=== PATIENT | female | born 1940 | race Caucasian/White ===

== ENCOUNTER → 2017-11-13 14:14 | Outpatient (CLI) | payer MEDICARE, OTHER, SELFPAY ==
[2017-11-13 16:02] LABS: Absolute Lymphocyte Count 1.11 X10^3/ul (0.83-4.51); Absolute Neutrophil Count 6.3 X10^3/uL (2.0-7.7); Basophil# 0.04 X10^3/uL; Basophil% 0.5 % (0-1); Eosinophil# 0.19 X10^3/uL; Eosinophils% 2.3 % (0-5); Hematocrit 41.6 % (37-47); Hemoglobin 13.8 g/dl (12.0-15.0); Lymphocyte # 1.11 X10^3/ul (4.0); Lymphocyte % 13.2 % (19-41); Mean Corp Hgb Conc 33.2 g/gl (32-36); Mean Corpuscular Hgb 30.4 pg (27.0-32.0); Mean Corpuscular Volume 91.6 fL (81-99); Mean Platelet Vol. 10.5 fl (6.2-12.0); Monocyte% 9.5 % (0-10); Neutrophil # 6.26 X10^3/uL (2.7-7.7); Neutrophil % 74.3 % (47-70); Platelet Count 265 K/mm3 (150-450); RBC Distribution Width CV 13.1 % (11.6-14.6); RBC Distribution Width SD 43.5 fl (35.1-43.9); Red Blood Count 4.54 M/mm3 (4.2-5.4); White Blood Count 8.4 K/mm3 (4.4-11.0)
[2017-11-13 16:04] LABS: POSITIVE COUNT NO; POSITIVE DIFFERENTIAL NO; POSITIVE MORPHOLOGY NO
[2017-11-13 16:19] LABS: CRP < 2.90 mg/L (0.0-3.0)
[2017-11-13 16:38] LABS: Erythrocyte Sedimentation Rate 16 mm/hr (0-30)
== END ==
PROVIDERS: Family Provider Internal Medicine; PCP Internal Medicine; Visit Provider Specialist
DX: T84.84XA Pain due to internal orthopedic prosthetic devices, implants and grafts, initial encounter (principal)
CPT/HCPCS: 36415; 85025; 85652; 86140

== ENCOUNTER 2017-12-03 08:37 | Inpatient (IN) | payer MEDICARE, OTHER, SELFPAY ==
--- NOTE | 2017-11-21 09:26 | PCM.HP.BLA ---
History and Physical DATE OF SURGERY: 12/03/2017 SCHEDULED PROCEDURE: Right knee polyethylene exchange HISTORY OF PRESENT ILLNESS: This is a 77-year-old female who is been having ongoing pain in her right knee since May 2017. Patient underwent a previous bilateral total knee replacement by Dr. Azevedo in 2007. She denied any complications after the surgery. She currently states her pain is intermittent, aching, and stabbing. Patient states the pain is increased with going up and down stairs, walking, or lying in bed. Pain is located over the anterior knee. Patient states she has difficult time with activities of daily living including bathing and showering, getting dressed, housework, shopping, and leisure activities. Patient feels unsafe walking due to her knee pain. Patient has tried previous conservative measures consisting of physical therapy and home exercises with no relief in symptoms. Patient currently uses meloxicam with no relief in symptoms. She does use a cane and walker. She has also tried a brace. Patient currently denies any chest pain, shortness of breath, fevers chills, or recent infections. After failing conservative measures and discussing all treatment up him of the patient would like to proceed with a right knee polyethylene exchange. Patient has received surgical clearance from her primary care physician Dr. Mckay. Patient has a medical history pertinent for Ruiz's esophagitis, hypertension. REVIEW OF SYSTEMS: ROS: Const: Denies anorexia, change in appetite, fever, hard of hearing, vision problems and weight change. CV: Denies chest pain, heart murmur, irregular heartbeat and peripheral vascular disease. Resp: Denies asthma, cough, pneumonia, sleep apnea, SOB, tuberculosis and wheezing. GI: Denies constipation, diarrhea, difficulty swallowing, heartburn, nausea, bloody stools and vomiting. : . (F Genital Sx) Urinary: denies incontinence. Musculo: Denies leg swelling, limp, trouble walking and weakness. Skin: Denies Raynaud's, history of shingles and tattoo. Neuro: Reports dizziness and numbness/tingling but denies ambulatory dysfunction and tremor. Psych: Denies anxiety, depression, insomnia, mental illness and stress. Toro/Lymph: Denies anemia, bleeding/bruising tendency and past transfusion. Reviewed, no changes. PAST MEDICAL HISTORY: Advance Care Plan: Other Directive, P.O.A. Effective Date: 07/10/2015 Other Directive, LIVING WILL Effective Date: 07/10/2015 PMH: Medical Problems: Arthritis, High Blood Pressure, Restless Leg, Barretts Esophagus Accidents: None Surgical Hx: Hysterectomy - 2009 Carpal Tunnel Release LT - 25 YRS AGO Carpal Tunnel Release RT - 25 YEARS AGO Knee Replacement Bilat - 2007 DR DAPHNE ARREOLA Back Fusion - (2014) LT Shoulder Reverse Replacement Spinal Stenosis - (2013) Back Fusion - (01/2016) @[facility] Anesthesia Complications: None Assistive Devices: Glasses, Dentures Reviewed, no changes. SOCIAL HISTORY: SH: Marital: .Occupation: Retired.Work Status: Retired.Hand Dominance: Right-handed. Personal Habits: Smoking: Patient is a former smoker.Cigarette Use: Former.Alcohol: Occasionally.Drug Use: Denies Use.Enjoy Exercising: Exercises 1-3 x/month. Reviewed, no changes. VITALS: Ht: 64 Wt: 171lb Wt k.566 BMI: 29.3 BP: 148/80 Pulse: 80 Resp: 16 T: 97.5 T: 36.4C ALLERGIES: MSG - Lowers BP,Causes Stomach Cramps Triamterene - Hives & Restlessness Meloxicam - Hives Irbesartan - Retain Fluid In Legs MEDICATIONS: Centrum Silver 1 tab PO daily, Vitamin D3 1000 Unit 1 po qd, Atenolol 50 mg 1 po qd, Losartan Potassium 100 mg daily, Pramipexole Dihydrochloride 0.5 mg daily, Aleve 220 mg as needed, Omeprazole 20 mg 1 by mouth every day, Amlodipine Besylate 5 mg 1 by mouth every day, Spironolactone 25 mg 1 by mouth every day, Temazepam 15 mg PRE-OP EXAM: General appearance:NORMAL Other: Eyes: Conjunctivae and lids: NORMAL Pupils: ERR Ears, Nose, Mouth, and Throat: NORMAL Other: Inspection of lips, teeth and gums: NORMAL Other: Neck: Examination of neck: no masses noted. Respiratory: Assessment of respiratory effort: NORMAL Other: Ausculation of lungs: clear to ausculation no wheeses, ronchi or rales. Cardiovascular: Ausculation of heart: regular rate and rhythem, no mummurs, gallops or rubs. Exam of carotid arteries: NORMAL Other: Gastrointestinal: Exam of abdomen: soft, nontender, nondistended bowel sounds present PHYSICAL EXAMINATION: Patient walks with an antalgic gait. Currently using cane. Patient's previous incisions are well-healed without evidence of erythema or signs patient does have laxity medially 4 mm, 3 mm laterally at 30?. She also has 3 mm anterior translation. Tenderness over the pedis anserine and Akosua's tubercle. Range of motion is 0-120? on the right knee. Patient does have thigh atrophy on the right when compared to the left. IMAGING STUDIES: X-rays of the right knee reveal a stable right total knee arthroplasty. No acute findings for fracture or dislocation. IMPRESSION: 1. 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 Hypertension 3. Restless leg syndrome 4. Ruiz's esophagitis 5. Stress incontinence 6. Lumbar stenosis 7. History of diverticulitis PLAN: Dr. Drake did discuss and review with the patient all treatment options including surgical versus nonsurgical. Patient wishes to proceed with above-stated procedure. Potential risks, benefits, and complications of this procedure were discussed in detail including but not limited to , infection, nerve and blood vessel damage, persistent pain, numbness, tingling, paresthesias, blood clot, pulmonary embolism, and requirement for further surgery. The patient expressed full understanding has no further questions for the doctor. Patient does agree to proceed with the above-stated procedure and has signed the surgery consent form. ___ I have re-examined the patient. There are no clinical changes since date of exam. ___ See progress notes for changes. ___ Dictated on admission Date: Time: Signature:
--- NOTE | 2017-11-21 09:35 | HP.PCM_ITS ---
History and Physical DATE OF SURGERY: 12/03/2017 SCHEDULED PROCEDURE: Right knee polyethylene exchange HISTORY OF PRESENT ILLNESS: This is a 77-year-old female who is been having ongoing pain in her right knee since May 2017. Patient underwent a previous bilateral total knee replacement by Dr. Azevedo in 2007. She denied any complications after the surgery. She currently states her pain is intermittent, aching, and stabbing. Patient states the pain is increased with going up and down stairs, walking, or lying in bed. Pain is located over the anterior knee. Patient states she has difficult time with activities of daily living including bathing and showering, getting dressed, housework, shopping, and leisure activities. Patient feels unsafe walking due to her knee pain. Patient has tried previous conservative measures consisting of physical therapy and home exercises with no relief in symptoms. Patient currently uses meloxicam with no relief in symptoms. She does use a cane and walker. She has also tried a brace. Patient currently denies any chest pain, shortness of breath, fevers chills, or recent infections. After failing conservative measures and discussing all treatment up him of the patient would like to proceed with a right knee polyethylene exchange. Patient has received surgical clearance from her primary care physician Dr. Mckay. Patient has a medical history pertinent for Ruiz's esophagitis, hypertension. REVIEW OF SYSTEMS: ROS: Const: Denies anorexia, change in appetite, fever, hard of hearing, vision problems and weight change. CV: Denies chest pain, heart murmur, irregular heartbeat and peripheral vascular disease. Resp: Denies asthma, cough, pneumonia, sleep apnea, SOB, tuberculosis and wheezing. GI: Denies constipation, diarrhea, difficulty swallowing, heartburn, nausea, bloody stools and vomiting. : . (F Genital Sx) Urinary: denies incontinence. Musculo: Denies leg swelling, limp, trouble walking and weakness. Skin: Denies Raynaud's, history of shingles and tattoo. Neuro: Reports dizziness and numbness/tingling but denies ambulatory dysfunction and tremor. Psych: Denies anxiety, depression, insomnia, mental illness and stress. Toro/Lymph: Denies anemia, bleeding/bruising tendency and past transfusion. Reviewed, no changes. PAST MEDICAL HISTORY: Advance Care Plan: Other Directive, P.O.A. Effective Date: 07/10/2015 Other Directive, LIVING WILL Effective Date: 07/10/2015 PMH: Medical Problems: Arthritis, High Blood Pressure, Restless Leg, Barretts Esophagus Accidents: None Surgical Hx: Hysterectomy - 2009 Carpal Tunnel Release LT - 25 YRS AGO Carpal Tunnel Release RT - 25 YEARS AGO Knee Replacement Bilat - 2007 DR DAPHNE ARREOLA Back Fusion - (2014) LT Shoulder Reverse Replacement Spinal Stenosis - (2013) Back Fusion - (01/2016) @[facility] Anesthesia Complications: None Assistive Devices: Glasses, Dentures Reviewed, no changes. SOCIAL HISTORY: SH: Marital: .Occupation: Retired.Work Status: Retired.Hand Dominance: Right- handed. Personal Habits: Smoking: Patient is a former smoker.Cigarette Use: Former.Alcohol: Occasionally.Drug Use: Denies Use.Enjoy Exercising: Exercises 1- 3 x/month. Reviewed, no changes. VITALS: Ht: 64 Wt: 171lb Wt k.566 BMI: 29.3 BP: 148/80 Pulse: 80 Resp: 16 T: 97.5 T: 36.4C ALLERGIES: MSG - Lowers BP,Causes Stomach Cramps Triamterene - Hives & Restlessness Meloxicam - Hives Irbesartan - Retain Fluid In Legs MEDICATIONS: Centrum Silver 1 tab PO daily, Vitamin D3 1000 Unit 1 po qd, Atenolol 50 mg 1 po qd, Losartan Potassium 100 mg daily, Pramipexole Dihydrochloride 0.5 mg daily , Aleve 220 mg as needed, Omeprazole 20 mg 1 by mouth every day, Amlodipine Besylate 5 mg 1 by mouth every day, Spironolactone 25 mg 1 by mouth every day, Temazepam 15 mg PRE-OP EXAM: General appearance:NORMAL Other: Eyes: Conjunctivae and lids: NORMAL Pupils: ERR Ears, Nose, Mouth, and Throat: NORMAL Other: Inspection of lips, teeth and gums: NORMAL Other: Neck: Examination of neck: no masses noted. Respiratory: Assessment of respiratory effort: NORMAL Other: Ausculation of lungs: clear to ausculation no wheeses, ronchi or rales. Cardiovascular: Ausculation of heart: regular rate and rhythem, no mummurs, gallops or rubs. Exam of carotid arteries: NORMAL Other: Gastrointestinal: Exam of abdomen: soft, nontender, nondistended bowel sounds present PHYSICAL EXAMINATION: Patient walks with an antalgic gait. Currently using cane. Patient's previous incisions are well-healed without evidence of erythema or signs patient does have laxity medially 4 mm, 3 mm laterally at 30?. She also has 3 mm anterior translation. Tenderness over the pedis anserine and Akosua's tubercle. Range of motion is 0-120? on the right knee. Patient does have thigh atrophy on the right when compared to the left. IMAGING STUDIES: X-rays of the right knee reveal a stable right total knee arthroplasty. No acute findings for fracture or dislocation. IMPRESSION: 1. 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 Hypertension 3. Restless leg syndrome 4. Ruiz's esophagitis 5. Stress incontinence 6. Lumbar stenosis 7. History of diverticulitis PLAN: Dr. Drake did discuss and review with the patient all treatment options including surgical versus nonsurgical. Patient wishes to proceed with above- stated procedure. Potential risks, benefits, and complications of this procedure were discussed in detail including but not limited to , infection , nerve and blood vessel damage, persistent pain, numbness, tingling, paresthesias, blood clot, pulmonary embolism, and requirement for further surgery. The patient expressed full understanding has no further questions for the doctor. Patient does agree to proceed with the above-stated procedure and has signed the surgery consent form. ___ I have re-examined the patient. There are no clinical changes since date of exam. ___ See progress notes for changes. ___ Dictated on admission Date: Time: Signature:
[2017-11-21 10:05] VITALS: BP 123/70; PULSE 65; RESP 17; TEMP 36.7; O2SAT 97; BMI 28.5
--- NOTE | 2017-11-21 10:30 | SDCEKG_ITS ---
Test Reason : Blood Pressure : / mmHG Vent. Rate : 059 BPM Atrial Rate : 059 BPM P-R Int : 204 ms QRS Dur : 092 ms QT Int : 404 ms P-R-T Axes : 063 -02 011 degrees QTc Int : 399 ms Sinus bradycardia Otherwise normal ECG Confirmed by RICHARD PEREZ ([id number]), mapping editor CHARLENE MOSELEY ([id number]) on 11/24/2017 1:37:25 PM Referred By: Adan Drake Confirmed By:RICHARD PEREZ
[2017-11-21 11:15] LABS: Prothrombin Time (Protime)PT. 13.4 SECONDS (11.7-14.9)
[2017-11-21 11:35] LABS: AST(SGOT) 23 U/L (15-37); Alanine Aminotransfer ALT/SGPT 18 U/L (13-56); Albumin, Serum 3.9 g/dL (3.2-5.0); Alkaline Phosphatase 112 U/L (45-117); Anion Gap 4 (5-15); BUN 23 mg/dL (7-18); Bilirubin, Direct 0.14 mg/dL (0.00-0.30); Chloride 108 mmol/L (98-107); Creatinine, Serum 0.62 mg/dL (0.55-1.02); EST Glomerular Filtration Rate 98 mL/min (>60); Est Glom Filt Rate - Afr Amer 119 mL/min (>60); Estimated Creatinine Clearance 39.39 ml/min; Glucose 85 mg/dL (74-106); Potassium 4.3 mmol/L (3.5-5.1); Protein, Total 6.9 g/dL (6.4-8.2); Sodium Level 141 mmol/L (136-145)
[2017-11-27 11:44] LABS: Albumin, Serum 4.1 g/dL (3.2-5.0)
[2017-12-03] VITALS (12 sets, daily range): BP systolic 113–137; BP diastolic 58–86; PULSE 67–84; RESP 14–19; TEMP 36.2–36.8; O2SAT 93–100; BMI 28.5; BMI 30.2
[2017-12-03] MEDS: Acetaminophen 500 MG Tablet 1000 MG PO ×2 (09:15→21:19)
[2017-12-03] MEDS: oxyCODONE HCl Cr 10 MG Tablet PO (09:15)
[2017-12-03] MEDS: Scopolamine 1mg/72hr Patch 1 PATCH TD (10:27)
[2017-12-03] MEDS: Cefazolin 2 GM in 0.9% Normal Saline 100 ML IV (10:35)
[2017-12-03] MEDS: Lactated Ringers 1,000 ML 999 ML IV ×2 (10:45→11:35)
--- NOTE | 2017-12-03 12:01 | OP.PCM_ITS ---
Report of Operation Date of Procedure: 12/03/17 Pre-Operative Diagnosis: Painful right total knee arthroplasty, instability Post-Operative Diagnosis: Painful right total knee arthroplasty, instability Surgery/Procedure Performed:: Revision right total knee arthroplasty, tibial insert exchange and synovectomy. Description of Surgical Findings:: 12 mm polyethylene was removed and 17 mm polyethylene was placed cattle dipper: Jackeline Hayden Type of Anesthesia:: General Anesthesiologist: Grant Vail Special Medications: 2 g Ancef, 1 g TXA at incision, 1 g TXA closure, 10 mg Decadron, joint cocktail (5 mg Duramorph, 30 mL of 0.5% Ropivicaine, 1000 units of epinephrine, 30 mg of Toradol) Specimen's removed: 3 separate specimens were sent to microbiology Estimated Blood Loss (mL): 25 Fluids Replaced: 800 mL crystalloid Description of Procedure: 77-year-old female presented to my office with gross instability of her knee done in 2007. Infection was ruled out. Based on her discomfort and instability on examination we discussed polyethylene exchange revision of the right total knee. Risks and benefits were discussed the patient including but not limited to blood loss, DVTs, PEs, neurovascular damage, infection, general risk of anesthesia including loss of life. Patient does state understanding was able to sign for consent. Clearance was obtained. Procedure: On the day of the procedure patient's right leg was marked in the preoperative area. Patient was brought back to the operating room where there transferred to the table in the supine position. Anesthesia assumed control the C-spine airway and remained controlled throughout the remainder of the procedure. All bony prominences were identified and well-padded and anesthesia administered the anesthetic. Once this was done tourniquet was placed on the right upper thigh the right lower extremity was prepped in a sterile fashion while the surgeon scrubbed. Upon reentering the room the right lower extremity was draped in a standard orthopedic fashion and the previous incision was marked out extending it 1 cm distally and proximally. Timeout was called everyone agreed upon the side, site , the procedure to be performed, patient identity and antibiotics given. Esmarch bandage was used to exsanguinate the extremity knee was flexed and tourniquet was placed to 250 mmHg. Incision was obtained out the skin subcutaneous tissue fat down to fascia. Once we identified the previous arthrotomy which was repaired with #2 FiberWire a standard medial parapatellar arthrotomy was performed. Once this was done previous nonabsorbable sutures were removed in total. We then directed our attention towards the MCL release to expose the knee. A complete synovectomy was performed starting in the medial gutter proceeding to the suprapatellar pouch, and finally completing it in the infrapatellar and lateral gutter areas. Synovial specimens were sent for culture. Knee was then flexed up and the 12 mm insert was removed. At this time we trialed inserts and stability was obtained with a 17 mm insert in both flexion and extension. Full extension was obtained. 120? flexion was obtained. Trial insert was then removed. We did note that the patella tracked well. 6 L of normal saline were then irrigated throughout the wound while the final implant was opened. After 6 L were irrigated throughout the wound with low-pressure lavage knee was flexed up and final insert was impacted into place. He remained stable with good patella tracking. Patella remained stable. We also checked the femoral and tibial implants which showed stability and that they were well fixed. At this time the wound was copiously irrigated out normal saline and tourniquet was let down and hemostasis was obtained. Arthrotomy was closed with #1 Vicryl interrupted sutures around the patella and running sutures approximately distally. Skin was closed with 2-0 Vicryl and final skin closure was done with skin candi. Mepilex dressing was placed. Compressive dressing was placed. Patient was awakened by anesthesia transferred to the PACU for recovery. Postoperative plan will follow cultures for this patient she will be on doxycycline for 1 week as we follow cultures. She will be on aspirin 325 mg twice daily. She will be admitted the hospital postoperatively. Grafts/Implants Used: Grayson NexGen 17 mm 5-6/EF tibial insert - Complications None - Admit VTE Documentation VTE Present on Admission: No VTE Mechan Device Prophylaxis: SCD's, Thigh High ORIN Hose VTE Pharm Prophylaxis ordered?: Yes
[2017-12-03] MEDS: Lactated Ringers 1,000 ML 125 ML IV (13:31)
--- NOTE | 2017-12-03 16:22 | NURSING ---
Unable to complete post op assessment at this time due to patient walking in hallway with therapy.
[2017-12-03] MEDS: Glucerna Shake 120 ML LIQUID PO (16:57)
[2017-12-03] MEDS: oxyCODONE 5 MG Tablet PO (16:57)
[2017-12-03] MEDS: Cefazolin 1 GM/50 ML BAG IV (18:08)
[2017-12-03] MEDS: Pramipexole Di-HCl 0.25 MG Tablet PO (18:08)
[2017-12-03] MEDS: Pramipexole Di-HCl 0.5 MG Tablet PO (21:19)
[2017-12-03] MEDS: Aspirin 325 MG Tablet PO (21:19)
[2017-12-03] MEDS: Senna/Docusate Sodium 1 Tablet 2 TABLET PO (21:19)
[2017-12-03] MEDS: Doxycycline 100 MG CAPSULE PO (21:19)
[2017-12-04 02:20] VITALS: BP 121/65; PULSE 64; RESP 18; TEMP 36.6; O2SAT 98
[2017-12-04] MEDS: oxyCODONE 5 MG Tablet PO ×3 (02:27→14:23)
[2017-12-04] MEDS: Cefazolin 1 GM/50 ML BAG IV (02:28)
[2017-12-04] MEDS: 0.9% NaCl Peripheral Flush Adult/Peds IV (02:28)
[2017-12-04 06:01] LABS: Hematocrit 35.1 % (37-47); Hemoglobin 11.7 g/dl (12.0-15.0); Mean Corp Hgb Conc 33.3 g/gl (32-36); Mean Corpuscular Hgb 30.8 pg (27.0-32.0); Mean Corpuscular Volume 92.4 fL (81-99); Mean Platelet Vol. 10.2 fl (6.2-12.0); Platelet Count 220 K/mm3 (150-450); RBC Distribution Width CV 12.8 % (11.6-14.6); RBC Distribution Width SD 41.9 fl (35.1-43.9); White Blood Count 10.6 K/mm3 (4.4-11.0)
[2017-12-04 06:02] LABS: Anion Gap 7 (5-15); BUN 17 mg/dL (7-18); Chloride 106 mmol/L (98-107); Creatinine, Serum 0.68 mg/dL (0.55-1.02); EST Glomerular Filtration Rate 89 mL/min (>60); Est Glom Filt Rate - Afr Amer 107 mL/min (>60); Estimated Creatinine Clearance 37.74 ml/min; Glucose 105 mg/dL (74-106); Potassium 4.6 mmol/L (3.5-5.1); Sodium Level 140 mmol/L (136-145)
[2017-12-04 06:08] LABS: Scan Indicated on CBC? Y/N NO
[2017-12-04] MEDS: Acetaminophen 500 MG Tablet 1000 MG PO ×2 (06:14→14:23)
[2017-12-04 08:00] VITALS: BP 115/64; PULSE 56; RESP 18; TEMP 37; O2SAT 99
[2017-12-04] MEDS: amLODIPine 5 MG Tablet PO (08:04)
[2017-12-04] MEDS: Senna/Docusate Sodium 1 Tablet 2 TABLET PO (08:05)
[2017-12-04] MEDS: Famotidine 20 MG Tablet PO (08:05)
[2017-12-04] MEDS: Aspirin 325 MG Tablet PO (08:05)
[2017-12-04] MEDS: Multivitamins,Therapeutic Tablet 1 TABLET PO (08:05)
[2017-12-04] MEDS: Pantoprazole Sodium 20 MG Tablet PO (08:05)
[2017-12-04] MEDS: Doxycycline 100 MG CAPSULE PO (08:05)
[2017-12-04] MEDS: Spironolactone 25 MG Tablet 12.5 MG PO (08:06)
--- NOTE | 2017-12-04 09:20 | PCM.PN.ORT ---
Subjective: The patient was sitting in bedside chair upon examination. Patient denies any chest pain, shortness of breath, dizziness, lightheadedness, nausea or vomiting, or calf pain. Pain is controlled on medications. No adverse overnight events. Overall patient is doing well. Plan is for patient to go home with home health physical therapy. Patient did have low pulse rate today but states she normally runs into the mid to low 60s. We are holding her beta-kwame. Objective: Vital signs stable and afebrile. Patient is able to plantarflex and dorsiflex actively. Sensation is intact to light touch to saphenous, sural, superficial and deep peroneal, and tibial distribution. Dressing is clean dry and intact. Negative Homans bilaterally, negative signs and symptoms of DVT. - Physical Exam General: Alert, Oriented x3, Cooperative, No apparent distress Vital Signs Temp Pulse Resp BP Pulse Ox 98.6 F 56 L 18 115/64 99 12/04/17 08:00 12/04/17 08:00 12/04/17 08:00 12/04/17 08:00 12/04/17 08:00 Oxygen Flow Rate (L/min) 2 Oxygen Delivery Method Room Air Weight: 77.5 kg Body Mass Index (BMI) 30.2 Intake and Output for Last 24 Hours 12/02/17 12/03/17 12/04/17 23:59 23:59 23:59 Intake Total 2250 / 2250 947 / 947 Output Total 2200 / 2200 Balance 2250 / 2250 -1253 / -1253 Microbiology Past 72 Hours 12/03/17 11:05 Gram Stain - Final Tissue - Knee 12/03/17 11:05 Gram Stain - Final Tissue - Knee Laboratory Tests Past 24 Hrs 12/04/17 12/04/17 05:02 05:02 WBC 10.6 RBC 3.80 L Hgb 11.7 L Hct 35.1 L MCV 92.4 MCH 30.8 MCHC 33.3 RDW 12.8 RDW Differential 41.9 Plt Count 220 MPV 10.2 Sodium 140 Potassium 4.6 Chloride 106 Carbon Dioxide 27.0 Anion Gap 7 BUN 17 Creatinine 0.68 Estim Creat Clear Calc 37.74 Est GFR (MDRD) Af Amer 107 Est GFR (MDRD) Non-Af 89 BUN/Creatinine Ratio 25.0 H Glucose 105 Calcium 9.0 Medical Necessity - Tobacco Use Smoking Status: Never smoker Assessment/Plan 1. S/P right revision total knee arthroplasty with polyethylene exchange and synovectomy POD #1 2. Continue Pain Medications: Tylenol and OxyIR 3. DVT Prophylaxis: Aspirin 325 mg twice daily 4. PT/OT: Weightbearing as tolerated 5. H & H: 11.7/35.1, asymptomatic 6. Encouraged Incentive Spirometry 7. Disposition: Overall doing well, plan will be for discharge home this afternoon. Patient will be set up with home health physical therapy, case management is involved. Prescriptions will be E scribed to [facility]. Patient will follow-up per postop instructions.
--- NOTE | 2017-12-04 09:31 | PCM.DC.TKR ---
Discharge Diet: No Restrictions Discharge Activity: May Not Drive May shower in (days): 1 - Turned dressing away from water Ice area for (Minutes): 20 - every hour while awake. Weight Bearing Status: Weight bearing as tolerated Elevate: Operative Extremity Additional Activity Instructions:: Wear elastic stockings for 2 weeks after your surgery. Call your doctor if your incision/area has: Continuous Slow Oozing, Sudden Increased Bleeding, Increased Pain/ Swelling, Increased Redness, Foul Smelling Discharge Call your doctor if you observe: Fever of 101 or Higher, Coldness, Increased Pain, Numbness or Tingling, Change in Color, Calf discomfort, Uncontrolled pain Remove Dressing in (days):: 4 - Okay to remove on December 08, 2017 Additional Instructions: Follow [place] [facility] postop instructions Allergies/Adverse Reactions: Allergies influenza virus vaccine ts [From Fluarix] Allergy (Severe, Verified 11/21/17 09:56) Swelling hydrochlorothiazide Allergy (Verified 11/21/17 09:56) Hives irbesartan Allergy (Verified 11/21/17 09:56) Other meloxicam Allergy (Verified 12/02/17 17:25) Swelling triamterene Allergy (Verified 11/21/17 09:56) Hives perfume Adverse Reaction (Verified 11/21/17 09:56) Other venom-honey bee [bee venom (honey bee)] Adverse Reaction (Verified 11/21/17 09:56) Anaphylaxis MSG Allergy (Uncoded 11/21/17 09:56) Shortness of breath Medications to take at Discharge Amlodipine [Norvasc] 5 mg PO DAILY 11/21/17 Atenolol [Tenormin (beta kwame)] 50 mg PO DAILY 11/21/17 Cholecalciferol (VIT D3) [Vitamin D3] 1,000 unit PO DAILY 11/21/17 Losartan Potassium [Cozaar] 100 mg PO DAILY 11/21/17 Multivitamins,Therapeutic [Multivitamin] 1 tablet PO QODAY 11/21/17 Omeprazole [Prilosec] 20 mg PO DAILY 11/21/17 Pramipexole Di-HCl [Mirapex] 0.25 mg PO DAILY@1200 11/21/17 Pramipexole Di-HCl [Mirapex] 0.5 mg PO QHS 11/21/17 Spironolactone [Aldactone] 12.5 mg PO DAILY 11/21/17 Temazepam [Restoril] 15 mg PO QHS PRN PRN 11/21/17 Acetaminophen [Tylenol] 1,000 mg PO Q8 #90 tab 12/04/17 Aspirin 325 mg PO BIDCM #30 tab 12/04/17 Doxycycline 100 mg PO BID #14 cap 12/04/17 Oxycodone [Oxyir] 5 - 10 mg PO Q4H PRN PRN 5 Days #60 tablet 12/04/17 Senna/Docusate Sodium [Senokot-S] 2 tab PO BID #20 tab 12/04/17 The following prescriptions were given: Oxycodone [Oxyir] 5 - 10 mg PO Q4H PRN PRN 5 Days #60 tablet PRN Reason: Mod-Severe Pain (-06/17) Acetaminophen [Tylenol] 1,000 mg PO Q8 #90 tab Aspirin 325 mg PO BIDCM #30 tab Doxycycline 100 mg PO BID #14 cap Senna/Docusate Sodium [Senokot-S] 2 tab PO BID #20 tab Primary Care Physician: Gurvinder Mckay MD [Primary Care Provider] - Please Follow Up With: home health physical therapy Please Follow Up With: Mark Andersen PA-C When: 12/17/17 @ 9:30 am
--- NOTE | 2017-12-04 09:54 | CASEMGMT ---
RN LENI Face to Face with patient for initial transition planning/care coordination assessment. RN CM introduced self and role at [facility]. Patient sitting in chair, alert and oriented. Patient willing to participate in assessment and is able to answer all questions appropriately. Care providers, pharmacy, and demographics verified. Patient wishes to discharge home and is requesting [facility] for therapy at home. Patient would like [facility]. Referral made to [facility] and they are able to accept the patient. Patient updated regarding HHC with [facility]. Patient states she has no further needs or concerns at this time. CM to follow for discharge planning needs that may arise.
[2017-12-04 14:26] VITALS: BP 114/60; PULSE 60; RESP 16; TEMP 36.4; O2SAT 99
== END 2017-12-04 14:51 | disposition home health service (06) | DRG 468 ==
LOC: MS3 08:37
PROVIDERS: Anesthesiology; Admitting Provider Specialist; Family Provider Internal Medicine; PCP Internal Medicine; Visit Provider Specialist
PROC: 0SPC0JZ Removal of Synthetic Substitute from Right Knee Joint, Open Approach (ICD-10-PCS; CPT 27487; principal; 2017-12-03 10:25)
DX: T84.84XA Pain due to internal orthopedic prosthetic devices, implants and grafts, initial encounter (principal); G25.81 Restless legs syndrome; I10 Essential (primary) hypertension; K21.9 Gastro-esophageal reflux disease without esophagitis; M25.361 Other instability, right knee; Z96.653 Presence of artificial knee joint, bilateral; K22.70 Barrett's esophagus without dysplasia; M19.90 Unspecified osteoarthritis, unspecified site; N39.3 Stress incontinence (female) (male); M48.061 Spinal stenosis, lumbar region without neurogenic claudication; Z87.891 Personal history of nicotine dependence; Z87.19 Personal history of other diseases of the digestive system; Z79.899 Other long term (current) drug therapy; Z79.82 Long term (current) use of aspirin
CPT/HCPCS: 36415; 80048; 80076; 82040; 85027; 85610; 85730; 87015; 87070; 87075; 87081; 87102; 87116; 87205; 87206; 97110; 97116; 97162; 97165; 97530; 99251; J7120; A4216; G0463; J2405

== ENCOUNTER 2018-02-04 09:55 | Inpatient (IN) | payer MEDICARE, OTHER, SELFPAY ==
[2018-01-20 15:13] VITALS: BP 92/56; PULSE 69; RESP 16; TEMP 36.9; O2SAT 97; BMI 28.9
[2018-01-20 16:08] LABS: Absolute Lymphocyte Count 1.11 X10^3/ul (0.83-4.51); Basophil# 0.05 X10^3/uL; Basophil% 0.7 % (0-1); Eosinophil# 0.19 X10^3/uL; Eosinophils% 2.7 % (0-5); Hematocrit 38.6 % (37-47); Hemoglobin 12.7 g/dl (12.0-15.0); Lymphocyte # 1.11 X10^3/ul (4.0); Lymphocyte % 15.8 % (19-41); Mean Corp Hgb Conc 32.9 g/gl (32-36); Mean Corpuscular Hgb 30.5 pg (27.0-32.0); Mean Corpuscular Volume 92.8 fL (81-99); Mean Platelet Vol. 10.1 fl (6.2-12.0); Monocyte# 0.67 X10^3/uL; Monocyte% 9.6 % (0-10); Neutrophil # 4.97 X10^3/uL (2.7-7.7); Neutrophil % 70.9 % (47-70); Platelet Count 237 K/mm3 (150-450); RBC Distribution Width CV 13.1 % (11.6-14.6); RBC Distribution Width SD 43.3 fl (35.1-43.9); Red Blood Count 4.16 M/mm3 (4.2-5.4)
[2018-01-20 16:10] LABS: POSITIVE COUNT NO; POSITIVE DIFFERENTIAL NO; POSITIVE MORPHOLOGY NO
[2018-01-20 16:18] LABS: Anion Gap 9 (5-15); BUN 25 mg/dL (7-18); BUN/Creat Ratio 29.6 RATIO (10-20); Calcium,Total 9.2 mg/dL (8.5-10.1); Chloride 106 mmol/L (98-107); Creatinine, Serum 0.84 mg/dL (0.55-1.02); EST Glomerular Filtration Rate 69 mL/min (>60); Est Glom Filt Rate - Afr Amer 84 mL/min (>60); Estimated Creatinine Clearance 46.89 ml/min; Glucose 117 mg/dL (74-106); Potassium 4.3 mmol/L (3.5-5.1); Sodium Level 140 mmol/L (136-145)
--- NOTE | 2018-01-22 13:01 | PCM.HP.BLA ---
History and Physical DATE OF SURGERY: 02/04/2018 SCHEDULED PROCEDURE: Direct anterior right total hip arthroplasty HISTORY OF PRESENT ILLNESS: This is a 77-year-old female who is been having ongoing pain in the right hip for several months. Patient recently underwent a right total knee revision on December 03, 2017 patient is doing well postoperatively. She is currently using a cane. Patient states her pain is in the lateral hip and groin. She has been in physical therapy with regards to her knee and states her right hip is significantly been affected with increased pain. Pain does awaken her at night. She has difficult time walking any amount of distance due to her right hip pain. She has difficulty with activities of daily living including housework and shopping. She has tripped and stumbled secondary to her right hip. She feels unsafe with many activities of daily living. She has tried conservative measures consisting of rest and elevation with minimal relief. Patient is currently using a cane and walker. She denies previous surgery on the right hip. X-rays have shown severe osteoarthritic changes of the right hip. After failing conservative measures and discussing all treatment options with Dr. Drake, the patient would like to proceed with a right total hip arthroplasty. Patient currently denies any chest pain, shortness of breath, fevers chills, or recent infections. Patient will undergo preoperative lab work. She is already had a EKG prior to her recent surgery. REVIEW OF SYSTEMS: ROS: Const: Denies anorexia, change in appetite, fever, hard of hearing, vision problems and weight change. CV: Denies chest pain, heart murmur, irregular heartbeat and peripheral vascular disease. Resp: Denies asthma, cough, pneumonia, sleep apnea, SOB, tuberculosis and wheezing. GI: Denies constipation, diarrhea, difficulty swallowing, heartburn, nausea, bloody stools and vomiting. : . (F Genital Sx) Urinary: denies incontinence. Musculo: Denies leg swelling, limp, trouble walking and weakness. Skin: Denies Raynaud's, history of shingles and tattoo. Neuro: Reports dizziness and numbness/tingling but denies ambulatory dysfunction and tremor. Psych: Denies anxiety, depression, insomnia, mental illness and stress. Toro/Lymph: Denies anemia, bleeding/bruising tendency and past transfusion. Reviewed, no changes. PAST MEDICAL HISTORY: Advance Care Plan: Other Directive, P.O.A. Effective Date: 07/10/2015 Other Directive, LIVING WILL Effective Date: 07/10/2015 PMH: Medical Problems: Arthritis, High Blood Pressure, Restless Leg, Barretts Esophagus Accidents: None Surgical Hx: Hysterectomy - 2008 Carpal Tunnel Release LT - 25 YRS AGO Carpal Tunnel Release RT - 25 YEARS AGO Knee Replacement Bilat - 2007 DR DAPHNE ARREOLA Back Fusion - (2014) LT Shoulder Reverse Replacement Spinal Stenosis - (2013) Back Fusion - (01/2016) @[facility] RT TKR Poly Exchange - (12/03/2017) [email or web address] Anesthesia Complications: None Assistive Devices: Glasses, Dentures Reviewed, no changes. SOCIAL HISTORY: SH: Marital: .Occupation: Retired.Work Status: Retired.Hand Dominance: Right-handed. Personal Habits: Smoking: Patient is a former smoker.Cigarette Use: Former.Alcohol: Occasionally.Drug Use: Denies Use.Enjoy Exercising: Exercises 1-3 x/month. Reviewed, no changes. VITALS: Ht: 64 Wt: 166lb Wt k.298 BMI: 28.5 BP: 124/72 Pulse: 70 Resp: 16 T: 97.3 T: 36.3C ALLERGIES: MSG - Lowers BP,Causes Stomach Cramps Triamterene - Hives & Restlessness Meloxicam - Hives Irbesartan - Retain Fluid In Legs MEDICATIONS: Centrum Silver 1 tab PO daily, Vitamin D3 1000 Unit 1 po qd, Atenolol 50 mg 1 po qd, Losartan Potassium 100 mg daily, Pramipexole Dihydrochloride 0.5 mg daily, Aleve 220 mg as needed, Omeprazole 20 mg 1 by mouth every day, Amlodipine Besylate 5 mg 1 by mouth every day, Spironolactone 25 mg 1 by mouth every day, Temazepam 15 mg, Aspirin 81 mg 1 tab PO bid, Tylenol Extra Strength 500 mg 2 by mouth every 8 hours PRE-OP EXAM: General appearance:NORMAL Other: Eyes: Conjunctivae and lids: NORMAL Pupils: ERR Ears, Nose, Mouth, and Throat: NORMAL Other: Inspection of lips, teeth and gums: NORMAL Other: Neck: Examination of neck: no masses noted. Respiratory: Assessment of respiratory effort: NORMAL Other: Auscultation of lungs: clear to auscultation no wheezes, rhonchi or rales. Cardiovascular: Auscultation of heart: regular rate and rhythm, no murmurs, gallops or rubs. Exam of carotid arteries: NORMAL Other: Gastrointestinal: Exam of abdomen: soft, nontender, nondistended bowel sounds present. PHYSICAL EXAMINATION: Patient walks with a limping gait. She has tenderness to palpation over the lateral right hip. Range of motion is limited due to pain with crepitus. External rotation 15?, internal rotation to neutral. Flexion to 90?. Patient's right knee incision is well-healed without erythema or signs of infection. Sensation is intact to light touch. IMAGING STUDIES: Xrays were obtained at [facility] on January 19, 2018 including AP pelvis, AP Right Hip, and cross-fire lateral right hip reveals severe osteoarthritis of the right hip with complete loss of joint space, large osteophyte formation subchondral cyst and subchondral sclerosis. There is also severe left hip osteoarthritis with osteophyte formation, subchondral sclerosis, and complete joint space narrowing. IMPRESSION: 1. Severe right hip osteoarthritis 2. Severe left hip osteoarthritis 3. Status post right total knee revision 4. Hypertension 5. Restless leg 6. Ruiz's esophagitis 7. Chronic low back pain with previous back fusion 8. Stress incontinence 9. History of diverticulitis PLAN: Dr. Drake did discuss and review with the patient all treatment options including surgical versus nonsurgical. Patient wishes to proceed with above-stated procedure. Potential risks, benefits, and complications of this procedure were discussed in detail including but not limited to , infection, nerve and blood vessel damage, persistent pain, numbness, tingling, paresthesias, blood clot, pulmonary embolism, and requirement for further surgery. The patient expressed full understanding has no further questions for the doctor. Patient does agree to proceed with the above-stated procedure and has signed the surgery consent form. ___ I have re-examined the patient. There are no clinical changes since date of exam. ___ See progress notes for changes. ___ Dictated on admission Date: Time: Signature:
--- NOTE | 2018-01-22 13:19 | HP.PCM_ITS ---
History and Physical DATE OF SURGERY: 02/04/2018 SCHEDULED PROCEDURE: Direct anterior right total hip arthroplasty HISTORY OF PRESENT ILLNESS: This is a 77-year-old female who is been having ongoing pain in the right hip for several months. Patient recently underwent a right total knee revision on December 03, 2017 patient is doing well postoperatively. She is currently using a cane. Patient states her pain is in the lateral hip and groin. She has been in physical therapy with regards to her knee and states her right hip is significantly been affected with increased pain. Pain does awaken her at night. She has difficult time walking any amount of distance due to her right hip pain. She has difficulty with activities of daily living including housework and shopping. She has tripped and stumbled secondary to her right hip. She feels unsafe with many activities of daily living. She has tried conservative measures consisting of rest and elevation with minimal relief. Patient is currently using a cane and walker. She denies previous surgery on the right hip. X-rays have shown severe osteoarthritic changes of the right hip. After failing conservative measures and discussing all treatment options with Dr. Drake, the patient would like to proceed with a right total hip arthroplasty. Patient currently denies any chest pain, shortness of breath, fevers chills, or recent infections. Patient will undergo preoperative lab work. She is already had a EKG prior to her recent surgery. REVIEW OF SYSTEMS: ROS: Const: Denies anorexia, change in appetite, fever, hard of hearing, vision problems and weight change. CV: Denies chest pain, heart murmur, irregular heartbeat and peripheral vascular disease. Resp: Denies asthma, cough, pneumonia, sleep apnea, SOB, tuberculosis and wheezing. GI: Denies constipation, diarrhea, difficulty swallowing, heartburn, nausea, bloody stools and vomiting. : . (F Genital Sx) Urinary: denies incontinence. Musculo: Denies leg swelling, limp, trouble walking and weakness. Skin: Denies Raynaud's, history of shingles and tattoo. Neuro: Reports dizziness and numbness/tingling but denies ambulatory dysfunction and tremor. Psych: Denies anxiety, depression, insomnia, mental illness and stress. Toro/Lymph: Denies anemia, bleeding/bruising tendency and past transfusion. Reviewed, no changes. PAST MEDICAL HISTORY: Advance Care Plan: Other Directive, P.O.A. Effective Date: 07/10/2015 Other Directive, LIVING WILL Effective Date: 07/10/2015 PMH: Medical Problems: Arthritis, High Blood Pressure, Restless Leg, Barretts Esophagus Accidents: None Surgical Hx: Hysterectomy - 2008 Carpal Tunnel Release LT - 25 YRS AGO Carpal Tunnel Release RT - 25 YEARS AGO Knee Replacement Bilat - 2007 DR DAPHNE ARREOLA Back Fusion - (2014) LT Shoulder Reverse Replacement Spinal Stenosis - (2013) Back Fusion - (01/2016) @[facility] RT TKR Poly Exchange - (12/03/2017) [email or web address] Anesthesia Complications: None Assistive Devices: Glasses, Dentures Reviewed, no changes. SOCIAL HISTORY: SH: Marital: .Occupation: Retired.Work Status: Retired.Hand Dominance: Right- handed. Personal Habits: Smoking: Patient is a former smoker.Cigarette Use: Former.Alcohol: Occasionally.Drug Use: Denies Use.Enjoy Exercising: Exercises 1- 3 x/month. Reviewed, no changes. VITALS: Ht: 64 Wt: 166lb Wt k.298 BMI: 28.5 BP: 124/72 Pulse: 70 Resp: 16 T: 97.3 T: 36.3C ALLERGIES: MSG - Lowers BP,Causes Stomach Cramps Triamterene - Hives & Restlessness Meloxicam - Hives Irbesartan - Retain Fluid In Legs MEDICATIONS: Centrum Silver 1 tab PO daily, Vitamin D3 1000 Unit 1 po qd, Atenolol 50 mg 1 po qd, Losartan Potassium 100 mg daily, Pramipexole Dihydrochloride 0.5 mg daily , Aleve 220 mg as needed, Omeprazole 20 mg 1 by mouth every day, Amlodipine Besylate 5 mg 1 by mouth every day, Spironolactone 25 mg 1 by mouth every day, Temazepam 15 mg, Aspirin 81 mg 1 tab PO bid, Tylenol Extra Strength 500 mg 2 by mouth every 8 hours PRE-OP EXAM: General appearance:NORMAL Other: Eyes: Conjunctivae and lids: NORMAL Pupils: ERR Ears, Nose, Mouth, and Throat: NORMAL Other: Inspection of lips, teeth and gums: NORMAL Other: Neck: Examination of neck: no masses noted. Respiratory: Assessment of respiratory effort: NORMAL Other: Auscultation of lungs: clear to auscultation no wheezes, rhonchi or rales. Cardiovascular: Auscultation of heart: regular rate and rhythm, no murmurs, gallops or rubs. Exam of carotid arteries: NORMAL Other: Gastrointestinal: Exam of abdomen: soft, nontender, nondistended bowel sounds present. PHYSICAL EXAMINATION: Patient walks with a limping gait. She has tenderness to palpation over the lateral right hip. Range of motion is limited due to pain with crepitus. External rotation 15?, internal rotation to neutral. Flexion to 90?. Patient' s right knee incision is well-healed without erythema or signs of infection. Sensation is intact to light touch. IMAGING STUDIES: Xrays were obtained at [facility] on January 19, 2018 including AP pelvis , AP Right Hip, and cross-fire lateral right hip reveals severe osteoarthritis of the right hip with complete loss of joint space, large osteophyte formation subchondral cyst and subchondral sclerosis. There is also severe left hip osteoarthritis with osteophyte formation, subchondral sclerosis, and complete joint space narrowing. IMPRESSION: 1. Severe right hip osteoarthritis 2. Severe left hip osteoarthritis 3. Status post right total knee revision 4. Hypertension 5. Restless leg 6. Ruiz's esophagitis 7. Chronic low back pain with previous back fusion 8. Stress incontinence 9. History of diverticulitis PLAN: Dr. Drake did discuss and review with the patient all treatment options including surgical versus nonsurgical. Patient wishes to proceed with above- stated procedure. Potential risks, benefits, and complications of this procedure were discussed in detail including but not limited to , infection , nerve and blood vessel damage, persistent pain, numbness, tingling, paresthesias, blood clot, pulmonary embolism, and requirement for further surgery. The patient expressed full understanding has no further questions for the doctor. Patient does agree to proceed with the above-stated procedure and has signed the surgery consent form. ___ I have re-examined the patient. There are no clinical changes since date of exam. ___ See progress notes for changes. ___ Dictated on admission Date: Time: Signature:
[2018-01-23 14:49] LABS: Albumin, Serum 4.2 g/dL (3.2-5.0)
--- NOTE | 2018-01-28 13:11 | CASEMGMT ---
Addendum entered by Mami Gibbs 01/28/18 14:50: Pt called this SW back in regard to discharge plan. Pt lives home alone in a condo, states one of her children will likely stay with her the first night she is home after surgery. Pt states is independent with ADL's, has canes, walkers, bedside commode and a shower chair. Pt states she initially thought she would like home health but is now asking about going to [facility] since they offer transportation. SW explained will call [facility], have them fax an order and then call [facility] to see if they can assist in setting up an initial appointment with transportation. SW called [facility], spoke w/Nanda, asked her to fax an order for outpt PT to [facility], she states she will do it now. SW called [facility], set up an appt w/van transport for February 09 at 9:30am with a van pickup of 9am. SW called pt back to tell her the appt time, message left with the appointment information. SW/CM will follow up w/pt once here, postoperatively to confirm plan and make sure she is aware of her outpt PT appt. GISELLA Coleman, SUBSTANCE ABUSE COUNSELOR Original Note: ESCOBAR called pt at home as pt is scheduled for surgery w/Dr. Drake on 02/04/18, having a right hip replacement. SW left a message for pt at home, will speak w/pt should she return call. As per chart, pt would like to return home w/family assist and home health care. GISELLA Coleman, SUBSTANCE ABUSE COUNSELOR
[2018-02-04] VITALS (14 sets, daily range): BP systolic 106–130; BP diastolic 58–99; PULSE 58–80; RESP 14–18; TEMP 36–36.8; O2SAT 93–100; BMI 28.9; BMI 28.8
--- NOTE | 2018-02-04 10:14 | RAD_ITS ---
STUDY: X-RAY - PELVIS AND RIGHT HIP REASON FOR EXAM: Postop right hip. TECHNIQUE: Radiological exam, hip, unilateral, with pelvis when performed; 2 or 3 views. COMPARISON: None. FINDINGS: There is gas in the soft tissues from recent surgery. Normal visualized bilateral iliac wings, sacroiliac joints and visualized sacrum. Normal bilateral superior and inferior pubic rami. Normal pubic symphysis. Normal bilateral ischial tuberosities. There is a right hip arthroplasty without evidence of complication. There is advanced arthrosis of the left hip joint. RAD/Hip Min 2 Views (Portable) IMPRESSION: Right hip arthroplasty without evidence of complication. Electronically Signed: Enrique Chambers MD at 16:00 EDT Tel , Service support ,
[2018-02-04] MEDS: Celecoxib 200 MG Capsule 400 MG PO (10:32)
[2018-02-04] MEDS: Acetaminophen 500 MG Tablet 1000 MG PO ×2 (10:32→21:10)
[2018-02-04] MEDS: oxyCODONE HCl Cr 10 MG Tablet PO (10:33)
[2018-02-04] MEDS: Lactated Ringers 1,000 ML 999 ML IV (10:51)
[2018-02-04] MEDS: Cefazolin 2 GM in 0.9% Normal Saline 100 ML IV (12:53)
--- NOTE | 2018-02-04 13:05 | RAD_ITS ---
STUDY: X-RAY - PELVIS AND RIGHT HIP REASON FOR EXAM: Female, 77 years old. Right hip replacement. TECHNIQUE: Radiological exam, hip, unilateral, with pelvis when performed; 1 view COMPARISON: None. FINDINGS: Intraoperative fluoroscopic images provided for right hip replacement. Position and alignment. RAD/Hip 1 view with Pelvis IMPRESSION: Intraoperative imaging for right total hip replacement. Electronically Signed: Eduin Sim MD at 14:51 EDT Tel [phone], Service support ,
--- NOTE | 2018-02-04 13:53 | PCM.OPRPT ---
Report of Operation Date of Procedure: 02/04/18 Pre-Operative Diagnosis: Right hip primary osteoarthritis Post-Operative Diagnosis: Right hip primary osteoarthritis Surgery/Procedure Performed:: Right direct anterior total hip replacement Description of Surgical Findings:: Stable hip with equal leg lengths assembly line upholsterer: Mark Andersen Type of Anesthesia:: Spinal Anesthesiologist: Navi Alexandre Special Medications: 2 g Ancef, 1 g TXA at incision, 1 g TXA closure, 10 mg Decadron, joint cocktail (5 mg Duramorph, 30 mL of 0.5% Ropivicaine, 1000 units of epinephrine, 30 mg of Toradol) Specimen's removed: Bony cuts Estimated Blood Loss (mL): 200 Fluids Replaced: 1000 mL crystalloid Description of Procedure: Components used: 1. Accolade 2 Randolph femoral stem size 6 127? 2. [place] trident acetabular shell size 54 mm 3. Randolph X3 polyethylene E 4. Randolph Biolox delta 36mm, 0mm femoral head Brief history operative indications: 77 yo F who failed conservative measures for their hip osteoarthritis. X-rays were consistent with osteoarthritis including joint space narrowing, osteophyte formation and subchondral cysts. Total hip replacement was discussed with the patient with risks and benefits including but not limited to blood loss, DVTs, PEs, neurovascular damage, dislocation, general risks of anesthesia including loss of life. Patient demonstrated an understanding medical clearance is obtained the patient was consented for surgery. Procedure: On the date of procedure the patient's R hip was marked in the preoperative area. Patient was then taken back to the operating room where anesthesia assumed control of the C-spine and airway and administered anesthetic. Patient was transferred to the operating table and placed in the supine position. The hips were placed at the break of the bed and a sacral bump was placed. The R lower extremity was then prepped out in a sterile fashion using chlorhexidine while the surgeon scrubbed. The PA was vital in the positioning of the patient. Upon reentering the room the R lower extremity was draped in the standard orthopedic fashion and the incision was marked. A timeout was called and everyone agreed upon the side, the site, the procedure be performed, antibody given, and patient's identity. At this time incision was made through skin, subcutaneous tissue, and fat down to fascia. The fascia was then incised and the TFL was retracted laterally. A retractor was placed on the lateral border of the femoral neck. Attention was directed to the inferior portion of the approach and all crossing vessels were identified and appropriately coagulated. A retractor was then placed on the medial portion of the femoral neck. The anterior capsule was then cleared of all soft tissue and then H shaped capsulotomy was made. The retractors were then placed inside the capsule. The femoral neck was identified and a cleanup cut was made. At this time a power corkscrew was used to remove the femoral head. Attention was then turned toward the acetabulum where the soft tissues were appropriately retracted and the acetabulum was sequentially reamed to 53 mm. A 54 mm cup was then selected and impacted into place. Acetabular liner was impacted into place and locking mechanism was verified. The position of the acetabular cup was then verified under live fluoroscopy. Attention was then turned to the femur. Soft tissue releases on the medial and lateral femoral neck were appropriately done, the leg was externally rotated and lateralized. A Thornton retractor was placed medially and proximally to the greater trochanter this allowed appropriate visualization and exposure of the femoral canal. Rongeour was then used to remove excess lateral bone. A canal finder and entry broach were used to open the proximal canal. Once we verified we were down the femoral canal we subsequently broached up to a size 6 femur. The appropriate neck was placed in the previously selected head was trialed with a 0 mm neck. Traction was pulled and the hip was reduced with internal rotation. Once it was appropriately reduced and stability was checked. There was minimal shuck, equal leg lengths and appropriate stability with hyperextension and external rotation as well as with 90? flexion and internal rotation. Fluoroscopy was then also used to verify the position of the components and leg lengths using the contralateral side for comparison. The trial components were then dislocated the proximal femur was again exposed and the components were removed from the wound. The final components were verified and opened. The wound was copiously irrigated out with normal saline. The acetabulum was checked for any residual debris. The final components were placed and impacted. Traction and internal rotation were again used to reduce the hip. After adequate reduction the hip remained stable with appropriate leg lengths. The final components were once again checked with live fluoroscopy and were found to be satisfactory. The wound was then copiously irrigated with normal saline once more, and hemostasis was obtained. Closure was then done using #1 Vicryl runner to close the fascia. A 2-0 vicryl interuppted sutures were used to close the subcutaneous skin. A 3-0 Monocryl and Steri-Strips were used for final skin closure. A Silverlon dressing was placed. Patient was awakened by anesthesia and transferred to the [facility]. Patient was then transferred to the PACU for recovery. Postoperative plan: Patient will get 24 hours postop antibiotics. Patient will get in-house physical therapy and will be weight-bear as tolerated. Patient will follow up in office in 2 weeks for a wound check and x-rays. During the course of the procedure the physician medical assistant played a vital role. His intimate knowledge of my steps in the procedure aided in safe and expedient completion of the procedure. The PA played a vital rolls in positioning particularly in obtaining the appropriate positioning of the sacral bump. The PA was also vital in the retraction of soft tissues during the exposure and especially the femoral work as this is a vital part of the procedure to prevent complications and fractures. The PA was also vital and protecting soft tissues during times of bony cuts and reaming. He also played a vital role in closure with my direct supervision. The PA was also important during reduction and dislocation of the joint and trials intraoperatively. Grafts/Implants Used: [place] accolade 2 - Complications None - Admit VTE Documentation VTE Present on Admission: No VTE Mechan Device Prophylaxis: SCD's, Thigh High ORIN Hose VTE Pharm Prophylaxis ordered?: Yes
[2018-02-04] MEDS: Scopolamine 1mg/72hr Patch 1 PATCH TD (16:29)
[2018-02-04] MEDS: Aspirin 325 MG Tablet PO (16:30)
[2018-02-04] MEDS: Pramipexole Di-HCl 0.25 MG Tablet PO (16:39)
--- NOTE | 2018-02-04 17:01 | PCM.PROGNOTE ---
Subjective: Chief complaint: Consultation for postoperative medical management. Patient seen and examined. She has no significant complaints. Her right hip pain is well controlled at this time. She had chronic back pain. Vital signs are stable. - Physical Exam General: Alert, Oriented x3, Cooperative, No apparent distress HEENT: Atraumatic, PERRLA, EOMI Oral: Moist Mucosa, No Gingival or Mucosal Lesions/ Ulcerations Neck: Supple, No JVD, Negative Carotid Bruits, Trachea Midline, Thyroid Normal Size and Texture Lungs: Clear to auscultation, Normal air movement, No rhonchi, No wheeze, No rales Cardiovascular: Regular rate, Regular Rhythm, Normal S1, Normal S2, No murmurs Abdomen: Bowel Sounds Present, Soft, Non Tender, Non-Distended, No Hepato-splenomegaly Extremities: No clubbing, No cyanosis, No edema Skin: No rashes, No breakdown Lymphatic: No Cervical, Supraclavicular, or Inguinal Adenopathy Neurological: Cranial nerves II-XII grossly intact, Motor Exam 5/5 strength throughout Psych/Mental Status: Normal Affect, Appropriate, Alert and oriented to time, place, person, mood and affect Vital Signs Temp Pulse Resp BP Pulse Ox 97.5 F L 80 16 123/61 H 96 02/04/18 16:00 02/04/18 16:04 02/04/18 16:00 02/04/18 16:00 02/04/18 16:00 Oxygen Delivery Method Room Air Weight: 168 lb 6.931 oz Body Mass Index (BMI) 28.8 Intake and Output for Last 24 Hours 02/02/18 02/03/18 02/04/18 23:59 23:59 23:59 Intake Total 1000 / 1000 Balance 1000 / 1000 Medical Necessity - Tobacco Use Smoking Status: Never smoker Assessment/Plan This is a 77 years old female patient underwent elective right total hip replacement for right hip osteoarthritis and I am seeing this patient for consultation for postoperative medical management. #1 status post right total hip replacement: Postoperative day 1. Vital signs are stable. Preoperative routine blood work reviewed, was unremarkable. At this time, she has no complaints, pain is well controlled. She is on IV cefazolin for perioperative prophylaxis. She is on IV morphine and OxyIR as needed for pain. CBC and BMP for tomorrow was ordered. Orthopedic surgery is managing. #2 hypertension: Blood pressure stable, continue Norvasc, atenolol, losartan and Aldactone. #3 chronic back pain: She is on IV morphine and OxyIR as needed. #4 osteoarthritis: Continue Tylenol and as needed. #5 DVT prophylaxis: SCDs, full dose aspirin twice daily. This note was generated with [employer]ation software. It may contain incorrect words, spelling, and punctuation that were not noted in checking the note before signing. Code Visit Inpatient E&M: 41369 Subs Hosp L2
--- NOTE | 2018-02-04 17:05 | PN_ITS ---
Subjective: Chief complaint: Consultation for postoperative medical management. Patient seen and examined. She has no significant complaints. Her right hip pain is well controlled at this time. She had chronic back pain. Vital signs are stable. - Physical Exam General: Alert, Oriented x3, Cooperative, No apparent distress HEENT: Atraumatic, PERRLA, EOMI Oral: Moist Mucosa, No Gingival or Mucosal Lesions/ Ulcerations Neck: Supple, No JVD, Negative Carotid Bruits, Trachea Midline, Thyroid Normal Size and Texture Lungs: Clear to auscultation, Normal air movement, No rhonchi, No wheeze, No rales Cardiovascular: Regular rate, Regular Rhythm, Normal S1, Normal S2, No murmurs Abdomen: Bowel Sounds Present, Soft, Non Tender, Non-Distended, No Hepato- splenomegaly Extremities: No clubbing, No cyanosis, No edema Skin: No rashes, No breakdown Lymphatic: No Cervical, Supraclavicular, or Inguinal Adenopathy Neurological: Cranial nerves II-XII grossly intact, Motor Exam 5/5 strength throughout Psych/Mental Status: Normal Affect, Appropriate, Alert and oriented to time, place, person, mood and affect Vital Signs Temp Pulse Resp BP Pulse Ox 97.5 F L 80 16 123/61 H 96 02/04/18 16:00 02/04/18 16:04 02/04/18 16:00 02/04/18 16:00 02/04/18 16:00 Oxygen Delivery Method Room Air Weight: 168 lb 6.931 oz Body Mass Index (BMI) 28.8 Intake and Output for Last 24 Hours 02/02/18 02/03/18 02/04/18 23:59 23:59 23:59 Intake Total 1000 / 1000 Balance 1000 / 1000 Medical Necessity - Tobacco Use Smoking Status: Never smoker Assessment/Plan This is a 77 years old female patient underwent elective right total hip replacement for right hip osteoarthritis and I am seeing this patient for consultation for postoperative medical management. #1 status post right total hip replacement: Postoperative day 1. Vital signs are stable. Preoperative routine blood work reviewed, was unremarkable. At this time, she has no complaints, pain is well controlled. She is on IV cefazolin for perioperative prophylaxis. She is on IV morphine and OxyIR as needed for pain. CBC and BMP for tomorrow was ordered. Orthopedic surgery is managing. #2 hypertension: Blood pressure stable, continue Norvasc, atenolol, losartan and Aldactone. #3 chronic back pain: She is on IV morphine and OxyIR as needed. #4 osteoarthritis: Continue Tylenol and as needed. #5 DVT prophylaxis: SCDs, full dose aspirin twice daily. This note was generated with [employer] software. It may contain incorrect words, spelling, and punctuation that were not noted in checking the note before signing. Code Visit Inpatient E&M: 47715 Subs Hosp L2
[2018-02-04] MEDS: oxyCODONE 5 MG Tablet PO (18:44)
[2018-02-04] MEDS: Cefazolin 1 GM/50 ML BAG IV (20:29)
[2018-02-04] MEDS: Senna/Docusate Sodium 1 Tablet 2 TABLET PO (21:11)
[2018-02-04] MEDS: Pramipexole Di-HCl 0.5 MG Tablet PO (21:11)
[2018-02-05] MEDS: Lactated Ringers 1,000 ML 125 ML IV (00:06)
[2018-02-05 02:10] VITALS: BP 98/62; PULSE 65; RESP 16; TEMP 36.6; O2SAT 99
[2018-02-05] MEDS: Acetaminophen 500 MG Tablet 1000 MG PO ×2 (05:20→13:51)
[2018-02-05] MEDS: Cefazolin 1 GM/50 ML BAG IV (05:20)
[2018-02-05 06:10] LABS: Hemoglobin 11.2 g/dl (12.0-15.0); Mean Corp Hgb Conc 32.9 g/gl (32-36); Mean Corpuscular Hgb 30.8 pg (27.0-32.0); Mean Corpuscular Volume 93.4 fL (81-99); Mean Platelet Vol. 10.4 fl (6.2-12.0); Platelet Count 180 K/mm3 (150-450); RBC Distribution Width SD 42.9 fl (35.1-43.9); Red Blood Count 3.64 M/mm3 (4.2-5.4); White Blood Count 6.4 K/mm3 (4.4-11.0)
[2018-02-05 06:19] LABS: Anion Gap 8 (5-15); BUN 15 mg/dL (7-18); BUN/Creat Ratio 20.5 RATIO (10-20); Calcium,Total 8.5 mg/dL (8.5-10.1); Chloride 108 mmol/L (98-107); Creatinine, Serum 0.73 mg/dL (0.55-1.02); EST Glomerular Filtration Rate 81 mL/min (>60); Est Glom Filt Rate - Afr Amer 99 mL/min (>60); Estimated Creatinine Clearance 39.39 ml/min; Glucose 88 mg/dL (74-106); Potassium 4.6 mmol/L (3.5-5.1); Sodium Level 144 mmol/L (136-145)
[2018-02-05 06:35] LABS: Scan Indicated on CBC? Y/N NO
--- NOTE | 2018-02-05 06:53 | PCM.PROGNOTE ---
Subjective: Postoperative day #1 -right direct anterior total hip replacement by Dr. Drake All events the past 24 hours of been reviewed. She is afebrile. Blood pressure at 2 AM was 98/62 but she was sleeping at the time. Overall vital signs are stable. She is 98 -100% saturated on room air. All lab was personally reviewed. White blood cell count is within normal limits and so were the platelets. Hemoglobin is 11.2, down from 12.7 on 01/20/2018. Electrolytes are unremarkable and the BUN is 15 with a creatinine of 0.73. Patient is a 77-year-old female with a past medical history of osteoarthritis, hypertension, chronic back pain and chronic narcotic use who had R THR by Dr. Drake on 02/04/18. She tells me her pain is adequately controlled and she would like to go home today. I discussed this with Sabino Bose from Orthopedics and she is already set up for PT at [facility]. She denies dizziness, lightheadedness, chest pain, shortness of breath, nausea. Pain is adequately controlled. - Physical Exam General: Alert, Oriented x3, Cooperative, No apparent distress Oral: Moist Mucosa Neck: No JVD, Negative Carotid Bruits, Trachea Midline, - - Carotids have brisk upstroke and excellent pulse volume. Lungs: Clear to auscultation, No rhonchi, No wheeze, No rales Cardiovascular: Regular rate, Regular Rhythm, Normal S1, Normal S2, Murmur - She is sitting up in a chair and has a 1/6 systolic MM at the second right intercostal space that radiates to the lower left sternal border., No rub noted, No Gallop Abdomen: Bowel Sounds Present, Soft, Non Tender, Non-Distended Extremities: No clubbing, No cyanosis, No edema, No Calf Tenderness Skin: No rashes Neurological: Cranial nerves II-XII grossly intact, Neuro grossly intact Psych/Mental Status: Normal Affect, Appropriate Vital Signs Temp Pulse Resp BP Pulse Ox 97.9 F 65 16 98/62 99 02/05/18 02:10 02/05/18 02:10 02/05/18 02:10 02/05/18 02:10 02/05/18 02:10 Oxygen Delivery Method Room Air Weight: 168 lb 6.931 oz Body Mass Index (BMI) 28.8 Intake and Output for Last 24 Hours 02/03/18 02/04/18 02/05/18 23:59 23:59 23:59 Intake Total 1000 / 1000 1616 / 1616 Output Total 650 / 650 Balance 1000 / 1000 966 / 966 Laboratory Tests Past 24 Hrs 02/05/18 02/05/18 05:18 05:18 WBC 6.4 RBC 3.64 L Hgb 11.2 L Hct 34.0 L MCV 93.4 MCH 30.8 MCHC 32.9 RDW 13.0 RDW Differential 42.9 Plt Count 180 MPV 10.4 Sodium 144 Potassium 4.6 Chloride 108 H Carbon Dioxide 28.0 Anion Gap 8 BUN 15 Creatinine 0.73 Estim Creat Clear Calc 39.39 Est GFR (MDRD) Af Amer 99 Est GFR (MDRD) Non-Af 81 BUN/Creatinine Ratio 20.5 H Glucose 88 Calcium 8.5 Medical Necessity - Tobacco Use Smoking Status: Never smoker Assessment/Plan Postoperative day #1-status post total hip replacement by Dr. Drake on the right. 1. Hypertension-controlled 2. Chronic back pain with history of lumbar canal stenosis 3. Osteoarthritis Doing very well and ready for DC from IM standpoint. Code Visit Inpatient E&M: 31379 Subs Hosp L2
--- NOTE | 2018-02-05 06:58 | PCM.PN.ORT ---
Subjective: The patient was sitting in bed upon examination. Patient denies any chest pain, shortness of breath, dizziness, lightheadedness, nausea or vomiting, or calf pain. Pain is controlled on medications. No adverse overnight events. Overall patient is doing well. Patient wishes to go home today. She will be getting outpatient physical therapy at [facility]. Objective: Vital signs stable and afebrile. Patient is able to plantarflex and dorsiflex actively. Sensation is intact to light touch to saphenous, sural, superficial and deep peroneal, and tibial distribution. Dressing is clean dry and intact. Negative Homans bilaterally, negative signs and symptoms of DVT. - Physical Exam General: Alert, Oriented x3, Cooperative, No apparent distress Vital Signs Temp Pulse Resp BP Pulse Ox 97.9 F 65 16 98/62 99 02/05/18 02:10 02/05/18 02:10 02/05/18 02:10 02/05/18 02:10 02/05/18 02:10 Oxygen Delivery Method Room Air Weight: 76.4 kg Body Mass Index (BMI) 28.8 Intake and Output for Last 24 Hours 02/03/18 02/04/18 02/05/18 23:59 23:59 23:59 Intake Total 1000 / 1000 1616 / 1616 Output Total 650 / 650 Balance 1000 / 1000 966 / 966 Laboratory Tests Past 24 Hrs 02/05/18 02/05/18 05:18 05:18 WBC 6.4 RBC 3.64 L Hgb 11.2 L Hct 34.0 L MCV 93.4 MCH 30.8 MCHC 32.9 RDW 13.0 RDW Differential 42.9 Plt Count 180 MPV 10.4 Sodium 144 Potassium 4.6 Chloride 108 H Carbon Dioxide 28.0 Anion Gap 8 BUN 15 Creatinine 0.73 Estim Creat Clear Calc 39.39 Est GFR (MDRD) Af Amer 99 Est GFR (MDRD) Non-Af 81 BUN/Creatinine Ratio 20.5 H Glucose 88 Calcium 8.5 Medical Necessity - Tobacco Use Smoking Status: Never smoker Assessment/Plan 1. S/P right direct anterior total hip arthroplasty POD #1 2. Continue Pain Medications: Tylenol and OxyIR 3. DVT Prophylaxis: Aspirin 325 mg twice daily 4. PT/OT: Weightbearing as tolerated 5. H & H: 11.2/34.0, asymptomatic 6. Encouraged Incentive Spirometry 7. Continue postoperative medical management per medicine 8. Disposition: Plan will be for possible discharge home this afternoon if patient tolerates physical therapy and pain is well controlled. Prescriptions will be E scribed to [facility]. Patient will follow-up per [facility] postop instructions.
--- NOTE | 2018-02-05 07:01 | PCM.DC.THR ---
Discharge Diet: No Restrictions Discharge Activity: May Not Drive - while taking narcotic pain medications. May shower in (days): 1 - Turned dressing away from water Ice area for (Minutes): 20 - Every 1-2 hours while awake Weight Bearing Status: Weight bearing as tolerated Additional Activity Instructions:: Wear elastic stockings for 2 weeks. DO NOT use alcohol with narcotic pain medication. DO NOT make important decisions while taking narcotic medication. If you have problems with taking your medication (rash, itching, nausea, etc.) call the office at once. Call your doctor if your incision/area has: Increased Pain/ Swelling, Increased Redness, Foul Smelling Discharge Call your doctor if you observe: Fever of 101 or Higher Remove Dressing in (days):: 4 - Okay to remove dressing on February 09, 2018 Additional Instructions: Follow [facility] postop instructions Blood clot prevention: Patient will take 325 mg aspirin twice daily with food for 2 weeks postoperatively. At two-week follow-up will switch over to 81 mg aspirin twice daily for an additional 2 weeks. Continue to take Prilosec at home. Allergies/Adverse Reactions: Allergies influenza virus vaccine ts [From Fluarix] Allergy (Severe, Verified 01/20/18 15:06) Swelling hydrochlorothiazide Allergy (Verified 01/20/18 15:06) Hives irbesartan Allergy (Verified 01/20/18 15:06) Other meloxicam Allergy (Verified 01/20/18 15:06) Swelling triamterene Allergy (Verified 01/20/18 15:06) Hives perfume Adverse Reaction (Verified 01/20/18 15:06) Other venom-honey bee [bee venom (honey bee)] Adverse Reaction (Verified 01/20/18 15:06) Anaphylaxis MSG Allergy (Uncoded 01/20/18 15:06) Shortness of breath Medications to take at Discharge Amlodipine [Norvasc] 5 mg PO DAILY 11/21/17 Atenolol [Tenormin (beta kwame)] 50 mg PO DAILY 11/21/17 Cholecalciferol (VIT D3) [Vitamin D3] 1,000 unit PO DAILY 11/21/17 Losartan Potassium [Cozaar] 100 mg PO DAILY 11/21/17 Multivitamins,Therapeutic [Multivitamin] 1 tablet PO QODAY 11/21/17 Omeprazole [Prilosec] 20 mg PO DAILY 11/21/17 Pramipexole Di-HCl [Mirapex] 0.25 mg PO DAILY@1200 11/21/17 Pramipexole Di-HCl [Mirapex] 0.5 mg PO QHS 11/21/17 Spironolactone [Aldactone] 12.5 mg PO DAILY 11/21/17 Temazepam [Restoril] 15 mg PO QHS PRN PRN 11/21/17 Acetaminophen [Tylenol] 1,000 mg PO Q8 #90 tab 02/05/18 Aspirin 325 mg PO BIDCM #30 tab 02/05/18 Oxycodone [Oxyir] 5 - 10 mg PO Q4H PRN PRN 7 Days #80 tablet 02/05/18 Senna/Docusate Sodium [Senokot-S] 2 tab PO BID #20 tab 02/05/18 The following prescriptions were given: Oxycodone [Oxyir] 5 - 10 mg PO Q4H PRN PRN 7 Days #80 tablet PRN Reason: Mod-Severe Pain (-06/17) Acetaminophen [Tylenol] 1,000 mg PO Q8 #90 tab Aspirin 325 mg PO BIDCM #30 tab Senna/Docusate Sodium [Senokot-S] 2 tab PO BID #20 tab Primary Care Physician: Gurvinder Mckay MD [Primary Care Provider] - Please Follow Up With: [facility] When: 02/09/18 @ 9:30 am Please Follow Up With: Blake Langford PA-C When: 02/17/18 @ 1:30 pm
--- NOTE | 2018-02-05 07:04 | PN_ITS ---
Subjective: Postoperative day #1 -right direct anterior total hip replacement by Dr. Drake All events the past 24 hours of been reviewed. She is afebrile. Blood pressure at 2 AM was 98/62 but she was sleeping at the time. Overall vital signs are stable. She is 98 -100% saturated on room air. All lab was personally reviewed. White blood cell count is within normal limits and so were the platelets. Hemoglobin is 11.2, down from 12.7 on 2017. Electrolytes are unremarkable and the BUN is 15 with a creatinine of 0.73. Patient is a 77-year-old female with a past medical history of osteoarthritis, hypertension, chronic back pain and chronic narcotic use who had R THR by Dr. Drake on 02/04/18. She tells me her pain is adequately controlled and she would like to go home today. I discussed this with Sabino Bose from Orthopedics and she is already set up for PT at [facility]. She denies dizziness, lightheadedness, chest pain, shortness of breath, nausea. Pain is adequately controlled. - Physical Exam General: Alert, Oriented x3, Cooperative, No apparent distress Oral: Moist Mucosa Neck: No JVD, Negative Carotid Bruits, Trachea Midline, - - Carotids have brisk upstroke and excellent pulse volume. Lungs: Clear to auscultation, No rhonchi, No wheeze, No rales Cardiovascular: Regular rate, Regular Rhythm, Normal S1, Normal S2, Murmur - She is sitting up in a chair and has a 1/6 systolic MM at the second right intercostal space that radiates to the lower left sternal border., No rub noted , No Gallop Abdomen: Bowel Sounds Present, Soft, Non Tender, Non-Distended Extremities: No clubbing, No cyanosis, No edema, No Calf Tenderness Skin: No rashes Neurological: Cranial nerves II-XII grossly intact, Neuro grossly intact Psych/Mental Status: Normal Affect, Appropriate Vital Signs Temp Pulse Resp BP Pulse Ox 97.9 F 65 16 98/62 99 02/05/18 02:10 02/05/18 02:10 02/05/18 02:10 02/05/18 02:10 02/05/18 02:10 Oxygen Delivery Method Room Air Weight: 168 lb 6.931 oz Body Mass Index (BMI) 28.8 Intake and Output for Last 24 Hours 02/03/18 02/04/18 02/05/18 23:59 23:59 23:59 Intake Total 1000 / 1000 1616 / 1616 Output Total 650 / 650 Balance 1000 / 1000 966 / 966 Laboratory Tests Past 24 Hrs 02/05/18 02/05/18 05:18 05:18 WBC 6.4 RBC 3.64 L Hgb 11.2 L Hct 34.0 L MCV 93.4 MCH 30.8 MCHC 32.9 RDW 13.0 RDW Differential 42.9 Plt Count 180 MPV 10.4 Sodium 144 Potassium 4.6 Chloride 108 H Carbon Dioxide 28.0 Anion Gap 8 BUN 15 Creatinine 0.73 Estim Creat Clear Calc 39.39 Est GFR (MDRD) Af Amer 99 Est GFR (MDRD) Non-Af 81 BUN/Creatinine Ratio 20.5 H Glucose 88 Calcium 8.5 Medical Necessity - Tobacco Use Smoking Status: Never smoker Assessment/Plan Postoperative day #1-status post total hip replacement by Dr. Drake on the right. 1. Hypertension-controlled 2. Chronic back pain with history of lumbar canal stenosis 3. Osteoarthritis Doing very well and ready for DC from IM standpoint. Code Visit Inpatient E&M: 48530 Subs Hosp L2
[2018-02-05 07:51] VITALS: BP 101/56; PULSE 68; RESP 16; TEMP 36.6; O2SAT 99
[2018-02-05] MEDS: Senna/Docusate Sodium 1 Tablet 2 TABLET PO (08:00)
[2018-02-05] MEDS: Pantoprazole Sodium 20 MG Tablet PO (08:00)
[2018-02-05] MEDS: Aspirin 325 MG Tablet PO (08:00)
[2018-02-05] MEDS: Famotidine 20 MG Tablet PO (08:00)
[2018-02-05] MEDS: oxyCODONE 5 MG Tablet PO (08:02)
--- NOTE | 2018-02-05 11:00 | CASEMGMT ---
SONJA FARRAR Face to Face with patient for initial transition planning/care coordination assessment. SONJA FARRAR introduced self and role at [facility]. Patient sitting in chair, alert and oriented. Patient willing to participate in assessment and is able to answer all questions appropriately. Care providers, pharmacy, and demographics verified. Patient lives alone in a condo. Patient states she will be staying with her sister for a few days. Patient has hip kit, walker, shower chair, raised toilet, and grab bars. Pt wishes to discharge to sister's home and is setup with [employer] for outpatient therapy with sister providing transportation. Patient states she has no further needs or concerns at this time. CM to follow for discharge planning needs that may arise. Disposition Plan: Patient to discharge home with outpatient therapy, family support, and follow-up plans in place.
[2018-02-05 11:29] VITALS: BP 105/53; PULSE 71
[2018-02-05] MEDS: Pramipexole Di-HCl 0.25 MG Tablet PO (11:30)
--- NOTE | 2018-02-05 13:08 | PCA ---
THERAPY WORKING WITH PT
[2018-02-05 13:47] VITALS: BP 94/54; PULSE 70; RESP 18; TEMP 36.8; O2SAT 99
== END 2018-02-05 15:09 | disposition home or self-care (01) | DRG 470 ==
PROVIDERS: Admitting Provider Specialist; Family Provider Internal Medicine; PCP Internal Medicine; Visit Provider Internal Medicine
PROC: 0SR904A Replacement of Right Hip Joint with Ceramic on Polyethylene Synthetic Substitute, Uncemented, Open Approach (ICD-10-PCS; CPT 27284; principal; 2018-02-04 12:40)
DX: M16.0 Bilateral primary osteoarthritis of hip (principal); I10 Essential (primary) hypertension; G89.29 Other chronic pain; Z87.891 Personal history of nicotine dependence; G25.81 Restless legs syndrome; M54.5 Low back pain; N39.3 Stress incontinence (female) (male); K22.70 Barrett's esophagus without dysplasia; Z98.1 Arthrodesis status
CPT/HCPCS: 36415; 73501; 73502; 76000; 80048; 82040; 85025; 85027; 87081; 97110; 97162; 97165; 97530; 99251; J7120; G0463

== ENCOUNTER 2018-03-09 17:00 | Outpatient (RCR) | payer MEDICARE, OTHER, SELFPAY ==
--- NOTE | 2018-02-18 08:49 | HP.PTEVAL_ITS ---
Patient's Visit Information FRANCIA FLOWERS is a 77 year old F referred to Physical Therapy by Adan Drake MD with a diagnosis of R hip arthoplasty. Date of Evaluation: 02/09/18 Physical Therapist: Jt Cano - Visit Plan Frequency: 2-3x /Week Duration: 4-6 Weeks Plan: No hanging leg off bed as precautions, caution with hip ext (do not force) . Foucs on mobility, functional strengthening, gait progression. Avoid pain with all strengthening. - Subjective Subjective: Pt. is here today for her initial evaluation with diagnosis of R hip arthroplasty, anterior approach. DOS: 02/04/18. Pt. also recently had a poly exchange on R knee in Oct 2017. PMH: Lumbar fusion 2017 L3-L5. Pt. lives independently in apartments. No issues with accessibility. Pt. arrvives today using FWW and has been using for 3-4 months. Pt. reports being fearful of falling. Pt. denies and recent falls. She is having difficulty with lower body dressing due to hip stiffness/pain. No calf pain and is able to remove dressing tomorrow. Pt. is hopeful to stay Independent with all mobility and progress away from AD. - Pain R hip Pain Intensity (Out of 10): 1 Pain Intensity Range: 1, 6 R knee Pain Intensity (Out of 10): 1 Pain Intensity Range: 1, 3 - Objective POSTURE: Pt. has slight flexed posture, uses AD to stabilize in stance. Increased L lateral lean, wt. shift. PALPATION: Pt. has tenderness throughout R hip, anterior and laterally. NEUROLOGICAL: Pt. has numbness in bilateral LEs , but is there since back surgery. Pt. does reports normal sensation to sharp touch, decreased lateral thigh and knee with ligth touch. 2+ bilateral achilles DTR. Pt. is able to rise on heels and toes without visbile weakness. ROM: R hip - flexion 108deg, abd 38deg, ext 4 deg, HS length- 61deg in SL test. MMT: RLE- anle 5/5 throughout; knee- ext 4+/5, flexion 4+/5; hip- flexion 3/5, and 3/5, ext 3/5. LLE- ankle 5/5 throughout; knee- 5/5 throughout; hip- flexion 4+/5, abd 4/5, ext 4+/5. GAIT: Pt. uses FWW with mod wt. bearing through UEs, VERO. UNable to ambualte without. Decreased wt. shift to R side. STAIRS: Pt. is able to negotiate with 2 HR with step to pattern. - Goals Goal 1:: Pt. to be I with HEP. Goal Time Frame: 4-6 Weeks Goal 2:: Pt. to have increased MMT by 1/2 grade of R hip musculature. Goal Time Frame: 4-6 Weeks Goal 3:: Pt. to ambulate atleast 500+ ft. with least restrictive device allowing for increased independent mobility. Goal Time Frame: 4-6 Weeks Goal 4:: Pt. to sleep throughout the night with 0-1/10 pain allowing for increased quaity of life. Goal Time Frame: 4-6 Weeks Goal 5:: Pt. to negotiate 1 flight of steps with 1 HR with reciproca pattern allowing for full access throughout home. Goal Time Frame: 4-6 Weeks - Rehabilitation Potential Physical Therapy Diagnosis: Pt. has signs and symptoms consistent with R hip weakness, hypomobility, gait difficulty and increased pain S/P R hip arthroplasty. Pt. would benefit from PT to address above limitations, progress way from AD and back to all ADLs without increase in symptoms. Rehabilitation Potential: Excellent - Anticipated Interventions Patient/Client Instruction: Educate patient on: Condition, Plan of Care, Risk Factors, Benefits of Fitness Program For the Purpose of:: To foster healthy habits, To improve decision making, To facilitate caregiver knowledge, To improve self management, To prevent re-injury , To improve ability to perform tasks related to life management, To improve tolerance to ADL's Therapeutic Exercise to Include: Strength training, Power training, Endurance training, Coordination, Postural training, Flexibilty training, Gait and locomotor training, Passive ROM, Active ROM For the Purpose of:: To decrease pain, To increase ROM, To improve nutrient delivery to tissue, To increase oxygenation perfusion, To improve muscle performance and motor function, To improve ability to perform ADL's, To increase tolerance to activity/condition/position, To improve performance and independence with ADL's, To decrease level of supervision to perform tasks, To improve gait and locomotor functions, To improve health of tissue, To decrease soft tissue restriction, To increase flexibility/ROM, To improve endurance, To improve balance, To improve safety with gait Thank you for the opportunity to evaluate your patient. For Medicare and Medicare HMO plans, please review the plan of care and approve it. It will need to be FAXED BACK to us at [phone] for Medicare purposes. Please let me know if there are questions or concerns regarding this plan of care. Physician Signature: Date:
--- NOTE | 2018-03-09 18:03 | HP.PTREVAL_ITS ---
Adan Drake MD, It has been my pleasure to treat FRANCIA FLOWERS over the last 9 visits for R hip arthoplasty. Please see the progress note below for an update on the physical therapy plan of care! Subjective: Pt. reports having no issues with her R hip. Pt. reports no pain with all functional mobilities. SHe does have some R knee soreness, but is able to complete all activities. Pt. is to see physician on March 19. Pt. reports no pain currerntly. Pt. reports being 90% better overall. Objective/Function: GAIT: Pt. ambulated 1000+ft. independently without issues. Pt. did have presence of R lateral hip weakness/fatigue as gait progressed. No LOB or pain reported. STAIRS: Pt. negotiated with 1 HR with reciprocal pattern without increase in symptoms. MMT: RLE- ankle 5/5 throughout; knee- ext 5-/5, flexion 5-/5; hip- flexion 4/5, abd 4/5, ext 4+/5. ROM: flexion 115deg no issues, abd 45deg mild tightness in hip adductors, hip ext 10deg NE. Plan Plan: Pt. is progressing as expected. Pt. is independent with her HEP and is ready to perogress to HEP independently at this point in time. She has met most goals and will continue to progress with strength on her own. Pt. to follow up with physician in 1o days. I will leave case open uncase physician desires her to continue. I will clsoe out case if I do not hear from patient in 3-4 weeks. Goals Goal 1:: Pt. to be I with HEP. Goal Time Frame: 4-6 Weeks Goal Progress: Goal Met Goal 2:: Pt. to have increased MMT by 1/2 grade of R hip musculature. Goal Time Frame: 4-6 Weeks Goal Progress: Goal Met Goal 3:: Pt. to ambulate atleast 500+ ft. with least restrictive device allowing for increased independent mobility. Goal Time Frame: 4-6 Weeks Goal Progress: Goal Met Goal 4:: Pt. to sleep throughout the night with 0-1/10 pain allowing for increased quaity of life. Goal Time Frame: 4-6 Weeks Goal Progress: Goal Met Goal 5:: Pt. to negotiate 1 flight of steps with 1 HR with reciproca pattern allowing for full access throughout home. Goal Time Frame: 4-6 Weeks Goal Progress: Goal Met Anticipated Interventions Patient/Client Instruction: Educate patient on: Condition, Plan of Care, Risk Factors, Benefits of Fitness Program For the Purpose of:: To foster healthy habits, To improve decision making, To facilitate caregiver knowledge, To improve self management, To prevent re-injury , To improve ability to perform tasks related to life management, To improve tolerance to ADL's Therapeutic Exercise to Include: Strength training, Power training, Endurance training, Coordination, Postural training, Flexibilty training, Gait and locomotor training, Passive ROM, Active ROM For the Purpose of:: To decrease pain, To increase ROM, To improve nutrient delivery to tissue, To increase oxygenation perfusion, To improve muscle performance and motor function, To improve ability to perform ADL's, To increase tolerance to activity/condition/position, To improve performance and independence with ADL's, To decrease level of supervision to perform tasks, To improve gait and locomotor functions, To improve health of tissue, To decrease soft tissue restriction, To increase flexibility/ROM, To improve endurance, To improve balance, To improve safety with gait Please do not hesitate to contact me at [phone] by phone or Fax: if you have questions or concerns regarding this new plan of care! Sincerely, Jt Cano
--- NOTE | 2018-06-16 14:11 | HP.PTDCNRP_ITS ---
HP - Discharge Summary (1) - Patient Information FRANCIA FLOWERS was seen in my office for initial evaluation on 02/09/18. The following Plan of Care was established for this patient: Initial Frequency: 2-3x /Week Initial Duration: 4-6 Weeks - Anticipated Interventions Patient/Client Instruction: Educate patient on: Condition, Plan of Care, Risk Factors, Benefits of Fitness Program For the Purpose of:: To foster healthy habits, To improve decision making, To facilitate caregiver knowledge, To improve self management, To prevent re- injury, To improve ability to perform tasks related to life management, To im prove tolerance to ADL's Therapeutic Exercise to Include: Strength training, Power training, Endurance training, Coordination, Postural training, Flexibilty training, Gait and locomotor training, Passive ROM, Active ROM For the Purpose of:: To decrease pain, To increase ROM, To improve nutrient delivery to tissue, To increase oxygenation perfusion, To improve muscle performance and motor function, To improve ability to perform ADL's, To increase tolerance to activity/condition/position, To improve performance and independence with ADL's, To decrease level of supervision to perform tasks, To improve gait and locomotor functions, To improve health of tissue, To decrease soft tissue restriction, To increase flexibility/ROM, To improve endurance, To improve balance, To improve safety with gait This patient was last seen in our office 03/09/18. Pertinent comments regarding their Physical therapy will appear below: Pt. was seen S/P R hip arthroplasty. Pt. progressed as expected. At our last visit pt. was to trial exercises on her own and follow up with PT as needed. PT. is yet to return to PT and will be DC from PT at this point in time. At this point I will be discontinuing this patient from physical therapy. I would be happy to see this patient again in the future if found appropriate by the physician. Thank you! Jt Cano
== END 2018-03-09 19:00 | disposition home or self-care (01) ==
LOC: PT 17:00
PROVIDERS: Family Provider Internal Medicine; PCP Internal Medicine; Visit Provider Specialist
DX: M16.11 Unilateral primary osteoarthritis, right hip (principal)
CPT/HCPCS: 97110; 97162; 97530; G8978; G8979

== ENCOUNTER 2018-05-27 06:41 | Inpatient (IN) | payer MEDICARE, OTHER, SELFPAY ==
[2018-05-14 13:27] VITALS: BP 103/62; PULSE 66; RESP 18; TEMP 36.4; O2SAT 95; BMI 30.4
[2018-05-14 17:17] LABS: AST(SGOT) 17 U/L (15-37); Alanine Aminotransfer ALT/SGPT 21 U/L (13-56); Albumin, Serum 3.9 g/dL (3.2-5.0); Alkaline Phosphatase 127 U/L (45-117); Anion Gap 10 (5-15); BUN 26 mg/dL (7-18); BUN/Creat Ratio 32.7 RATIO (10-20); Bilirubin, Direct 0.17 mg/dL (0.00-0.30); Calcium,Total 9.9 mg/dL (8.5-10.1); Chloride 103 mmol/L (98-107); Creatinine, Serum 0.79 mg/dL (0.55-1.02); EST Glomerular Filtration Rate 74 mL/min (>60); Est Glom Filt Rate - Afr Amer 90 mL/min (>60); Estimated Creatinine Clearance 35.49 ml/min; Globulin 3.5 g/dL (2.2-4.2); Glucose 72 mg/dL (74-106); Potassium 4.6 mmol/L (3.5-5.1); Protein, Total 7.4 g/dL (6.4-8.2); Sodium Level 138 mmol/L (136-145)
[2018-05-14 21:01] LABS: Partial Thromboplast Time 29.5 Seconds (24.1-36.2); Prothrombin Time (Protime)PT. 13.4 SECONDS (11.7-14.9)
[2018-05-14 21:07] LABS: Absolute Lymphocyte Count 0.91 X10^3/ul (0.83-4.51); Absolute Neutrophil Count 4.7 X10^3/uL (2.0-7.7); Basophil# 0.03 X10^3/uL; Basophil% 0.4 % (0-1); Eosinophil# 0.41 X10^3/uL; Eosinophils% 6.1 % (0-5); Hematocrit 41.1 % (37-47); Hemoglobin 13.2 g/dl (12.0-15.0); Lymphocyte # 0.91 X10^3/ul (4.0); Lymphocyte % 13.6 % (19-41); Mean Corp Hgb Conc 32.1 g/gl (32-36); Mean Corpuscular Hgb 29.5 pg (27.0-32.0); Mean Corpuscular Volume 91.7 fL (81-99); Mean Platelet Vol. 10.6 fl (6.2-12.0); Monocyte# 0.67 X10^3/uL; Neutrophil # 4.66 X10^3/uL (2.7-7.7); Neutrophil % 69.6 % (47-70); Platelet Count 260 K/mm3 (150-450); RBC Distribution Width CV 13.6 % (11.6-14.6); RBC Distribution Width SD 44.9 fl (35.1-43.9); Red Blood Count 4.48 M/mm3 (4.2-5.4); White Blood Count 6.7 K/mm3 (4.4-11.0)
[2018-05-14 21:08] LABS: POSITIVE COUNT NO; POSITIVE DIFFERENTIAL NO; POSITIVE MORPHOLOGY NO
--- NOTE | 2018-05-22 11:15 | CASEMGMT ---
Called and spoke with patient regarding discharge needs after upcoming surgery. Patient's plan is to go to sister's house after discharge for 3-4 nights as patient lives alone in a condo. Sister will assist with needs. Outpatient physical therapy is set up for 06/01/18 at [facility], sister and 2 daughters will coordinate transportation to/from. Patient has walker, cane, shower seat, bar in shower. Has toilet riser but doesn't need due to having mid-rise toilets in condo. While at sisters, bedroom and bathroom will be in the basement, will use a lift chair to go up/down stairs to basement. When patient returns [facility], has bed/bath on 1st level. Informed patient that RN-CM will likely follow up after surgery while patient is in hospital. Chasity Dunham LPN Clinical Support
[2018-05-27] VITALS (14 sets, daily range): BP systolic 101–135; BP diastolic 42–82; PULSE 62–77; RESP 16–18; TEMP 36.3–36.7; O2SAT 96–100; BMI 30.4
[2018-05-27] MEDS: Acetaminophen 500 MG Tablet 1000 MG PO ×2 (07:12→21:27)
[2018-05-27] MEDS: Celecoxib 200 MG Capsule 400 MG PO (07:12)
[2018-05-27] MEDS: oxyCODONE HCl Cr 10 MG Tablet PO (07:12)
[2018-05-27] MEDS: Cefazolin 2 GM in 0.9% Normal Saline 100 ML IV (08:45)
--- NOTE | 2018-05-27 09:45 | RAD_ITS ---
STUDY: X-RAY - PELVIS AND LEFT HIP REASON FOR EXAM: Female, 78 years old. Total anterior hip replacement. TECHNIQUE: Radiological exam, hip, unilateral, with pelvis when performed; 2 or 3 views. COMPARISON: None. FINDINGS: Intraoperative imaging provided for left total anterior hip replacement. There is good alignment. RAD/Hip 1 view with Pelvis IMPRESSION: Anterior total hip replacement. There is good alignment. Electronically Signed: Eduin Sim MD at 14:25 EDT Tel [phone], Service support ,
--- NOTE | 2018-05-27 10:13 | PCM.OPRPT ---
Report of Operation Date of Procedure: 05/27/18 Pre-Operative Diagnosis: Left hip primary osteoarthritis, hypertrophic Post-Operative Diagnosis: Left hip primary osteoarthritis, hypertrophic Surgery/Procedure Performed:: Left direct anterior total hip replacement Description of Surgical Findings:: Stable hip with equal leg lengths information receptionist: Jackeline Hayden Type of Anesthesia:: Spinal Anesthesiologist: Navi Alexandre Special Medications: 2 g Ancef, 1 g TXA at incision, 1 g TXA closure, 10 mg Decadron, joint cocktail (5 mg Duramorph, 30 mL of 0.5% Ropivicaine, 1000 units of epinephrine, 30 mg of Toradol) Specimen's removed: Bony cuts Estimated Blood Loss (mL): 150 Fluids Replaced: 800 mL crystalloid Description of Procedure: Components used: 1. Accolade 2 Randolph femoral stem size 6 127? 2. Snyder tritanium 2 acetabular shell size 54 mm 3. Snyder X3 polyethylene E 4. Randolph Biolox delta 36mm, 0mm femoral head Brief history operative indications: 78 yo F who failed conservative measures for their hip osteoarthritis. X-rays were consistent with osteoarthritis including joint space narrowing, osteophyte formation and subchondral cysts. Total hip replacement was discussed with the patient with risks and benefits including but not limited to blood loss, DVTs, PEs, neurovascular damage, dislocation, general risks of anesthesia including loss of life. Patient demonstrated an understanding medical clearance is obtained the patient was consented for surgery. Procedure: On the date of procedure the patient's L hip was marked in the preoperative area. Patient was then taken back to the operating room where anesthesia assumed control of the C-spine and airway and administered anesthetic. Patient was transferred to the operating table and placed in the supine position. The hips were placed at the break of the bed and a sacral bump was placed. The L lower extremity was then prepped out in a sterile fashion using chlorhexidine while the surgeon scrubbed. The PA was vital in the positioning of the patient. Upon reentering the room the L lower extremity was draped in the standard orthopedic fashion and the incision was marked. A timeout was called and everyone agreed upon the side, the site, the procedure be performed, antibody given, and patient's identity. At this time incision was made through skin, subcutaneous tissue, and fat down to fascia. The fascia was then incised and the TFL was retracted laterally. A retractor was placed on the lateral border of the femoral neck. Attention was directed to the inferior portion of the approach and all crossing vessels were identified and appropriately coagulated. A retractor was then placed on the medial portion of the femoral neck. The anterior capsule was then cleared of all soft tissue and then H shaped capsulotomy was made. The retractors were then placed inside the capsule. The femoral neck was identified and a cleanup cut was made. The neck was noted to be severely hypertrophic. At this time a power corkscrew was used to remove the femoral head. Attention was then turned toward the acetabulum where the soft tissues were appropriately retracted and the acetabulum was sequentially reamed to 53 mm. A 54 mm cup was then selected and impacted into place. Acetabular liner was impacted into place and locking mechanism was verified. The position of the acetabular cup was then verified under live fluoroscopy. Attention was then turned to the femur. Soft tissue releases on the medial and lateral femoral neck were appropriately done, the leg was externally rotated and lateralized. A Thornton retractor was placed medially and proximally to the greater trochanter this allowed appropriate visualization and exposure of the femoral canal. Rongeour was then used to remove excess lateral bone. A canal finder and entry broach were used to open the proximal canal. Once we verified we were down the femoral canal we subsequently broached up to a size 6 femur. The appropriate neck was placed in the previously selected head was trialed with a 0 mm neck. Traction was pulled and the hip was reduced with internal rotation. Once it was appropriately reduced and stability was checked. There was minimal shuck, equal leg lengths and appropriate stability with hyperextension and external rotation as well as with 90? flexion and internal rotation. Fluoroscopy was then also used to verify the position of the components and leg lengths using the contralateral side for comparison. The trial components were then dislocated the proximal femur was again exposed and the components were removed from the wound. The final components were verified and opened. The wound was copiously irrigated out with normal saline. The acetabulum was checked for any residual debris. The final components were placed and impacted. Traction and internal rotation were again used to reduce the hip. After adequate reduction the hip remained stable with appropriate leg lengths. The final components were once again checked with live fluoroscopy and were found to be satisfactory. The wound was then copiously irrigated with normal saline once more, and hemostasis was obtained. Closure was then done using #1 Vicryl runner to close the fascia. A 2-0 vicryl interuppted sutures were used to close the subcutaneous skin. A 3-0 Monocryl and Steri-Strips were used for final skin closure. A Silverlon dressing was placed. Patient was awakened by anesthesia and transferred to the [facility]. Patient was then transferred to the PACU for recovery. Postoperative plan: Patient will get 24 hours postop antibiotics. Patient will get in-house physical therapy and will be weight-bear as tolerated. Patient will follow up in office in 2 weeks for a wound check and x-rays. Based on Celebrex 200 mg twice daily for a minimum of 2 weeks postop. Grafts/Implants Used: Randolph Accolade 2 - Complications None - Admit VTE Documentation VTE Present on Admission: No VTE Mechan Device Prophylaxis: SCD's, Knee High ORIN Hose VTE Pharm Prophylaxis ordered?: Yes
--- NOTE | 2018-05-27 10:45 | RAD_ITS ---
STUDY: X-RAY - PELVIS AND LEFT HIP REASON FOR EXAM: Female, 78 years old. Left hip replacement. TECHNIQUE: Radiological exam, hip, unilateral, with pelvis when performed; 2 or 3 views. COMPARISON: None. FINDINGS: 2 views were obtained. The patient is status post left total hip replacement. There is good alignment. Postoperative soft tissue changes. RAD/Hip Min 2 Views (Portable) IMPRESSION: Status post left total hip replacement. There is good alignment. Postoperative soft tissue changes. Electronically Signed: Eduin Sim MD at 14:28 EDT Tel [phone], Service support ,
[2018-05-27] MEDS: Scopolamine 1mg/72hr Patch 1 PATCH TD (10:52)
[2018-05-27] MEDS: Lactated Ringers 1,000 ML 125 ML IV ×3 (10:52→21:29)
[2018-05-27] MEDS: Morphine 2 MG/ML Syringe IV (13:33)
[2018-05-27] MEDS: Pramipexole Di-HCl 0.25 MG Tablet 0.5 MG PO (14:05)
--- NOTE | 2018-05-27 14:35 | PN_ITS ---
Addendum entered and electronically signed by KALYANI Braun 05/27/18 14:45: Code Visit DVT prophylaxis: Aspirin 81mg BID per ortho. Original Note: <Chasity David - Last Filed: 05/27/18 14:45> Subjective: Patient seen and examined. Patient underwent left total hip replacement with Dr. Drake this morning. Complains of left knee pain. Otherwise denies significant pain. No other current complaints. Hospitalist services consulted for medical management. - Physical Exam General: Alert, Oriented x3, Cooperative, No apparent distress HEENT: Atraumatic, PERRLA, EOMI, Normocephalic Neck: Supple, No JVD, Negative Carotid Bruits Lungs: Clear to auscultation, Normal air movement Cardiovascular: Regular rate, Regular Rhythm, Normal S1, Normal S2, No murmurs Abdomen: Bowel Sounds Present, Soft, Non Tender, Non-Distended Extremities: No clubbing, No cyanosis, No edema Skin: No rashes, No breakdown Musculoskeletal: No Tenderness to Palpation of Joints or Extremities Neurological: Cranial nerves II-XII grossly intact, Neuro grossly intact Psych/Mental Status: Normal Affect, Appropriate Vital Signs Temp Pulse Resp BP Pulse Ox 97.6 F L 62 18 116/71 100 05/27/18 13:03 05/27/18 13:03 05/27/18 13:45 05/27/18 13:03 05/27/18 13:45 Oxygen Delivery Method Room Air Weight: 166 lb 10.711 oz Body Mass Index (BMI) 30.4 Intake and Output for Last 24 Hours 05/25/18 05/26/18 05/27/18 23:59 23:59 23:59 Intake Total 1600 / 1600 Balance 1600 / 1600 Medical Necessity - Tobacco Use Smoking Status: Never smoker Assessment/Plan 1. Status post left total hip replacement- PT/OT. PRN pain regimen. Management per ortho. Encouraged use of IS. 2. Hypertension-stable, continue home amlodipine, atenolol, losartan, spironolactone. 3. Restless leg syndrome-continue Mirapex regimen. 4. GERD/Ruiz's esophagus-continue PPI. 5. Obesity- Encouraged diet and lifestyle modifications. Nutrition consult. DVT prophylaxis-SCDs, lovenox sc This patient was seen by KALYANI Braun under the supervision of Dr. Gutierrez. <Eduar Gutierrez - Last Filed: 05/27/18 16:32> Subjective: Seen and examined. Patient had left total hip replacement in the morning. Currently, complaining of left knee pain. - Physical Exam General: Alert, Oriented x3, Cooperative HEENT: Atraumatic, PERRLA, EOMI, Normocephalic Neck: Supple, No JVD, Negative Carotid Bruits Lungs: Clear to auscultation, Normal air movement, No rhonchi, No rales Cardiovascular: Regular rate, Normal S1, Normal S2, No murmurs Abdomen: Bowel Sounds Present, Soft, Non Tender, Non-Distended Extremities: No edema, Capillary Refill Less than 3 Seconds Skin: No rashes, No breakdown Musculoskeletal: Arthritic Changes, Tenderness - Mild left knee tenderness Neurological: Cranial nerves II-XII grossly intact, Neuro grossly intact Psych/Mental Status: Normal Affect, Appropriate Vital Signs Temp Pulse Resp BP Pulse Ox 98.0 F 69 16 115/69 99 05/27/18 15:17 05/27/18 15:17 05/27/18 15:17 05/27/18 15:17 05/27/18 15:17 Oxygen Delivery Method Room Air Weight: 166 lb 10.711 oz Body Mass Index (BMI) 30.4 Intake and Output for Last 24 Hours 05/25/18 05/26/18 05/27/18 23:59 23:59 23:59 Intake Total 1600 / 1600 Balance 1600 / 1600 Assessment/Plan This patient was seen in conjunction with Chasity SALAZAR. I have independently interviewed and examined the patient and reviewed pertinent history, examination findings, laboratory and plan of management. I have reviewed the note and agree with the documented findings with the few additional points. In brief, patient is admitted for perioperative care of left total hip replacement. She has mild left knee pain most probably from operative positioning of left lower extremity during surgery or referred pain from left hip. PT and OT. I have discussed my assessment with Chasity SALAZAR and orders have been reviewed. Code Visit Inpatient E&M: 78707 Subs Hosp L2
[2018-05-27] MEDS: Cefazolin 1 GM/50 ML BAG IV (16:21)
[2018-05-27] MEDS: oxyCODONE 5 MG Tablet PO (18:28)
[2018-05-27] MEDS: Aspirin 325 MG Tablet 81 MG PO (21:27)
[2018-05-27] MEDS: Senna/Docusate Sodium 1 Tablet 2 TABLET PO (21:27)
[2018-05-27] MEDS: Celecoxib 200 MG Capsule PO (21:27)
[2018-05-27] MEDS: Pramipexole Di-HCl 0.25 MG Tablet PO (21:28)
[2018-05-28] MEDS: oxyCODONE 5 MG Tablet PO ×2 (00:28→06:42)
[2018-05-28] MEDS: Cefazolin 1 GM/50 ML BAG IV (00:28)
[2018-05-28 06:28] LABS: Hematocrit 32.9 % (37-47); Hemoglobin 10.8 g/dl (12.0-15.0); Mean Corp Hgb Conc 32.8 g/gl (32-36); Mean Corpuscular Hgb 30.1 pg (27.0-32.0); Mean Corpuscular Volume 91.6 fL (81-99); Mean Platelet Vol. 10.2 fl (6.2-12.0); Platelet Count 144 K/mm3 (150-450); RBC Distribution Width CV 13.8 % (11.6-14.6); RBC Distribution Width SD 45.1 fl (35.1-43.9); Red Blood Count 3.59 M/mm3 (4.2-5.4); White Blood Count 6.3 K/mm3 (4.4-11.0)
[2018-05-28 06:31] LABS: Scan Indicated on CBC? Y/N NO
[2018-05-28] MEDS: Acetaminophen 500 MG Tablet 1000 MG PO ×2 (06:42→14:03)
[2018-05-28 06:46] LABS: Anion Gap 5 (5-15); BUN 16 mg/dL (7-18); BUN/Creat Ratio 25.4 RATIO (10-20); Calcium,Total 9.3 mg/dL (8.5-10.1); Chloride 107 mmol/L (98-107); Creatinine, Serum 0.63 mg/dL (0.55-1.02); EST Glomerular Filtration Rate 97 mL/min (>60); Est Glom Filt Rate - Afr Amer 117 mL/min (>60); Estimated Creatinine Clearance 35.49 ml/min; Glucose 92 mg/dL (74-106); Potassium 4.8 mmol/L (3.5-5.1); Sodium Level 142 mmol/L (136-145)
[2018-05-28 08:06] VITALS: BP 93/53; PULSE 73; RESP 18; TEMP 37; O2SAT 100
[2018-05-28] MEDS: Famotidine 20 MG Tablet PO (09:40)
[2018-05-28] MEDS: Senna/Docusate Sodium 1 Tablet 2 TABLET PO (09:40)
[2018-05-28] MEDS: Spironolactone 25 MG Tablet PO (09:40)
[2018-05-28] MEDS: Celecoxib 200 MG Capsule PO (09:40)
[2018-05-28] MEDS: Pantoprazole Sodium 20 MG Tablet PO (09:40)
[2018-05-28] MEDS: amLODIPine 5 MG Tablet PO (09:40)
[2018-05-28] MEDS: Atenolol 50 MG Tablet PO (09:41)
[2018-05-28] MEDS: Multivitamins,Therapeutic Tablet 1 TABLET PO (09:42)
[2018-05-28] MEDS: Losartan Potassium 100 MG Tablet PO (09:42)
[2018-05-28] MEDS: Aspirin 325 MG Tablet 81 MG PO (09:44)
--- NOTE | 2018-05-28 09:52 | PN.ORTHO_ITS ---
Subjective: The patient was sitting in bedside chair upon examination. Patient denies any chest pain, shortness of breath, dizziness, lightheadedness, nausea or vomiting , or calf pain. Pain is controlled on medications. No adverse overnight events. Patient has had urinary retention and which has required straight cath. Patient is able to urinate on her own but still feels full and has required the straight cath. She denies prior problems or any urinary complications prior to surgery. Patient does have scopolamine patch which was removed today. Patient is wishing to try to go home today if symptoms improve. Objective: Vital signs stable and afebrile. Patient is able to plantarflex and dorsiflex actively. Sensation is intact to light touch to saphenous, sural, superficial and deep peroneal, and tibial distribution. Dressing is clean dry and intact. Negative Homans bilaterally, negative signs and symptoms of DVT. - Physical Exam General: Alert, Oriented x3, Cooperative, No apparent distress Vital Signs Temp Pulse Resp BP Pulse Ox 98.6 F 73 18 93/53 L 100 05/28/18 08:06 05/28/18 08:06 05/28/18 08:06 05/28/18 08:06 05/28/18 08:06 Oxygen Delivery Method Room Air Weight: 75.6 kg Body Mass Index (BMI) 30.4 Intake and Output for Last 24 Hours 05/26/18 05/27/18 05/28/18 23:59 23:59 23:59 Intake Total 2150 / 2150 2795 / 2795 Output Total 1100 / 1100 1250 / 1250 Balance 1050 / 1050 1545 / 1545 Laboratory Tests Past 24 Hrs 05/28/18 05/28/18 05:10 05:10 WBC 6.3 RBC 3.59 L Hgb 10.8 L Hct 32.9 L MCV 91.6 MCH 30.1 MCHC 32.8 RDW 13.8 RDW Differential 45.1 H Plt Count 144 L MPV 10.2 Sodium 142 Potassium 4.8 Chloride 107 Carbon Dioxide 30.0 Anion Gap 5 BUN 16 Creatinine 0.63 Estim Creat Clear Calc 35.49 Est GFR (MDRD) Af Amer 117 Est GFR (MDRD) Non-Af 97 BUN/Creatinine Ratio 25.4 H Glucose 92 Calcium 9.3 Medical Necessity - Tobacco Use Smoking Status: Never smoker Assessment/Plan 1. S/P left total hip arthroplasty direct anterior approach POD #1 2. Continue Pain Medications: Tylenol and OxyIR 3. DVT Prophylaxis: Aspirin 81 mg twice daily ?4 weeks 4. PT/OT: Weightbearing as tolerated 5. H & H: 10.8/32.9, asymptomatic 6. Encouraged Incentive Spirometry 7. Continue postoperative medical management per medicine 8. Urinary retention: Scopolamine patch was removed. Patient is able to urinate on her own. We will do another bladder scan this afternoon. 9. Disposition: Plan will be for a possible discharge this afternoon if patient 's symptoms with the urinary retention improves. Prescriptions will be attached to chart. Patient will follow postop instructions.
--- NOTE | 2018-05-28 09:57 | PCM.DC.THR ---
Discharge Diet: No Restrictions Discharge Activity: May Not Drive - while taking narcotic pain medications. May shower in (days): 1 - Turned dressing away from water Ice area for (Minutes): 20 - Every 1-2 hours while awake Weight Bearing Status: Weight bearing as tolerated Elevate: Operative Extremity Additional Activity Instructions:: Wear elastic stockings for 2 weeks. DO NOT use alcohol with narcotic pain medication. DO NOT make important decisions while taking narcotic medication. If you have problems with taking your medication (rash, itching, nausea, etc.) call the office at once. Call your doctor if your incision/area has: Increased Pain/ Swelling, Increased Redness, Foul Smelling Discharge Call your doctor if you observe: Fever of 101 or Higher Remove Dressing in (days):: 4 - Okay to remove on June 01, 2018 Additional Instructions: Follow [facility] postop instructions Allergies/Adverse Reactions: Allergies influenza virus vaccine ts [From Fluarix] Allergy (Severe, Verified 05/14/18 13:09) Swelling hydrochlorothiazide Allergy (Verified 05/14/18 13:09) Hives irbesartan Allergy (Verified 05/14/18 13:09) Other meloxicam Allergy (Verified 05/14/18 13:09) Swelling triamterene Allergy (Verified 05/14/18 13:09) Hives perfume Adverse Reaction (Verified 05/14/18 13:09) Other venom-honey bee [bee venom (honey bee)] Adverse Reaction (Verified 05/14/18 13:09) Anaphylaxis MSG Allergy (Uncoded 05/14/18 13:09) Shortness of breath Medications to take at Discharge Amlodipine [Norvasc] 5 mg PO DAILY 11/21/17 Atenolol [Tenormin (beta kwame)] 50 mg PO DAILY 11/21/17 Cholecalciferol (VIT D3) [Vitamin D3] 1,000 unit PO DAILY 11/21/17 Losartan Potassium [Cozaar] 100 mg PO DAILY 11/21/17 Omeprazole [Prilosec] 20 mg PO DAILY 11/21/17 Pramipexole Di-HCl [Mirapex] 0.5 mg PO DAILY@1200 11/21/17 Spironolactone [Aldactone] 25 mg PO DAILY 11/21/17 Temazepam [Restoril] 15 mg PO QHS PRN PRN 11/21/17 Celecoxib 200 mg PO QWEEK 05/14/18 Centrum Silver Tablet 1 tab PO DAILY 05/14/18 Pramipexole Di-HCl [Mirapex] 0.25 mg PO QHS 05/27/18 Acetaminophen [Tylenol] 1,000 mg PO Q8 #90 tab 05/28/18 Aspirin 81 mg PO BID #30 tab 05/28/18 Oxycodone [Oxyir] 5 - 10 mg PO Q4H PRN PRN 5 Days #60 tab 05/28/18 Senna/Docusate Sodium [Senokot-S] 2 tab PO BID #20 tab 05/28/18 The following prescriptions were given: Oxycodone [Oxyir] 5 - 10 mg PO Q4H PRN PRN 5 Days #60 tab PRN Reason: Mod-Severe Pain (4-06/17) Acetaminophen [Tylenol] 1,000 mg PO Q8 #90 tab Aspirin 81 mg PO BID #30 tab Senna/Docusate Sodium [Senokot-S] 2 tab PO BID #20 tab Primary Care Physician: Gurvinder Mckay MD [Primary Care Provider] - Test Results: Test results from this visit will be discussed in further detail at your follow-up appointment, if applicable. Please Follow Up With: [facility] When: 06/01/18 @ 10:30 am with Nneka Please Follow Up With: Mark Andersen PA-C When: 06/08/18 @ 10:30 am
--- NOTE | 2018-05-28 11:38 | CASEMGMT ---
RN CM Note. Intro role of CM to patient in room. Reviewed dc plan. Pt states she will be going home with her sister, Kelly Berger until recovered. Has equipment, and transportation and first PT appt is set up for Friday. Pt has required straight cath in hospital, may need to return home with sparrow catheter, then catheter care teaching and urology f/u on dc. Anna MARTINEZ RN AC
--- NOTE | 2018-05-28 11:55 | PCM.PN.HOSP ---
Subjective: Had issues with urinary retention. Had to be straight cathed twice. Vitals/I&O's: Vital Signs Temp Pulse Resp BP Pulse Ox 37.0 C 73 18 93/53 L 100 05/28/18 08:06 05/28/18 08:06 05/28/18 08:06 05/28/18 08:06 05/28/18 08:06 Oxygen Delivery Method Room Air Weight: 75.6 kg Body Mass Index (BMI) 30.4 Intake and Output for Last 24 Hours 05/26/18 05/27/18 05/28/18 23:59 23:59 23:59 Intake Total 2150 / 2150 2795 / 2795 Output Total 1100 / 1100 1250 / 1250 Balance 1050 / 1050 1545 / 1545 General: Alert, No apparent distress HEENT: Atraumatic, Normocephalic Oral: Moist Mucosa Neck: No Nodes, Thyroid Normal Size and Texture Lungs: Clear to auscultation, Normal air movement, No rhonchi, No wheeze Cardiovascular: Regular rate, Regular Rhythm, Normal S1, Normal S2, No murmurs Abdomen: Bowel Sounds Present, Soft, Non Tender, Non-Distended, No Hepato-splenomegaly Extremities: No edema, No Calf Tenderness Skin: No rashes, No breakdown Psych/Mental Status: Normal Affect, Appropriate Laboratory Results 05/28/18 05:10: WBC 6.3, RBC 3.59 L, Hgb 10.8 L, Hct 32.9 L, MCV 91.6, MCH 30.1, MCHC 32.8, RDW 13.8, RDW Differential 45.1 H, Plt Count 144 L, MPV 10.2 05/28/18 05:10: Sodium 142, Potassium 4.8, Chloride 107, Carbon Dioxide 30.0, Anion Gap 5, BUN 16, Creatinine 0.63, Estim Creat Clear Calc 35.49, Est GFR (MDRD) Af Amer 117, Est GFR (MDRD) Non-Af 97, BUN/Creatinine Ratio 25.4 H, Glucose 92, Calcium 9.3 Current Medications Acetaminophen (Tylenol) 1,000 mg PO Q8 [facility] Last Admin: 05/28/18 06:42 Dose: 1,000 mg Amlodipine Besylate (Norvasc) 5 mg PO DAILY [facility] Last Admin: 05/28/18 09:40 Dose: 5 mg Aspirin (Aspirin) 81 mg PO BID [facility] Last Admin: 05/28/18 09:44 Dose: 81 mg Atenolol (Tenormin (Beta Bello)) 50 mg PO DAILY [facility] Last Admin: 05/28/18 09:41 Dose: 50 mg Celecoxib (Celebrex) 200 mg PO BID [facility] Last Admin: 05/28/18 09:40 Dose: 200 mg Cholecalciferol (Vitamin D) 1,000 unit PO DAILY [facility] Last Admin: 05/28/18 09:40 Dose: 1,000 unit Famotidine (Pepcid) 20 mg PO DAILY [facility] Last Admin: 05/28/18 09:40 Dose: 20 mg Ketorolac Tromethamine (Toradol) 15 mg IV Q6H PRN PRN PRN Reason: MILD-MOD PAIN (1-5/10) Stop: 06/01/18 10:10 Losartan Potassium (Cozaar) 100 mg PO DAILY [facility] Last Admin: 05/28/18 09:42 Dose: 100 mg Morphine Sulfate () 2 - 4 mg IV Q2H PRN PRN PRN Reason: SEVERE PAIN (6-10/10) Last Admin: 05/27/18 13:33 Dose: 2 mg Multivitamins (Multivitamin) 1 tablet PO DAILY [facility] Last Admin: 05/28/18 09:42 Dose: 1 tablet Nutritional Formula (Lactose Free) (Ensure Clear) 120 ml PO TIDCM [facility] Last Admin: 05/28/18 08:04 Dose: 120 ml Ondansetron HCl (Zofran) 4 mg IV Q8H PRN PRN PRN Reason: NAUSEA Oxycodone HCl (Oxyir) 5 - 10 mg PO Q4H PRN PRN PRN Reason: MOD-SEVERE PAIN (4-10/10) Last Admin: 05/28/18 06:42 Dose: 5 mg Pantoprazole Sodium (Protonix) 20 mg PO DAILY [facility] Last Admin: 05/28/18 09:40 Dose: 20 mg Pramipexole Dihydrochloride (Mirapex) 0.5 mg PO DAILY@1200 [facility] Last Admin: 05/27/18 14:05 Dose: 0.5 mg Pramipexole Dihydrochloride (Mirapex) 0.25 mg PO HS [facility] Last Admin: 05/27/18 21:28 Dose: 0.25 mg Promethazine HCl (Phenergan) 12.5 mg IM Q6H PRN PRN; Protocol PRN Reason: NAUSEA/VOMITING Senna/Docusate Sodium (Senokot-S, Sheila-Colace) 2 tablet PO BID [facility] Last Admin: 05/28/18 09:40 Dose: 2 tablet Sodium Chloride () 5 - 30 ml IV UD PRN PRN Reason: SALINE FLUSH Spironolactone (Aldactone) 25 mg PO DAILY [facility] Last Admin: 05/28/18 09:40 Dose: 25 mg Temazepam (Restoril) 15 mg PO QHS PRN PRN PRN Reason: SLEEP Medical Necessity - Tobacco Use Smoking Status: Never smoker Assessment/Plan 1. Urinary retention had PVRs with 500cc with overflow incontinence. now 250cc PVR. no need for catheter 2. s/p Left hip replacement mgmt per orthopaedics DVT proph per orthopaedics Medically stable to be discharged. Signing off. Please reconsult if patient winds up staying long and if new issues arise. Code Visit Inpatient E&M: 22258 Subs Hosp L2
--- NOTE | 2018-05-28 11:59 | PN_ITS ---
Subjective: Had issues with urinary retention. Had to be straight cathed twice. Vitals/I&O's: Vital Signs Temp Pulse Resp BP Pulse Ox 37.0 C 73 18 93/53 L 100 05/28/18 08:06 05/28/18 08:06 05/28/18 08:06 05/28/18 08:06 05/28/18 08:06 Oxygen Delivery Method Room Air Weight: 75.6 kg Body Mass Index (BMI) 30.4 Intake and Output for Last 24 Hours 05/26/18 05/27/18 05/28/18 23:59 23:59 23:59 Intake Total 2150 / 2150 2795 / 2795 Output Total 1100 / 1100 1250 / 1250 Balance 1050 / 1050 1545 / 1545 General: Alert, No apparent distress HEENT: Atraumatic, Normocephalic Oral: Moist Mucosa Neck: No Nodes, Thyroid Normal Size and Texture Lungs: Clear to auscultation, Normal air movement, No rhonchi, No wheeze Cardiovascular: Regular rate, Regular Rhythm, Normal S1, Normal S2, No murmurs Abdomen: Bowel Sounds Present, Soft, Non Tender, Non-Distended, No Hepato- splenomegaly Extremities: No edema, No Calf Tenderness Skin: No rashes, No breakdown Psych/Mental Status: Normal Affect, Appropriate Laboratory Results 05/28/18 05:10: WBC 6.3, RBC 3.59 L, Hgb 10.8 L, Hct 32.9 L, MCV 91.6, MCH 30.1 , MCHC 32.8, RDW 13.8, RDW Differential 45.1 H, Plt Count 144 L, MPV 10.2 05/28/18 05:10: Sodium 142, Potassium 4.8, Chloride 107, Carbon Dioxide 30.0, Anion Gap 5, BUN 16, Creatinine 0.63, Estim Creat Clear Calc 35.49, Est GFR ( MDRD) Af Amer 117, Est GFR (MDRD) Non-Af 97, BUN/Creatinine Ratio 25.4 H, Glucose 92, Calcium 9.3 Current Medications Acetaminophen (Tylenol) 1,000 mg PO Q8 [facility] Last Admin: 05/28/18 06:42 Dose: 1,000 mg Amlodipine Besylate (Norvasc) 5 mg PO DAILY [facility] Last Admin: 05/28/18 09:40 Dose: 5 mg Aspirin (Aspirin) 81 mg PO BID [facility] Last Admin: 05/28/18 09:44 Dose: 81 mg Atenolol (Tenormin (Beta Bello)) 50 mg PO DAILY [facility] Last Admin: 05/28/18 09:41 Dose: 50 mg Celecoxib (Celebrex) 200 mg PO BID [facility] Last Admin: 05/28/18 09:40 Dose: 200 mg Cholecalciferol (Vitamin D) 1,000 unit PO DAILY [facility] Last Admin: 05/28/18 09:40 Dose: 1,000 unit Famotidine (Pepcid) 20 mg PO DAILY [facility] Last Admin: 05/28/18 09:40 Dose: 20 mg Ketorolac Tromethamine (Toradol) 15 mg IV Q6H PRN PRN PRN Reason: MILD-MOD PAIN (1-5/10) Stop: 06/01/18 10:10 Losartan Potassium (Cozaar) 100 mg PO DAILY [facility] Last Admin: 05/28/18 09:42 Dose: 100 mg Morphine Sulfate () 2 - 4 mg IV Q2H PRN PRN PRN Reason: SEVERE PAIN (6-10/10) Last Admin: 05/27/18 13:33 Dose: 2 mg Multivitamins (Multivitamin) 1 tablet PO DAILY [facility] Last Admin: 05/28/18 09:42 Dose: 1 tablet Nutritional Formula (Lactose Free) (Ensure Clear) 120 ml PO TIDCM [facility] Last Admin: 05/28/18 08:04 Dose: 120 ml Ondansetron HCl (Zofran) 4 mg IV Q8H PRN PRN PRN Reason: NAUSEA Oxycodone HCl (Oxyir) 5 - 10 mg PO Q4H PRN PRN PRN Reason: MOD-SEVERE PAIN (4-10/10) Last Admin: 05/28/18 06:42 Dose: 5 mg Pantoprazole Sodium (Protonix) 20 mg PO DAILY [facility] Last Admin: 05/28/18 09:40 Dose: 20 mg Pramipexole Dihydrochloride (Mirapex) 0.5 mg PO DAILY@1200 [facility] Last Admin: 05/27/18 14:05 Dose: 0.5 mg Pramipexole Dihydrochloride (Mirapex) 0.25 mg PO HS [facility] Last Admin: 05/27/18 21:28 Dose: 0.25 mg Promethazine HCl (Phenergan) 12.5 mg IM Q6H PRN PRN; Protocol PRN Reason: NAUSEA/VOMITING Senna/Docusate Sodium (Senokot-S, Sheila-Colace) 2 tablet PO BID [facility] Last Admin: 05/28/18 09:40 Dose: 2 tablet Sodium Chloride () 5 - 30 ml IV UD PRN PRN Reason: SALINE FLUSH Spironolactone (Aldactone) 25 mg PO DAILY [facility] Last Admin: 05/28/18 09:40 Dose: 25 mg Temazepam (Restoril) 15 mg PO QHS PRN PRN PRN Reason: SLEEP Medical Necessity - Tobacco Use Smoking Status: Never smoker Assessment/Plan 1. Urinary retention * had PVRs with 500cc with overflow incontinence. now 250cc PVR. * no need for catheter 2. s/p Left hip replacement * mgmt per orthopaedics * DVT proph per orthopaedics Medically stable to be discharged. Signing off. Please reconsult if patient winds up staying long and if new issues arise. Code Visit Inpatient E&M: 40031 Subs Hosp L2
[2018-05-28] MEDS: Pramipexole Di-HCl 0.25 MG Tablet 0.5 MG PO (12:14)
[2018-05-28 14:01] VITALS: BP 110/59; PULSE 55; RESP 18; TEMP 37.2; O2SAT 100
[2018-05-28 15:54] VITALS: BP 110/59; PULSE 55; RESP 16; TEMP 37.2; O2SAT 98
== END 2018-05-28 15:49 | disposition home or self-care (01) | DRG 470 ==
LOC: ACINP 06:43 → MS3 08:36
PROVIDERS: Anesthesiology; Admitting Provider Specialist; Family Provider Internal Medicine; PCP Internal Medicine
PROC: 0SRB04A Replacement of Left Hip Joint with Ceramic on Polyethylene Synthetic Substitute, Uncemented, Open Approach (ICD-10-PCS; CPT 27284; principal; 2018-05-27 08:35)
DX: M16.12 Unilateral primary osteoarthritis, left hip (principal); I10 Essential (primary) hypertension; G25.81 Restless legs syndrome; K22.70 Barrett's esophagus without dysplasia; K21.9 Gastro-esophageal reflux disease without esophagitis; E66.9 Obesity, unspecified; Z68.30 Body mass index [BMI] 30.0-30.9, adult; R33.9 Retention of urine, unspecified
CPT/HCPCS: 36415; 73501; 73502; 76000; 80048; 80076; 85025; 85027; 85610; 85730; 87081; 97110; 97162; 97166; 97530; 97535; 99251; C1776; J7120; G0463

== ENCOUNTER → 2018-06-08 11:14 | Outpatient (CLI) | payer MEDICARE, OTHER, SELFPAY ==
[2018-06-08 14:42] LABS: Hematocrit 34.7 % (37-47); Hemoglobin 11.3 g/dl (12.0-15.0); Red Blood Count 3.79 M/mm3 (4.2-5.4); White Blood Count 9.7 K/mm3 (4.4-11.0)
[2018-06-08 14:43] LABS: Mean Corp Hgb Conc 32.6 g/gl (32-36); Mean Corpuscular Hgb 29.8 pg (27.0-32.0); Mean Corpuscular Volume 91.6 fL (81-99); Mean Platelet Vol. 9.5 fl (6.2-12.0); Platelet Count 331 K/mm3 (150-450); RBC Distribution Width CV 14.4 % (11.6-14.6); Scan Indicated on CBC? Y/N NO
[2018-06-08 14:44] LABS: BUN 20 mg/dL (7-18); BUN/Creat Ratio 26.3 RATIO (10-20); Creatinine, Serum 0.76 mg/dL (0.55-1.02); EST Glomerular Filtration Rate 78 mL/min (>60); Est Glom Filt Rate - Afr Amer 95 mL/min (>60); Glucose 90 mg/dL (74-106)
[2018-06-08 14:45] LABS: Anion Gap 9 (5-15); Calcium,Total 9.6 mg/dL (8.5-10.1); Chloride 100 mmol/L (98-107); Potassium 4.5 mmol/L (3.5-5.1); Sodium Level 134 mmol/L (136-145)
== END ==
PROVIDERS: Family Provider Internal Medicine; PCP Internal Medicine; Referring Provider Physician Assistant Surgical; Visit Provider Physician Assistant Surgical
DX: Z96.642 Presence of left artificial hip joint (principal)
CPT/HCPCS: 36415; 80048; 85027

== ENCOUNTER 2018-09-06 10:51 | Inpatient (IN) | payer MEDICARE, OTHER, SELFPAY ==
[2018-09-06] VITALS (8 sets, daily range): BP systolic 89–139; BP diastolic 57–87; PULSE 7–82; RESP 14–18; TEMP 36.6–37.4; O2SAT 92–97; BMI 29.9; BMI 29.8
--- NOTE | 2018-09-06 10:59 | RAD_ITS ---
STUDY: X-RAY CHEST REASON FOR EXAM: Female, 78 years old. Right-sided abdominal pain TECHNIQUE: Single AP portable view of the chest. COMPARISON: 03/05/2016 FINDINGS: There are interstitial fibrotic changes of the lungs. There is no demonstrated pleural abnormality. Normal size heart. Normal mediastinum and favian. Normal visualized pulmonary arteries. Normal visualized aortic arch and descending thoracic aorta. There are diffuse degenerative changes of the visualized thoracic spine. Replaced left glenohumeral joint free of complication. Severe right glenohumeral arthrosis There is no demonstrated abnormality of the visualized soft tissue structures of the upper abdomen. RAD/Chest 1 View (Portable) IMPRESSION: Chronic interstitial changes, no superimposed acute pulmonary process Electronically Signed: Richard Leigh MD at 12:15 EST , Service support ,
--- NOTE | 2018-09-06 11:00 | CT_ITS ---
STUDY: CT ABDOMEN AND PELVIS WITHOUT CONTRAST REASON FOR EXAM: Female, 78 years old. Right upper quadrant pain. Recent back surgery. RADIATION DOSAGE (If Supplied By Facility): CTDIvol = ( 29.42 ) mGy, DLP = ( 1197.76 ) mGycm TECHNIQUE: Transaxial images were obtained from the dome of the diaphragm to the symphysis pubis without oral contrast, and without intravenous contrast. Sagittal and coronal images were reconstructed. Individualized dose optimization techniques were used for this CT. COMPARISON: None. FINDINGS: The visualized lung bases are unremarkable. The visualized portions of the heart are within normal limits. Normal shape and size of the liver. Numerous liver cysts as much as 5.5 cm size. Normal gallbladder and extrahepatic biliary system. Normal spleen. Normal pancreas. Normal bilateral adrenal glands. Normal right kidney. Normal left kidney. No definite renal or ureteral stones are seen. There is no hydronephrosis on either side. Evaluation of the GI tract is limited by absence of oral contrast. Cannot exclude stomach wall thickening. No dilated loops of bowel or evidence for obstruction. Cannot exclude segmental thickening of the welch of the small or large bowel. Cannot exclude enteritis or colitis. Moderate diffuse fecal retention. Diverticulosis without definite diverticulitis. Appendix within normal limits. Normal abdominal aorta. Normal inferior vena cava. Normal retroperitoneum. Evaluation of the pelvis is very limited by marked artifact from bilateral hip arthroplasties. Bladder is grossly normal. Uterus is not seen. No free fluid. Normal abdominal wall. There are diffuse degenerative changes of the visualized lumbar spine. Extensive thoracolumbar spine surgery is seen. 1.6 cm anterolisthesis of L3 on L4 with fusion of the disks at L3-L4, L4-L5, and L5-S1. CT/Abdomen/Pelvis without Cont IMPRESSION: No definite acute abnormality is seen. Diverticulosis without definite diverticulitis. Evaluation of the pelvis limited by metal artifact. Electronically Signed: Leno Menon MD at 12:47 EST , Service support ,
--- NOTE | 2018-09-06 11:05 | ED.DCSUM_ITS ---
- ER Visit Summary Date of Service: 09/06/18 Chief Complaint: Right side pain History of Present Illness: The patient is a 78 F who had back surgery about a week ago, presents with right side abdominal pain. No fever or chills no nausea vomiting she was constipated in the hospital and received laxatives which made her have quite a bit of diarrhea and made her feel weak. Physical Examination: Not appear in acute distress. She appears well and nontoxic. Moist mucous membranes, no obvious facial deformity No C-spine tenderness supple neck. Regular rate and rhythm without any obvious murmurs Clear lungs bilaterally speaking in full sentences without any obvious respiratory distress Abdomen soft and nontender no guarding or rebound. The only pain him able to elicit is mid axillary right-sided pain which is under her rib but not in the lung region. There is no right upper quadrant pain there is no pain at McBurney's. There is no CVA tenderness. Moves all extremities without any difficulty or pain. Skin does not show any obvious rashes or lesions, no trauma. Alert oriented ?3 with no gross focal deficit Emergency Department Course and Treatment: Patient is unremarkable workup. In talking to the family she is now weaker than even when she left the hospital, apparently with a walker she can barely get to the bathroom. They are unable to take care of her. I try to get her in a rehab facility however it is Friday and the social workers tell me that she cannot do this. I will admit her for observation Disposition: Admit to hospital Impression: Diarrhea Right-sided abdominal pain Generalized weakness This note was generated with [employer] dictation software. It may contain incorrect words, spelling, and punctuation that were not noted in review of the chart prior to signing ED Disposition - Plan for ED Patient: Chief Complaint: Diarrhea Referrals: Gurvinder Mckay MD [Primary Care Provider] -
[2018-09-06] MEDS: Ondansetron 4 MG/2 ML Vial IV (11:13)
[2018-09-06] MEDS: Morphine 2 MG/ML Syringe IV (11:13)
[2018-09-06 11:20] LABS: Absolute Lymphocyte Count 0.76 X10^3/ul (0.83-4.51); Absolute Neutrophil Count 3.9 X10^3/uL (2.0-7.7); Basophil# 0.01 X10^3/uL; Basophil% 0.2 % (0-1); Eosinophil# 0.17 X10^3/uL; Eosinophils% 3.3 % (0-5); Hematocrit 33.8 % (37-47); Lymphocyte # 0.76 X10^3/ul (4.0); Lymphocyte % 14.7 % (19-41); Mean Corp Hgb Conc 32.5 g/gl (32-36); Mean Corpuscular Hgb 29.2 pg (27.0-32.0); Mean Corpuscular Volume 89.7 fL (81-99); Mean Platelet Vol. 9.3 fl (6.2-12.0); Monocyte# 0.31 X10^3/uL; Neutrophil # 3.91 X10^3/uL (2.7-7.7); Neutrophil % 75.4 % (47-70); Platelet Count 215 K/mm3 (150-450); RBC Distribution Width CV 13.1 % (11.6-14.6); Red Blood Count 3.77 M/mm3 (4.2-5.4); White Blood Count 5.2 K/mm3 (4.4-11.0)
[2018-09-06 11:21] LABS: POSITIVE COUNT NO; POSITIVE DIFFERENTIAL NO; POSITIVE MORPHOLOGY NO
[2018-09-06 11:31] LABS: ALB/GLOB Ratio 0.8 RATIO (0.9-2.4); AST(SGOT) 63 U/L (15-37); Alanine Aminotransfer ALT/SGPT 20 U/L (13-56); Albumin, Serum 2.7 g/dL (3.2-5.0); Alkaline Phosphatase 80 U/L (45-117); Anion Gap 8 (5-15); BUN 16 mg/dL (7-18); BUN/Creat Ratio 26.2 RATIO (10-20); Calcium,Total 8.4 mg/dL (8.5-10.1); Chloride 101 mmol/L (98-107); Creatinine, Serum 0.61 mg/dL (0.55-1.02); EST Glomerular Filtration Rate 100 mL/min (>60); Est Glom Filt Rate - Afr Amer 121 mL/min (>60); Estimated Creatinine Clearance 35.49 ml/min; Globulin 3.3 g/dL (2.2-4.2); Glucose 110 mg/dL (74-106); Lipase 110 U/L (73-393); Sodium Level 134 mmol/L (136-145)
[2018-09-06 13:17] LABS: Mucous, Urine 0 SEEN /hpf (<or=2+)
[2018-09-06 13:18] LABS: Color, Urine Yellow (Yellow); Glucose, Dipstick Normal (Normal); Ketone-Dipstick Negative (Negative); Leukocyte Esterase-Dipstick 100 /ul (Negative); Nitrite-Dipstick Negative (Negative); Occult Blood-Urine Negative /ul (Negative); Protein-Dipstick Negative (Negative); Specific Gravity, Urine 1.005 (1.002-1.030); Urine Bilirubin Dipstick Negative (Negative); Urine Clarity Clear (Clear); Urine Urobilinogen Normal (Normal)
[2018-09-06 13:26] LABS: Bacteria RARE /hpf (None Seen); Red Blood Cells-Urine 0-5 SEEN /hpf (0-5); Squamous Epithelial Cells - UA 0-5 SEEN /hpf (5-10); White Blood Cells 5-10 SEEN /hpf (0-5)
--- NOTE | 2018-09-06 14:12 | PCM.HP.STD ---
Problem List (1) Debility Status: Acute History of Present Illness Date of Admission: 09/06/18 Chief Complaint: weakness The patient is a 78 year old F who was hospitalized on the emergent spinal cord intervention. Patient was having paresthesias around her vulva since . Had an outpatient MRI and was notified on the that was abnormal and she was directed to [facility]. On the , patient underwent emergent spinal surgery that was 4 hours. Unclear if is a herniated disc or due to her spinal stenosis. Patient was in the hospital till roughly the . Patient was discharged home with home care. The plan was for the patient to be at home with her son until Friday where he was going to be going back out of town. But patient was not improving as they had expected and patient was brought to [facility] [place] for SNF placement. Patient states that her weakness is been essentially unchanged during this time. Patient states that the vulvar paresthesias has improved but patient denies any bladder incontinence. [] Past Medical History Past Medical History (Chronic Problems): Chronic Problems Osteoarthritis (Chronic) Hypertension (Chronic) Restless leg syndrome (Chronic) Lumbar spinal stenosis (Chronic) Allergies influenza virus vaccine ts [From Fluarix] Allergy (Severe, Verified 09/06/18 10:52) Swelling hydrochlorothiazide Allergy (Verified 09/06/18 10:52) Hives irbesartan Allergy (Verified 09/06/18 10:52) Other meloxicam Allergy (Verified 09/06/18 10:52) Swelling triamterene Allergy (Verified 09/06/18 10:52) Hives perfume Adverse Reaction (Verified 09/06/18 10:52) Other venom-honey bee [bee venom (honey bee)] Adverse Reaction (Verified 09/06/18 10:52) Anaphylaxis MSG Allergy (Uncoded 09/06/18 10:52) Shortness of breath Home Medications: Ambulatory Orders Medication Instructions Recorded Amlodipine [Norvasc] 5 mg PO DAILY 11/21/17 Atenolol [Tenormin (beta kwame)] 50 mg PO DAILY 11/21/17 Cholecalciferol (VIT D3) [Vitamin 1,000 unit PO DAILY 11/21/17 D3] Losartan Potassium [Cozaar] 100 mg PO DAILY 11/21/17 Omeprazole [Prilosec] 20 mg PO DAILY 11/21/17 Pramipexole Di-HCl [Mirapex] 0.5 mg PO DAILY@1200 11/21/17 Spironolactone [Aldactone] 25 mg PO DAILY 11/21/17 Temazepam [Restoril] 15 mg PO QHS PRN PRN 11/21/17 Celecoxib 200 mg PO QWEEK 05/14/18 Centrum Silver Tablet 1 tab PO DAILY 05/14/18 Pramipexole Di-HCl [Mirapex] 0.25 mg PO QHS 05/27/18 Acetaminophen [Tylenol] 1,000 mg PO Q8 #90 tab 05/28/18 Aspirin 81 mg PO BID #30 tab 05/28/18 Oxycodone [Oxyir] 5 - 10 mg PO Q4H PRN PRN 5 Days 05/28/18 #60 tab Senna/Docusate Sodium [Senokot-S] 2 tab PO BID #20 tab 05/28/18 Surgical History: - - 2 previous lumbar spine surgeries. Emergent spinal surgery on August 30, 2018. Psychiatric History: No pertinent psych hx [employer] History: No pertinent [employer] history Lives: With Family Smoking Status: Never smoker Tobacco Use: Non-smoker Alcohol: None Drugs: None - *Family History Maternal History Items: No pertinent history, - - No CVA Review of Systems Constitutional: Reports: Weakness. Denies: Anorexia, Chills, Fever Eyes: Denies: Blurred vision, Cataracts, Conjunctivae Inflammation, Double vision HEENT: Denies: Head Aches, Sinus Congestion, Sinus Drainage Cardiovascular: Denies: Chest Pain, Palpitations Respiratory: Denies: Cough, Shortness of breath at rest, Sputum production Gastrointestinal: Denies: Abdominal Pain, Nausea, Vomiting Genitourinary: Denies: Dysuria, Incontinence Musculoskeletal: Denies: Joint Pain, Joint Tenderness Skin: Denies: Dryness, Jaundice Neurological: Reports: Balance problems - Due to weakness. Denies: Incoordination Psychiatric: Denies: Anxiety, Depression, Homicidal Ideations, Suicidal Ideations Hematologic/ Lymphatic: Denies: Easy Bruising, Easy Bleeding, Hx of blood clot Comment: A 10 point review of systems were negative except as mentioned in the history of present illness and the other review of systems. VTE Information - Inpt Only VTE Present on Admission: No VTE Pharm Prophylaxis ordered?: Yes Patient Problems: Active and Suspected Problems Debility (Acute) - Physical Exam General: Alert, No apparent distress HEENT: Atraumatic, Normocephalic, - - No scleral icterus Neck: No Nodes, Thyroid Normal Size and Texture Lungs: Clear to auscultation, Normal air movement, No rhonchi, No wheeze Cardiovascular: Regular rate, Regular Rhythm, Normal S1, Normal S2, No murmurs Abdomen: Bowel Sounds Present, Soft, Non Tender, Non-Distended, No Hepato-splenomegaly Extremities: No edema, No Calf Tenderness Skin: No rashes, No breakdown Musculoskeletal: No Tenderness to Palpation of Joints or Extremities, No Muscle Wasting Neurological: - - Muscle strength 5 out of 5 in lower extremities. Sensation is intact. Limited flexion of the left knee 3 the patient states that showed old 2 numbness. Coordination normal with heel to garcia though limited exam on the left heel as she cannot go fully up to her knee. Psych/Mental Status: Normal Affect, Appropriate Vital Signs Temp Pulse Resp BP Pulse Ox 36.6 C 59 L 14 128/63 H 92 09/06/18 11:57 09/06/18 11:57 09/06/18 11:57 09/06/18 12:52 09/06/18 11:57 Oxygen Delivery Method Room Air Weight: 74.4 kg Body Mass Index (BMI) 29.9 Laboratory Tests Past 24 Hrs 09/06/18 09/06/18 09/06/18 11:11 11:11 13:10 WBC 5.2 RBC 3.77 L Hgb 11.0 L Hct 33.8 L MCV 89.7 MCH 29.2 MCHC 32.5 RDW 13.1 RDW Differential 43.0 Plt Count 215 MPV 9.3 Immature Gran % (Auto) 0.400 Neut % (Auto) 75.4 H Lymph % (Auto) 14.7 L Appling % (Auto) 6.0 Eos % (Auto) 3.3 Baso % (Auto) 0.2 Absolute Neuts (auto) 3.9 Absolute Lymphs (auto) 0.76 L Total Counted Not Reportable Sodium 134 L Potassium 4.0 Chloride 101 Carbon Dioxide 25.0 Anion Gap 8 BUN 16 Creatinine 0.61 Estim Creat Clear Calc 35.49 Est GFR (MDRD) Af Amer 121 Est GFR (MDRD) Non-Af 100 BUN/Creatinine Ratio 26.2 H Glucose 110 H Calcium 8.4 L Total Bilirubin 0.40 AST 63 H ALT 20 Alkaline Phosphatase 80 Total Protein 6.0 L Albumin 2.7 L Globulin 3.3 Albumin/Globulin Ratio 0.8 L Lipase 110 Urine Color Yellow Urine Clarity Clear Urine pH 7.0 Ur Specific Grandy 1.005 Urine Protein Negative Urine Glucose (UA) Normal Urine Ketones Negative Urine Occult Blood Negative Urine Nitrite Negative Urine Bilirubin Negative Urine Urobilinogen Normal Ur Leukocyte Esterase 100 H Urine RBC 0-5 SEEN Urine WBC 5-10 SEEN Ur Squamous Epith Cells 0-5 SEEN Urine Bacteria RARE Urine Mucus 0 SEEN Clinical Impression(s) from Imaging Studies Chest X-Ray 09/06/18 10:59 IMPRESSION: Chronic interstitial changes, no superimposed acute pulmonary process Electronically Signed: Richard Leigh MD at 12:15 EST , Service support , Abdomen/Pelvis CT 09/06/18 11:00 IMPRESSION: No definite acute abnormality is seen. Diverticulosis without definite diverticulitis. Evaluation of the pelvis limited by metal artifact. Electronically Signed: Leno Menon MD at 12:47 EST , Service support , Assessment/Plan All Active Problems Debility (Acute) 1. Debility Actually not a new phenomenon but is up until the 27th of this month. Patient had roughly 6 or 7-day stay in the hospital for emergent back surgery. I feel that the patient's plans to improve our family was there did not work out and now they are just seeking placement. We will have physical and occupational therapy see the patient I did inform patient that she will be brought in under observation as I do not see any obvious medical necessity other than her being weak to warrant admission. I did tell her that may complicate matters regards to her going to a retirement facility. However, it is possible could be covered by insurance given that she was just hospitalized 3 days prior to this admission and was weak similar to what she has now, according to her. Will check orthostatic vital signs see if that may be adjusted she feels dizzy. 2. Recent back surgery Symptomatically patient feels well. Patient does complain of chronic paresthesias in her lower extremities but that has been chronic even before this most recent surgery Will request records from [facility] in regards to what was done for her back. 3. DVT prophylaxis with Lovenox Code Visit OBSV E&M: 72294 Initial observation care L3
--- NOTE | 2018-09-06 14:16 | HP.PCM_ITS ---
Problem List (1) Debility Status: Acute History of Present Illness Date of Admission: 09/06/18 Chief Complaint: weakness The patient is a 78 year old F who was hospitalized on the emergent spinal cord intervention. Patient was having paresthesias around her vulva since . Had an outpatient MRI and was notified on the that was abnormal and she was directed to [facility]. On the , patient underwent emergent spinal surgery that was 4 hours. Unclear if is a herniated disc or due to her spinal stenosis. Patient was in the hospital till roughly the . Patient was discharged home with home care. The plan was for the patient to be at home with her son until Friday where he was going to be going back out of town. But patient was not improving as they had expected and patient was brought to [facility] for SNF placement. Patient states that her weakness is been essentially unchanged during this time. Patient states that the vulvar paresthesias has improved but patient denies any bladder incontinence. [] Past Medical History Past Medical History (Chronic Problems): Chronic Problems Osteoarthritis (Chronic) Hypertension (Chronic) Restless leg syndrome (Chronic) Lumbar spinal stenosis (Chronic) Allergies influenza virus vaccine ts [From Fluarix] Allergy (Severe, Verified 09/06/18 10:52) Swelling hydrochlorothiazide Allergy (Verified 09/06/18 10:52) Hives irbesartan Allergy (Verified 09/06/18 10:52) Other meloxicam Allergy (Verified 09/06/18 10:52) Swelling triamterene Allergy (Verified 09/06/18 10:52) Hives perfume Adverse Reaction (Verified 09/06/18 10:52) Other venom-honey bee [bee venom (honey bee)] Adverse Reaction (Verified 09/06/18 10:52) Anaphylaxis MSG Allergy (Uncoded 09/06/18 10:52) Shortness of breath Home Medications: Ambulatory Orders Medication Instructions Recorded Amlodipine [Norvasc] 5 mg PO DAILY 11/21/17 Atenolol [Tenormin (beta kwame)] 50 mg PO DAILY 11/21/17 Cholecalciferol (VIT D3) [Vitamin 1,000 unit PO DAILY 11/21/17 D3] Losartan Potassium [Cozaar] 100 mg PO DAILY 11/21/17 Omeprazole [Prilosec] 20 mg PO DAILY 11/21/17 Pramipexole Di-HCl [Mirapex] 0.5 mg PO DAILY@1200 11/21/17 Spironolactone [Aldactone] 25 mg PO DAILY 11/21/17 Temazepam [Restoril] 15 mg PO QHS PRN PRN 11/21/17 Celecoxib 200 mg PO QWEEK 05/14/18 Centrum Silver Tablet 1 tab PO DAILY 05/14/18 Pramipexole Di-HCl [Mirapex] 0.25 mg PO QHS 05/27/18 Acetaminophen [Tylenol] 1,000 mg PO Q8 #90 tab 05/28/18 Aspirin 81 mg PO BID #30 tab 05/28/18 Oxycodone [Oxyir] 5 - 10 mg PO Q4H PRN PRN 5 Days 05/28/18 #60 tab Senna/Docusate Sodium [Senokot-S] 2 tab PO BID #20 tab 05/28/18 Surgical History: - - 2 previous lumbar spine surgeries. Emergent spinal surgery on August 30, 2018. Psychiatric History: No pertinent psych hx DIGITAL PRINTER History: No pertinent DIGITAL PRINTER history Lives: With Family Smoking Status: Never smoker Tobacco Use: Non-smoker Alcohol: None Drugs: None - *Family History Maternal History Items: No pertinent history, - - No CVA Review of Systems Constitutional: Reports: Weakness. Denies: Anorexia, Chills, Fever Eyes: Denies: Blurred vision, Cataracts, Conjunctivae Inflammation, Double vision HEENT: Denies: Head Aches, Sinus Congestion, Sinus Drainage Cardiovascular: Denies: Chest Pain, Palpitations Respiratory: Denies: Cough, Shortness of breath at rest, Sputum production Gastrointestinal: Denies: Abdominal Pain, Nausea, Vomiting Genitourinary: Denies: Dysuria, Incontinence Musculoskeletal: Denies: Joint Pain, Joint Tenderness Skin: Denies: Dryness, Jaundice Neurological: Reports: Balance problems - Due to weakness. Denies: Incoordination Psychiatric: Denies: Anxiety, Depression, Homicidal Ideations, Suicidal Ideations Hematologic/ Lymphatic: Denies: Easy Bruising, Easy Bleeding, Hx of blood clot Comment: A 10 point review of systems were negative except as mentioned in the history of present illness and the other review of systems. VTE Information - Inpt Only VTE Present on Admission: No VTE Pharm Prophylaxis ordered?: Yes Patient Problems: Active and Suspected Problems Debility (Acute) - Physical Exam General: Alert, No apparent distress HEENT: Atraumatic, Normocephalic, - - No scleral icterus Neck: No Nodes, Thyroid Normal Size and Texture Lungs: Clear to auscultation, Normal air movement, No rhonchi, No wheeze Cardiovascular: Regular rate, Regular Rhythm, Normal S1, Normal S2, No murmurs Abdomen: Bowel Sounds Present, Soft, Non Tender, Non-Distended, No Hepato- splenomegaly Extremities: No edema, No Calf Tenderness Skin: No rashes, No breakdown Musculoskeletal: No Tenderness to Palpation of Joints or Extremities, No Muscle Wasting Neurological: - - Muscle strength 5 out of 5 in lower extremities. Sensation is intact. Limited flexion of the left knee 3 the patient states that showed old 2 numbness. Coordination normal with heel to garcia though limited exam on the left heel as she cannot go fully up to her knee. Psych/Mental Status: Normal Affect, Appropriate Vital Signs Temp Pulse Resp BP Pulse Ox 36.6 C 59 L 14 128/63 H 92 09/06/18 11:57 09/06/18 11:57 09/06/18 11:57 09/06/18 12:52 09/06/18 11:57 Oxygen Delivery Method Room Air Weight: 74.4 kg Body Mass Index (BMI) 29.9 Laboratory Tests Past 24 Hrs 09/06/18 09/06/18 09/06/18 11:11 11:11 13:10 WBC 5.2 RBC 3.77 L Hgb 11.0 L Hct 33.8 L MCV 89.7 MCH 29.2 MCHC 32.5 RDW 13.1 RDW Differential 43.0 Plt Count 215 MPV 9.3 Immature Gran % (Auto) 0.400 Neut % (Auto) 75.4 H Lymph % (Auto) 14.7 L [place] % (Auto) 6.0 Eos % (Auto) 3.3 Baso % (Auto) 0.2 Absolute Neuts (auto) 3.9 Absolute Lymphs (auto) 0.76 L Total Counted Not Reportable Sodium 134 L Potassium 4.0 Chloride 101 Carbon Dioxide 25.0 Anion Gap 8 BUN 16 Creatinine 0.61 Estim Creat Clear Calc 35.49 Est GFR (MDRD) Af Amer 121 Est GFR (MDRD) Non-Af 100 BUN/Creatinine Ratio 26.2 H Glucose 110 H Calcium 8.4 L Total Bilirubin 0.40 AST 63 H ALT 20 Alkaline Phosphatase 80 Total Protein 6.0 L Albumin 2.7 L Globulin 3.3 Albumin/Globulin Ratio 0.8 L Lipase 110 Urine Color Yellow Urine Clarity Clear Urine pH 7.0 Ur Specific [place] 1.005 Urine Protein Negative Urine Glucose (UA) Normal Urine Ketones Negative Urine Occult Blood Negative Urine Nitrite Negative Urine Bilirubin Negative Urine Urobilinogen Normal Ur Leukocyte Esterase 100 H Urine RBC 0-5 SEEN Urine WBC 5-10 SEEN Ur Squamous Epith Cells 0-5 SEEN Urine Bacteria RARE Urine Mucus 0 SEEN Clinical Impression(s) from Imaging Studies Chest X-Ray 09/06/18 10:59 IMPRESSION: Chronic interstitial changes, no superimposed acute pulmonary process Electronically Signed: Richard Leigh MD at 12:15 EST , Service support , Abdomen/Pelvis CT 09/06/18 11:00 IMPRESSION: No definite acute abnormality is seen. Diverticulosis without definite diverticulitis. Evaluation of the pelvis limited by metal artifact. Electronically Signed: Leno Menon MD at 12:47 EST , Service support , Assessment/Plan All Active Problems Debility (Acute) 1. Debility Actually not a new phenomenon but is up until the 27th of this month. Patient had roughly 6 or 7-day stay in the hospital for emergent back surgery. I feel that the patient's plans to improve our family was there did not work out and now they are just seeking placement. We will have physical and occupational therapy see the patient I did inform patient that she will be brought in under observation as I do not see any obvious medical necessity other than her being weak to warrant admission. I did tell her that may complicate matters regards to her going to a prison facility. However, it is possible could be covered by insurance given that she was just hospitalized 3 days prior to this admission and was weak similar to what she has now, according to her. Will check orthostatic vital signs see if that may be adjusted she feels dizzy. 2. Recent back surgery Symptomatically patient feels well. Patient does complain of chronic paresthesias in her lower extremities but that has been chronic even before this most recent surgery Will request records from [facility] in regards to what was done for her back. 3. DVT prophylaxis with Lovenox Code Visit OBSV E&M: [id number] Initial observation care L3
[2018-09-06] MEDS: oxyCODONE 5 MG Tablet PO ×2 (15:23→22:01)
--- NOTE | 2018-09-06 15:55 | PCA ---
TC placed to [facility] Medical Records department, to inform them of incoming request. faxed signed release to [phone]
[2018-09-06] MEDS: 0.9% Normal Saline 1,000 ML 125 ML IV (17:15)
[2018-09-06] MEDS: Pramipexole Di-HCl 0.25 MG Tablet PO (21:56)
[2018-09-07] MEDS: Temazepam 15 MG Capsule PO ×2 (00:26→20:39)
[2018-09-07] MEDS: oxyCODONE 5 MG Tablet PO ×4 (00:26→20:25)
[2018-09-07 05:23] VITALS: BP 125/77; PULSE 67; RESP 16; TEMP 37.1; O2SAT 100
[2018-09-07 08:43] VITALS: BP 119/62; PULSE 75; RESP 18; TEMP 36.6; O2SAT 94
[2018-09-07] MEDS: amLODIPine 5 MG Tablet PO (08:48)
[2018-09-07] MEDS: Pantoprazole Sodium 20 MG Tablet PO (08:48)
[2018-09-07] MEDS: Multivitamins,Ther W-Minerals Tablet 1 TABLET PO (08:48)
[2018-09-07] MEDS: Atenolol 50 MG Tablet PO (08:48)
[2018-09-07] MEDS: Senna/Docusate Sodium 1 Tablet 2 TABLET PO ×2 (08:48→20:40)
[2018-09-07] MEDS: Enoxaparin 40 MG/0.4 ML Syringe SC (08:49)
[2018-09-07] MEDS: Losartan Potassium 100 MG Tablet PO (08:49)
[2018-09-07] MEDS: Spironolactone 25 MG Tablet PO (08:52)
[2018-09-07] MEDS: Pramipexole Di-HCl 0.25 MG Tablet 0.5 MG PO (11:46)
--- NOTE | 2018-09-07 12:00 | CASEMGMT ---
Social Work Note ESCOBAR received note from PT/OT stating pt would be a good candidate for RU. SW placed a call to Avril with RU and per Avril she is able to accept pt and will have a bed for pt tomorrow. ESCOBAR spoke with pt. Pt's daughter Antonina and son present in room. ESCOBAR introduced self and role at [facility]. Pt is alert and orientated x4 and gave this worker permission to speak to her in front of her guest. ESCOBAR informed pt that PT/OT are recommending RU for pt. ESCOABR informed pt that if RU is too intense for pt, then pt can request to be sent to TCU or a different SNF with less intense therapy. Pt states understanding and is agreeable to RU. Green sheet on chart. Plan: RU tomorrow Sarah Wilson RETAIL SEASONAL SPECIALIST, TAX AUDITOR
[2018-09-07 14:51] VITALS: BP 122/82; PULSE 69; RESP 16; TEMP 36.9; O2SAT 95
--- NOTE | 2018-09-07 20:03 | PCM.PROGNOTE ---
Patient Problems: Active and Suspected Problems Debility (Acute) Subjective: The patient is an 78-year-old female who recently had a 4-hour back surgery at [facility] for canal stenosis. She was recently discharged from [facility] this past . She was given a prescription for oxycodone for pain relief however this is not been very effective. She is complaining primarily of low back pain and not radicular pain into her legs. She did complain of radiation into both legs when the PT asked her. She has 5/5 strength in both lower extremities. Currently receiving as needed OxyIR and Tylenol for pain. She also c/o numbness in the perineum. Prior to surgery had urinary incontinence. All events of the past 24 hours of been reviewed. She is afebrile and vital signs are stable. All lab was personally reviewed. Sodium was mildly decreased at 134 at admission and the CBC was unremarkable. UA had 5-10 white blood cells but the patient denies dysuria. Objective: PHYSICAL EXAM: GENERAL: alert, oriented X 3, Cooperative, NAD ORAL: moist mucosa, no mucosal lesions NECK: No JVD, supple, trachea midline LUNGS: CTA, symmetric chest expansion HEART: RRR, Normal S1 and S2, no rub, no gallop ABDOMEN: soft, NT, ND, BS present, no guarding with palpation EXTREMITIES: no edema, no cyanosis, no calf tenderness SKIN: No rashes, no breakdown, the dressing over the incision is dry without any DC and there is n erythema around the bandage NEUROLOGIC: no focal neurologic deficits, 5/5 strength in both lower extremities. Negative straight leg raising bilaterally PSYCH: appropriate, normal affect, pleasant - Physical Exam Vital Signs Temp Pulse Resp BP Pulse Ox 98.4 F 69 16 122/82 H 95 09/07/18 14:51 09/07/18 14:51 09/07/18 14:51 09/07/18 14:51 09/07/18 14:51 Oxygen Delivery Method Room Air Weight: 163 lb Body Mass Index (BMI) 29.8 Intake and Output for Last 24 Hours 09/05/18 09/06/18 09/07/18 23:59 23:59 23:59 Intake Total 365 / 365 2438 / 2438 Balance 365 / 365 2438 / 2438 Medical Necessity - Tobacco Use Smoking Status: Never smoker Tobacco Use: Non-smoker Assessment/Plan All Active Problems Debility (Acute) Impressions 1. Status post recent emergent lumbar spine surgery for lumbar canal stenosis-discharged on 09/03/2018 from [facility] and presented to [facility] on 09/06/2018 with intractable back pain radiating into both legs, not adequately controlled with as needed oxycodone at home 2. Restless leg syndrome 3. Osteoarthritis 4. Hypertension 5. Mild normochromic normocytic anemia-likely secondary to blood loss with recent surgery. 6. Mild hyponatremia Scheduled Tylenol 1 g every 8 hours Continue oxycodone 5-10 mg every 4 hours as needed for pain Start gabapentin 100 mg at 8 AM and 3 PM and 200 mg at bedtime Plan on discharge to rehab facility when pain is adequately controlled -patient is agreeable but concerned that she will not be able to do 3 hours of physical therapy a day. She apparently had a bad experience with outpatient physical therapy and she complained of pain and they continued to force her to do the exercises. Has had a good experience at [facility] in the past Code Visit Inpatient E&M: [id number] Subs Hosp L2
--- NOTE | 2018-09-07 20:09 | PN_ITS ---
Patient Problems: Active and Suspected Problems Debility (Acute) Subjective: The patient is an 78-year-old female who recently had a 4-hour back surgery at [facility] for canal stenosis. She was recently discharged from [facility] this past . She was given a prescription for oxycodone for pain relief however this is not been very effective. She is complaining primarily of low back pain and not radicular pain into her legs. She did complain of radiation into both legs when the PT asked her. She has 5/5 strength in both lower extremities. Currently receiving as needed OxyIR and Tylenol for pain. She also c/o numbness in the perineum. Prior to surgery had urinary incontinence. All events of the past 24 hours of been reviewed. She is afebrile and vital signs are stable. All lab was personally reviewed. Sodium was mildly decreased at 134 at admission and the CBC was unremarkable. UA had 5-10 white blood cells but the patient denies dysuria. Objective: PHYSICAL EXAM: GENERAL: alert, oriented X 3, Cooperative, NAD ORAL: moist mucosa, no mucosal lesions NECK: No JVD, supple, trachea midline LUNGS: CTA, symmetric chest expansion HEART: RRR, Normal S1 and S2, no rub, no gallop ABDOMEN: soft, NT, ND, BS present, no guarding with palpation EXTREMITIES: no edema, no cyanosis, no calf tenderness SKIN: No rashes, no breakdown, the dressing over the incision is dry without any DC and there is n erythema around the bandage NEUROLOGIC: no focal neurologic deficits, 5/5 strength in both lower extremities. Negative straight leg raising bilaterally PSYCH: appropriate, normal affect, pleasant - Physical Exam Vital Signs Temp Pulse Resp BP Pulse Ox 98.4 F 69 16 122/82 H 95 09/07/18 14:51 09/07/18 14:51 09/07/18 14:51 09/07/18 14:51 09/07/18 14:51 Oxygen Delivery Method Room Air Weight: 163 lb Body Mass Index (BMI) 29.8 Intake and Output for Last 24 Hours 09/05/18 09/06/18 09/07/18 23:59 23:59 23:59 Intake Total 365 / 365 2438 / 2438 Balance 365 / 365 2438 / 2438 Medical Necessity - Tobacco Use Smoking Status: Never smoker Tobacco Use: Non-smoker Assessment/Plan All Active Problems Debility (Acute) Impressions 1. Status post recent emergent lumbar spine surgery for lumbar canal stenosis- discharged on 09/03/2018 from [facility] and presented to [facility] on 09/06/2018 with intractable back pain radiating into both legs, not adequately controlled with as needed oxycodone at home 2. Restless leg syndrome 3. Osteoarthritis 4. Hypertension 5. Mild normochromic normocytic anemia-likely secondary to blood loss with recent surgery. 6. Mild hyponatremia Scheduled Tylenol 1 g every 8 hours Continue oxycodone 5-10 mg every 4 hours as needed for pain Start gabapentin 100 mg at 8 AM and 3 PM and 200 mg at bedtime Plan on discharge to rehab facility when pain is adequately controlled -patient is agreeable but concerned that she will not be able to do 3 hours of physical therapy a day. She apparently had a bad experience with outpatient physical therapy and she complained of pain and they continued to force her to do the exercises. Has had a good experience at [facility] in the past Code Visit Inpatient E&M: [id number] Subs Hosp L2
[2018-09-07 20:26] VITALS: BP 116/54; PULSE 64; RESP 18; TEMP 37.1; O2SAT 94
[2018-09-07 20:30] VITALS: PULSE 64; RESP 18; O2SAT 94
[2018-09-07] MEDS: Gabapentin 100 MG Capsule 200 MG PO (20:40)
[2018-09-07] MEDS: Acetaminophen 500 MG Tablet 1000 MG PO (20:40)
[2018-09-07] MEDS: Pramipexole Di-HCl 0.25 MG Tablet PO (20:41)
[2018-09-08 03:30] VITALS: BP 133/67; PULSE 60; RESP 18; TEMP 36.5; O2SAT 99
[2018-09-08] MEDS: oxyCODONE 5 MG Tablet PO ×2 (03:49→12:08)
[2018-09-08] MEDS: Acetaminophen 500 MG Tablet 1000 MG PO ×2 (06:21→13:32)
[2018-09-08 07:32] VITALS: PULSE 60
[2018-09-08] MEDS: Gabapentin 100 MG Capsule PO (07:39)
[2018-09-08] MEDS: Multivitamins,Ther W-Minerals Tablet 1 TABLET PO (07:39)
[2018-09-08] MEDS: Senna/Docusate Sodium 1 Tablet 2 TABLET PO (07:39)
[2018-09-08] MEDS: Losartan Potassium 100 MG Tablet PO (07:40)
[2018-09-08] MEDS: Atenolol 50 MG Tablet PO ×2 (07:40→07:41)
[2018-09-08] MEDS: Spironolactone 25 MG Tablet PO (07:41)
[2018-09-08] MEDS: Pantoprazole Sodium 20 MG Tablet PO (07:41)
[2018-09-08] MEDS: amLODIPine 5 MG Tablet PO (07:43)
[2018-09-08 07:46] VITALS: BP 114/66
[2018-09-08] MEDS: Enoxaparin 40 MG/0.4 ML Syringe SC (10:18)
[2018-09-08 10:20] VITALS: BP 111/56; PULSE 58; RESP 16; TEMP 36.7; O2SAT 96
[2018-09-08] MEDS: Pramipexole Di-HCl 0.25 MG Tablet 0.5 MG PO (11:41)
--- NOTE | 2018-09-08 12:16 | DCINST_ITS ---
- Discharge Diagnoses Current Active Problems: Current Active and Chronic Problems Debility (Acute) You will use the following diet at home:: No restrictions Your food should be the consistency of: Regular Your liquids should be the consistency of: Regular/Thin Discharge Activity: - - per PT in rehab unit Weight Bearing Status: Full weight bearing Lifting Restrictions: 5-10 lbs Additional Activity Instructions:: No bending, lifting, twisting Call your doctor if you observe: Fever of 101 or Higher, Shortness of breath, Dizziness, Fainting spells, Chest pain, Calf discomfort Allergies/Adverse Reactions: Allergies influenza virus vaccine ts [From Fluarix] Allergy (Severe, Verified 09/06/18 10:52) Swelling hydrochlorothiazide Allergy (Verified 09/06/18 10:52) Hives irbesartan Allergy (Verified 09/06/18 14:45) Hives meloxicam Allergy (Verified 09/06/18 10:52) Swelling triamterene Allergy (Verified 09/06/18 10:52) Hives perfume Adverse Reaction (Verified 09/06/18 14:45) breathing it in gets itch venom-honey bee [bee venom (honey bee)] Adverse Reaction (Verified 09/06/18 10:52) Anaphylaxis MSG Allergy (Uncoded 09/06/18 10:52) Shortness of breath Medications to take at Discharge Amlodipine [Norvasc] 5 mg PO DAILY 11/21/17 Atenolol [Tenormin (beta kwame)] 50 mg PO DAILY 11/21/17 Cholecalciferol (VIT D3) [Vitamin D3] 1,000 unit PO DAILY 11/21/17 Losartan Potassium [Cozaar] 100 mg PO DAILY 11/21/17 Pramipexole Di-HCl [Mirapex] 0.5 mg PO DAILY@1200 11/21/17 Spironolactone [Aldactone] 25 mg PO DAILY 11/21/17 Temazepam [Restoril] 15 mg PO QHS PRN PRN 11/21/17 Pramipexole Di-HCl [Mirapex] 0.25 mg PO QHS 05/27/18 Oxycodone [Oxyir] 5 - 10 mg PO Q4H PRN PRN 5 Days #60 tab 05/28/18 Senna/Docusate Sodium [Senokot-S] 2 tab PO BID #20 tab 05/28/18 Acetaminophen [Tylenol] 1,000 mg PO Q8 tablet 09/08/18 Gabapentin [Neurontin] 200 mg PO BID@0800,1500 capsule 09/08/18 Gabapentin [Neurontin] 200 mg PO QHS capsule 09/08/18 Multivitamins,Ther W-Minerals [Multivitamin With Minerals] 1 tablet PO DAILY@0800 tablet 09/08/18 Oxycodone CR [Oxycontin] 10 mg PO DAILY 30 Days #30 tablet 09/08/18 Pantoprazole Sodium [Protonix] 20 mg PO DAILY tablet 09/08/18 Primary Care Physician: Gurvinder Mckay MD [Primary Care Provider] - Please follow up with your Primary Care Physician in: following DC from rehab Test Results: Test results from this visit will be discussed in further detail at your follow- up appointment, if applicable. Please Follow Up With: neurosurgeon When: As previously directed Proposed Discharge Date: 09/08/18
--- NOTE | 2018-09-08 12:18 | PCM.DC.SUM ---
Discharge Date and Diagnosis - Problem List Patient Problems: Active and Suspected Problems Normochromic normocytic anemia (Acute) Hyponatremia (Acute) Intractable back pain (Acute) Radicular pain of right lower extremity (Acute) Status post lumbar spine surgery for decompression of spinal cord (Acute) Debility (Acute) Date of Admission: 09/06/18 Date of Discharge: 09/08/18 - Primary Discharge Diagnosis Active and Suspected Problems Intractable back pain (Acute) Radicular pain of right lower extremity (Acute) Status post lumbar spine surgery for decompression of spinal cord (Acute) Debility (Acute) Normochromic normocytic anemia (Acute)- likely due to blood loss from recent surgery Hyponatremia (Acute) - Secondary Discharge Diagnosis Chronic Problems Osteoarthritis (Chronic) Hypertension (Chronic) Restless leg syndrome (Chronic) Lumbar spinal stenosis (Chronic) Diverticulosis Hospital Course and Treatment Imaging Results: Clinical Impression(s) from Imaging Studies Chest X-Ray 09/06/18 10:59 IMPRESSION: Chronic interstitial changes, no superimposed acute pulmonary process Electronically Signed: Richard Leigh MD at 12:15 EST , Service support , Abdomen/Pelvis CT 09/06/18 11:00 IMPRESSION: No definite acute abnormality is seen. Diverticulosis without definite diverticulitis. Evaluation of the pelvis limited by metal artifact. Electronically Signed: Leno Menon MD at 12:47 EST , Service support , None Operations: None Procedures: None Summary of Care Provided: The patient is an 78-year-old female with a past medical history of osteoarthritis, restless leg syndrome, diverticulosis and hypertension who recently had a 4-hour back surgery at [facility] for severe lumbar canal stenosis. She was discharged from [facility] on 09/03/2018 and sent home. She was given a prescription for oxycodone for pain relief however this has not been very effective. She complained primarily of low back pain with radiation into the R anterior thigh. She has 5/5 strength in both lower extremities but notes that her balance has been off. She also c/o numbness in the perineum. Prior to surgery she had urinary incontinence. She was admitted to the hospital and given PRN Tylenol and PRN Oxy IR 5-10 mg and this did not provide effective pain relief. On 09/07/2018 she was placed on Tylenol 1 g p.o. every 8 hours, oxycodone 5-10 mg every 4 hours as needed and gabapentin 100 mg twice daily and 200 mg at bedtime. She slept very well on the evening of 09/07/2018. On 09/08/2018 she was complaining of pain in her right anterior thigh that started after she walked. She was started on 10 mg of OxyContin daily. She was transferred to the rehab unit at [facility] on 09/08/2018 for further physical therapy prior to returning to her home. Will continue to adjust pain medications to achieve good pain relief without sedation or delirium. PHYSICAL EXAM: GENERAL: alert, oriented X 3, Cooperative, NAD ORAL: moist mucosa, no mucosal lesions NECK: No JVD, supple, trachea midline LUNGS: CTA, symmetric chest expansion HEART: RRR, Normal S1 and S2, no rub, no gallop ABDOMEN: soft, NT, ND, BS present, no guarding with palpation EXTREMITIES: no edema, no cyanosis, no calf tenderness SKIN: No rashes, no breakdown, the dressing over the incision is dry without any DC and there is n erythema around the bandage NEUROLOGIC: no focal neurologic deficits, 5/5 strength in both lower extremities. Negative straight leg raising bilaterally PSYCH: appropriate, normal affect, pleasant This note was generated with [employer] dictation software. It may contain incorrect words, spelling, and punctuation that were not noted in checking the note before signing. Patient Problems: Active and Suspected Problems Normochromic normocytic anemia (Acute) Hyponatremia (Acute) Intractable back pain (Acute) Radicular pain of right lower extremity (Acute) Status post lumbar spine surgery for decompression of spinal cord (Acute) Debility (Acute) - Physical Exam Vital Signs Temp Pulse Resp BP Pulse Ox 98.0 F 58 L 16 111/56 L 96 09/08/18 10:20 09/08/18 10:20 09/08/18 10:20 09/08/18 10:20 09/08/18 10:20 Oxygen Delivery Method Room Air Weight: 163 lb Body Mass Index (BMI) 29.8 Intake and Output for Last 24 Hours 09/06/18 09/07/18 09/08/18 23:59 23:59 23:59 Intake Total 2438 / 2438 950 / 950 Balance 243 / 2438 950 / 950 Discharge Activity: - - per PT in rehab unit Weight Bearing Status: Full weight bearing Additional Activity Instructions:: No bending, lifting, twisting Call your doctor if you observe: Fever of 101 or Higher, Shortness of breath, Dizziness, Fainting spells, Chest pain, Calf discomfort Home Medications: Medications to take at Discharge Amlodipine [Norvasc] 5 mg PO DAILY 11/21/17 Atenolol [Tenormin (beta kwame)] 50 mg PO DAILY 11/21/17 Cholecalciferol (VIT D3) [Vitamin D3] 1,000 unit PO DAILY 11/21/17 Losartan Potassium [Cozaar] 100 mg PO DAILY 11/21/17 Pramipexole Di-HCl [Mirapex] 0.5 mg PO DAILY@1200 11/21/17 Spironolactone [Aldactone] 25 mg PO DAILY 11/21/17 Temazepam [Restoril] 15 mg PO QHS PRN PRN 11/21/17 Pramipexole Di-HCl [Mirapex] 0.25 mg PO QHS 05/27/18 Oxycodone [Oxyir] 5 - 10 mg PO Q4H PRN PRN 5 Days #60 tab 05/28/18 Senna/Docusate Sodium [Senokot-S] 2 tab PO BID #20 tab 05/28/18 Acetaminophen [Tylenol] 1,000 mg PO Q8 tablet 09/08/18 Gabapentin [Neurontin] 200 mg PO BID@0800,1500 capsule 09/08/18 Gabapentin [Neurontin] 200 mg PO QHS capsule 09/08/18 Multivitamins,Ther W-Minerals [Multivitamin With Minerals] 1 tablet PO DAILY@0800 tablet 09/08/18 Oxycodone CR [Oxycontin] 10 mg PO DAILY 30 Days #30 tablet 09/08/18 Pantoprazole Sodium [Protonix] 20 mg PO DAILY tablet 09/08/18 Primary Care Physician: Gurvinder Mckay MD [Primary Care Provider] - Please follow up with your Primary Care Physician in: following DC from rehab Please Follow Up With: neurosurgeon When: As previously directed Disposition: Inpt Rehab Unit/Facility Minutes spent on discharge:: 35 Medical Necessity - Tobacco Use Smoking Status: Never smoker Tobacco Use: Non-smoker Meaningful Use Info Meaningful Use Diagnoses (Choose all that apply): None applicable Code Visit Inpatient E&M: 29528 Disch Hosp
--- NOTE | 2018-09-08 12:25 | DS.PCM_ITS ---
Discharge Date and Diagnosis - Problem List Patient Problems: Active and Suspected Problems Normochromic normocytic anemia (Acute) Hyponatremia (Acute) Intractable back pain (Acute) Radicular pain of right lower extremity (Acute) Status post lumbar spine surgery for decompression of spinal cord (Acute) Debility (Acute) Date of Admission: 09/06/18 Date of Discharge: 09/08/18 - Primary Discharge Diagnosis Active and Suspected Problems Intractable back pain (Acute) Radicular pain of right lower extremity (Acute) Status post lumbar spine surgery for decompression of spinal cord (Acute) Debility (Acute) Normochromic normocytic anemia (Acute)- likely due to blood loss from recent surgery Hyponatremia (Acute) - Secondary Discharge Diagnosis Chronic Problems Osteoarthritis (Chronic) Hypertension (Chronic) Restless leg syndrome (Chronic) Lumbar spinal stenosis (Chronic) Diverticulosis Hospital Course and Treatment Imaging Results: Clinical Impression(s) from Imaging Studies Chest X-Ray 09/06/18 10:59 IMPRESSION: Chronic interstitial changes, no superimposed acute pulmonary process Electronically Signed: Richard Leigh MD at 12:15 EST , Service support , Abdomen/Pelvis CT 09/06/18 11:00 IMPRESSION: No definite acute abnormality is seen. Diverticulosis without definite diverticulitis. Evaluation of the pelvis limited by metal artifact. Electronically Signed: Leno Menon MD at 12:47 EST , Service support , None Operations: None Procedures: None Summary of Care Provided: The patient is an 78-year-old female with a past medical history of osteoarthritis, restless leg syndrome, diverticulosis and hypertension who recently had a 4-hour back surgery at [facility] for severe lumbar canal stenosis. She was discharged from [facility] on 09/03/2018 and sent home. She was given a prescription for oxycodone for pain relief however this has not been very effective. She complained primarily of low back pain with radiation into the R anterior thigh. She has 5/5 strength in both lower extremities but notes that her balance has been off. She also c/o numbness in the perineum. Prior to surgery she had urinary incontinence. She was admitted to the hospital and given PRN Tylenol and PRN Oxy IR 5-10 mg and this did not provide effective pain relief. On 09/07/2018 she was placed on Tylenol 1 g p.o. every 8 hours, oxycodone 5-10 mg every 4 hours as needed and gabapentin 100 mg twice daily and 200 mg at bedtime. She slept very well on the evening of 09/07/2018. On 09/08/2018 she was complaining of pain in her right anterior thigh that started after she walked. She was started on 10 mg of OxyContin daily. She was transferred to the rehab unit at [facility] on 09/08/2018 for further physical therapy prior to returning to her home. Will continue to adjust pain medications to achieve good pain relief without sedation or delirium. PHYSICAL EXAM: GENERAL: alert, oriented X 3, Cooperative, NAD ORAL: moist mucosa, no mucosal lesions NECK: No JVD, supple, trachea midline LUNGS: CTA, symmetric chest expansion HEART: RRR, Normal S1 and S2, no rub, no gallop ABDOMEN: soft, NT, ND, BS present, no guarding with palpation EXTREMITIES: no edema, no cyanosis, no calf tenderness SKIN: No rashes, no breakdown, the dressing over the incision is dry without any DC and there is n erythema around the bandage NEUROLOGIC: no focal neurologic deficits, 5/5 strength in both lower extremities. Negative straight leg raising bilaterally PSYCH: appropriate, normal affect, pleasant This note was generated with [employer] dictation software. It may contain incorrect words, spelling, and punctuation that were not noted in checking the note before signing. Patient Problems: Active and Suspected Problems Normochromic normocytic anemia (Acute) Hyponatremia (Acute) Intractable back pain (Acute) Radicular pain of right lower extremity (Acute) Status post lumbar spine surgery for decompression of spinal cord (Acute) Debility (Acute) - Physical Exam Vital Signs Temp Pulse Resp BP Pulse Ox 98.0 F 58 L 16 111/56 L 96 09/08/18 10:20 09/08/18 10:20 09/08/18 10:20 09/08/18 10:20 09/08/18 10:20 Oxygen Delivery Method Room Air Weight: 163 lb Body Mass Index (BMI) 29.8 Intake and Output for Last 24 Hours 09/06/18 09/07/18 09/08/18 23:59 23:59 23:59 Intake Total 2438 / 2438 950 / 950 Balance 243 / 2438 950 / 950 Discharge Activity: - - per PT in rehab unit Weight Bearing Status: Full weight bearing Additional Activity Instructions:: No bending, lifting, twisting Call your doctor if you observe: Fever of 101 or Higher, Shortness of breath, Dizziness, Fainting spells, Chest pain, Calf discomfort Home Medications: Medications to take at Discharge Amlodipine [Norvasc] 5 mg PO DAILY 11/21/17 Atenolol [Tenormin (beta kwame)] 50 mg PO DAILY 11/21/17 Cholecalciferol (VIT D3) [Vitamin D3] 1,000 unit PO DAILY 11/21/17 Losartan Potassium [Cozaar] 100 mg PO DAILY 11/21/17 Pramipexole Di-HCl [Mirapex] 0.5 mg PO DAILY@1200 11/21/17 Spironolactone [Aldactone] 25 mg PO DAILY 11/21/17 Temazepam [Restoril] 15 mg PO QHS PRN PRN 11/21/17 Pramipexole Di-HCl [Mirapex] 0.25 mg PO QHS 05/27/18 Oxycodone [Oxyir] 5 - 10 mg PO Q4H PRN PRN 5 Days #60 tab 05/28/18 Senna/Docusate Sodium [Senokot-S] 2 tab PO BID #20 tab 05/28/18 Acetaminophen [Tylenol] 1,000 mg PO Q8 tablet 09/08/18 Gabapentin [Neurontin] 200 mg PO BID@0800,1500 capsule 09/08/18 Gabapentin [Neurontin] 200 mg PO QHS capsule 09/08/18 Multivitamins,Ther W-Minerals [Multivitamin With Minerals] 1 tablet PO DAILY@0800 tablet 09/08/18 Oxycodone CR [Oxycontin] 10 mg PO DAILY 30 Days #30 tablet 09/08/18 Pantoprazole Sodium [Protonix] 20 mg PO DAILY tablet 09/08/18 Primary Care Physician: Gurvinder Mckay MD [Primary Care Provider] - Please follow up with your Primary Care Physician in: following DC from rehab Please Follow Up With: neurosurgeon When: As previously directed Disposition: Inpt Rehab Unit/Facility Minutes spent on discharge:: 35 Medical Necessity - Tobacco Use Smoking Status: Never smoker Tobacco Use: Non-smoker Meaningful Use Info Meaningful Use Diagnoses (Choose all that apply): None applicable Code Visit Inpatient E&M: 15704 Disch Hosp
--- NOTE | 2018-09-08 13:49 | NURSING ---
REPORT CALLED TO NELSON CASILLAS.
== END 2018-09-08 14:37 | DRG 552 ==
LOC: ED 14:04 → MS3 14:07
PROVIDERS: Emergency Provider Emergency Medicine; Family Provider Internal Medicine; PCP Internal Medicine; Visit Provider Internal Medicine
DX: M54.5 Low back pain (principal); E87.1 Hypo-osmolality and hyponatremia; R53.81 Other malaise; G25.81 Restless legs syndrome; M19.90 Unspecified osteoarthritis, unspecified site; M54.10 Radiculopathy, site unspecified; I10 Essential (primary) hypertension; D50.0 Iron deficiency anemia secondary to blood loss (chronic); Z98.890 Other specified postprocedural states; K57.90 Diverticulosis of intestine, part unspecified, without perforation or abscess without bleeding; R20.0 Anesthesia of skin
CPT/HCPCS: 71045; 74176; 80053; 81001; 83690; 85025; 96361; 96372; 96374; 96375; 97116; 97162; 97165; 99218; 99284; J7030; J7040; A4216; G0378; J2405

== ENCOUNTER 2018-09-08 15:00 | Inpatient (IN) | payer MEDICARE, OTHER, SELFPAY ==
[2018-09-08 15:00] VITALS: BMI 29.9
[2018-09-08 15:55] VITALS: BP 100/51; PULSE 62; RESP 20; TEMP 36.9; O2SAT 95; BMI 29.7
--- NOTE | 2018-09-08 17:34 | CPS ---
STARTED BY NURSING
--- NOTE | 2018-09-08 17:52 | NURSING ---
Call kahn in place and patient verbalized understanding to being a fall risk and must ask for staff assist with all transfers.
[2018-09-08] MEDS: oxyCODONE 5 MG Tablet PO (21:02)
[2018-09-08] MEDS: Temazepam 15 MG Capsule PO (21:02)
[2018-09-08] MEDS: Senna/Docusate Sodium 1 Tablet 2 TABLET PO (21:04)
[2018-09-08] MEDS: Gabapentin 100 MG Capsule 200 MG PO (21:05)
[2018-09-08] MEDS: Pramipexole Di-HCl 0.25 MG Tablet PO (21:08)
[2018-09-08 21:30] VITALS: BMI 29.8
[2018-09-08 22:00] VITALS: BP 120/62; PULSE 67; RESP 18; TEMP 36.8; O2SAT 96
[2018-09-08] MEDS: Acetaminophen 500 MG Tablet 1000 MG PO (22:02)
--- NOTE | 2018-09-09 01:16 | NURSING ---
Pt up for toileting needs and refused back brace orders to be used when up. Pt made aware of necessity of back brace and pt stated that she is aware but doesn't want to take the time put it on.
[2018-09-09] MEDS: oxyCODONE 5 MG Tablet PO ×2 (04:45→12:49)
[2018-09-09 05:50] LABS: Hematocrit 35.1 % (37-47); Hemoglobin 11.2 g/dl (12.0-15.0); Mean Corp Hgb Conc 31.9 g/gl (32-36); Mean Corpuscular Hgb 29.7 pg (27.0-32.0); Mean Corpuscular Volume 93.1 fL (81-99); Mean Platelet Vol. 9.9 fl (6.2-12.0); Platelet Count 256 K/mm3 (150-450); RBC Distribution Width CV 12.9 % (11.6-14.6); RBC Distribution Width SD 42.1 fl (35.1-43.9); Red Blood Count 3.77 M/mm3 (4.2-5.4); White Blood Count 4.1 K/mm3 (4.4-11.0)
[2018-09-09 05:51] LABS: Scan Indicated on CBC? Y/N NO
[2018-09-09 06:07] LABS: Anion Gap 9 (5-15); BUN 11 mg/dL (7-18); BUN/Creat Ratio 20.2 RATIO (10-20); Calcium,Total 8.7 mg/dL (8.5-10.1); Chloride 106 mmol/L (98-107); Creatinine, Serum 0.54 mg/dL (0.55-1.02); EST Glomerular Filtration Rate 114 mL/min (>60); Est Glom Filt Rate - Afr Amer 138 mL/min (>60); Estimated Creatinine Clearance 35.49 ml/min; Glucose 84 mg/dL (74-106); Potassium 4.1 mmol/L (3.5-5.1); Sodium Level 142 mmol/L (136-145)
[2018-09-09] MEDS: Acetaminophen 500 MG Tablet 1000 MG PO ×3 (06:12→19:56)
[2018-09-09] MEDS: Enoxaparin 40 MG/0.4 ML Syringe SC (06:13)
[2018-09-09] MEDS: Pantoprazole Sodium 20 MG Tablet PO (08:48)
[2018-09-09] MEDS: Multivitamins,Ther W-Minerals Tablet 1 TABLET PO (08:48)
[2018-09-09] MEDS: Gabapentin 100 MG Capsule 200 MG PO ×3 (08:48→19:55)
[2018-09-09] MEDS: oxyCODONE HCl Cr 10 MG Tablet PO (08:48)
[2018-09-09] MEDS: Spironolactone 25 MG Tablet PO (08:48)
[2018-09-09] MEDS: Losartan Potassium 100 MG Tablet PO (08:48)
[2018-09-09] MEDS: Atenolol 50 MG Tablet PO (08:49)
[2018-09-09] MEDS: amLODIPine 5 MG Tablet PO (08:50)
[2018-09-09 08:58] VITALS: BP 129/74; PULSE 72; RESP 16; TEMP 36.8; O2SAT 96
--- NOTE | 2018-09-09 09:57 | PCM.HP.COS ---
History of Present Illness Date of Admission: 09/08/18 Chief Complaint: Laminectomy The patient is an 78-year-old right handed female who was admitted to the rehab unit for rehabilitation, who was recently discharged on 09/03/18 after having had an emergent 4-hour back surgery at [facility] for lumbar canal stenosis. She has a PMH of HTN, Osteoarthritis, and RLS. She was admitted to [facility] for intractable back pain radiating into both legs, and numbness in the perineum area. She lives alone with a pet dog in a Condo, every thing is on one floor, and she has 2 steps to get into the home from her garage. She does not drive and uses a walker to ambulate. She was previously completely functionally independent and is admitted to the rehab unit in order to restore her previous level of functional independence. Past Medical History Past Medical History (Chronic Problems): Chronic Problems Osteoarthritis (Chronic) Hypertension (Chronic) Restless leg syndrome (Chronic) Lumbar spinal stenosis (Chronic) Allergies influenza virus vaccine ts [From Fluarix] Allergy (Severe, Verified 09/06/18 10:52) Swelling hydrochlorothiazide Allergy (Verified 09/06/18 10:52) Hives irbesartan Allergy (Verified 09/06/18 14:45) Hives meloxicam Allergy (Verified 09/06/18 10:52) Swelling triamterene Allergy (Verified 09/06/18 10:52) Hives perfume Adverse Reaction (Verified 09/06/18 14:45) breathing it in gets itch venom-honey bee [bee venom (honey bee)] Adverse Reaction (Verified 09/06/18 10:52) Anaphylaxis MSG Allergy (Uncoded 09/06/18 10:52) Shortness of breath Home Medications: Ambulatory Orders Medication Instructions Recorded Amlodipine [Norvasc] 5 mg PO DAILY 11/21/17 Atenolol [Tenormin (beta kwame)] 50 mg PO DAILY 11/21/17 Cholecalciferol (VIT D3) [Vitamin 1,000 unit PO DAILY 11/21/17 D3] Losartan Potassium [Cozaar] 100 mg PO DAILY 11/21/17 Pramipexole Di-HCl [Mirapex] 0.5 mg PO DAILY@1200 11/21/17 Spironolactone [Aldactone] 25 mg PO DAILY 11/21/17 Temazepam [Restoril] 15 mg PO QHS PRN PRN 11/21/17 Pramipexole Di-HCl [Mirapex] 0.25 mg PO QHS 05/27/18 Oxycodone [Oxyir] 5 - 10 mg PO Q4H PRN PRN 5 Days 05/28/18 #60 tab Acetaminophen [Tylenol] 1,000 mg PO Q8 09/08/18 Gabapentin [Neurontin] 200 mg PO BID@0800,1500 09/08/18 Gabapentin [Neurontin] 200 mg PO QHS 09/08/18 Multivitamins,Ther W-Minerals 1 tablet PO DAILY@0800 09/08/18 [Multivitamin With Minerals] Oxycodone CR [Oxycontin] 10 mg PO DAILY 09/08/18 Pantoprazole Sodium [Protonix] 20 mg PO DAILY 09/08/18 Senna/Docusate Sodium [Senokot-S] 2 tablet PO BID 09/08/18 Surgical History: total hip arthroplasty - bilateral, total knee arthroplasty - bilateral, - - 2 previous lumbar spine surgeries. Emergent spinal surgery on August 30, 2018. Left shoulder repair Psychiatric History: No pertinent psych hx SURGICAL CODER History: No pertinent SURGICAL CODER history Smoking Status: Never smoker - *Family History Maternal History Items: No pertinent history, - - No CVA Review of Systems Constitutional: Denies: Chills, Fever, Weight Change HEENT: Denies: Head Aches, Sinus Congestion, Sinus Drainage Cardiovascular: Denies: Chest Pain, Palpitations Respiratory: Denies: Cough, Shortness of breath at rest, Sputum production Gastrointestinal: Denies: Abdominal Pain, Nausea, Vomiting Genitourinary: Denies: Dysuria Musculoskeletal: Denies: Joint Pain, Joint Tenderness Skin: Denies: Rash, Wounds Neurological: Denies: Numbness, Tingling, Focal weakness Psychiatric: Denies: Anxiety, Depression, Homicidal Ideations, Suicidal Ideations Hematologic/ Lymphatic: Denies: Easy Bruising, Easy Bleeding VTE Information - Inpt Only VTE Present on Admission: No VTE Mechan Device Prophylaxis: SCD's, Knee High ORIN Hose VTE Pharm Prophylaxis ordered?: Yes - Physical Exam General: Alert, Oriented x3, Cooperative HEENT: Atraumatic, PERRLA, EOMI, Normocephalic Neck: Supple, No JVD, Negative Carotid Bruits Lungs: Clear to auscultation, Normal air movement Cardiovascular: Regular rate, No murmurs Abdomen: Bowel Sounds Present, Soft, Non Tender Extremities: No edema, Capillary Refill Less than 3 Seconds Skin: No rashes, No breakdown, - - Incision site - dressing is C/D/I, no erthema noted around dressing Musculoskeletal: No Tenderness to Palpation of Joints or Extremities Neurological: Cranial nerves II-XII grossly intact, Motor Exam 5/5 strength throughout Psych/Mental Status: Normal Affect, Appropriate Vital Signs Temp Pulse Resp BP Pulse Ox 98.3 F 72 16 129/74 H 96 09/09/18 08:58 09/09/18 08:58 09/09/18 08:58 09/09/18 08:58 09/09/18 08:58 Oxygen Delivery Method Room Air Weight: 73.5 kg Body Mass Index (BMI) 29.7 Intake and Output for Last 24 Hours 09/07/18 09/08/18 09/09/18 23:59 23:59 23:59 Intake Total 120 / 120 Output Total 300 / 300 Balance 120 / 120 -300 / -300 Laboratory Tests Past 24 Hrs 09/09/18 09/09/18 05:10 05:10 WBC 4.1 L RBC 3.77 L Hgb 11.2 L Hct 35.1 L MCV 93.1 MCH 29.7 MCHC 31.9 L RDW 12.9 RDW Differential 42.1 Plt Count 256 MPV 9.9 Sodium 142 Potassium 4.1 Chloride 106 Carbon Dioxide 27.0 Anion Gap 9 BUN 11 Creatinine 0.54 L Estim Creat Clear Calc 35.49 Est GFR (MDRD) Af Amer 138 Est GFR (MDRD) Non-Af 114 BUN/Creatinine Ratio 20.2 H Glucose 84 Calcium 8.7 Assessment/Plan All Active Problems Normochromic normocytic anemia (Acute) Hyponatremia (Acute) Intractable back pain (Acute) Radicular pain of right lower extremity (Acute) Status post lumbar spine surgery for decompression of spinal cord (Acute) Debility (Acute) Debility s/p Laminectomy, complicated by radicular pain into her legs. Goal of rehab is [facility] of functional independence. Plan: - Physical therapy for gait and balance - Occupational Therapy for ADLs - Speech therapy - As needed analgesics - Bowel protocol - DVT prophylaxis: SCDs, ASA, Lovenox - Hypertension - continue Norvasc, Atenolol and Aldactone - Hx of RLS - continue Mirapex - Mild normochromic normocytic anemia- 2/2 blood loss with recent surgery - improving Hgb was 11.2. - Mild hyponatremia - Resolved Na is 142 up from 134
[2018-09-09] MEDS: Pramipexole Di-HCl 0.5 MG Tablet PO (12:50)
--- NOTE | 2018-09-09 16:42 | PCM.RU.PYE ---
Admission Information Status Changes from Prescreening?: No changes Identified Actual Problem List:: Mobility Impaired, Self Care Deficit Potential Problem List:: DVT, Bleeding, Infection, UTI, Aspiration, Falls, Skin Integrity, Depression Risk of Complications DVT: LMWH, ORIN Hose, Sequential Compression Device Bleeding: Monitor Lab Values, Nursing to Teach Precautions for anti-coagulation therapy., Wound, if applicable, to be assessed every shift., Stroke patients assessed for lethargy or change in status. Infection: Clinical Staff to Monitor for S/S of infection:, S/S of infection include fever, redness, warmth, etc. Urinary Tract Infection: Monitor for frequency, burning, discomfort, or incontinence., Nursing will obtain urine sample for urinalysis and C&S when ordered. Aspiration: Clinical staff will monitor for coughing, drooling, congestion., Speech will evaluate swallowing and dsyphasia., Nursing will monitor patient swallowing during meals. Falls: Patient will be evaluated for Fall Precautions, Patient will be placed on Fall Precautions as indicated per protocol. Skin Breakdown: Nursing will assess skin daily using assessment tool., Nursing will place on Skin Breakdown Precautions as indicated. Pain: Clinical staff will assess patient's pain level per protocol., Medications will be given, if needed, and the pain level reassessed., Other methods: Massage, distraction, decrease stimulus, etc. used PRN. Plan of Care Patient requires physician specializing in physical medicine and rehab oversight to provide close medical supervision of rehab issues including: Pain Management, Sleep Problems, Bowel and Bladder, Medical and co-morbidity Management, DVT prophylaxis, Rehabilitation Leadership, Coordination of treatment team Patient needs Physical Therapy: For a minimum of 1 hour, At least 5 out of 7 days Patient needs Physical Therapy to improve:: Mobility, Mobility, Mobility, Strengthening, Transfers, Stretching, ROM, Endurance, Stairs, Gait, Balance Patient needs Occupational Therapy: For a minimum of 1 hour, At least 5 out of 7 days Patient needs Occupational Therapy to improve ADL's incl.: Eating, Grooming, Bathing, Dressing, Toileting, Toilet transfers, Community Reintegration, Higher functioning activities, Household tasks, Adaptive Equipment, Splinting, Other activities as determined Patient requires speech therapy: For a minimum of 1 hour, At least 5 out of 7 days Patient requires speech therapy for: Swallowing, Cognition, Language Skills, Compensatory Strategies Patient requires 24/ Rehabilitation Nursing for: Pain Issues, Identifying and preventing risk factors, Monitoring and reporting current medical conditions, Assisting with ambulation, transfer, and all ADL's, Teaching patients about disease process and medications, Family teaching, Providing safe environment, Bowel and Bladder Issues, Skin integrity, Medication Management Patient needs Clinical Application Consultant/ Case Management for: Discharge Planning, Arranging Home Equipment or Services, Family Interventions Patient needs Dietary and Nutrition Services for: Adequate Nutrition, Nutritional Supplements, Nutritional Education Goals Patient will remain: free from falls, or injury at time of discharge. Patient will perform bed mobility at: MOD I level of assist. Patient will complete transfers from bed to chair at: MOD I level of assist. Patient will ambulate: 100 feet, with MOD I assist, with LRD Patient will complete upper body dressing at: MOD I level of assist. Patient will complete lower body dressing at: MOD I level of assist. Patient will complete toileting at: MOD I level of assist. Patient will perform bathing at: MOD I level of assist. Patient will complete grooming at: MOD I level of assist. Patient will complete home management skills at: MOD I level of assist. Patient will achieve: 12 stairs, at MOD I assist Patient will have pain level of: of 3 or less Patient's skin will: remain intact, free from infection. Patient will receive: adequate nutrition. Discharge Planning Pt Prognosis for Sig. Practical Improv. w/in Reasonable Time: Good Estimated Length of stay (days): 16 Anticipated D/C Destination: Home with Outpt Therapy Was Preadmission Assessment Accurate?: Yes
[2018-09-09] MEDS: Senna/Docusate Sodium 1 Tablet 2 TABLET PO (19:55)
[2018-09-09] MEDS: Pramipexole Di-HCl 0.25 MG Tablet PO (19:55)
[2018-09-09 20:03] VITALS: BP 124/68; PULSE 96; RESP 16; TEMP 36.5; O2SAT 97
--- NOTE | 2018-09-10 03:00 | NURSING ---
PT ASSISTED TO BATHROOM AND VOIDS 600 ML CLEAR YELLOW. STATES SHE HAS NOT BEEN SLEEPING WELL AND IS RESTLESS AND HER BREATHING FEELS DIFFERENT. LUNG SOUNDS ARE CLEAR. VS STABLE. PT DECLINED SLEEPING PILL EARLIER THIS SHIFT. PT MEDICATED FOR PAIN.
[2018-09-10] MEDS: oxyCODONE 5 MG Tablet PO ×2 (03:07→07:30)
[2018-09-10] MEDS: Enoxaparin 40 MG/0.4 ML Syringe SC (07:01)
[2018-09-10] MEDS: Acetaminophen 500 MG Tablet 1000 MG PO ×3 (07:01→21:14)
[2018-09-10 07:03] VITALS: O2SAT 96
[2018-09-10] MEDS: Spironolactone 25 MG Tablet PO (07:27)
[2018-09-10] MEDS: Atenolol 50 MG Tablet PO (07:27)
[2018-09-10] MEDS: Pantoprazole Sodium 20 MG Tablet PO (07:27)
[2018-09-10] MEDS: Losartan Potassium 100 MG Tablet PO (07:27)
[2018-09-10] MEDS: Gabapentin 100 MG Capsule 200 MG PO ×3 (07:27→21:13)
[2018-09-10] MEDS: amLODIPine 5 MG Tablet PO (07:27)
[2018-09-10] MEDS: Multivitamins,Ther W-Minerals Tablet 1 TABLET PO (07:27)
[2018-09-10] MEDS: Senna/Docusate Sodium 1 Tablet 2 TABLET PO ×2 (07:28→21:14)
[2018-09-10 08:13] VITALS: BP 140/71; PULSE 64; RESP 16; TEMP 36.3; O2SAT 96
[2018-09-10] MEDS: oxyCODONE HCl Cr 10 MG Tablet PO (09:17)
--- NOTE | 2018-09-10 10:27 | PCM.PN.NEU ---
Subjective: Patient was seen, she is still having moderate pain, was started on a fentanyl patch in addition to her schedule medication. She is tolerating therapy. Tolerating a regular diet. No issues with GI or at this point. - Physical Exam General: Alert, Oriented x3, Cooperative HEENT: Atraumatic, PERRLA, EOMI, Normocephalic Neck: Supple, No JVD, Negative Carotid Bruits Lungs: Clear to auscultation, Normal air movement Cardiovascular: Regular rate, No murmurs Abdomen: Bowel Sounds Present, Soft, Non Tender Extremities: No edema, Capillary Refill Less than 3 Seconds Skin: No rashes, No breakdown Musculoskeletal: No Tenderness to Palpation of Joints or Extremities Neurological: Cranial nerves II-XII grossly intact Psych/Mental Status: Normal Affect, Appropriate, Alert and oriented to time, place, person, mood and affect Vital Signs Temp Pulse Resp BP Pulse Ox 97.4 F L 64 16 140/71 H 96 09/10/18 08:13 09/10/18 08:13 09/10/18 08:13 09/10/18 08:13 09/10/18 08:13 Oxygen Delivery Method Room Air Weight: 72.5 kg Body Mass Index (BMI) 29.7 Intake and Output for Last 24 Hours 09/08/18 09/09/18 09/10/18 23:59 23:59 23:59 Intake Total 120 / 120 Output Total 1000 / 1000 Balance 120 / 120 -1000 / -1000 Active Medications Acetaminophen (Tylenol) 1,000 mg PO Q8 [facility] Last Admin: 09/10/18 07:01 Dose: 1,000 mg Amlodipine Besylate (Norvasc) 5 mg PO DAILY [facility] Last Admin: 09/10/18 07:27 Dose: 5 mg Atenolol (Tenormin (Beta Bello)) 50 mg PO DAILY [facility] Last Admin: 09/10/18 07:27 Dose: 50 mg Bisacodyl (Dulcolax) 10 mg RECTAL .PRN X 1 PRN PRN Reason: Constipation Cholecalciferol (Vitamin D) 1,000 unit PO DAILY [facility] Last Admin: 09/10/18 07:28 Dose: 1,000 unit Enoxaparin Sodium (Lovenox) 40 mg SC DAILY@0600 [facility] Last Admin: 09/10/18 07:01 Dose: 40 mg Fentanyl (Duragesic Patch) 12 mcg TRANSDERM. Q3D [facility] Last Admin: 09/09/18 12:49 Dose: 12 mcg Gabapentin (Neurontin) 200 mg PO QHS [facility] Last Admin: 09/09/18 19:55 Dose: 200 mg Gabapentin (Neurontin) 200 mg PO BID@0800,1500 [facility] Last Admin: 09/10/18 07:27 Dose: 200 mg Losartan Potassium (Cozaar) 100 mg PO DAILY [facility] Last Admin: 09/10/18 07:27 Dose: 100 mg Magnesium Hydroxide (Milk Of Magnesia) 30 ml PO .PRN X 1 PRN PRN Reason: Constipation Multivitamins/Minerals (Multivitamin With Minerals) 1 tablet PO DAILY@0800 [facility] Last Admin: 09/10/18 07:27 Dose: 1 tablet Oxycodone HCl (Oxyir) 5 - 10 mg PO Q4H PRN PRN PRN Reason: PAIN Last Admin: 09/10/18 07:30 Dose: 5 mg Oxycodone HCl (Oxycontin) 10 mg PO DAILY [facility] Last Admin: 09/10/18 09:17 Dose: 10 mg Pantoprazole Sodium (Protonix) 20 mg PO DAILY [facility] Last Admin: 09/10/18 07:27 Dose: 20 mg Pramipexole Dihydrochloride (Mirapex) 0.25 mg PO QHS [facility] Last Admin: 09/09/18 19:55 Dose: 0.25 mg Pramipexole Dihydrochloride (Mirapex) 0.5 mg PO 1200 [facility] Last Admin: 09/09/18 12:50 Dose: 0.5 mg Senna/Docusate Sodium (Senokot-S, Sheila-Colace) 2 tablet PO BID [facility] Last Admin: 09/10/18 07:28 Dose: 2 tablet Spironolactone (Aldactone) 25 mg PO DAILY [facility] Last Admin: 09/10/18 07:27 Dose: 25 mg Temazepam (Restoril) 15 mg PO QHS PRN PRN PRN Reason: SLEEP Last Admin: 09/08/18 21:02 Dose: 15 mg Medical Necessity - Tobacco Use Smoking Status: Never smoker Assessment/Plan All Active Problems Normochromic normocytic anemia (Acute) Hyponatremia (Acute) Intractable back pain (Acute) Radicular pain of right lower extremity (Acute) Status post lumbar spine surgery for decompression of spinal cord (Acute) Debility (Acute) Debility s/p Laminectomy, complicated by radicular pain into her legs. Goal of rehab is [facility] of functional independence. Plan: - Physical therapy for gait and balance - Occupational Therapy for ADLs - Speech therapy - As needed analgesics - Bowel protocol - DVT prophylaxis: SCDs, ASA, Lovenox - Hypertension - continue Norvasc, Atenolol and Aldactone - Hx of RLS - continue Mirapex - Mild normochromic normocytic anemia- 2/2 blood loss with recent surgery - improving Hgb was 11.2. - Mild hyponatremia - Resolved Na is 142 up from 134 - Add fentanyl patch to scheduled pain medication
--- NOTE | 2018-09-10 10:31 | PN.NEURO_ITS ---
Subjective: Patient was seen, she is still having moderate pain, was started on a fentanyl patch in addition to her schedule medication. She is tolerating therapy. Tolerating a regular diet. No issues with GI or at this point. - Physical Exam General: Alert, Oriented x3, Cooperative HEENT: Atraumatic, PERRLA, EOMI, Normocephalic Neck: Supple, No JVD, Negative Carotid Bruits Lungs: Clear to auscultation, Normal air movement Cardiovascular: Regular rate, No murmurs Abdomen: Bowel Sounds Present, Soft, Non Tender Extremities: No edema, Capillary Refill Less than 3 Seconds Skin: No rashes, No breakdown Musculoskeletal: No Tenderness to Palpation of Joints or Extremities Neurological: Cranial nerves II-XII grossly intact Psych/Mental Status: Normal Affect, Appropriate, Alert and oriented to time, place, person, mood and affect Vital Signs Temp Pulse Resp BP Pulse Ox 97.4 F L 64 16 140/71 H 96 09/10/18 08:13 09/10/18 08:13 09/10/18 08:13 09/10/18 08:13 09/10/18 08:13 Oxygen Delivery Method Room Air Weight: 72.5 kg Body Mass Index (BMI) 29.7 Intake and Output for Last 24 Hours 09/08/18 09/09/18 09/10/18 23:59 23:59 23:59 Intake Total 120 / 120 Output Total 1000 / 1000 Balance 120 / 120 -1000 / -1000 Active Medications Acetaminophen (Tylenol) 1,000 mg PO Q8 [facility] Last Admin: 09/10/18 07:01 Dose: 1,000 mg Amlodipine Besylate (Norvasc) 5 mg PO DAILY [facility] Last Admin: 09/10/18 07:27 Dose: 5 mg Atenolol (Tenormin (Beta Bello)) 50 mg PO DAILY [facility] Last Admin: 09/10/18 07:27 Dose: 50 mg Bisacodyl (Dulcolax) 10 mg RECTAL .PRN X 1 PRN PRN Reason: Constipation Cholecalciferol (Vitamin D) 1,000 unit PO DAILY [facility] Last Admin: 09/10/18 07:28 Dose: 1,000 unit Enoxaparin Sodium (Lovenox) 40 mg SC DAILY@0600 [facility] Last Admin: 09/10/18 07:01 Dose: 40 mg Fentanyl (Duragesic Patch) 12 mcg TRANSDERM. Q3D [facility] Last Admin: 09/09/18 12:49 Dose: 12 mcg Gabapentin (Neurontin) 200 mg PO QHS [facility] Last Admin: 09/09/18 19:55 Dose: 200 mg Gabapentin (Neurontin) 200 mg PO BID@0800,1500 [facility] Last Admin: 09/10/18 07:27 Dose: 200 mg Losartan Potassium (Cozaar) 100 mg PO DAILY [facility] Last Admin: 09/10/18 07:27 Dose: 100 mg Magnesium Hydroxide (Milk Of Magnesia) 30 ml PO .PRN X 1 PRN PRN Reason: Constipation Multivitamins/Minerals (Multivitamin With Minerals) 1 tablet PO DAILY@0800 [facility] Last Admin: 09/10/18 07:27 Dose: 1 tablet Oxycodone HCl (Oxyir) 5 - 10 mg PO Q4H PRN PRN PRN Reason: PAIN Last Admin: 09/10/18 07:30 Dose: 5 mg Oxycodone HCl (Oxycontin) 10 mg PO DAILY [facility] Last Admin: 09/10/18 09:17 Dose: 10 mg Pantoprazole Sodium (Protonix) 20 mg PO DAILY [facility] Last Admin: 09/10/18 07:27 Dose: 20 mg Pramipexole Dihydrochloride (Mirapex) 0.25 mg PO QHS [facility] Last Admin: 09/09/18 19:55 Dose: 0.25 mg Pramipexole Dihydrochloride (Mirapex) 0.5 mg PO 1200 [facility] Last Admin: 09/09/18 12:50 Dose: 0.5 mg Senna/Docusate Sodium (Senokot-S, Sheila-Colace) 2 tablet PO BID [facility] Last Admin: 09/10/18 07:28 Dose: 2 tablet Spironolactone (Aldactone) 25 mg PO DAILY [facility] Last Admin: 09/10/18 07:27 Dose: 25 mg Temazepam (Restoril) 15 mg PO QHS PRN PRN PRN Reason: SLEEP Last Admin: 09/08/18 21:02 Dose: 15 mg Medical Necessity - Tobacco Use Smoking Status: Never smoker Assessment/Plan All Active Problems Normochromic normocytic anemia (Acute) Hyponatremia (Acute) Intractable back pain (Acute) Radicular pain of right lower extremity (Acute) Status post lumbar spine surgery for decompression of spinal cord (Acute) Debility (Acute) Debility s/p Laminectomy, complicated by radicular pain into her legs. Goal of rehab is [facility] of functional independence. Plan: - Physical therapy for gait and balance - Occupational Therapy for ADLs - Speech therapy - As needed analgesics - Bowel protocol - DVT prophylaxis: SCDs, ASA, Lovenox - Hypertension - continue Norvasc, Atenolol and Aldactone - Hx of RLS - continue Mirapex - Mild normochromic normocytic anemia- 2/2 blood loss with recent surgery - improving Hgb was 11.2. - Mild hyponatremia - Resolved Na is 142 up from 134 - Add fentanyl patch to scheduled pain medication
[2018-09-10] MEDS: Pramipexole Di-HCl 0.5 MG Tablet PO (13:12)
[2018-09-10 21:12] VITALS: BP 133/65; PULSE 64; RESP 16; TEMP 36.4; O2SAT 95
[2018-09-10] MEDS: Pramipexole Di-HCl 0.25 MG Tablet PO (21:13)
[2018-09-10] MEDS: Temazepam 15 MG Capsule PO (21:14)
--- NOTE | 2018-09-11 05:08 | NURSING ---
Reviewed and agree with LPNs fims and handoff
[2018-09-11 06:29] VITALS: O2SAT 94
[2018-09-11] MEDS: Magnesium Hydroxide 30 ML UDC PO (06:29)
[2018-09-11] MEDS: Acetaminophen 500 MG Tablet 1000 MG PO ×3 (06:29→21:00)
[2018-09-11] MEDS: Enoxaparin 40 MG/0.4 ML Syringe SC (06:29)
--- NOTE | 2018-09-11 07:48 | PCM.PROGNOTE ---
Subjective: All events of the past 24 hours of been reviewed. Patient is an 78-year-old female who recently underwent a 4 hours surgery on the lumbosacral spine for severe lumbar canal stenosis. She continues to complain of pain is exacerbated by exercise. She denies any radicular pain in her legs. The pain is primarily located in her back. She is also c/o of constiipation despite senna. She is eating well. Afebrile, vital signs stable, pulse ox is 94-96% on room air. Lab from 09/09/2018 was reviewed. - Physical Exam General: Alert, Oriented x3, Cooperative, No apparent distress, Well developed, Well nourished HEENT: Atraumatic, PERRLA, EOMI Oral: Moist Mucosa Neck: No JVD Lungs: Clear to auscultation Cardiovascular: Regular rate, Regular Rhythm, Normal S1, Normal S2, No Gallop Abdomen: Bowel Sounds Present, Soft, Non Tender, Non-Distended Extremities: No clubbing, No cyanosis, No edema Skin: No rashes, No breakdown, - - the incision has healed and there is no erythema or dehiscence Neurological: Cranial nerves II-XII grossly intact, Neuro grossly intact Psych/Mental Status: Normal Affect, Appropriate Vital Signs Temp Pulse Resp BP Pulse Ox 97.6 F L 64 16 133/65 H 94 09/10/18 21:12 09/10/18 21:12 09/10/18 21:12 09/10/18 21:12 09/11/18 06:29 Oxygen Delivery Method Room Air Weight: 159 lb 13.362 oz Body Mass Index (BMI) 29.7 Intake and Output for Last 24 Hours 09/09/18 09/10/18 09/11/18 23:59 23:59 23:59 Output Total 1000 / 1000 Balance -1000 / -1000 Medical Necessity - Tobacco Use Smoking Status: Never smoker Assessment/Plan All Active Problems Normochromic normocytic anemia (Acute) Hyponatremia (Acute) Intractable back pain (Acute) Radicular pain of right lower extremity (Acute) Status post lumbar spine surgery for decompression of spinal cord (Acute) Debility (Acute) Impressions 1. Persistent low back pain-status post lumbar spine surgery for decompression of spinal canal stenosis 2. Debility secondary to recent surgery and canal stenosis 3. Normochromic normocytic anemia-likely secondary to blood loss related to surgery 4. Restless leg syndrome 5. Hypertension-adequately controlled 6. History of diverticulosis 7. Osteoarthritis 8. Constipation Discontinue senna and start MiraLAX 17 g p.o. daily Dulcolax p.o. or rectal as needed constipation Zanaflex 2 mg p.o. every 8 hours as needed muscle spasms Discontinue fentanyl and increased OxyContin to 10 mg twice daily -would prefer to use 1 long-acting narcotic and adjust the dosage for pain relief rather than 2 different long-acting narcotics Encouraged the patient to drink more water Continue PT/OT Code Visit Inpatient E&M: 13608 Subs Hosp L2
[2018-09-11] MEDS: Multivitamins,Ther W-Minerals Tablet 1 TABLET PO (08:00)
[2018-09-11] MEDS: Gabapentin 100 MG Capsule 200 MG PO ×3 (08:00→20:59)
[2018-09-11] MEDS: Spironolactone 25 MG Tablet PO (08:00)
[2018-09-11] MEDS: amLODIPine 5 MG Tablet PO (08:02)
[2018-09-11] MEDS: Losartan Potassium 100 MG Tablet PO (08:02)
[2018-09-11] MEDS: oxyCODONE 5 MG Tablet PO ×2 (08:03→14:13)
[2018-09-11] MEDS: Atenolol 50 MG Tablet PO (08:03)
[2018-09-11] MEDS: Pantoprazole Sodium 20 MG Tablet PO (08:03)
[2018-09-11 09:10] VITALS: BP 133/68; PULSE 64; RESP 16; TEMP 36.3; O2SAT 98
[2018-09-11] MEDS: oxyCODONE HCl Cr 10 MG Tablet PO ×2 (10:10→20:59)
[2018-09-11] MEDS: Pramipexole Di-HCl 0.5 MG Tablet PO (12:21)
[2018-09-11] MEDS: Capsaicin 0.025% 1 APPLIC Tube TOPICAL ×2 (14:13→21:00)
[2018-09-11] MEDS: Pramipexole Di-HCl 0.25 MG Tablet PO (20:59)
[2018-09-11 21:07] VITALS: BP 124/65; PULSE 64; RESP 16; TEMP 36.4; O2SAT 97
[2018-09-12] MEDS: Enoxaparin 40 MG/0.4 ML Syringe SC (05:55)
[2018-09-12] MEDS: Acetaminophen 500 MG Tablet 1000 MG PO ×3 (05:55→21:58)
[2018-09-12] MEDS: Capsaicin 0.025% 1 APPLIC Tube TOPICAL ×3 (05:56→21:58)
[2018-09-12 07:45] VITALS: BP 124/65; PULSE 62; RESP 18; TEMP 36.6; O2SAT 94
[2018-09-12 08:30] VITALS: O2SAT 95
[2018-09-12] MEDS: Atenolol 50 MG Tablet PO (09:36)
[2018-09-12] MEDS: Losartan Potassium 100 MG Tablet PO (09:36)
[2018-09-12] MEDS: Pantoprazole Sodium 20 MG Tablet PO (09:36)
[2018-09-12] MEDS: Spironolactone 25 MG Tablet PO (09:36)
[2018-09-12] MEDS: Gabapentin 100 MG Capsule 200 MG PO ×3 (09:37→21:57)
[2018-09-12] MEDS: amLODIPine 5 MG Tablet PO (09:37)
[2018-09-12] MEDS: Multivitamins,Ther W-Minerals Tablet 1 TABLET PO (09:37)
[2018-09-12] MEDS: oxyCODONE HCl Cr 10 MG Tablet PO ×2 (10:03→21:58)
[2018-09-12] MEDS: Pramipexole Di-HCl 0.5 MG Tablet PO (13:02)
[2018-09-12] MEDS: Pramipexole Di-HCl 0.25 MG Tablet PO (21:57)
[2018-09-13] MEDS: Enoxaparin 40 MG/0.4 ML Syringe SC (05:49)
[2018-09-13] MEDS: Acetaminophen 500 MG Tablet 1000 MG PO ×3 (05:49→21:26)
[2018-09-13] MEDS: Capsaicin 0.025% 1 APPLIC Tube TOPICAL (05:50)
[2018-09-13 07:22] VITALS: BP 139/73; PULSE 70; RESP 16; TEMP 36.6; O2SAT 96
[2018-09-13] MEDS: Polyethylene Glycol 3350 17 GM PACKET PO (08:30)
[2018-09-13] MEDS: Atenolol 50 MG Tablet PO (08:31)
[2018-09-13] MEDS: Losartan Potassium 100 MG Tablet PO (08:31)
[2018-09-13] MEDS: amLODIPine 5 MG Tablet PO (08:31)
[2018-09-13] MEDS: oxyCODONE HCl Cr 10 MG Tablet PO ×2 (08:31→21:30)
[2018-09-13] MEDS: Multivitamins,Ther W-Minerals Tablet 1 TABLET PO (08:32)
[2018-09-13] MEDS: Gabapentin 100 MG Capsule 200 MG PO ×3 (08:32→21:26)
[2018-09-13] MEDS: Spironolactone 25 MG Tablet PO (08:32)
[2018-09-13] MEDS: Pantoprazole Sodium 20 MG Tablet PO (08:32)
[2018-09-13] MEDS: Pramipexole Di-HCl 0.5 MG Tablet PO (13:38)
[2018-09-13 19:40] VITALS: BP 110/73; PULSE 69; RESP 17; TEMP 36.9; O2SAT 98
[2018-09-13] MEDS: Pramipexole Di-HCl 0.25 MG Tablet PO (21:26)
[2018-09-14] MEDS: Acetaminophen 500 MG Tablet 1000 MG PO ×3 (06:03→21:56)
[2018-09-14] MEDS: Enoxaparin 40 MG/0.4 ML Syringe SC (06:03)
[2018-09-14] MEDS: oxyCODONE 5 MG Tablet PO (06:07)
[2018-09-14 08:00] VITALS: BP 100/56; PULSE 82; RESP 20; TEMP 36.7; O2SAT 95
[2018-09-14] MEDS: Atenolol 50 MG Tablet PO (09:54)
[2018-09-14] MEDS: oxyCODONE HCl Cr 10 MG Tablet PO ×2 (09:54→21:57)
[2018-09-14] MEDS: amLODIPine 5 MG Tablet PO (09:54)
[2018-09-14] MEDS: Pantoprazole Sodium 20 MG Tablet PO (09:54)
[2018-09-14] MEDS: Spironolactone 25 MG Tablet PO (09:55)
[2018-09-14] MEDS: Multivitamins,Ther W-Minerals Tablet 1 TABLET PO (09:55)
[2018-09-14] MEDS: Gabapentin 100 MG Capsule 200 MG PO ×3 (09:55→21:58)
[2018-09-14] MEDS: Polyethylene Glycol 3350 17 GM PACKET PO (09:56)
[2018-09-14] MEDS: Losartan Potassium 100 MG Tablet PO (09:56)
[2018-09-14 10:08] VITALS: BP 115/62
--- NOTE | 2018-09-14 10:44 | PCM.PN.NEU ---
Subjective: Staffed in team meeting. Family at bedside, questions answered. With Physical therapy, she is standby assist for getting in and out of bed, going from a sitting to a standing position. She is able to walk 560 feet with a wheel walker. She is able to go up and down 5 steps using 2 hand rails. With Occupational therapy, she is supervision for personal care, she is able to us adaptive equipment for her lower body dressing and bathing. She is distance supervision for toileting. With Nursing, her incision is C/D/I, her pain is fairly controlled when she is sitting and more intense when up moving around. The pain is for discharge on 09/16/18, she will be made MOD I today in anticipation of discharge. She will follow up with her surgeon on when he would like her to start outpatient Physical therapy. - Physical Exam General: Alert, Oriented x3, Cooperative HEENT: Atraumatic, PERRLA, EOMI, Normocephalic Neck: Supple, No JVD, Negative Carotid Bruits Lungs: Clear to auscultation, Normal air movement Cardiovascular: Regular rate, No murmurs Abdomen: Bowel Sounds Present, Soft, Non Tender Extremities: No edema, Capillary Refill Less than 3 Seconds Skin: No rashes, No breakdown Musculoskeletal: No Tenderness to Palpation of Joints or Extremities Neurological: Cranial nerves II-XII grossly intact Psych/Mental Status: Normal Affect, Appropriate, Alert and oriented to time, place, person, mood and affect Vital Signs Temp Pulse Resp BP Pulse Ox 98.0 F 82 20 H 115/62 95 09/14/18 08:00 09/14/18 08:00 09/14/18 08:00 09/14/18 10:08 09/14/18 08:00 Oxygen Delivery Method Room Air Weight: 72.5 kg Body Mass Index (BMI) 29.7 Intake and Output for Last 24 Hours 09/12/18 09/13/18 09/14/18 23:59 23:59 23:59 Intake Total 440 / 440 240 / 240 240 / 240 Balance 440 / 440 240 / 240 240 / 240 Active Medications Acetaminophen (Tylenol) 1,000 mg PO Q8 [facility] Last Admin: 09/14/18 06:03 Dose: 1,000 mg Amlodipine Besylate (Norvasc) 5 mg PO DAILY [facility] Last Admin: 09/14/18 09:54 Dose: 5 mg Atenolol (Tenormin (Beta Bello)) 50 mg PO DAILY [facility] Last Admin: 09/14/18 09:54 Dose: 50 mg Bisacodyl (Dulcolax) 10 mg RECTAL .PRN X 1 PRN PRN Reason: Constipation Bisacodyl (Dulcolax) 10 mg PO DAILY PRN PRN PRN Reason: Constipation Capsaicin (Zostrix) 1 applic TOPICAL TID [facility]; Protocol Last Admin: 09/14/18 06:10 Dose: Not Given Cholecalciferol (Vitamin D) 1,000 unit PO DAILY [facility] Last Admin: 09/14/18 09:54 Dose: 1,000 unit Enoxaparin Sodium (Lovenox) 40 mg SC DAILY@0600 [facility] Last Admin: 09/14/18 06:03 Dose: 40 mg Gabapentin (Neurontin) 200 mg PO QHS [facility] Last Admin: 09/13/18 21:26 Dose: 200 mg Gabapentin (Neurontin) 200 mg PO BID@0800,1500 [facility] Last Admin: 09/14/18 09:55 Dose: 200 mg Losartan Potassium (Cozaar) 100 mg PO DAILY [facility] Last Admin: 09/14/18 09:56 Dose: 100 mg Magnesium Hydroxide (Milk Of Magnesia) 30 ml PO .PRN X 1 PRN PRN Reason: Constipation Last Admin: 09/11/18 06:29 Dose: 30 ml Multivitamins/Minerals (Multivitamin With Minerals) 1 tablet PO DAILY@0800 [facility] Last Admin: 09/14/18 09:55 Dose: 1 tablet Oxycodone HCl (Oxyir) 5 - 10 mg PO Q4H PRN PRN PRN Reason: PAIN Last Admin: 09/14/18 06:07 Dose: 10 mg Oxycodone HCl (Oxycontin) 10 mg PO BID [facility] Last Admin: 09/14/18 09:54 Dose: 10 mg Pantoprazole Sodium (Protonix) 20 mg PO DAILY [facility] Last Admin: 09/14/18 09:54 Dose: 20 mg Polyethylene Glycol (Miralax) 17 gm PO DAILY [facility] Last Admin: 09/14/18 09:56 Dose: 17 gm Pramipexole Dihydrochloride (Mirapex) 0.25 mg PO QHS [facility] Last Admin: 09/13/18 21:26 Dose: 0.25 mg Pramipexole Dihydrochloride (Mirapex) 0.5 mg PO 1200 [facility] Last Admin: 09/13/18 13:38 Dose: 0.5 mg Spironolactone (Aldactone) 25 mg PO DAILY [facility] Last Admin: 09/14/18 09:55 Dose: 25 mg Temazepam (Restoril) 15 mg PO QHS PRN PRN PRN Reason: SLEEP Last Admin: 09/10/18 21:14 Dose: 15 mg Tizanidine HCl (Zanaflex) 2 mg PO Q8H PRN PRN PRN Reason: MUSCLE SPASM Medical Necessity - Tobacco Use Smoking Status: Never smoker Assessment/Plan All Active Problems Normochromic normocytic anemia (Acute) Hyponatremia (Acute) Intractable back pain (Acute) Radicular pain of right lower extremity (Acute) Status post lumbar spine surgery for decompression of spinal cord (Acute) Debility (Acute) Debility s/p Laminectomy, complicated by radicular pain into her legs. Goal of rehab is [facility] of functional independence. Plan: - Physical therapy for gait and balance - Occupational Therapy for ADLs - Speech therapy - As needed analgesics - Bowel protocol - DVT prophylaxis: SCDs, ASA, Lovenox - Hypertension - continue Norvasc, Atenolol and Aldactone - Hx of RLS - continue Mirapex - Mild normochromic normocytic anemia- 2/2 blood loss with recent surgery - improving Hgb was 11.2. - Mild hyponatremia - Resolved Na is 142 up from 134 - Add fentanyl patch to scheduled pain medication, patch was d/c over the weekend and Oxy dose was increased. - Constipation - was started on Miralax daily. - MOD I in preparation for discharge on Friday, will follow up with surgeon on when to start Physical therapy
--- NOTE | 2018-09-14 10:52 | PN.NEURO_ITS ---
Subjective: Staffed in team meeting. Family at bedside, questions answered. With Physical therapy, she is standby assist for getting in and out of bed, going from a sitting to a standing position. She is able to walk 560 feet with a wheel walker. She is able to go up and down 5 steps using 2 hand rails. With Occupational therapy, she is supervision for personal care, she is able to us adaptive equipment for her lower body dressing and bathing. She is distance supervision for toileting. With Nursing, her incision is C/D/I, her pain is fairly controlled when she is sitting and more intense when up moving around. The pain is for discharge on 09/16/18, she will be made MOD I today in anticipation of discharge. She will follow up with her surgeon on when he would like her to start outpatient Physical therapy. - Physical Exam General: Alert, Oriented x3, Cooperative HEENT: Atraumatic, PERRLA, EOMI, Normocephalic Neck: Supple, No JVD, Negative Carotid Bruits Lungs: Clear to auscultation, Normal air movement Cardiovascular: Regular rate, No murmurs Abdomen: Bowel Sounds Present, Soft, Non Tender Extremities: No edema, Capillary Refill Less than 3 Seconds Skin: No rashes, No breakdown Musculoskeletal: No Tenderness to Palpation of Joints or Extremities Neurological: Cranial nerves II-XII grossly intact Psych/Mental Status: Normal Affect, Appropriate, Alert and oriented to time, place, person, mood and affect Vital Signs Temp Pulse Resp BP Pulse Ox 98.0 F 82 20 H 115/62 95 09/14/18 08:00 09/14/18 08:00 09/14/18 08:00 09/14/18 10:08 09/14/18 08:00 Oxygen Delivery Method Room Air Weight: 72.5 kg Body Mass Index (BMI) 29.7 Intake and Output for Last 24 Hours 09/12/18 09/13/18 09/14/18 23:59 23:59 23:59 Intake Total 440 / 440 240 / 240 240 / 240 Balance 440 / 440 240 / 240 240 / 240 Active Medications Acetaminophen (Tylenol) 1,000 mg PO Q8 [facility] Last Admin: 09/14/18 06:03 Dose: 1,000 mg Amlodipine Besylate (Norvasc) 5 mg PO DAILY [facility] Last Admin: 09/14/18 09:54 Dose: 5 mg Atenolol (Tenormin (Beta Bello)) 50 mg PO DAILY [facility] Last Admin: 09/14/18 09:54 Dose: 50 mg Bisacodyl (Dulcolax) 10 mg RECTAL .PRN X 1 PRN PRN Reason: Constipation Bisacodyl (Dulcolax) 10 mg PO DAILY PRN PRN PRN Reason: Constipation Capsaicin (Zostrix) 1 applic TOPICAL TID [facility]; Protocol Last Admin: 09/14/18 06:10 Dose: Not Given Cholecalciferol (Vitamin D) 1,000 unit PO DAILY [facility] Last Admin: 09/14/18 09:54 Dose: 1,000 unit Enoxaparin Sodium (Lovenox) 40 mg SC DAILY@0600 [facility] Last Admin: 09/14/18 06:03 Dose: 40 mg Gabapentin (Neurontin) 200 mg PO QHS [facility] Last Admin: 09/13/18 21:26 Dose: 200 mg Gabapentin (Neurontin) 200 mg PO BID@0800,1500 [facility] Last Admin: 09/14/18 09:55 Dose: 200 mg Losartan Potassium (Cozaar) 100 mg PO DAILY [facility] Last Admin: 09/14/18 09:56 Dose: 100 mg Magnesium Hydroxide (Milk Of Magnesia) 30 ml PO .PRN X 1 PRN PRN Reason: Constipation Last Admin: 09/11/18 06:29 Dose: 30 ml Multivitamins/Minerals (Multivitamin With Minerals) 1 tablet PO DAILY@0800 [facility] Last Admin: 09/14/18 09:55 Dose: 1 tablet Oxycodone HCl (Oxyir) 5 - 10 mg PO Q4H PRN PRN PRN Reason: PAIN Last Admin: 09/14/18 06:07 Dose: 10 mg Oxycodone HCl (Oxycontin) 10 mg PO BID [facility] Last Admin: 09/14/18 09:54 Dose: 10 mg Pantoprazole Sodium (Protonix) 20 mg PO DAILY [facility] Last Admin: 09/14/18 09:54 Dose: 20 mg Polyethylene Glycol (Miralax) 17 gm PO DAILY [facility] Last Admin: 09/14/18 09:56 Dose: 17 gm Pramipexole Dihydrochloride (Mirapex) 0.25 mg PO QHS [facility] Last Admin: 09/13/18 21:26 Dose: 0.25 mg Pramipexole Dihydrochloride (Mirapex) 0.5 mg PO 1200 [facility] Last Admin: 09/13/18 13:38 Dose: 0.5 mg Spironolactone (Aldactone) 25 mg PO DAILY [facility] Last Admin: 09/14/18 09:55 Dose: 25 mg Temazepam (Restoril) 15 mg PO QHS PRN PRN PRN Reason: SLEEP Last Admin: 09/10/18 21:14 Dose: 15 mg Tizanidine HCl (Zanaflex) 2 mg PO Q8H PRN PRN PRN Reason: MUSCLE SPASM Medical Necessity - Tobacco Use Smoking Status: Never smoker Assessment/Plan All Active Problems Normochromic normocytic anemia (Acute) Hyponatremia (Acute) Intractable back pain (Acute) Radicular pain of right lower extremity (Acute) Status post lumbar spine surgery for decompression of spinal cord (Acute) Debility (Acute) Debility s/p Laminectomy, complicated by radicular pain into her legs. Goal of rehab is [facility] of functional independence. Plan: - Physical therapy for gait and balance - Occupational Therapy for ADLs - Speech therapy - As needed analgesics - Bowel protocol - DVT prophylaxis: SCDs, ASA, Lovenox - Hypertension - continue Norvasc, Atenolol and Aldactone - Hx of RLS - continue Mirapex - Mild normochromic normocytic anemia- 2/2 blood loss with recent surgery - improving Hgb was 11.2. - Mild hyponatremia - Resolved Na is 142 up from 134 - Add fentanyl patch to scheduled pain medication, patch was d/c over the weekend and Oxy dose was increased. - Constipation - was started on Miralax daily. - MOD I in preparation for discharge on Friday, will follow up with surgeon on when to start Physical therapy
--- NOTE | 2018-09-14 12:01 | CASEMGMT ---
Team meeting held. Patient present as well as patient daughter. Collaborating with team and patient, discharge date set for 09/16/18. Patient plans to discharge to home alone. Patient reporting to have a walker already set up within the home. Therapy recommending for patient to follow up with surgeon on further therapy recommendation. Patient daughter to provide transportation to home for patient. Support given. Proposed discharge date: 09/16/18 PLAN: Discharge to home alone. SANDRO Mckinley, LEAD [employer] DEVELOPER
[2018-09-14] MEDS: Pramipexole Di-HCl 0.5 MG Tablet PO (13:49)
[2018-09-14] MEDS: Pramipexole Di-HCl 0.25 MG Tablet PO (21:58)
[2018-09-14 22:00] VITALS: BP 129/61; PULSE 84; RESP 17; TEMP 36.4; O2SAT 94
[2018-09-15] MEDS: Enoxaparin 40 MG/0.4 ML Syringe SC (06:23)
[2018-09-15] MEDS: Acetaminophen 500 MG Tablet 1000 MG PO ×3 (06:23→22:53)
[2018-09-15] MEDS: Gabapentin 100 MG Capsule 200 MG PO ×3 (08:06→22:52)
[2018-09-15] MEDS: Losartan Potassium 100 MG Tablet PO (08:07)
[2018-09-15] MEDS: Pantoprazole Sodium 20 MG Tablet PO (08:07)
[2018-09-15] MEDS: Atenolol 50 MG Tablet PO (08:07)
[2018-09-15] MEDS: Multivitamins,Ther W-Minerals Tablet 1 TABLET PO (08:08)
[2018-09-15] MEDS: Polyethylene Glycol 3350 17 GM PACKET PO (08:08)
--- NOTE | 2018-09-15 08:15 | NURSING ---
Pt c/o feeling lightheaded, bp is 100/58, hr 74, aldactone and norvasc not given at this time.
[2018-09-15 09:20] VITALS: BP 106/43; PULSE 70; PULSE 71; RESP 16; TEMP 37.1; O2SAT 96
[2018-09-15] MEDS: oxyCODONE HCl Cr 10 MG Tablet PO ×2 (09:37→22:52)
[2018-09-15] MEDS: amLODIPine 5 MG Tablet PO (09:37)
[2018-09-15] MEDS: Spironolactone 25 MG Tablet PO (09:37)
[2018-09-15 10:54] VITALS: BP 125/64; PULSE 66
[2018-09-15] MEDS: Pramipexole Di-HCl 0.5 MG Tablet PO (11:39)
[2018-09-15 18:55] VITALS: BP 111/61; PULSE 78; RESP 16; TEMP 36.9; O2SAT 97
[2018-09-15] MEDS: Pramipexole Di-HCl 0.25 MG Tablet PO (22:52)
[2018-09-16] MEDS: Enoxaparin 40 MG/0.4 ML Syringe SC (05:25)
[2018-09-16] MEDS: Acetaminophen 500 MG Tablet 1000 MG PO ×2 (05:25→13:27)
[2018-09-16 07:00] VITALS: BP 128/69; PULSE 62; RESP 16; TEMP 36.5; O2SAT 98
[2018-09-16] MEDS: Spironolactone 25 MG Tablet PO (08:31)
[2018-09-16] MEDS: Atenolol 50 MG Tablet PO (08:31)
[2018-09-16] MEDS: Pantoprazole Sodium 20 MG Tablet PO (08:31)
[2018-09-16] MEDS: Multivitamins,Ther W-Minerals Tablet 1 TABLET PO (08:31)
[2018-09-16] MEDS: amLODIPine 5 MG Tablet PO (08:31)
[2018-09-16] MEDS: Losartan Potassium 100 MG Tablet PO (08:31)
[2018-09-16] MEDS: Gabapentin 100 MG Capsule 200 MG PO (08:31)
[2018-09-16] MEDS: oxyCODONE HCl Cr 10 MG Tablet PO (10:12)
--- NOTE | 2018-09-16 11:26 | PCM.RU.DC ---
Rehab Discharge Summary DATE OF ADMISSION: 09/08/18 DATE OF DISCHARGE: 09/16/18 - Rehab Diagnosis Laminectomy - Physical Exam General: Alert, Oriented x3, Cooperative HEENT: Atraumatic, PERRLA, EOMI, Normocephalic Neck: Supple, No JVD, Negative Carotid Bruits Lungs: Clear to auscultation, Normal air movement Cardiovascular: Regular rate, No murmurs Abdomen: Bowel Sounds Present, Soft, Non Tender Extremities: No edema, Capillary Refill Less than 3 Seconds Skin: No rashes, No breakdown Musculoskeletal: No Tenderness to Palpation of Joints or Extremities, - - the incision site is well healed there is no erythema or dehiscence noted Neurological: Cranial nerves II-XII grossly intact Psych/Mental Status: Normal Affect, Appropriate, Alert and oriented to time, place, person, mood and affect Vital Signs Temp Pulse Resp BP Pulse Ox 97.7 F L 62 16 128/69 H 98 09/16/18 07:00 09/16/18 07:00 09/16/18 07:00 09/16/18 07:00 09/16/18 07:00 Oxygen Delivery Method Room Air Weight: 72.5 kg Body Mass Index (BMI) 29.7 Intake and Output for Last 24 Hours 09/14/18 09/15/18 09/16/18 23:59 23:59 23:59 Intake Total 720 / 720 440 / 440 240 / 240 Balance 720 / 720 440 / 440 240 / 240 Active Medications Acetaminophen (Tylenol) 1,000 mg PO Q8 [facility] Last Admin: 09/16/18 05:25 Dose: 1,000 mg Amlodipine Besylate (Norvasc) 5 mg PO DAILY [facility] Last Admin: 09/16/18 08:31 Dose: 5 mg Atenolol (Tenormin (Beta Bello)) 50 mg PO DAILY [facility] Last Admin: 09/16/18 08:31 Dose: 50 mg Bisacodyl (Dulcolax) 10 mg RECTAL .PRN X 1 PRN PRN Reason: Constipation Bisacodyl (Dulcolax) 10 mg PO DAILY PRN PRN PRN Reason: Constipation Capsaicin (Zostrix) 1 applic TOPICAL TID [facility]; Protocol Last Admin: 09/16/18 05:26 Dose: Not Given Cholecalciferol (Vitamin D) 1,000 unit PO DAILY [facility] Last Admin: 09/16/18 08:31 Dose: 1,000 unit Enoxaparin Sodium (Lovenox) 40 mg SC DAILY@0600 [facility] Last Admin: 09/16/18 05:25 Dose: 40 mg Gabapentin (Neurontin) 200 mg PO QHS [facility] Last Admin: 09/15/18 22:52 Dose: 200 mg Gabapentin (Neurontin) 200 mg PO BID@0800,1500 [facility] Last Admin: 09/16/18 08:31 Dose: 200 mg Losartan Potassium (Cozaar) 100 mg PO DAILY [facility] Last Admin: 09/16/18 08:31 Dose: 100 mg Magnesium Hydroxide (Milk Of Magnesia) 30 ml PO .PRN X 1 PRN PRN Reason: Constipation Last Admin: 09/11/18 06:29 Dose: 30 ml Multivitamins/Minerals (Multivitamin With Minerals) 1 tablet PO DAILY@0800 [facility] Last Admin: 09/16/18 08:31 Dose: 1 tablet Oxycodone HCl (Oxyir) 5 - 10 mg PO Q4H PRN PRN PRN Reason: PAIN Last Admin: 09/14/18 06:07 Dose: 10 mg Oxycodone HCl (Oxycontin) 10 mg PO BID [facility] Last Admin: 09/16/18 10:12 Dose: 10 mg Pantoprazole Sodium (Protonix) 20 mg PO DAILY [facility] Last Admin: 09/16/18 08:31 Dose: 20 mg Polyethylene Glycol (Miralax) 17 gm PO DAILY [facility] Last Admin: 09/16/18 08:30 Dose: Not Given Pramipexole Dihydrochloride (Mirapex) 0.25 mg PO QHS [facility] Last Admin: 09/15/18 22:52 Dose: 0.25 mg Pramipexole Dihydrochloride (Mirapex) 0.5 mg PO 1200 [facility] Last Admin: 09/15/18 11:39 Dose: 0.5 mg Spironolactone (Aldactone) 25 mg PO DAILY [facility] Last Admin: 09/16/18 08:31 Dose: 25 mg Temazepam (Restoril) 15 mg PO QHS PRN PRN PRN Reason: SLEEP Last Admin: 09/10/18 21:14 Dose: 15 mg Tizanidine HCl (Zanaflex) 2 mg PO Q8H PRN PRN PRN Reason: MUSCLE SPASM Discharge Diet: No Restrictions Discharge Activity: May Not Drive, May Shower, Use Walker, - - DO soak in a tub bath until cleared by Surgeon Weight Bearing Status: Weight bearing as tolerated Call your doctor if your incision/area has: Increased Pain/ Swelling, Increased Redness, Foul Smelling Discharge, Swelling at the incision site Call your doctor if you observe: Fever of 101 or Higher, Coldness, Increased Pain, Numbness or Tingling, Change in Color, Inability to urinate, Inability to have a bowel movement, Using more than one pad per hour, Shortness of breath, Dizziness, Fainting spells, Swelling in the ankles, Chest pain, Prolonged hiccoughing, Increased palpitations (irregular heartbeat), Calf discomfort, Uncontrolled pain Home Medications: Medications to take at Discharge Amlodipine [Norvasc] 5 mg PO DAILY 11/21/17 Atenolol [Tenormin (beta bello)] 50 mg PO DAILY 11/21/17 Cholecalciferol (VIT D3) [Vitamin D3] 1,000 unit PO DAILY 11/21/17 Losartan Potassium [Cozaar] 100 mg PO DAILY 11/21/17 Pramipexole Di-HCl [Mirapex] 0.5 mg PO DAILY@1200 11/21/17 Spironolactone [Aldactone] 25 mg PO DAILY 11/21/17 Temazepam [Restoril] 15 mg PO QHS PRN PRN 11/21/17 Pramipexole Di-HCl [Mirapex] 0.25 mg PO QHS 05/27/18 Acetaminophen [Tylenol] 1,000 mg PO Q8 09/08/18 Multivitamins,Ther W-Minerals [Multivitamin With Minerals] 1 tablet PO DAILY@0800 09/08/18 Pantoprazole Sodium [Protonix] 20 mg PO DAILY 09/08/18 Gabapentin [Neurontin] 200 mg PO BID@0800,1500 #60 capsule 09/15/18 Gabapentin [Neurontin] 200 mg PO QHS #30 capsule 09/15/18 Oxycodone CR [Oxycontin] 10 mg PO BID 14 Days #28 tab 09/15/18 Oxycodone [Oxyir] 5 - 10 mg PO Q4H PRN PRN 7 Days #21 tab 09/15/18 Polyethylene Glycol 3350 [Miralax] 17 gm PO DAILY #30 packet 09/15/18 Tizanidine HCl [Zanaflex] 2 mg PO Q8H PRN PRN #90 tablet 09/15/18 Following Prescrptions Were Given to Patient: Oxycodone [Oxyir] 5 - 10 mg PO Q4H PRN PRN 7 Days #21 tab PRN Reason: Pain Tizanidine HCl [Zanaflex] 2 mg PO Q8H PRN PRN #90 tablet PRN Reason: Muscle Spasm Gabapentin [Neurontin] 200 mg PO QHS #30 capsule Gabapentin [Neurontin] 200 mg PO BID@0800,1500 #60 capsule Polyethylene Glycol 3350 [Miralax] 17 gm PO DAILY #30 packet Oxycodone CR [Oxycontin] 10 mg PO BID 14 Days #28 tab Primary Care Physician: Gurvinder Mckay MD [Primary Care Provider] - Please Follow Up With: Gurvinder Mckay MD Please Follow Up With: london Paula Disposition: Home Minutes spent on discharge:: 40 Patient Condition:: Good Rehab Course The patient is an 78-year-old right handed female who was admitted to the rehab unit for rehabilitation, who was recently discharged on 09/03/18 after having had an emergent 4-hour back surgery at [facility] for lumbar canal stenosis. She has a PMH of HTN, Osteoarthritis, and RLS. She was admitted to [facility] for intractable back pain radiating into both legs, and numbness in the perineum area. She lives alone with a pet dog in a Condo, every thing is on one floor, and she has 2 steps to get into the home from her garage. She does not drive and uses a walker to ambulate. She was previously completely functionally independent and is admitted to the rehab unit in order to restore her previous level of functional independence. While in the Rehab Unit (RU) her other medical conditions were monitored. While in the RU she improved with therapy and gained strength. Summary of Care: - Physical therapy for gait and balance - Occupational Therapy for ADLs - Speech therapy - As needed analgesics - Bowel protocol - DVT prophylaxis: SCDs, ASA, Lovenox - Hypertension - continue Norvasc, Atenolol and Aldactone - Hx of RLS - continue Mirapex - Mild normochromic normocytic anemia- 2/2 blood loss with recent surgery - improving Hgb was 11.2. - Mild hyponatremia - Resolved Na is 142 up from 134 - Add fentanyl patch to scheduled pain medication, patch was d/c over the weekend and Oxy dose was increased. - Constipation - was started on Miralax daily. - MOD I in preparation for discharge on Friday, will follow up with surgeon on when to start Physical therapy - Incision has healed and there is no erythema or dehiscence noted Summary of Therapy Sessions: With Physical therapy, she is standby assist for getting in and out of bed, going from a sitting to a standing position. She is able to walk 560 feet with a wheel walker. She is able to go up and down 5 steps using 2 hand rails. With Occupational therapy, she is supervision for personal care, she is able to us adaptive equipment for her lower body dressing and bathing. She is distance supervision for toileting. With Nursing, her incision is C/D/I, her pain is fairly controlled when she is sitting and more intense when up moving around. The pain is for discharge on 09/16/18, she will be made MOD I today in anticipation of discharge. She will follow up with her surgeon on when he would like her to start outpatient Physical therapy. Meaningful Use Info Meaningful Use Diagnoses (Choose all that apply): None applicable
--- NOTE | 2018-09-16 11:29 | DS.PCM_ITS ---
Rehab Discharge Summary DATE OF ADMISSION: 09/08/18 DATE OF DISCHARGE: 09/16/18 - Rehab Diagnosis Laminectomy - Physical Exam General: Alert, Oriented x3, Cooperative HEENT: Atraumatic, PERRLA, EOMI, Normocephalic Neck: Supple, No JVD, Negative Carotid Bruits Lungs: Clear to auscultation, Normal air movement Cardiovascular: Regular rate, No murmurs Abdomen: Bowel Sounds Present, Soft, Non Tender Extremities: No edema, Capillary Refill Less than 3 Seconds Skin: No rashes, No breakdown Musculoskeletal: No Tenderness to Palpation of Joints or Extremities, - - the incision site is well healed there is no erythema or dehiscence noted Neurological: Cranial nerves II-XII grossly intact Psych/Mental Status: Normal Affect, Appropriate, Alert and oriented to time, place, person, mood and affect Vital Signs Temp Pulse Resp BP Pulse Ox 97.7 F L 62 16 128/69 H 98 09/16/18 07:00 09/16/18 07:00 09/16/18 07:00 09/16/18 07:00 09/16/18 07:00 Oxygen Delivery Method Room Air Weight: 72.5 kg Body Mass Index (BMI) 29.7 Intake and Output for Last 24 Hours 09/14/18 09/15/18 09/16/18 23:59 23:59 23:59 Intake Total 720 / 720 440 / 440 240 / 240 Balance 720 / 720 440 / 440 240 / 240 Active Medications Acetaminophen (Tylenol) 1,000 mg PO Q8 [facility] Last Admin: 09/16/18 05:25 Dose: 1,000 mg Amlodipine Besylate (Norvasc) 5 mg PO DAILY [facility] Last Admin: 09/16/18 08:31 Dose: 5 mg Atenolol (Tenormin (Beta Bello)) 50 mg PO DAILY [facility] Last Admin: 09/16/18 08:31 Dose: 50 mg Bisacodyl (Dulcolax) 10 mg RECTAL .PRN X 1 PRN PRN Reason: Constipation Bisacodyl (Dulcolax) 10 mg PO DAILY PRN PRN PRN Reason: Constipation Capsaicin (Zostrix) 1 applic TOPICAL TID [facility]; Protocol Last Admin: 09/16/18 05:26 Dose: Not Given Cholecalciferol (Vitamin D) 1,000 unit PO DAILY [facility] Last Admin: 09/16/18 08:31 Dose: 1,000 unit Enoxaparin Sodium (Lovenox) 40 mg SC DAILY@0600 [facility] Last Admin: 09/16/18 05:25 Dose: 40 mg Gabapentin (Neurontin) 200 mg PO QHS [facility] Last Admin: 09/15/18 22:52 Dose: 200 mg Gabapentin (Neurontin) 200 mg PO BID@0800,1500 [facility] Last Admin: 09/16/18 08:31 Dose: 200 mg Losartan Potassium (Cozaar) 100 mg PO DAILY [facility] Last Admin: 09/16/18 08:31 Dose: 100 mg Magnesium Hydroxide (Milk Of Magnesia) 30 ml PO .PRN X 1 PRN PRN Reason: Constipation Last Admin: 09/11/18 06:29 Dose: 30 ml Multivitamins/Minerals (Multivitamin With Minerals) 1 tablet PO DAILY@0800 [facility] Last Admin: 09/16/18 08:31 Dose: 1 tablet Oxycodone HCl (Oxyir) 5 - 10 mg PO Q4H PRN PRN PRN Reason: PAIN Last Admin: 09/14/18 06:07 Dose: 10 mg Oxycodone HCl (Oxycontin) 10 mg PO BID [facility] Last Admin: 09/16/18 10:12 Dose: 10 mg Pantoprazole Sodium (Protonix) 20 mg PO DAILY [facility] Last Admin: 09/16/18 08:31 Dose: 20 mg Polyethylene Glycol (Miralax) 17 gm PO DAILY [facility] Last Admin: 09/16/18 08:30 Dose: Not Given Pramipexole Dihydrochloride (Mirapex) 0.25 mg PO QHS [facility] Last Admin: 09/15/18 22:52 Dose: 0.25 mg Pramipexole Dihydrochloride (Mirapex) 0.5 mg PO 1200 [facility] Last Admin: 09/15/18 11:39 Dose: 0.5 mg Spironolactone (Aldactone) 25 mg PO DAILY [facility] Last Admin: 09/16/18 08:31 Dose: 25 mg Temazepam (Restoril) 15 mg PO QHS PRN PRN PRN Reason: SLEEP Last Admin: 09/10/18 21:14 Dose: 15 mg Tizanidine HCl (Zanaflex) 2 mg PO Q8H PRN PRN PRN Reason: MUSCLE SPASM Discharge Diet: No Restrictions Discharge Activity: May Not Drive, May Shower, Use Walker, - - DO soak in a tub bath until cleared by Surgeon Weight Bearing Status: Weight bearing as tolerated Call your doctor if your incision/area has: Increased Pain/ Swelling, Increased Redness, Foul Smelling Discharge, Swelling at the incision site Call your doctor if you observe: Fever of 101 or Higher, Coldness, Increased Pain, Numbness or Tingling, Change in Color, Inability to urinate, Inability to have a bowel movement, Using more than one pad per hour, Shortness of breath, Dizziness, Fainting spells, Swelling in the ankles, Chest pain, Prolonged hiccoughing, Increased palpitations (irregular heartbeat), Calf discomfort, Uncontrolled pain Home Medications: Medications to take at Discharge Amlodipine [Norvasc] 5 mg PO DAILY 11/21/17 Atenolol [Tenormin (beta bello)] 50 mg PO DAILY 11/21/17 Cholecalciferol (VIT D3) [Vitamin D3] 1,000 unit PO DAILY 11/21/17 Losartan Potassium [Cozaar] 100 mg PO DAILY 11/21/17 Pramipexole Di-HCl [Mirapex] 0.5 mg PO DAILY@1200 11/21/17 Spironolactone [Aldactone] 25 mg PO DAILY 11/21/17 Temazepam [Restoril] 15 mg PO QHS PRN PRN 11/21/17 Pramipexole Di-HCl [Mirapex] 0.25 mg PO QHS 05/27/18 Acetaminophen [Tylenol] 1,000 mg PO Q8 09/08/18 Multivitamins,Ther W-Minerals [Multivitamin With Minerals] 1 tablet PO DAILY@0800 09/08/18 Pantoprazole Sodium [Protonix] 20 mg PO DAILY 09/08/18 Gabapentin [Neurontin] 200 mg PO BID@0800,1500 #60 capsule 09/15/18 Gabapentin [Neurontin] 200 mg PO QHS #30 capsule 09/15/18 Oxycodone CR [Oxycontin] 10 mg PO BID 14 Days #28 tab 09/15/18 Oxycodone [Oxyir] 5 - 10 mg PO Q4H PRN PRN 7 Days #21 tab 09/15/18 Polyethylene Glycol 3350 [Miralax] 17 gm PO DAILY #30 packet 09/15/18 Tizanidine HCl [Zanaflex] 2 mg PO Q8H PRN PRN #90 tablet 09/15/18 Following Prescrptions Were Given to Patient: Oxycodone [Oxyir] 5 - 10 mg PO Q4H PRN PRN 7 Days #21 tab PRN Reason: Pain Tizanidine HCl [Zanaflex] 2 mg PO Q8H PRN PRN #90 tablet PRN Reason: Muscle Spasm Gabapentin [Neurontin] 200 mg PO QHS #30 capsule Gabapentin [Neurontin] 200 mg PO BID@0800,1500 #60 capsule Polyethylene Glycol 3350 [Miralax] 17 gm PO DAILY #30 packet Oxycodone CR [Oxycontin] 10 mg PO BID 14 Days #28 tab Primary Care Physician: Gurvinder Mckay MD [Primary Care Provider] - Please Follow Up With: Gurvinder Mckay MD Please Follow Up With: l[place] Paula Disposition: Home Minutes spent on discharge:: 40 Patient Condition:: Good Rehab Course The patient is an 78-year-old right handed female who was admitted to the rehab unit for rehabilitation, who was recently discharged on 09/03/18 after having had an emergent 4-hour back surgery at [facility] for lumbar canal stenosis. She has a PMH of HTN, Osteoarthritis, and RLS. She was admitted to [facility] for intractable back pain radiating into both legs, and numbness in the perineum area. She lives alone with a pet dog in a Condo, every thing is on one floor, and she has 2 steps to get into the home from her garage. She does not drive and uses a walker to ambulate. She was previously completely functionally independent and is admitted to the rehab unit in order to restore her previous level of functional independence. While in the Rehab Unit (RU) her other medical conditions were monitored. While in the RU she improved with therapy and gained strength. Summary of Care: - Physical therapy for gait and balance - Occupational Therapy for ADLs - Speech therapy - As needed analgesics - Bowel protocol - DVT prophylaxis: SCDs, ASA, Lovenox - Hypertension - continue Norvasc, Atenolol and Aldactone - Hx of RLS - continue Mirapex - Mild normochromic normocytic anemia- 2/2 blood loss with recent surgery - improving Hgb was 11.2. - Mild hyponatremia - Resolved Na is 142 up from 134 - Add fentanyl patch to scheduled pain medication, patch was d/c over the weekend and Oxy dose was increased. - Constipation - was started on Miralax daily. - MOD I in preparation for discharge on Friday, will follow up with surgeon on when to start Physical therapy - Incision has healed and there is no erythema or dehiscence noted Summary of Therapy Sessions: With Physical therapy, she is standby assist for getting in and out of bed, going from a sitting to a standing position. She is able to walk 560 feet with a wheel walker. She is able to go up and down 5 steps using 2 hand rails. With Occupational therapy, she is supervision for personal care, she is able to us adaptive equipment for her lower body dressing and bathing. She is distance supervision for toileting. With Nursing, her incision is C/D/I, her pain is fairly controlled when she is sitting and more intense when up moving around. The pain is for discharge on 09/16/18, she will be made MOD I today in anticipation of discharge. She will follow up with her surgeon on when he would like her to start outpatient Physical therapy. Meaningful Use Info Meaningful Use Diagnoses (Choose all that apply): None applicable
--- NOTE | 2018-09-16 11:31 | DCINST_ITS ---
- Discharge Diagnoses Reason(s) for Visit for Discharge Instructions: Laminectomy You will use the following diet at home:: Regular Your food should be the consistency of: Regular Your liquids should be the consistency of: Regular/Thin Discharge Activity: May Not Drive, May Shower, Use Walker, - - DO soak in a tub bath until cleared by Surgeon Weight Bearing Status: Weight bearing as tolerated Call your doctor if your incision/area has: Increased Pain/ Swelling, Increased Redness, Foul Smelling Discharge, Swelling at the incision site Call your doctor if you observe: Fever of 101 or Higher, Coldness, Increased Pain, Numbness or Tingling, Change in Color, Inability to urinate, Inability to have a bowel movement, Using more than one pad per hour, Shortness of breath, Dizziness, Fainting spells, Swelling in the ankles, Chest pain, Prolonged hiccoughing, Increased palpitations (irregular heartbeat), Calf discomfort, Uncontrolled pain Allergies/Adverse Reactions: Allergies influenza virus vaccine ts [From Fluarix] Allergy (Severe, Verified 09/06/18 10:52) Swelling hydrochlorothiazide Allergy (Verified 09/06/18 10:52) Hives irbesartan Allergy (Verified 09/06/18 14:45) Hives meloxicam Allergy (Verified 09/06/18 10:52) Swelling triamterene Allergy (Verified 09/06/18 10:52) Hives perfume Adverse Reaction (Verified 09/06/18 14:45) breathing it in gets itch venom-honey bee [bee venom (honey bee)] Adverse Reaction (Verified 09/06/18 10:52) Anaphylaxis MSG Allergy (Uncoded 09/06/18 10:52) Shortness of breath Medications to take at Discharge Amlodipine [Norvasc] 5 mg PO DAILY 11/21/17 Atenolol [Tenormin (beta kwame)] 50 mg PO DAILY 11/21/17 Cholecalciferol (VIT D3) [Vitamin D3] 1,000 unit PO DAILY 11/21/17 Losartan Potassium [Cozaar] 100 mg PO DAILY 11/21/17 Pramipexole Di-HCl [Mirapex] 0.5 mg PO DAILY@1200 11/21/17 Spironolactone [Aldactone] 25 mg PO DAILY 11/21/17 Temazepam [Restoril] 15 mg PO QHS PRN PRN 11/21/17 Pramipexole Di-HCl [Mirapex] 0.25 mg PO QHS 05/27/18 Acetaminophen [Tylenol] 1,000 mg PO Q8 09/08/18 Multivitamins,Ther W-Minerals [Multivitamin With Minerals] 1 tablet PO DAILY@0800 09/08/18 Pantoprazole Sodium [Protonix] 20 mg PO DAILY 09/08/18 Gabapentin [Neurontin] 200 mg PO BID@0800,1500 #60 capsule 09/15/18 Gabapentin [Neurontin] 200 mg PO QHS #30 capsule 09/15/18 Oxycodone CR [Oxycontin] 10 mg PO BID 14 Days #28 tab 09/15/18 Oxycodone [Oxyir] 5 - 10 mg PO Q4H PRN PRN 7 Days #21 tab 09/15/18 Polyethylene Glycol 3350 [Miralax] 17 gm PO DAILY #30 packet 09/15/18 Tizanidine HCl [Zanaflex] 2 mg PO Q8H PRN PRN #90 tablet 09/15/18 The following prescriptions were given: Oxycodone [Oxyir] 5 - 10 mg PO Q4H PRN PRN 7 Days #21 tab PRN Reason: Pain Tizanidine HCl [Zanaflex] 2 mg PO Q8H PRN PRN #90 tablet PRN Reason: Muscle Spasm Gabapentin [Neurontin] 200 mg PO QHS #30 capsule Gabapentin [Neurontin] 200 mg PO BID@0800,1500 #60 capsule Polyethylene Glycol 3350 [Miralax] 17 gm PO DAILY #30 packet Oxycodone CR [Oxycontin] 10 mg PO BID 14 Days #28 tab Primary Care Physician: Gurvinder Mckay MD [Primary Care Provider] - Test Results: Test results from this visit will be discussed in further detail at your follow- up appointment, if applicable. Please Follow Up With: Gurvinder Mckay MD Please Follow Up With: l[place] Paula Proposed Discharge Date: 09/16/18
[2018-09-16] MEDS: Pramipexole Di-HCl 0.5 MG Tablet PO (11:59)
[2018-09-16] MEDS: oxyCODONE 5 MG Tablet PO (13:27)
[2018-09-16 13:30] VITALS: BP 128/69; PULSE 62; RESP 16; TEMP 36.5; O2SAT 98
--- NOTE | 2018-09-16 13:30 | NURSING ---
Aware of discharge instructions and verbalized understanding.
== END 2018-09-16 13:30 | disposition home or self-care (01) | DRG 560 ==
PROVIDERS: Admitting Provider Psychiatry & Neurology Neurology; Family Provider Internal Medicine; PCP Internal Medicine; Visit Provider Family Medicine
DX: Z47.89 Encounter for other orthopedic aftercare (principal); D62 Acute posthemorrhagic anemia; G25.81 Restless legs syndrome; I10 Essential (primary) hypertension; M19.90 Unspecified osteoarthritis, unspecified site; K59.00 Constipation, unspecified; M54.16 Radiculopathy, lumbar region
CPT/HCPCS: 36415; 80048; 85027; 97110; 97116; 97162; 97166; 97530; 97535; 97802

== ENCOUNTER → 2019-03-22 | Outpatient (CLI) | payer MEDICARE, OTHER, SELFPAY ==
[2019-03-22 10:40] LABS: Absolute Lymphocyte Count 0.64 X10^3/ul (0.83-4.51); Absolute Neutrophil Count 5.9 X10^3/uL (2.0-7.7); Basophil# 0.03 X10^3/uL; Basophil% 0.4 % (0-1); Eosinophil# 0.16 X10^3/uL; Eosinophils% 2.2 % (0-5); Hematocrit 44.2 % (37-47); Hemoglobin 14.2 g/dl (12.0-15.0); Lymphocyte # 0.64 X10^3/ul (4.0); Lymphocyte % 8.7 % (19-41); Mean Corp Hgb Conc 32.1 g/gl (32-36); Mean Corpuscular Hgb 29.2 pg (27.0-32.0); Mean Corpuscular Volume 90.8 fL (81-99); Mean Platelet Vol. 10.2 fl (6.2-12.0); Monocyte# 0.62 X10^3/uL; Monocyte% 8.4 % (0-10); Neutrophil % 80.2 % (47-70); POSITIVE COUNT NO; POSITIVE DIFFERENTIAL NO; POSITIVE MORPHOLOGY NO; Platelet Count 227 K/mm3 (150-450); RBC Distribution Width CV 13.6 % (11.6-14.6); RBC Distribution Width SD 44.8 fl (35.1-43.9); Red Blood Count 4.87 M/mm3 (4.2-5.4); White Blood Count 7.4 K/mm3 (4.4-11.0)
[2019-03-22 11:22] LABS: AST(SGOT) 15 U/L (15-37); Alanine Aminotransfer ALT/SGPT 21 U/L (13-56); Albumin, Serum 3.8 g/dL (3.2-5.0); Alkaline Phosphatase 111 U/L (45-117); Bilirubin, Direct 0.14 mg/dL (0.00-0.30); Cholesterol 173 mg/dL (200); Globulin 3.2 g/dL (2.2-4.2); High Density Lipoprotein 66 mg/dL; Triglycerides 99 mg/dL; Very Low Density Lipoprotein 20 mg/dL (5-40)
[2019-03-22 11:44] LABS: HIV - WCH Non-Reactive (Nonreactive); Hepatitis B Surface Antibody Non-Reactive; Hepatitis B Surface Antigen Non-Reactive (Nonreactive); Hepatitis C Antibody Non-Reactive (Nonreactive)
[2019-03-24 16:07] LABS: QNTFERON TB Mitogen Value 7.51 IU/mL (.); QNTFERON TB Nil Value 0.11 IU/mL (.); QNTFERON TB1+ Ag Value 0.16 IU/mL (.)
[2019-03-25 11:36] LABS: Hepatitis B Core Ab Total Negative (Negative)
[2019-03-25 11:37] LABS: QNTIFERON TB Positive Criteria Negative (Negative)
== END | disposition home or self-care (01) ==
LOC: MTLAB 03-26 11:14
PROVIDERS: Family Provider Internal Medicine; PCP Internal Medicine; Referring Provider Dermatology; Visit Provider Dermatology
DX: Z79.899 Other long term (current) drug therapy (principal); L40.0 Psoriasis vulgaris; L30.8 Other specified dermatitis
CPT/HCPCS: 36415; 80061; 80076; 85025; 86480; 86703; 86704; 86706; 86803; 87340

== ENCOUNTER 2020-03-01 08:58 | Emergency (ER) | payer MEDICARE, OTHER, SELFPAY ==
[2020-03-01 08:59] VITALS: BP 126/66; PULSE 86; RESP 18; TEMP 36.6; O2SAT 98; BMI 31.6
--- NOTE | 2020-03-01 09:21 | CT_ITS ---
STUDY: CT ABDOMEN AND PELVIS WITH CONTRAST REASON FOR EXAM: Female, 80 years old. DIARRHEA X 8 WEEKS, DIVERTICULITIS RADIATION DOSAGE (If Supplied By Facility): CTDIvol = ( 19.56 ) mGy, DLP = ( 1159.63 ) mGycm TECHNIQUE: Transaxial images were obtained from the dome of the diaphragm to the symphysis pubis without oral contrast. IV 100mL Isovue-300 was administered. Sagittal and coronal images were reconstructed. Individualized dose optimization techniques were used for this CT. COMPARISON: 2017 FINDINGS: There are chronic interstitial fibrotic changes of the lung bases with bibasilar atelectasis. The visualized portions of the heart are within normal limits. Liver shows multiple stable simple cysts scattered throughout both lobes, the largest in the right lobe measures approximate 5.5 cm, largest in the left approximate 2.5 cm. Normal gallbladder and extrahepatic biliary system. Normal spleen. Normal pancreas. Normal bilateral adrenal glands. Normal right kidney. Normal left kidney. Normal visualized stomach. Multiple, nondistended fluid-filled small and large bowel loops suggest gastroenteritis. There are a few scattered colonic diverticula but no CT evidence of acute diverticulitis.. The appendix is visualized and appears normal. Appendix best seen on coronal recon image 32 Normal abdominal aorta. Normal inferior vena cava. Normal retroperitoneum. Normal urinary bladder. There is a small fat-containing periumbilical hernia. Extensive degenerative and postsurgical changes noted in the lumbar spine and pelvis, bilateral hip replacements free of complication. Surgical hardware in the lower lumbar spine also free of complication CT/Abdomen/Pelvis W IV Cont ONLY IMPRESSION: Nondistended fluid-filled small and large bowel loops consistent with gastroenteritis. There are scattered colonic diverticula but no CT evidence of acute diverticulitis. Stable simple hepatic cysts, no specific follow-up needed. Extensive degenerative and postsurgical changes in the lumbar spine and pelvis No free intraperitoneal fluid, air, or suspicious adenopathy Electronically Signed: Richard Leigh MD at 10:30 EDT , Service support ,
[2020-03-01] MEDS: 0.9% Normal Saline 1,000 ML 125 ML IV (09:39)
[2020-03-01 09:42] LABS: Absolute Lymphocyte Count 0.49 X10^3/uL (0.83-4.51); Absolute Neutrophil Count 5.1 X10^3/uL (2.0-7.7); Basophil# 0.04 X10^3/uL; Basophil% 0.6 % (0-1); Eosinophil# 0.09 X10^3/uL; Eosinophils% 1.4 % (0-5); Hematocrit 39.5 % (37-47); Hemoglobin 12.7 g/dL (12.0-15.0); Lymphocyte # 0.49 X10^3/ul (4.0); Lymphocyte % 7.4 % (19-41); Mean Corp Hgb Conc 32.2 g/dL (32-36); Mean Corpuscular Hgb 30.1 pg (27.0-32.0); Mean Corpuscular Volume 93.6 fL (81-99); Mean Platelet Vol. 9.7 fl (6.2-12.0); Monocyte# 0.81 X10^3/uL; Monocyte% 12.3 % (0-10); NRBC Flagged by Analyzer 0 % (0-5); Neutrophil # 5.13 X10^3/uL (2.7-7.7); Neutrophil % 77.7 % (47-70); POSITIVE DIFFERENTIAL YES; Platelet Count 280 K/mm3 (150-450); RBC Distribution Width CV 12.7 % (11.6-14.6); RBC Distribution Width SD 43.3 fl (35.1-43.9); Red Blood Count 4.22 M/mm3 (4.2-5.4); White Blood Count 6.6 K/mm3 (4.4-11.0)
[2020-03-01 09:43] LABS: Differential Indicated SCAN CRITERIA MET
[2020-03-01 09:57] LABS: AST(SGOT) 21 U/L (15-37); Alanine Aminotransfer ALT/SGPT 19 U/L (13-56); Albumin, Serum 3.4 g/dL (3.2-5.0); Alkaline Phosphatase 111 U/L (45-117); Anion Gap 5 (5-15); BUN 12 mg/dL (7-18); BUN/Creat Ratio 14.5 RATIO (10-20); Calcium,Total 9.3 mg/dL (8.5-10.1); Chloride 104 mmol/L (98-107); Creatinine, Serum 0.83 mg/dL (0.55-1.02); EST Glomerular Filtration Rate 70 mL/min (>60); Est Glom Filt Rate - Afr Amer 85 mL/min (>60); Estimated Creatinine Clearance 41.33 ml/min; Globulin 3.3 g/dL (2.2-4.2); Glucose 119 mg/dL (74-106); Potassium 4.2 mmol/L (3.5-5.1); Protein, Total 6.7 g/dL (6.4-8.2); Sodium Level 138 mmol/L (136-145)
[2020-03-01 10:35] LABS: Differential Comment SCANNED
[2020-03-01 11:02] VITALS: BP 109/70; PULSE 68; RESP 16; O2SAT 97
[2020-03-01 11:04] LABS: Bacteria 0 SEEN /hpf (None Seen); Mucous, Urine 0 SEEN /hpf (<or=2+); Red Blood Cells-Urine 0 SEEN /hpf (0-5); White Blood Cells 0 SEEN /hpf (0-5)
[2020-03-01 11:07] LABS: Color, Urine Yellow (Yellow); Glucose, Dipstick Normal (Normal); Ketone-Dipstick Negative (Negative); Leukocyte Esterase-Dipstick 25 /ul (Negative); Nitrite-Dipstick Negative (Negative); Occult Blood-Urine Negative /ul (Negative); Protein-Dipstick Negative (Negative); Specific Gravity, Urine 1.005 (1.002-1.030); Urine Bilirubin Dipstick Negative (Negative); Urine Clarity Sl. Cloudy (Clear); Urine Urobilinogen Normal (Normal)
[2020-03-01 11:14] LABS: Squamous Epithelial Cells - UA 0-5 SEEN /hpf (5-10)
--- NOTE | 2020-03-01 11:39 | ED.VISSUMM ---
- ER Visit Summary Date of Service: 03/01/20 Chief Complaint: Diarrhea History of Present Illness: The patient is a [address] Mckay. She reports she has diarrhea that began 6 to 7 weeks ago. States that she thought it began after eating sausage that have been in the freezer for too long. She has not been on antibiotics recently. Has not been camping out of the country. She does not drink well water. She is not been running one sick that she knows of. She has had a test for C. difficile that was negative. She is seen the nurse practitioner and was initially put on diphenoxylate and then cholestyramine without relief. Patient reports that she has abdominal pain that is 4-10 at worst and pain free currently. Is worsened by pressing on it. Is relieved by nothing. She denies any nausea or vomiting. Reports he is having diarrhea approximately times a day. No blood in her stools or black tarry stools. She reports has had dysuria, but no frequency. Denies any fever or chills. Patient reports that her last colonoscopy was approximately 7 to 8 years ago. She does not remember who did this. That was in the [facility] system. Physical Examination: Vitals: Stable. Afebrile. General: Well-nourished and well-developed. Head: Normocephalic atraumatic. Neck: Supple, no lymphadenopathy. No JVD. Nontender. Cardiovascular: Regular rate and rhythm. No murmurs. Respiratory: No respiratory distress. Clear to auscultation bilaterally. Abdominal: Soft, mild tenderness palpation of left lower quadrant, nondistended, normal bowel sounds. No guarding, rebound, or peritoneal signs. Back: Nontender. Extremities: Nontender, no edema. Skin: Normal color, no rash. Neurologic: Alert and oriented ?3. Cranial nerves II through XII are intact. Normal strength and sensation. Psych: Normal affect. Test Results: CBC shows segmented neutrophils 78, lymphocytes 7, etc. 12. Chem-7 shows a glucose 119. LT's are normal. UA is negative. Clinical Impression(s) from Imaging Studies Abdomen/Pelvis CT 03/01/20 09:21 IMPRESSION: Nondistended fluid-filled small and large bowel loops consistent with gastroenteritis. There are scattered colonic diverticula but no CT evidence of acute diverticulitis. Stable simple hepatic cysts, no specific follow-up needed. Extensive degenerative and postsurgical changes in the lumbar spine and pelvis No free intraperitoneal fluid, air, or suspicious adenopathy Electronically Signed: Richard Leigh MD at 10:30 EDT , Service support , Emergency Department Course and Treatment: Patient was unable to give a stool sample here. She is resting comfortably. She refused pain and nausea medications. Treatment Plan: I discussed with her that a stool sample is the most likely way to give an explanation for her diarrhea. Patient will be discharged prescription for for Lomotil. Instructed to follow-up with Dr. Mckay in 3 to 5 days for another exam. Follow-up with Dr. Castanon as soon as possible. Return to the emergency department for any worsening symptoms. Disposition: To home in improved and stable condition. Impression: 1 1. Diarrhea, chronic. This note was generated with [employer] dictation software. It may contain incorrect words, spelling, and punctuation that were not noted in review of the chart prior to signing ED Disposition - Plan for ED Patient: Disposition: Home or Assisted Living Instructions: Treating Diarrhea Prescriptions: Diphenoxylate/Atrop [Lomotil] 1 tab NG BID PRN PRN #4 tab PRN Reason: Diarrhea Prescription Printed Referrals: iNck Castanon MD [NON-STAFF] - As soon as possible Gurvinder Mckay MD [Primary Care Provider] - 2 Days
== END 2020-03-01 12:07 | disposition home or self-care (01) ==
LOC: ED 09:36
PROVIDERS: Emergency Provider Emergency Medicine; PCP Internal Medicine
DX: K52.9 Noninfective gastroenteritis and colitis, unspecified (principal)
CPT/HCPCS: 74177; 80053; 81001; 85025; 96360; 96361; 99283; J7030; Q9967; A4216

== ENCOUNTER 2020-03-15 09:09 | Day surgery (SDC) | payer MEDICARE, OTHER, SELFPAY ==
--- NOTE | 2020-03-08 02:43 | HP_ITS ---
Intake Vital Signs 03/08/20 BMI 31.6 03/08/20 Height 5 ft 2 in 03/08/20 Weight: 165 lb 03/08/20 BMI 30.2 03/08/20 BP 122/72 H 03/08/20 Blood Pressure Location Rt brachial 03/08/20 Position Sitting 03/08/20 Respiration 18 03/08/20 Pulse 67 03/08/20 Pulse Source Monitor 03/08/20 Temp 98.0 F 03/08/20 Temp Source Temporal 03/08/20 Pulse Oximetry (%) 96 03/08/20 Oxygen Delivery Method room air Intake Visit Reasons: DIARRHEA, CSCOPE Chief Complaint: Laminectomy Electronics Engineer Required: No Is patient in pain?: Yes (LLQ- sore/ heavy feeling ) Allergies influenza virus vaccine ts [From Fluarix] Allergy (Severe, Verified 03/08/20 14:32) Swelling hydrochlorothiazide Allergy (Verified 03/08/20 14:32) Hives irbesartan Allergy (Verified 03/08/20 14:32) Hives meloxicam Allergy (Verified 03/08/20 14:32) Swelling triamterene Allergy (Verified 03/08/20 14:32) Hives perfume Adverse Reaction (Verified 03/08/20 14:32) breathing it in gets itch venom-honey bee [bee venom (honey bee)] Adverse Reaction (Verified 03/08/20 14:32) Anaphylaxis MSG Allergy (Uncoded 03/08/20 14:32) Shortness of breath Medications Amlodipine [Norvasc] 5 mg PO DAILY 11/21/17 [History Confirmed 03/08/20] Atenolol [Tenormin (beta kwame)] 50 mg PO DAILY 11/21/17 [History Confirmed 03/08/20] Cholecalciferol (VIT D3) [Vitamin D3] 1,000 unit PO DAILY 11/21/17 [History Confirmed 03/08/20] Losartan Potassium [Cozaar] 100 mg PO DAILY 11/21/17 [History Confirmed 03/08/20] Pramipexole Di-HCl [Mirapex] 0.5 mg PO DAILY@1200 11/21/17 [History Confirmed 03/08/20] Temazepam [Restoril] 15 mg PO QHS PRN PRN 11/21/17 [History Confirmed 03/08/20] Pramipexole Di-HCl [Mirapex] 0.25 mg PO QHS 05/27/18 [History Confirmed 03/08/20] Multivitamins,Ther W-Minerals [Multivitamin With Minerals (BKC)] 1 tab PO DAILY@0800 09/08/18 [History Confirmed 03/08/20] Gabapentin [Neurontin] 200 mg PO BID@0800,1500 #60 cap 09/15/18 [Rx Confirmed 03/08/20] Gabapentin [Neurontin] 200 mg PO QHS #30 cap 09/15/18 [Rx Confirmed 03/08/20] naproxen sodium 220 mg capsule 220 mg PO BID PRN 03/08/20 [History Confirmed 03/08/20] pantoprazole 40 mg tablet,delayed release 40 mg PO DAILY #30 tab 03/08/20 [Rx Confirmed 03/08/20] spironolactone 25 mg tablet 12.5 mg PO DAILY tab 03/08/20 [History Confirmed 03/08/20] PFSH Medical History Normochromic normocytic anemia (Acute) Hyponatremia (Acute) Intractable back pain (Acute) Radicular pain of right lower extremity (Acute) Debility (Acute) Osteoarthritis (Chronic) Hypertension (Chronic) Restless leg syndrome (Chronic) Lumbar spinal stenosis (Chronic) Surgical History Hx of colonoscopy (Acute) History of total bilateral knee replacement (Acute) History of hip replacement (Acute) Hx of total shoulder replacement (Acute) History of back surgery (Acute) Status post lumbar spine surgery for decompression of spinal cord (Acute) Family History Mother Hypertension Colon cancer Father Colon cancer Sister Colon cancer Social History (Updated 03/08/20 @ 15:[address] Kourtney Forman MD) Smoking Status: Never smoker second hand exposure: No alcohol intake: current alcohol intake frequency: holidays/special occasions only substance use type: does not use caffeine: Yes HPI HPI HPI: FRANCIA FLOWERS, is a 80 F who presents to the office today for HPI HPI Surgical H&P: Yes HPI: FRANCIA FLOWERS, is a 80 F who presents to the office today for diarrhea since early January patient has tried Imodium made no difference. Patient also states she has a lot of gas. And states she has soreness in left lower quadrant 3/10 nothing makes it better or worse. Patient states she did have stool studies at the [facility] which were negative was initially seen in the ER and did have a CT abdomen pelvis which shows only showed liquid stool in her colon. Patient thinks she had a colonoscopy about 7 to 8 years ago at [facility] and may have had a polyp at that time. Patient states she also has a history of Ruiz's but last time she probably had EGD was also at that time. Patient is on omeprazole 20 mg p.o. daily denies burning of her esophagus or epigastric pain. Patient states that due to the diarrhea is also not eating much she is still taking the Ensure in the morning but due to diarrhea/fecal incontinence is afraid to eat because of accidents. ROS General General: Yes weight change and fatigue; no appetite (Decreased due to the diarrhea), colon cancer, breast cancer or weakness HEENT HEENT: No difficulty swallowing, eye injury, eye surgery, swollen glands or hoarseness Endo Endocrine: No thyroid disease, diabetes mellitus, thyroid cancer, Hair loss, heat intolerance or cold intolerance Skin Skin: Yes rash; no changing moles Musc Musculoskeletal: Yes back problems and arthritis; no rheumatoid arthritis, gout or joint pain Cardio Cardiovascular: Yes high blood pressure Neuro Neurologic: No weakness Exam Const General: cooperative, no acute distress, well developed, well groomed Resp Effort & Inspection: normal respiratory effort Cardio Rate: regular rate GI Inspection: non-distended Palpation: soft, guarding, nontender Assessment & Plan Problems 1. Diarrhea R19.7 2. History of Ruiz's esophagus Z87.19 3. FH: colon cancer in first degree relative <60 years old Z80.0 Plan I have discussed the above with the patient. I have offered the patient EGD and colonoscopy for evaluation. Plan for random biopsies of the colon due to the diarrhea I have explained the risks/benefits of the procedure and described the procedure. I have discussed the risks with the patient, including but not limited to: infection, bleeding, perforation of the GI tract requiring emergency surgery, inability to complete the procedure, injury to any internal organs, complications of anesthesia, etc. - the patient understands and agrees to proceed. I have answered all the patient's questions to the patient's satisfaction and the patient has no further questions. The patient has been given instructions for the colon cleansing preparation. One day of clears, MiraLAX/Dulcolax split prep Due to patient's history of Ruiz's also plan to get endoscopy reports from [facility] and will try switching her to pantoprazole 40 mg p.o. daily from omeprazole 20 mg p.o. daily to see if that has anything to do with her diarrhea. Procedure: Elective We discussed the current risks associated with COVID-19. While it is understood that there is a community spread of COVID-19, the risk of jeremie COVID-19 while at [facility] ([facility]) is very low; however, the risk cannot be completely mitigated because of the community spread of the disease. We discussed in detail the risk of exposure to and/or potential harm posed by the COVID-19 virus with having a surgery/procedure at this time versus the risk of delaying the surgery/procedure. It is not possible to know either the risk of delaying the surgery or procedure or chance of getting an infection with perfect accuracy, but a joint decision was made to proceed at this time with the scheduled surgery/procedure as indicated on the consent form. Patient was notified that we will need to comply with any screening or testing [facility] wishes to perform or that surgery may be delayed for any positive results. Kourtney Forman M.D. Pager: [phone] [facility] [address] [place] [address], [address] [place] [address] Office: [phone] Orders Orders: Colonoscopy Today EGD Today Medications New: pantoprazole 40 mg PO DAILY 30 tabs 3RF Plan Detail Follow Up We will schedule EGD and colonoscopy Coding Level of Care Code Off vis,new,level 3 Diagnoses Diarrhea R19.7 History of Ruiz's esophagus Z87.19 FH: colon cancer in first degree relative <60 years old Z80.0 COVID (Procedure Consent) Procedure Criteria Procedure Criteria: Yes Elective The surgeon/proceduralist and patient have discussed in detail the risk of exposure to and/or potential harm posed by the COVID-19 virus with having a surgery/procedure at this time versus the risk of? delaying the surgery/procedure. It is not possible to know either the risk of delaying the surgery or procedure or chance of getting an infection with perfect accuracy, but a joint decision was made between the patient and the surgeon/proceduralist ?to proceed at this time with the scheduled surgery/procedure as indicated on the consent form. 03/08/20 1510 <Electronically signed by Kourtney Frey am, MD> Date _ Kourtney Forman MD I have examined the patient the following changes are noted: Patient states she is still having diarrhea and everything runs through her she has held her blood pressure meds past couple days due to low blood pressure currently systolic is 105 today.
[2020-03-08 14:39] VITALS: BMI 31.6
[2020-03-15] VITALS (8 sets, daily range): BP systolic 96–133; BP diastolic 58–98; PULSE 74–94; RESP 16; TEMP 36.2–36.8; O2SAT 93–100; BMI 29.5
--- NOTE | 2020-03-15 | GASB_PTH ---
PATIENT: FRANCIA FLOWERS LOC: EN U#:[id number] AGE/SX: 80/F ROOM: RE03/15/[address]: Dr. Kourtney Forman MD : 1940 BED: DIS: 03/15/2020 SPEC #: [id number] RECD: 03/15/20 13:19 STATUS: DOMENICO TRACI #: [id number] SERGIO: 03/15/20 00:[address]: Kourtney Forman DEPT: SURGICAL PATHOLOGY RECD BY: Yogesh Saldaña ENTERED: 03/15/20 13:21 SP TYPE: Gastric Bx OTHR DR: Dr. Gurvinder Mckay MD Tissues: A - Gastric mucous membrane B - Gastric mucous membrane C - Stomach, NOS D - Gastric mucous membrane E - Ileum, NOS F - Ascending colon G - Transverse colon H - Descending colon I - Sigmoid colon biopsy J - Rectum, NOS Procedures: Trichrome (control) Special Stain Group II Surgery Specimen Level IV Alcian Blue/PAS (control) HEADER OPERATION: Colonoscopy, EGD ([facility] [place]) PRE-OP DIAGNOSIS: Diarrhea, Ruiz's esophagus TISSUE SUBMITTED: A - Antrum biopsy for histo and H. pylori, B - Antrum polyp, C - Body of stomach polyp, D - GE junction biopsy, E - Terminal ileum biopsy, F - Ascending colon random biopsy, G - Transverse colon random biopsy, H - Descending colon random biopsy, I - Sigmoid colon random biopsy, J - Rectum random biopsy MICROSCOPIC DIAGNOSIS A. Antrum, biopsy: Mild gastritis. See microscopic description and comment. B. Antrum polyp, biopsy: Polypoid fragments of benign gastric mucosa with congestion and cautery artifacts. C. Body of stomach polyp, biopsy: Fundic gland polyp. D. GE junction, biopsy: A fragment of gastroesophageal mucosa with chronic inflammation. Intestinal metaplasia (goblet cell metaplasia) is not identified. See comment. E. Terminal ileum, biopsy: Minute fragments of small intestinal mucosa, no pathologic diagnosis. F. Ascending colon, random biopsy: A fragment of colonic mucosa with changes consistent with collagenous colitis. See comment. G. Transverse colon, random biopsy: Fragments of colonic mucosa with changes consistent with collagenous colitis. See comment. H. Descending colon, random biopsy: A fragment of colonic mucosa with changes consistent with collagenous colitis. See comment. I. Sigmoid colon, random biopsy: A fragment of colonic mucosa with changes consistent with collagenous colitis. See comment. J. Rectum, random biopsy: A fragment of colonic mucosa with changes consistent with collagenous colitis. Focal superficial acute inflammation.. See comment. SJ:rg 03/16/20 COMMENT A. The results of immunohistochemistry for Helicobacter pylori will be reported separately ([id number]). D. Alcian blue/PAS stain with matched control is used in the evaluation of the specimen. F-J. Trichrome stain with matched control is used in the evaluation of the specimens and shows thickening of subepithelial collagen band. Case has been reviewed in consultation with Dr. Carvajal who concurs with the above diagnosis. IDC:AM MICROSCOPIC DESCRIPTION Slides are reviewed. A. The specimen shows fragments of gastric mucosa with chronic inflammatory cell infiltrates in the lamina propria consisting of lymphocytes and plasma cells, consistent with mild chronic gastritis. GROSS DESCRIPTION A - Received in fixative is one container labeled with the patient's name and designated antrum biopsy. The specimen consists of one irregular fragment of light mayen soft tissue that measures 0.4 x 0.3 x 0.1 cm. The specimen is totally submitted in one cassette. B - Received in fixative is one container labeled with the patient's name and designated antrum biopsy. The specimen consists of three irregular fragments of light mayen soft tissue that in aggregate measure 0.5 x 0.4 x 0.1 cm. The specimen is totally submitted in one cassette. C - Received in fixative is one container labeled with the patient's name and designated body of stomach polyp. The specimen consists of one irregular fragment of light mayen soft tissue that measures 0.3 x 0.3 x 0.1 cm. The specimen is totally submitted in one cassette. D - Received in fixative is one container labeled with the patient's name and designated GE junction biopsy. The specimen consists of one irregular fragment of light mayen soft tissue that measures 0.3 x 0.2 x 0.1 cm. The specimen is totally submitted in one cassette. E - Received in fixative is one container labeled with the patient's name and designated terminal ileum biopsy. The specimen consists of two minute fragments of mayen soft tissue that in aggregate measure 0.1 cm in greatest dimension. The specimen is totally submitted in one cassette. F - Received in fixative is one container labeled with the patient's name and designated ascending colon random biopsy. The specimen consists of one irregular fragment of light mayen soft tissue that measures 0.4 x 0.2 x 0.1 cm. The specimen is totally submitted in one cassette. G - Received in fixative is one container labeled with the patient's name and designated transverse colon random biopsy. The specimen consists of multiple irregular fragments of light mayen soft tissue that in aggregate measure 0.7 x 0.3 x 0.1 cm. The specimen is totally submitted in one cassette. H - Received in fixative is one container labeled with the patient's name and designated descending colon random biopsy. The specimen consists of one irregular fragment of light mayen soft tissue that measures 0.3 x 0.3 x 0.1 cm. The specimen is totally submitted in one cassette. I - Received in fixative is one container labeled with the patient's name and designated sigmoid colon random biopsy. The specimen consists of one irregular fragment of light mayen soft tissue that measures 0.5 x 0.3 x 0.1 cm. The specimen is totally submitted in one cassette. J - Received in fixative is one container labeled with the patient's name and designated rectum random biopsy. The specimen consists of one irregular fragment of light mayen soft tissue that measures 0.3 x 0.3 x 0.1 cm. The specimen is totally submitted in one cassette. / SJ:rg 03/15/20 TC:5 CPT: 87015 x10, 07402 x6
--- NOTE | 2020-03-15 10:15 | IMM_PTH ---
PATIENT: FRANCIA FLOWERS LOC: EN U#:[id number] AGE/SX: 80/F ROOM: RE03/15/[address]: Dr. Kourtney Forman MD : 1940 BED: DIS: 03/15/2020 SPEC #: [id number] RECD: 03/15/20 13:25 STATUS: DOMENICO RELuc #: [id number] SERGIO: 03/15/20 10:[address]: Kourtney Forman DEPT: IMMUNOHISTOCHEMISTRY RECD BY: Brii Tovar ENTERED: 03/15/20 13:25 SP TYPE: IMMUNO OTHR DR: Dr. Gurvinder Mckay MD Tissues: A - Stomach, NOS Procedures: H Pylori (initial) PHYSICIAN & INSTITUTION [place] [address] SPECIMEN INFORMATION: Tissue Source: A - Antrum biopsy Clinical Info: Diarrhea, Ruiz's esophagus Specimen Number: [id number] CPT code: 92885 METHODOLOGY: Deparaffinized sections of prefer/formalin-fixed tissue or PAP/DQ stained slides are incubated with monoclonal/polyclonal antibodies/oligonucleotide probes. Localization is made via biotin free immunoperoxidase method. Appropriate controls are performed and reacted as expected. Results on target cell population are indicated in the following table: RESULTS: ANTIBODY / CLONE RESULT Block A H Pylori (polyclonal) negative These tests were developed and their performance characteristics determined by [facility]. They may not have been cleared or approved by the U.S. Food and Drug Administration. The FDA has determined that such clearance or approval is not necessary. INTERPRETATION: A. Antrum biopsy: Negative for Helicobacter pylori organisms. SJ:dino 03/16/20
--- NOTE | 2020-03-15 11:11 | OP.EGD_ITS ---
Patient Name: Lashay Antonio Procedure Date: 03/15/2020 10:02 AM Date of : 1940 Age: 80 Procedure: Upper GI endoscopy Indications: Screening for Ruiz's esophagus, Diarrhea Providers: Kourtney Forman MD Referring MD: Gurvinder Mckay Medicines: Monitored Anesthesia Care Patient Profile: This is an 80 year old female. Complications: No immediate complications. Procedure: Pre-Anesthesia Assessment: - Prior to the procedure, a History and Physical was performed, and patient medications and allergies were reviewed. The patient's tolerance of previous anesthesia was also reviewed. The risks and benefits of the procedure and the sedation options and risks were discussed with the patient. All questions were answered, and informed consent was obtained. Prior Anticoagulants: The patient has taken no previous anticoagulant or antiplatelet agents. ASA Grade Assessment: Per anesthesia. After reviewing the risks and benefits, the patient was deemed in satisfactory condition to undergo the procedure. After obtaining informed consent, the endoscope was passed under direct vision. Throughout the procedure, the patient's blood pressure, pulse, and oxygen saturations were monitored continuously. The gastroscope was introduced through the mouth, and advanced to the second part of duodenum. The upper GI endoscopy was accomplished without difficulty. The patient tolerated the procedure well. Scope In: 10:21:12 AM Scope Out: 10:30:47 AM Total Procedure Duration Time 0 hours 9 minutes 35 seconds Findings: The Z-line was variable and was found 40 cm from the incisors. Biopsies were taken with a cold forceps for histology. Mildly erythematous mucosa without bleeding was found in the gastric antrum. Biopsies were taken with a cold forceps for Helicobacter pylori cultures. Biopsies were taken with a cold forceps for histology. A single 5 mm sessile polyp with no bleeding and no stigmata of recent bleeding was found in the gastric antrum. The polyp was removed with a hot snare. Resection and retrieval were complete. A few less than 5 mm sessile polyps with no bleeding and no stigmata of recent bleeding were found in the gastric body. The polyp was removed with a cold biopsy forceps. Resection and retrieval were complete. The cardia and gastric fundus were normal on retroflexion. Impression: - Z-line variable, 40 cm from the incisors. Biopsied. - Erythematous mucosa in the antrum. Biopsied. - A single gastric polyp. Resected and retrieved. - A few gastric polyps. Resected and retrieved. Recommendation: - Await pathology results. - Discharge patient to home. - Resume previous diet. - Continue present medications. Procedure Code(s): --- Professional --- 94031, Esophagogastroduodenoscopy, flexible, transoral; with removal of tumor(s), polyp(s), or other lesion(s) by snare technique Diagnosis Code(s): --- Professional --- K22.8, Other specified diseases of esophagus K31.89, Other diseases of stomach and duodenum K31.7, Polyp of stomach and duodenum Z13.810, Encounter for screening for upper gastrointestinal disorder R19.7, Diarrhea, unspecified CPT copyright 2017 [employer]. All rights reserved. The codes documented in this report are preliminary and upon certified professional coder review may be revised to meet current compliance requirements. MD Kourtney Menendez MD 03/15/2020 11:11:15 AM This report has been signed electronically. Number of Addenda: 0 Note Initiated On: 03/15/2020 10:02 AM
--- NOTE | 2020-03-15 11:12 | OP.CCLET_ITS ---
03/15/2020 Gurvinder Mckay [address] [place] [address] Re : Upper GI endoscopy procedure for Lashay Antonio Dear Dr. Mckay This procedure was performed on Sunday, March 15, 2020. My impressions and recommendations are as follows: Impressions : - Z-line variable, 40 cm from the incisors. Biopsied. - Erythematous mucosa in the antrum. Biopsied. - A single gastric polyp. Resected and retrieved. - A few gastric polyps. Resected and retrieved. Recommendations : - Await pathology results. - Discharge patient to home. - Resume previous diet. - Continue present medications. My findings are described in the full procedure note, which is enclosed. If I can be of further assistance, please feel free to contact me at Doctor phone number(s): , Work: . Sincerely, MD Kourtney Menendez MD 03/15/2020 11:11:15 AM This report has been signed electronically.
--- NOTE | 2020-03-15 11:18 | OP.CCLET_ITS ---
03/15/2020 Gurvinder Mckay [address] [place] [address] Re : Colonoscopy procedure for Lashay Antonio Dear Dr. Mckay This procedure was performed on Sunday, March 15, 2020. My impressions and recommendations are as follows: Impressions : - Diverticulosis in the sigmoid colon, in the descending colon, in the transverse colon and in the ascending colon. - Six biopsies were obtained in the rectum, in the sigmoid colon, in the descending colon, in the transverse colon, in the ascending colon and in the terminal ileum. Recommendations : - Discharge patient to home. - Resume previous diet. - Continue present medications. - Await pathology results. - Repeat colonoscopy not needed due to age. My findings are described in the full procedure note, which is enclosed. If I can be of further assistance, please feel free to contact me at Doctor phone number(s): , Work: . Sincerely, MD Kourtney Menendez MD 03/15/2020 11:17:39 AM This report has been signed electronically.
--- NOTE | 2020-03-15 11:18 | OP.COLON_ITS ---
Patient Name: Lashay Antonio Procedure Date: 03/15/2020 10:31 AM Date of : 1940 Age: 80 Procedure: Colonoscopy Indications: Chronic diarrhea Providers: Kourtney Forman MD Referring MD: Gurvinder Mckay Medicines: Monitored Anesthesia Care Patient Profile: This is an 80 year old female. This is an 80 year old female. Last Colonoscopy: 8 years ago. Complications: No immediate complications. Procedure: Pre-Anesthesia Assessment: - Prior to the procedure, a History and Physical was performed, and patient medications and allergies were reviewed. The patient's tolerance of previous anesthesia was also reviewed. The risks and benefits of the procedure and the sedation options and risks were discussed with the patient. All questions were answered, and informed consent was obtained. Prior Anticoagulants: The patient has taken no previous anticoagulant or antiplatelet agents. ASA Grade Assessment: Per anesthesia. After reviewing the risks and benefits, the patient was deemed in satisfactory condition to undergo the procedure. After I obtained informed consent, the scope was passed under direct vision. Throughout the procedure, the patient's blood pressure, pulse, and oxygen saturations were monitored continuously. The Colonoscope was introduced through the anus and advanced to the terminal ileum. The colonoscopy was technically difficult and complex due to a tortuous colon. Successful completion of the procedure was aided by applying abdominal pressure. The patient tolerated the procedure well. The quality of the bowel preparation was good. Scope In: 10:33:10 AM Scope Withdrawal Time 0 hours 12 minutes 33 seconds Scope Out: 11:03:44 AM Total Procedure Duration Time 0 hours 30 minutes 34 seconds Findings: The perianal and digital rectal examinations were normal. Multiple small and large-mouthed diverticula were found in the sigmoid colon, descending colon, transverse colon and ascending colon. Six biopsies were obtained with cold forceps for histology randomly in the rectum, in the sigmoid colon, in the descending colon, in the transverse colon, in the ascending colon and in the terminal ileum. Impression: - Diverticulosis in the sigmoid colon, in the descending colon, in the transverse colon and in the ascending colon. - Six biopsies were obtained in the rectum, in the sigmoid colon, in the descending colon, in the transverse colon, in the ascending colon and in the terminal ileum. Recommendation: - Discharge patient to home. - Resume previous diet. - Continue present medications. - Await pathology results. - Repeat colonoscopy not needed due to age. Procedure Code(s): --- Professional --- 46138, Colonoscopy, flexible; with biopsy, single or multiple Diagnosis Code(s): --- Professional --- K52.9, Noninfective gastroenteritis and colitis, unspecified K57.30, Diverticulosis of large intestine without perforation or abscess without bleeding CPT copyright 2017 [employer] [employer]. All rights reserved. The codes documented in this report are preliminary and upon buttermilk drier operator review may be revised to meet current compliance requirements. MD Kourtney Menendez MD 03/15/2020 11:17:39 AM This report has been signed electronically. Number of Addenda: 0 Note Initiated On: 03/15/2020 10:31 AM
== END 2020-03-15 13:05 | disposition home or self-care (01) ==
LOC: EN 09:10 → AC 09:11
PROVIDERS: Anesthesiology; PCP Internal Medicine; Referring Provider Internal Medicine; Visit Provider Surgery
PROC: 0DJD8ZZ Inspection of Lower Intestinal Tract, Via Natural or Artificial Opening Endoscopic (ICD-10-PCS; CPT 45378; principal; 2020-03-15 10:10)
DX: K31.7 Polyp of stomach and duodenum (principal); Z11.59 Encounter for screening for other viral diseases; K22.8 Other specified diseases of esophagus; Z79.899 Other long term (current) drug therapy; I10 Essential (primary) hypertension; Z87.19 Personal history of other diseases of the digestive system; K52.9 Noninfective gastroenteritis and colitis, unspecified; K57.30 Diverticulosis of large intestine without perforation or abscess without bleeding; K29.70 Gastritis, unspecified, without bleeding
CPT/HCPCS: 43251; 45380; 87635; 88305; 88313; 88342; G2023; J7120; J2405; U0003

== ENCOUNTER → 2020-08-26 08:56 | Outpatient (CLI) | payer MEDICARE, OTHER, SELFPAY ==
[2020-08-21 13:18] VITALS: BMI 30.9
--- NOTE | 2020-08-26 09:08 | US_ITS ---
STUDY: ULTRASOUND - URINARY BLADDER REASON FOR EXAM: Female, 80 years old. RETENTION TECHNIQUE: Ultrasound evaluation of the urinary bladder was performed with real-time and static olson-scale imaging. COMPARISON: None. FINDINGS: The bladder is incompletely distended. There is no right UVJ calculus. There is a non-visualization of a right ureteral jet. There is no left UVJ calculus. There is a non-visualization of a left ureteral jet. The incompletely distended volume of the urinary bladder is 88.46 ml. The empty volume of the urinary bladder is 8.57 ml. The bladder wall is within normal limits. The bladder wall measures 0.41 cm. There is no demonstrated bladder wall mass lesion. There are no demonstrated bladder calculi. US/Post Void Residual Bladder IMPRESSION: Limited examination secondary to the bladder is incompletely distended state demonstrating no significant post void residual. Electronically Signed: Candie Olson MD at 14:55 EST Tel , Service support ,
== END ==
PROVIDERS: PCP Internal Medicine; Referring Provider Internal Medicine; Visit Provider Internal Medicine
DX: R33.9 Retention of urine, unspecified (principal)
CPT/HCPCS: 51798

== ENCOUNTER 2020-10-06 12:40 | Outpatient (RCR) | payer MEDICARE, OTHER, SELFPAY ==
[2020-08-21 13:18] VITALS: BMI 30.9
== END 2020-10-06 23:59 ==
LOC: IMMUN 12:40
PROVIDERS: PCP Internal Medicine; Visit Provider Family Medicine
DX: Z23 Encounter for immunization (principal)
CPT/HCPCS: 0011A; 0012A; 91301

== ENCOUNTER → 2020-12-11 10:04 | Outpatient (CLI) | payer MEDICARE, OTHER, SELFPAY ==
[2020-12-11 09:25] VITALS: BMI 31.5
[2020-12-11 12:20] LABS: Absolute Lymphocyte Count 0.78 X10^3/uL (0.83-4.51); Absolute Neutrophil Count 5.9 X10^3/uL (2.0-7.7); Basophil# 0.05 X10^3/uL; Basophil% 0.7 % (0-1); Eosinophil# 0.19 X10^3/uL; Eosinophils% 2.5 % (0-5); Hemoglobin 13.1 g/dL (12.0-15.0); Lymphocyte # 0.78 X10^3/ul (4.0); Lymphocyte % 10.2 % (19-41); Mean Corpuscular Hgb 30.2 pg (27.0-32.0); Mean Corpuscular Volume 94.5 fL (81-99); Mean Platelet Vol. 10.1 fl (6.2-12.0); Monocyte% 9.2 % (0-10); NRBC Flagged by Analyzer 0 % (0-5); Neutrophil # 5.88 X10^3/uL (2.7-7.7); Neutrophil % 77.1 % (47-70); Platelet Count 273 K/mm3 (150-450); RBC Distribution Width CV 12.6 % (11.6-14.6); Red Blood Count 4.34 M/mm3 (4.2-5.4); White Blood Count 7.6 K/mm3 (4.4-11.0)
[2020-12-11 12:28] LABS: ALB/GLOB Ratio 1.2 RATIO (0.9-2.4); AST(SGOT) 24 U/L (15-37); Alanine Aminotransfer ALT/SGPT 22 U/L (13-56); Albumin, Serum 3.9 g/dL (3.2-5.0); Alkaline Phosphatase 114 U/L (45-117); Anion Gap 6 (5-15); BUN 15 mg/dL (7-18); BUN/Creat Ratio 19.5 RATIO (10-20); Calcium,Total 9.9 mg/dL (8.5-10.1); Chloride 101 mmol/L (98-107); Cholesterol 177 mg/dL (200); Creatinine, Serum 0.77 mg/dL (0.55-1.02); EST Glomerular Filtration Rate 76 mL/min (>60); Est Glom Filt Rate - Afr Amer 92 mL/min (>60); Globulin 3.2 g/dL (2.2-4.2); Glucose 80 mg/dL (74-106); High Density Lipoprotein 66 mg/dL; Potassium 4.5 mmol/L (3.5-5.1); Protein, Total 7.1 g/dL (6.4-8.2); Sodium Level 137 mmol/L (136-145); Triglycerides 107 mg/dL; Very Low Density Lipoprotein 21 mg/dL (5-40)
== END ==
PROVIDERS: PCP Internal Medicine; Referring Provider Internal Medicine; Visit Provider Internal Medicine
DX: K52.9 Noninfective gastroenteritis and colitis, unspecified (principal); I10 Essential (primary) hypertension
CPT/HCPCS: 36415; 80053; 80061; 85025

== ENCOUNTER → 2021-06-13 09:25 | Outpatient (CLI) | payer MEDICARE, OTHER, SELFPAY ==
[2021-06-13 12:23] LABS: Absolute Lymphocyte Count 0.91 X10^3/uL (0.83-4.51); Absolute Neutrophil Count 6.4 X10^3/uL (2.0-7.7); Basophil# 0.05 X10^3/uL; Basophil% 0.6 % (0-1); Eosinophil# 0.19 X10^3/uL; Eosinophils% 2.3 % (0-5); Hematocrit 40.1 % (37-47); Hemoglobin 13.3 g/dL (12.0-15.0); Lymphocyte # 0.91 X10^3/ul (0.83-4.51); Lymphocyte % 10.9 % (19-41); Mean Corp Hgb Conc 33.2 g/dL (32-36); Mean Corpuscular Hgb 30.9 pg (27.0-32.0); Mean Corpuscular Volume 93.3 fL (81-99); Mean Platelet Vol. 9.9 fl (6.2-12.0); Monocyte# 0.74 X10^3/uL; Monocyte% 8.8 % (0-10); NRBC Flagged by Analyzer 0 % (0-5); Neutrophil # 6.41 X10^3/uL (2.7-7.7); Neutrophil % 76.6 % (47-70); Platelet Count 257 K/mm3 (150-450); RBC Distribution Width CV 13.2 % (11.6-14.6); RBC Distribution Width SD 45.1 fl (35.1-43.9); White Blood Count 8.4 K/mm3 (4.4-11.0)
[2021-06-13 13:07] LABS: ALB/GLOB Ratio 1.2 RATIO (0.9-2.4); AST(SGOT) 17 U/L (15-37); Alanine Aminotransfer ALT/SGPT 21 U/L (13-56); Albumin, Serum 3.6 g/dL (3.2-5.0); Alkaline Phosphatase 82 U/L (45-117); Anion Gap 6 (5-15); BUN 16 mg/dL (7-18); Calcium,Total 9.4 mg/dL (8.5-10.1); Chloride 102 mmol/L (98-107); EST Glomerular Filtration Rate 73 mL/min (>60); Est Glom Filt Rate - Afr Amer 88 mL/min (>60); Globulin 3.1 g/dL (2.2-4.2); Glucose 118 mg/dL (74-106); Potassium 4.5 mmol/L (3.5-5.1); Protein, Total 6.7 g/dL (6.4-8.2); Sodium Level 136 mmol/L (136-145)
== END ==
PROVIDERS: PCP Internal Medicine; Referring Provider Internal Medicine; Visit Provider Internal Medicine
DX: I10 Essential (primary) hypertension (principal)
CPT/HCPCS: 36415; 80053; 85025

== ENCOUNTER 2021-12-12 10:08 | Outpatient (CLI) | payer MEDICARE, OTHER, SELFPAY ==
[2021-12-12 12:34] LABS: Anion Gap 5 (5-15); BUN 12 mg/dL (7-18); BUN/Creat Ratio 17.2 RATIO (10-20); Calcium,Total 9.8 mg/dL (8.5-10.1); Chloride 98 mmol/L (98-107); Cholesterol 163 mg/dL (200); EST Glomerular Filtration Rate 85 mL/min (>60); Est Glom Filt Rate - Afr Amer 103 mL/min (>60); Glucose 119 mg/dL (74-106); High Density Lipoprotein 45 mg/dL; Potassium 4.2 mmol/L (3.5-5.1); Sodium Level 132 mmol/L (136-145); Triglycerides 90 mg/dL; Very Low Density Lipoprotein 18 mg/dL (5-40)
== END 2021-12-12 23:59 | disposition home or self-care (01) ==
LOC: BIMLAB 10:09
PROVIDERS: PCP Internal Medicine; Referring Provider Internal Medicine; Visit Provider Internal Medicine
DX: I10 Essential (primary) hypertension (principal)
CPT/HCPCS: 36415; 80048; 80061

== ENCOUNTER → 2022-01-22 | Outpatient (CLI) | payer MEDICARE, OTHER, SELFPAY ==
--- NOTE | 2022-01-22 11:57 | RAD_ITS ---
STUDY: X-RAY - CERVICAL SPINE REASON FOR EXAM: Female, 81 years old. NECK BACK AND SHOULDER PAIN TECHNIQUE: 5 view(s) of the cervical spine were obtained. COMPARISON: None FINDINGS: Normal anterior atlantoaxial articulation. Normal odontoid process. Normal cervical lordosis. There is multi-level endplate spondylosis. There is multi-level degenerative disc disease with multilevel disc space narrowing. There is multi-level osseous foraminal stenosis. The soft tissue structures are unremarkable. RAD/Cerv Spine 4 or 5 Views IMPRESSION: Moderate degenerative disc disease lower cervical spine. MRI would be useful. Electronically Signed: Morris Campos MD at 13:15 EDT ,
--- NOTE | 2022-01-22 11:57 | RAD_ITS ---
STUDY: X-RAY - RIGHT SHOULDER REASON FOR EXAM: Female, 81 years old. NECK BACK SHOULDER PAIN TECHNIQUE: 4 view(s) of the shoulder. COMPARISON: 02/10/2012 FINDINGS: Severe glenohumeral joint arthrosis with remodeling of the humeral head and several calcified bodies. Normal acromioclavicular joint. Normal acromion. Normal humeral head and visualized proximal humerus. The soft tissue structures are unremarkable. Normal visualized pulmonary apex. RAD/Shoulder min 2 Views IMPRESSION: Severe glenohumeral joint arthrosis. Electronically Signed: Morris Campos MD at 15:25 EDT ,
== END | disposition home or self-care (01) ==
LOC: MTRAD 11:55
PROVIDERS: PCP Internal Medicine; Referring Provider Nurse Practitioner Family; Visit Provider Nurse Practitioner Family
DX: M25.511 Pain in right shoulder (principal); M54.2 Cervicalgia
CPT/HCPCS: 72050; 73030

== ENCOUNTER → 2022-04-15 | Outpatient (CLI) | payer MEDICARE, OTHER, SELFPAY ==
[2022-04-15 12:25] LABS: AST(SGOT) 19 U/L (15-37); Alanine Aminotransfer ALT/SGPT 22 U/L (13-56); Albumin, Serum 3.3 g/dL (3.2-5.0); Alkaline Phosphatase 53 U/L (45-117); Anion Gap 5 (5-15); BUN 11 mg/dL (7-18); BUN/Creat Ratio 14.2 RATIO (10-20); Calcium,Total 9.4 mg/dL (8.5-10.1); Chloride 100 mmol/L (98-107); Creatinine, Serum 0.78 mg/dL (0.55-1.02); EST Glomerular Filtration Rate 75 mL/min (>60); Est Glom Filt Rate - Afr Amer 91 mL/min (>60); Globulin 3.2 g/dL (2.2-4.2); Glucose 94 mg/dL (74-106); Potassium 4.9 mmol/L (3.5-5.1); Protein, Total 6.5 g/dL (6.4-8.2); Sodium Level 135 mmol/L (136-145)
[2022-04-15 12:39] LABS: Absolute Lymphocyte Count 0.46 X10^3/uL (0.83-4.51); Absolute Neutrophil Count 6.2 X10^3/uL (2.0-7.7); Basophil# 0.05 X10^3/uL; Basophil% 0.6 % (0-1); Eosinophil# 0.14 X10^3/uL; Eosinophils% 1.8 % (0-5); Hematocrit 39.6 % (37-47); Hemoglobin 12.9 g/dL (12.0-15.0); Lymphocyte # 0.46 X10^3/ul (0.83-4.51); Lymphocyte % 5.8 % (19-41); Mean Corp Hgb Conc 32.6 g/dL (32-36); Mean Corpuscular Hgb 30.8 pg (27.0-32.0); Mean Corpuscular Volume 94.5 fL (81-99); Mean Platelet Vol. 10.4 fl (6.2-12.0); Monocyte# 0.99 X10^3/uL; Monocyte% 12.4 % (0-10); NRBC Flagged by Analyzer 0 % (0-5); Neutrophil # 6.24 X10^3/uL (2.7-7.7); Neutrophil % 78.4 % (47-70); POSITIVE DIFFERENTIAL YES; Platelet Count 203 K/mm3 (150-450); RBC Distribution Width CV 13.3 % (11.6-14.6); RBC Distribution Width SD 46.4 fl (35.1-43.9); Red Blood Count 4.19 M/mm3 (4.2-5.4)
[2022-04-15 12:40] LABS: Differential Indicated SCAN CRITERIA MET
[2022-04-15 12:42] LABS: Platelet Estimate ADEQUATE (ADEQ); Red Cell Morphology NORM C+C NORMAL (NORM C&C)
== END | disposition home or self-care (01) ==
LOC: BIMLAB 09:58
PROVIDERS: PCP Internal Medicine; Referring Provider Internal Medicine; Visit Provider Internal Medicine
DX: I10 Essential (primary) hypertension (principal)
CPT/HCPCS: 36415; 80053; 85025

== ENCOUNTER 2022-05-04 08:44 | Outpatient (CLI) | payer MEDICARE, OTHER, SELFPAY ==
[2022-05-04 10:40] LABS: Erythrocyte Sedimentation Rate 31 mm/hr (0-30)
[2022-05-07 16:09] LABS: Cytoplasmic Ab (C-ANCA) 1:20 titer (Neg:<1:20)
[2022-05-08 09:50] LABS: Pancreatic Elastase, Fecal 254 (>200)
[2022-05-08 11:27] LABS: Perinuclear Ab (P-ANCA) <1:20 titer (Neg:<1:20)
[2022-05-09 09:56] LABS: Calprotectin, Stool 588 ug/g (0-120)
== END 2022-05-04 23:59 | disposition home or self-care (01) ==
PROVIDERS: PCP Internal Medicine; Referring Provider Internal Medicine Gastroenterology; Visit Provider Internal Medicine Gastroenterology
DX: K52.831 Collagenous colitis (principal)
CPT/HCPCS: 36415; 82653; 83630; 83993; 85652; 86140; 86256; 87493; 87506

== ENCOUNTER 2022-05-29 11:53 | Outpatient (CLI) | payer MEDICARE, OTHER, SELFPAY ==
[2022-05-29 12:20] VITALS: BMI 29.4
[2022-05-29 12:21] VITALS: BP 119/55; PULSE 78; RESP 16; TEMP 36.9; O2SAT 98; BMI 29.4
[2022-05-29] MEDS: 0.9% NaCl Peripheral Flush Adult/Peds IV (12:25)
[2022-05-29 13:26] VITALS: BP 134/66; PULSE 67; RESP 16; TEMP 36.5; O2SAT 100
== END 2022-05-29 13:40 | disposition home or self-care (01) ==
LOC: MS2OUT 11:56 → MS2 11:58
PROVIDERS: PCP Internal Medicine; Referring Provider Internal Medicine Gastroenterology; Visit Provider Internal Medicine Gastroenterology
DX: A49.8 Other bacterial infections of unspecified site (principal)
CPT/HCPCS: 96365; J7050; A4216; J0565

== ENCOUNTER → 2022-11-04 | Outpatient (CLI) | payer MEDICARE, OTHER, SELFPAY ==
[2022-11-04 15:56] LABS: Anion Gap 7 (5-15); BUN 19 mg/dL (7-18); BUN/Creat Ratio 27.5 RATIO (10-20); Calcium,Total 10.3 mg/dL (8.5-10.1); Chloride 101 mmol/L (98-107); Creatinine, Serum 0.69 mg/dL (0.55-1.02); EST Glomerular Filtration Rate 86 mL/min (>60); Est Glom Filt Rate - Afr Amer 104 mL/min (>60); Glucose 77 mg/dL (74-106); Potassium 4.3 mmol/L (3.5-5.1); Sodium Level 136 mmol/L (136-145)
== END | disposition home or self-care (01) ==
LOC: BIMLAB 11:51
PROVIDERS: PCP Internal Medicine; Visit Provider Internal Medicine
DX: I10 Essential (primary) hypertension (principal)
CPT/HCPCS: 36415; 80048

== ENCOUNTER → 2023-03-26 | Outpatient (CLI) | payer MEDICARE, OTHER, SELFPAY | END | disposition home or self-care (01) | LOC: LABSPEC 15:20 | PROVIDERS: PCP Internal Medicine; Referring Provider Physician Assistant; Visit Provider Physician Assistant | DX: R30.0 Dysuria (principal) | CPT/HCPCS: 87077; 87086; 87088; 87186 ==

== ENCOUNTER → 2023-05-07 | Outpatient (CLI) | payer MEDICARE, OTHER, SELFPAY ==
[2023-05-07 15:01] LABS: Absolute Lymphocyte Count 0.82 X10^3/uL (0.83-4.51); Absolute Neutrophil Count 5.2 X10^3/uL (2.0-7.7); Basophil# 0.06 X10^3/uL; Basophil% 0.8 % (0-1); Eosinophil# 0.29 X10^3/uL; Eosinophils% 4.1 % (0-5); Hemoglobin 13.5 g/dL (12.0-15.0); Lymphocyte # 0.82 X10^3/ul (0.83-4.51); Lymphocyte % 11.5 % (19-41); Mean Corp Hgb Conc 32.9 g/dL (32-36); Mean Corpuscular Hgb 31.3 pg (27.0-32.0); Mean Corpuscular Volume 95.1 fL (81-99); Mean Platelet Vol. 10.1 fl (6.2-12.0); Monocyte# 0.68 X10^3/uL; Monocyte% 9.6 % (0-10); NRBC Flagged by Analyzer 0 % (0-5); Neutrophil # 5.24 X10^3/uL (2.7-7.7); Neutrophil % 73.7 % (47-70); Platelet Count 243 K/mm3 (150-450); RBC Distribution Width CV 12.6 % (11.6-14.6); RBC Distribution Width SD 44.6 fl (35.1-43.9); Red Blood Count 4.31 M/mm3 (4.2-5.4); White Blood Count 7.1 K/mm3 (4.4-11.0)
[2023-05-07 15:31] LABS: ALB/GLOB Ratio 1.3 RATIO (0.9-2.4); AST(SGOT) 19 U/L (15-37); Alanine Aminotransfer ALT/SGPT 25 U/L (13-56); Albumin, Serum 3.9 g/dL (3.2-5.0); Alkaline Phosphatase 95 U/L (45-117); Anion Gap 3 (5-15); BUN 13 mg/dL (7-18); BUN/Creat Ratio 17.1 RATIO (10-20); Calcium,Total 9.9 mg/dL (8.5-10.1); Chloride 102 mmol/L (98-107); Creatinine, Serum 0.76 mg/dL (0.55-1.02); EST Glomerular Filtration Rate 77 mL/min (>60); Est Glom Filt Rate - Afr Amer 93 mL/min (>60); Globulin 2.9 g/dL (2.2-4.2); Glucose 82 mg/dL (74-106); Potassium 4.8 mmol/L (3.5-5.1); Protein, Total 6.8 g/dL (6.4-8.2); Sodium Level 134 mmol/L (136-145); Vitamin D,25 Hydroxy 88.1 ng/mL
== END | disposition home or self-care (01) ==
LOC: BIMLAB 12:10
PROVIDERS: PCP Internal Medicine; Visit Provider Internal Medicine
DX: M85.80 Other specified disorders of bone density and structure, unspecified site (principal); I10 Essential (primary) hypertension
CPT/HCPCS: 36415; 80053; 82306; 85025

== ENCOUNTER → 2023-09-12 | Outpatient (CLI) | payer MEDICARE, OTHER, SELFPAY ==
--- OUTSIDE RECORDS SUMMARY | 2023-09-12 12:09 | XMS RPT_ITS | CCD ---
Author Name Unknown Address [address] [place] [address] Organization [facility] Care Team Providers Care Transition Assistant Name Role Phone Gurvinder Young Unavailable Amrik Andre Unavailable Unavailable PROVIDER, UNKNOWN Unavailable Unavailable Gurvinder Young Unavailable Unavailable RAZA AZEVEDO Unavailable Unavailable GURVINDER YOUNG Unavailable Unavailable Gurvinder Young Primary Care Provider Gurvinder Young Primary Care Provider Allergies Allergy Classification Reported Allergen(s) Allergy Type Date of Onset Reaction(s) Facility (1 source) Amitriptyline Drug Allergy 03-09-20 12 Other (See Comments) [place], [place] (1 source) bee venom Propensity to adverse reactions to drug 05-16-20 05 [place] (1 source) Glutamate Drug Allergy 07-02-20 05 Anaphylaxis [place] (1 source) Haemophilus influenzae type b Drug Allergy 02-04-20 09 Swelling [place] (1 source) hydroCHLOROthiazide / Triamterene Drug Allergy 02-04-20 09 Hives [place] (1 source) irbesartan Drug Allergy 08-28-20 18 [place] (1 source) meloxicam Drug Allergy 08-28-20 18 [place] (1 source) Triamterene Drug Allergy 08-28-20 18 [place] (1 source) Other Propensity to adverse reactions 05-16-20 05 Shortness Of Breath [place] Medications Current Medications Medication Drug Class(es) Dates Sig (Normalized) Sig (Original) 8 hr acetaminophen 650 mg extended release oral tablet (1 source) Start: 06-09-2018 acetaminophen (TYLENOL) 650 MG extended release tablet Take 650 mg by mouth 0 06/09/2018 Active Acetylcysteine (1 source) Antidote, Mucolytic, Antidote for Acetaminophen Overdose Start: 02-15-2019 take 1 capsule by mouth three times daily Acetylcysteine (NAC 600 PO) TAKE 1 CAPSULE BY MOUTH THREE TIMES A DAY 2 02/15/2019 Active amLODIPine 5 mg oral tablet (3 sources) Dihydropyridine Calcium Channel Bello Start: 05-20-2017 amLODIPine (NORVASC) 5 MG tablet Take 5 mg by mouth. 0 05/20/2017 Active atenolol 50 mg oral tablet (3 sources) beta-Adrenergic Bello Start: 08-28-2017 atenolol (TENORMIN) 50 MG tablet Take 50 mg by mouth. 0 08/28/2017 Active Bone Growth Stimulator (E) MISC (1 source) Start: 09-23-2018 Bone Growth Stimulator (E) MISC by Does not apply route Orthofix Bone Growth Stimulator Please coordinate fitting and education with the patient. Osiel Paula MD NPI- [id number] 1 each 0 09/23/2018 Active cholecalciferol 1000 unt oral capsule (2 sources) Vitamin D Start: 11-19-2007 cholecalciferol, vitamin D3, 1,000 unit capsule Take by mouth. 0 11/19/2007 Active gabapentin 100 mg oral capsule (1 source) Anti-epileptic Agent Start: 09-23-2018 take 1 capsule by mouth three times daily gabapentin (NEURONTIN) 100 MG capsule Take 1 capsule by mouth 3 times daily for 30 days.. 90 capsule 0 09/23/2018 Active losartan potassium 100 mg oral tablet (3 sources) Angiotensin 2 Receptor Bello Start: 05-20-2017 losartan (COZAAR) 100 MG tablet Take 100 mg by mouth. 0 05/20/2017 Active Multiple Vitamins-Minerals (CENTRUM SILVER PO) (1 source) take 1 capsule by mouth once daily Multiple Vitamins-Minerals (CENTRUM SILVER PO) Take 1 capsule by mouth daily 0 Active omeprazole 20 mg delayed release oral capsule (3 sources) Proton Pump Inhibitor Start: 03-25-2017 omeprazole (PRILOSEC) 20 MG capsule Take 20 mg by mouth. 0 03/25/2017 Active abuse-deterrent 12 hr oxyCODONE hydrochloride 10 mg extended release oral tablet (1 source) Opioid Agonist Start: 09-16-2018 take 1 tablet by mouth twice daily OXYCONTIN 10 MG extended release tablet TAKE 1 TABLET BY MOUTH TWICE A DAY 0 09/16/2018 Active pramipexole dihydrochloride 0.5 mg oral tablet (3 sources) Nonergot Dopamine Agonist Start: 09-24-2017 pramipexole (MIRAPEX) 0.5 MG tablet Take 0.25mg (1/2 tablet) daily in the afternoon as needed and 0.5mg (1 tablet) daily at bedtime as needed. 0 09/24/2017 Active spironolactone 25 mg oral tablet (3 sources) Aldosterone Antagonist Start: 06-10-2017 spironolactone (ALDACTONE) 25 MG tablet Take 12.5 mg by mouth. 0 06/10/2017 Active temazepam 15 mg oral capsule (2 sources) Benzodiazepine Start: 09-23-2017 End: 03-22-2018 temazepam (RESTORIL) 15 mg capsule Take 15 mg by mouth. 09/23/2017 03/22/2018 Active tiZANidine 2 mg oral tablet (1 source) Central alpha-2 Adrenergic Agonist Start: 09-15-2018 take 1 capsule by mouth every eight hours as needed for muscle spasms tiZANidine (ZANAFLEX) 2 MG tablet TAKE ONE CAPSULE BY MOUTH EVERY 8 HOURS NEEDED FOR MUSCLE SPASM 0 09/15/2018 Active vitamin d 1000 unt oral tablet (1 source) take 1 tablet by mouth once daily vitamin D (CHOLECALCIFEROL) 1000 UNIT TABS tablet Take 1,000 Units by mouth daily 0 Active Problems Active Problems Problem Classification Problem Date Documented Date Episodic/Chronic Osteoarthritis (2 sources) Bilateral primary osteoarthritis of hip; Translations: [Primary coxarthrosis, bilateral] Onset: 09-25-2017 09-25-2017 Chronic Other nervous system disorders (1 source) Conus medullaris syndrome; 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 Unclassified (1 source) Unknown / UNK(Unknown) Onset: 09-25-2017 Past or Other Problems Problem Classification Problem Date Documented Date Episodic/Chronic Other non-traumatic joint disorders (2 sources) Knee pain; Translations: [Chronic pain of right knee] Onset: 09-25-2017 09-25-2017 Episodic Spondylosis; intervertebral disc disorders; other back problems (1 source) Spinal stenosis; Translations: [Spinal stenosis] Onset: 08-28-2018 08-28-2018 Episodic Unclassified (4 sources) Abnormal electromyogram [EMG]; Translations: [Abnormal results of other function studies of peripheral nervous system] Onset: 10-30-2017 Episodic Unclassified (1 source) Pain Onset: 09-25-2017 Episodic Results Test Name Value Interpretation Reference Range Facil ity Vital Signs Date Time Vital Sign Value Performing Clinician Linda casiano 09-25-2017 09:58-0500 BMI (Body Mass Index) 29.12 kg/m2 Raza Azevedo [facility] Work Phone: 09-25-2017 09:58-0500 Height 161.3 cm Raza Azevedo [facility] Work Phone: 09-25-2017 09:58-0500 Weight 75.75 kg Raza Azevedo [facility] Work Phone: Encounters Encounter Date Encounter Type Care Provider Facility Start: 09-22-2020 End: 09-22-2020 Orders Only Keke Mary Kaykleber De Work Phone: [facility] Start: 08-12-2019 End: 08-12-2019 Subsequent hospital visit by physician Osiel Paula Work Phone: [facility] Start: 10-30-2017 Ambulatory Amrikchrista Andre [facility] Start: 09-25-2017 Ambulatory RAZA AZEVEDO [facility] Ambulatory Start: 09-25-2017 Office/outpatient visit, new, level 3 Raza Azevedo Work Phone: [facility] Plan of Treatment Date Care Activity Detail Author Start: 05-09-2020 Influenza vaccination given Sequential Influenza Vaccine (#1) [facility] Start: 09-02-2019 Creatinine monitoring Creatinine monitoring [place], [place] Start: 09-02-2019 Potassium monitoring Potassium monitoring [place], [place] Start: 02-26-2019 Annual Wellness Visit (AWV) Annual Wellness Visit (AWV) [place] Start: 05-09-2017 Influenza vaccination SEQUENTIAL INFLUENZA VACCINE (#1) [facility] Work Phone: Start: 2003 DEXA (modify frequency per FRAX score) [facility]mod[facility] per FRAX [facility]: [facility] Pneumococcal 65+ years Vaccine (1 of 1 - PPSV23) Pneumococcal 65+ years Vaccine (1 of 1 - PPSV23) [facility] Start: 2003 Pneumococcal vaccination PNEUMOCOCCAL VACCINE AGE 65+ (1 of 2 - PCV13) [facility] Work Phone: Start: 1998 Zoster vacc, sc ZOSTER VACCINE [facility] Work Phone: Start: 02-22-1988 Administration of herpes zoster vaccine Zoster Vaccines (1 of 2) [facility] Start: 02-22-1988 Shingles Vaccine (1 of 2) Shingles Vaccine ([facility] of 2) [facility] Start: 1950 Adolescent depression screening assessment Depression Screening (PHQ9) [facility] Start: 1949 DTaP/Tdap/Td vaccine (1 - Tdap) DTaP/Tdap/Td vaccine (1 - Tdap) [facility] Start: 1941 History and physical examination, annual for health maintenance Wellness Visit [facility] Start: 1938 Fall risk assessment Falls Risk Assessment [facility] Start: 1940 End: 1938 Screening for osteoporosis DEXA SCAN [facility] Work Phone: Start: 1940 End: 1938 Tetanus vaccination [facility] Work Phone: End: 08-12-2019 XR LUMBAR SPINE (MIN 4 VIEWS) XR LUMBAR SPINE (MIN 4 VIEWS) Imaging Routine Once for 1 Occurrences starting 08/12/2019 until 08/12/2019 [facility] Payers Date Payer Category Payer Medicare MEDICARE MEDICAR E PART A AND B xxxxxxxxxxx 2018-Present [phone] [place] [address] xxxxxxxxxxx [id number] 2018 Unknown GPM GPM xxxxxxxx 2018-Present [phone] [address] [place] [address] xxxxxxxx [id number] 2003 Medicare MEDICARE MEDICAR E PART A & B [id number] 2003-Present [place] [id number] Medicare [id number] Medicare Unknown [id number] Unknown COMMERCIAL COMME RCIAL MISCELLANEOUS [id number] Effective for all dates [id number] Social History Date Type Detail Facility Start: 09-25-[address] [facility] Former smoker [facility] Work Phone: Sex Assigned At Not on file [facility] Work Phone: Start: 03-04-[address] [facility] Never smoker [place] Start: 09-25-2017 End: 03-04-2019 Alcohol intake Current drinker of alcohol (finding) [place], [place] Start: 09-23-2018 Alcohol Comment socially [place], [place] Start: 09-25-2017 Tobacco use and exposure Never used [facility] Progress note 01-11-2021 Note Date & Type Note Facility 01-11-2021 Note HNO ID: [id number] Author: Janiya Granados LPN Service: ? Author Type: ? Type: Progress Notes Filed: 01/11/2021 12:21 PM Note Text: POPULATION HEALTH NAVIGATION OUTREACH Action/FYI Contact made with patient or family member? YES Pt identified by name and : YES Outreach Outcome/Action Spoke to patient or caregiver: Patient declined navigation services Reason for Outreach Care Gap or Scheduling/Wellness visits Payer: Payor: MEDICARE / Plan: MEDICARE A AND B / Product Type: Medicare / Care Gap Reviewed:: Annual Wellness visit Francia has changed PCP. Updated in [facility]. Janiya Granados LPN January 11, 2021 12:19 PM [facility] Clinical Note 01-11-2021 Note Date & Type Note Facility 01-11-2021 Note Patient Outreach (IN TM[facility]) FRANCIA FLOWERS ([id number]) 1940 F NFR Date Time Provider Department 01/11/21 JANIYA GRANADOS (BARBIE) IN[facility] During your visit today, we recorded the following information about you: Janiya Granados LPN 01/11/2021 12:21 PM Signed POPULATION HEALTH NAVIGATION OUTREACH Action/FYI Contact made with patient or family member? YES Pt identified by name and : YES Outreach Outcome/Action Spoke to patient or caregiver: Patient declined navigation services Reason for Outreach Care Gap or Scheduling/Wellness visits Payer: Payor: MEDICARE / Plan: MEDICARE A AND B / Product Type: Medicare / Care Gap Reviewed:: Annual Wellness visit Francia has changed PCP. Updated in [facility]. Janiya Granados LPN January 11, 2021 12:19 PM Allergies As of Date: 01/11/2021 Noted Allergy Reaction INFLUENZA TRI-SPLIT - VAC 02/03/2009 7 - Swelling MAXZIDE (TRIAMTERENE-HYDROCHLOROT*02/03/2009 4 - Hives MELOXICAM 03/09/2012 4 - Hives BEES 02/03/2009 Comments: hypotension AMITRIPTYLINE 03/09/2012 14 - Other: See Comments Comments: constipation,dry mouth, RLS bee stings [Other] 05/16/2005 IRBESARTAN 05/11/2013 7 - Swelling Comments: Leg swelling; trouble urinating MONOSODIUM GLUTAMATE (MSG) 07/02/2005 10 - Anaphylaxis PERFUMES 05/16/2005 12 - Shortness of Breath Date Reviewed: 02/18/2020 Reviewed by: Silvana ([facility]) Older - Fully Assessed Prescriptions as of 01/11/2021 Sig: GABAPENTIN 100 MG CAPSULE Take 2 capsules by mouth twic* DIPHENOXYLATE-ATROPINE 2.5 MG* Take 1 tablet by mouth four t* CHOLESTYRAMINE (WITH SUGAR) 4* Take 4 g by mouth once daily * TEMAZEPAM 15 MG CAPSULE Take 1 capsule by mouth at be* PRAMIPEXOLE 0.5 MG TABLET Take 0.25mg (1/2 tablet) myrna* AMLODIPINE 5 MG TABLET Take 1 tablet by mouth once d* LOSARTAN 100 MG TABLET Take 1 tablet by mouth once d* SPIRONOLACTONE 25 MG TABLET Take 0.5 tablets by mouth onc* ATENOLOL 50 MG TABLET Take 1 tablet by mouth once d* OMEPRAZOLE 20 MG CAPSULE,ERIC* Take 1 capsule by mouth daily* ALEVE ORAL Take 1 tablet by mouth twice * CHOLECALCIFEROL (VITAMIN D3) * Take one(1) tablet daily. THERAPEUTIC MULTIVITAMIN TABL* one daily Problem List As Of Date 01/11/2021 Noted Resolved LIPOMA OTHER SKIN AND SUBCUTANEOUS(Left forearm) *07/02/2005 08/28/2017 Essential hypertension [I10] 03/12/2006 Carpal tunnel syndrome [G56.00] 08/26/2006 08/28/2017 Unspecified arthropathy, pelvic region and thig*09/22/2008 08/28/2017 Enthesopathy of hip region [M76.899] 09/22/2008 08/28/2017 Pain in joint, pelvic region and thigh [M25.559]09/22/2008 08/28/2017 Uterovaginal prolapse, incomplete [N81.2] 12/07/2008 08/28/2017 Cystocele, midline [N81.11] 12/07/2008 08/28/2017 Rectocele [N81.6] 12/07/2008 08/28/2017 Female stress incontinence [N39.3] 12/07/2008 08/28/2017 Urgency of urination [R39.15] 12/07/2008 08/28/2017 Degenerative Arthritis of Hip [M16.9] 05/30/2010 Bursitis, hip [M70.70] 05/30/2010 08/28/2017 Hyperlipidemia [E78.5] 12/05/2010 08/28/2017 Esophagitis, unspecified [K20.90] 10/29/2012 08/28/2017 Benign neoplasm of colon [D12.6] 10/29/2012 08/28/2017 Diverticulosis of colon (without mention of hem*10/29/2012 08/28/2017 Family history of malignant neoplasm of gastroi*10/29/2012 08/28/2017 Ruiz's esophagus [K22.70] 01/08/2013 Spinal stenosis of lumbar region [M48.061] 02/22/2013 08/28/2017 Chronic SI joint pain [M53.3, G89.29] 02/22/2013 08/28/2017 Lumbar spondylosis [M47.816] 02/22/2013 04/10/2018 DDD (degenerative disc disease), lumbar [M51.36]02/22/2013 04/10/2018 S/P laminectomy [Z98.890] 10/26/2013 Sciatica [M54.30] 09/12/2014 08/28/2017 Other acquired deformity of ankle and foot(736.*09/12/2014 08/28/2017 Diverticulitis of large intestine [K57.32] 03/31/2015 08/28/2017 S/P lumbar spinal fusion [Z98.1] 10/10/2015 Post laminectomy syndrome [M96.1] 11/19/2015 04/10/2018 Primary osteoarthritis involving multiple joint*05/15/2016 Knee instability, right [M25.361] 09/10/2017 05/12/2019 Insomnia [G47.00] 04/10/2018 Restless leg syndrome [G25.81] 03/09/2012 Low back pain [M54.5] 03/31/2019 Obesity, Class I, BMI 30-34.9 [E66.9] 11/08/2019 Encounter Status:Closed by JANIYA GRANADOS LPN on 01/11/21 [facility] Assessments Diagnosis Chronic pain of right knee - Primary Primary osteoarthritis of adam th hips Summary Purpose Family History No Family History Records FoundNo Family History Records FoundNo Family History Records FoundNo Family History Records Found Advance Directives No Advanced Directives Records FoundDocuments on File Type Date Recorded Patient Technical Data Analyst Expl anation Advance Directives and Living Will Power of Automobile Bumper Straightener Latest Code Status on File Code Status Date Activated Date Inactivated Comments DNR-CCA 08/28/2018 11:14 PM 09/03/2018 4:37 PM Hospital Course Note Discharge Summary Francia montano : 1940 ADMIT DATE: 08/28/2018 DISCHARGE DATE: 09/03/2018 PRIMARY CARE PHYSICIAN: Gurvinder Young VISIT STATUS: Admission CODE STATUS: DNR-CCA DISCHARGE DIAGNOSES: Active Problems: Conus medullaris syndrome (HCC) Resolved Problems: * No resolved hospital problems. * HOSPITAL COURSE: The patient is a 78 y.o.?female?with pmhx of HTN, multiple spine surgeries at [facility], presents to ED at recommendation of ortho surgeon for difficulty urinating. States she is numb in my private area When asked to describe the numbness, she states that she cannot tell when she has to urinate, only feels bladder pressure She is not?incontinent of urine or stool, not even leaking She goes to the toilet every hour to see if she has to urinate or have a BM This has been happening for 1 month She went to orthopedic surgeon for 3 mo post op visit for L total hip and mentioned these symptoms to him She states that he went to school with Dr. Willard (more content not included)... Additional Source Comments INFORMATION SOURCE (unrecogn ized section and content) DATE CREATED AUTHOR AUTHOR'S ORGANIZ ATION [facility]03[facility] DATE CREATED AUTHOR AUTHOR'S ORGANIZ ATION 08/18/2019 [facility] DATE CREATED AUTHOR AUTHOR'S ORGANIZ ATION 10/17/2021 [facility] FOR RECORDS PERTAINING TO PATIENTS WHO ARE OR HAVE BEEN ENROLLED IN A CHEMICAL DEPENDENCY/SUBSTANCEABUSE PROGRAM, SOME INFORMATION MAY BE OMITTED. This clinical summary was aggregated from multiple sources. Caution should be exercised in using it in the provision of clinical care. This summary normalizes information from multiple sources, and as a consequence, information in this document may materially change the coding, format and clinical context of patient data. In addition, data may be omitted in some cases. CLINICAL DECISIONS SHOULD BE BASED ON THE PRIMARY CLINICAL RECORDS. [employer] provides no warranty or guarantee of the accuracy or completeness of information in this document.
== END | disposition home or self-care (01) ==
LOC: LABSPEC 10:51
PROVIDERS: PCP Internal Medicine; Referring Provider Physician Assistant Surgical; Visit Provider Physician Assistant Surgical
DX: N39.0 Urinary tract infection, site not specified (principal)
CPT/HCPCS: 87077; 87086; 87088; 87186

== ENCOUNTER → 2023-10-02 | Outpatient (CLI) | payer MEDICARE, OTHER, SELFPAY ==
--- NOTE | 2023-10-02 08:00 | CT_ITS ---
STUDY: CT RIGHT SHOULDER REASON FOR EXAM: Female, 83 years old. Pain right shoulder. RADIATION DOSAGE (If Supplied By Facility): CTDIvol = ( 22.26 ) mGy, DLP = ( 603.38 ) mGycm TECHNIQUE: The patient was scanned in a multi detector CT scanner. High resolution transaxial imaging was performed without the administration of intravenous contrast material. Sagittal and coronal images were reconstructed. Individualized dose optimization techniques were used for this CT. COMPARISON: Right shoulder radiographs dated 01/22/2022. 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 There numerous large ossified loose bodies throughout the glenohumeral joint recess and subscapularis recess. Intact glenoid rim, neck and visualized scapula. Intact humeral head, neck and tuberosities. There is no demonstrated acute fracture. Normal coracoid process. Normal visualized lateral clavicle. There is acromioclavicular arthrosis. There is a prominent subacromial spur (coronal reformat series 601 image 39). There is a Type II morphology (curved), with a neutral orientation. There is severe subacromial-subdeltoid bursitis. Normal visualized muscles and soft tissue structures. CT/Extremity Upper without Contra IMPRESSION: Advanced glenohumeral arthrosis, with numerous large ossified loose bodies throughout the glenohumeral joint recess and subscapularis recess. Acromioclavicular arthrosis. Prominent subacromial spur. Severe subacromial-subdeltoid bursitis. Electronically Signed: Luis A Feliciano MD at 9:12 EST ,
--- OUTSIDE RECORDS SUMMARY | 2023-10-02 08:17 | XMS RPT_ITS | CCD ---
Author Name Unknown Address [address] [place] [address] Organization [facility] Care Team Providers Care Chief Librarian Work With Blind Name Role Phone Gurvinder Young Unavailable Amrik Andre Unavailable Unavailable PROVIDER, UNKNOWN Unavailable Unavailable Gurvinder Young Unavailable Unavailable RAZA AZEVEDO Unavailable Unavailable GURVINDER YOUNG Unavailable Unavailable Gurvinder Young Primary Care Provider Gurvinder Young Primary Care Provider Allergies Allergy Classification Reported Allergen(s) Allergy Type Date of Onset Reaction(s) Facility (1 source) Amitriptyline Drug Allergy 03-09-20 12 Other (See Comments) [place], [place] (1 source) bee venom Propensity to adverse reactions to drug 05-16-20 05 [place] (1 source) Glutamate Drug Allergy 07-02-20 05 Anaphylaxis [place] (1 source) Haemophilus influenzae type b Drug Allergy 02-04-20 09 Swelling [place] (1 source) hydroCHLOROthiazide / Triamterene Drug Allergy 02-04-20 09 Hives [place] ([place] source) irbesartan Drug Allergy 08-28-20 18 [place] ([place] source) meloxicam Drug Allergy 08-28-20 18 [place] ([place] source[place] Triamterene Drug Allergy 08-28-20 18 [place] ([place] source[place] Other Propensity to adverse reactions 05-16-20 05 Shortness Of Breath [place] Medications Current Medications Medication Drug Class(es) [...] with the patient. Osiel Paula MD NPI- [id number] 1 each 0 09/23/2018 Active cholecalciferol 1000 [...] (Body Mass Index) 29.12 kg/m2 Raza Azevedo [facility] Work Phone: 09-25-2017 09:58-0500 Height 161.3 cm Raza Azevedo [facility] Work Phone: 09-25-2017 09:58-0500 Weight 75.75 kg Raza Azevedo [facility] Work Phone: Encounters Encounter Date Encounter Type Care Provider Facility Start: 09-22-2020 End: 09-22-2020 Orders Only Keke Mary Kaykleber De Work Phone: [facility] Start: 08-12-2019 End: 08-12-2019 Subsequent hospital visit by physician Osiel Paula Work Phone: [facility] X-Ray Start: 10-30-2017 Ambulatory Amrikchrista Andre [facility] Start: 09-25-2017 Ambulatory RAZA AZEVEDO [facility] Ambulatory Start: 09-25-2017 Office/outpatient visit, new, level 3 Raza Azevedo Work Phone: [facility] Plan of Treatment Date Care Activity Detail Author Start: 05-09-2020 Influenza vaccination given Sequential Influenza Vaccine (#1) [facility] Start: 09-02-2019 Creatinine monitoring Creatinine monitoring [place], [place] Start: 09-02-2019 Potassium monitoring Potassium monitoring [place] Start: 02-26-2019 Annual Wellness Visit (AWV) Annual Wellness Visit (AWV) [place] Start: 05-09-2017 Influenza vaccination SEQUENTIAL INFLUENZA VACCINE (#1) [facility] Work Phone: Start: 2003 DEXA (modify frequency per FRAX score) [facility]: [facility] Pneumococcal 65+ years Vaccine (1 of 1 - PPSV23) Pneumococcal 65+ years Vaccine (1 of 1 - PPSV23) [facility] Start: 2003 Pneumococcal vaccination PNEUMOCOCCAL VACCINE AGE 65+ (1 of 2 - PCV13) [facility] Work Phone: Start: 1998 Zoster vacc, sc ZOSTER VACCINE [facility] Work Phone: Start: 02-22-1988 Administration of herpes zoster vaccine Zoster Vaccines (1 of 2) [facility] Start: 02-22-1988 Shingles Vaccine (1 of 2) [facility]ing[facility] ([facility] 2[facility]: [facility] Adolescent depression screening assessment Depression Screening (PHQ9) [facility] Start: 1949 DTaP/Tdap/Td vaccine (1 - Tdap) DTaP/Tdap/Td vaccine (1 - Tdap) [facility] Start: 1941 History and physical examination, annual for health maintenance Wellness Visit [facility] Start: 1938 Fall risk assessment Falls Risk Assessment [facility] Start: 1938 End: 1938 Screening for osteoporosis DEXA SCAN [facility] Work Phone: Start: 1938 End: 1938 Tetanus vaccination [facility] Work Phone: End: 08-12-2019 XR LUMBAR SPINE (MIN 4 VIEWS) XR LUMBAR SPINE (MIN 4 VIEWS) Imaging Routine Once for 1 Occurrences starting 08/12/2019 until 08/12/2019 [facility] Payers Date Payer Category Payer Medicare MEDICARE MEDICAR E PART A AND B xxxxxxxxxxx 2018-Present [phone] [place] [place] [address] xxxxxxxxxxx [id number] 2018 Unknown GPM GPM xxxxxxxx 2018-Present [phone] [address] [place] [address] xxxxxxxx [id number] 2003 Medicare MEDICARE MEDICAR E PART A & B [id number] 2003-Present [place] [id number] Medicare [id number] Medicare Unknown [id number] Unknown COMMERCIAL COMME RCIAL MISCELLANEOUS [id number] Effective for all dates [id number] Social History Date Type Detail Facility Start: 09-25-2017 Tobacco smoking stat [facility] Former smoker [facility] Work Phone: Sex Assigned At Not on file [facility] Work Phone: Start: 03-04-2019 Tobacco smoking stat [facility] Never smoker [place] Start: 09-25-2017 End: 03-04-2019 Alcohol intake Current drinker of alcohol (finding) [place] Start: 09-23-2018 Alcohol Comment socially [place], [place] Start: 09-25-2017 Tobacco use and exposure Never used [facility] Progress note 01-11-2021 Note Date & Type Note Facility 01-11-2021 Note HNO ID: [id number] Author: Janiya Granados LPN Service: ? Author [...] visit Francia has changed PCP. Updated in [facility]. Janiya Granados LPN January 11, 2021 12:19 PM [facility] Clinical Note 01-11-2021 Note Date & Type Note Facility 01-11-2021 Note Patient Outreach (IN TMWS) FRANCIA FLOWERS ([id number]) 1940 F NFR Date Time Provider Department [...] visit Francia has changed PCP. Updated in [facility]. Janiya Granados LPN January 11, 2021 12:19 [...] Breath Date Reviewed: 02/18/2020 Reviewed by: Silvana ([facility]) Older - Fully Assessed Prescriptions as [...] Status:Closed by JANIYA GRANADOS LPN on 01/11/21 [facility] Assessments Diagnosis Chronic pain of right knee - Primary Primary osteoarthritis of adam th hips Summary Purpose Family History No Family History Records FoundNo Family History Records FoundNo Family History Records FoundNo Family History Records Found Advance Directives No Advanced Directives Records FoundDocuments on File Type Date Recorded Patient Customer Service Engineer Expl anation Advance Directives and Living Will Power of Market Investigator Latest Code Status on File Code Status [...] pmhx of HTN, multiple spine surgeries at [facility], presents to ED at recommendation of ortho [...] DATE CREATED AUTHOR AUTHOR'S ORGANIZ ATION [facility] [facility] DATE CREATED AUTHOR AUTHOR'S ORGANIZ ATION 08/18/2019 [facility] DATE CREATED AUTHOR AUTHOR'S ORGANIZ ATION 10/17/2021 [facility] FOR RECORDS PERTAINING TO PATIENTS WHO [...] BE BASED ON THE PRIMARY CLINICAL RECORDS. [address] provides no warranty or guarantee of the accuracy or completeness of information in this document.
== END | disposition home or self-care (01) ==
LOC: CT 07:52
PROVIDERS: PCP Internal Medicine; Referring Provider Specialist; Visit Provider Specialist
DX: M25.511 Pain in right shoulder (principal); M19.011 Primary osteoarthritis, right shoulder
CPT/HCPCS: 73200

== ENCOUNTER → 2023-10-31 | Outpatient (CLI) | payer MEDICARE, OTHER, SELFPAY ==
--- NOTE | 2023-10-31 09:45 | CDU_ITS ---
Reason For Study: Neck symptoms Rt. Velocities/BP Lt. Velocities/BP Prox CCA 92.7/14.6 cm/sec. Prox CCA 82.5/16.3 cm/sec. Mid CCA 76.2/13.5 cm/sec. Mid CCA 80.6/14.5 cm/sec. Dist CCA 81.7/17.9 cm/sec. Dist CCA 71.1/16.3 cm/sec. Prox ICA 53.1/13.5 cm/sec. Prox ICA 67.9/9 cm/sec. Mid ICA 63/14.6 cm/sec. Mid ICA 63/13.9 cm/sec. Dist ICA 70.7/16.8 cm/sec. Dist ICA 81.6/18.4 cm/sec. Rt. ICA/CCA = 0.87. Lt. ICA/CCA = 1.01. Prox ECA 84.2/12 cm/sec. Prox ECA 92.9/11.5 cm/sec. Rt. Vert. 46.6/11.6 cm/sec. Lt. Vert. 44.3/12.4 cm/sec. Right Extracranial There is intimal thickening but no significant atherosclerotic plaque noted in the right common carotid artery. There is heterogeneous, irregular atherosclerotic plaque noted in the right internal carotid artery. There is intimal thickening but no significant atherosclerotic plaque noted in the right external carotid artery. Antegrade flow is noted in the right vertebral artery. Left Extracranial There is homogeneous, smooth atherosclerotic plaque noted in the left common carotid artery. There is heterogeneous, irregular atherosclerotic plaque noted in the left internal carotid artery. The left internal carotid artery is very tortuous. There is intimal thickening but no significant atherosclerotic plaque noted in the left external carotid artery. Antegrade flow is noted in the left vertebral artery. Procedure Carotid Duplex 30860. This is a Carotid Duplex examination using B-mode, color flow and specral Doppler. Exam performed in department. VL/Carotid Duplex Ultrasound Interpretation Summary Mild (<50%) stenosis right extracranial internal carotid. Mild (<50%) stenosis left extracranial internal carotid. Patent and antegrade vertebrals bilaterally. Ordering Physician: Willy Chauhan Referring Physician: Chika Alas Performed By: Sarah Alberts RVT
--- OUTSIDE RECORDS SUMMARY | 2023-10-31 10:13 | XMS RPT_ITS | CCD ---
Author Name Unknown Address [address] [place] [address] Organization [facility] Care Team Providers Care Soccer Referee Name Role Phone Gurvinder Young Unavailable Amrik Andre Unavailable Unavailable PROVIDER, UNKNOWN Unavailable Unavailable Gurvinder Young Unavailable Unavailable RAZA AZEVEDO Unavailable Unavailable GURVINDER YOUNG Unavailable Unavailable Gurvinder Young Primary Care Provider Gurvinder Young Primary Care Provider [phone] Allergies Allergy Classification Reported Allergen(s) Allergy Type Date of Onset Reaction(s) Facility (1 source) Amitriptyline Drug Allergy 03-09-20 12 Other (See Comments) [place], [place] (1 source) bee venom Propensity to adverse reactions to drug 05-16-20 05 [place] (1 source) Glutamate Drug Allergy 07-02-20 05 Anaphylaxis [place] (1 source) Haemophilus influenzae type b Drug Allergy 02-04-20 09 Swelling [place] (1 source) hydroCHLOROthiazide / Triamterene Drug Allergy 02-04-20 09 Hives [place] ([place] source) irbesartan Drug Allergy 08-28-20 18 [place] (1 source) meloxicam Drug Allergy 08-28-20 18 [place] (1 source) Triamterene Drug Allergy 08-28-20 18 [place] (1 source) Other Propensity to adverse reactions 05-16-20 05 Shortness Of Breath [place] Medications Current Medications Medication Drug Class(es) [...] with the patient. Osiel Paula MD NPI- [id number] 1 each 0 09/23/2018 Active cholecalciferol 1000 [...] (Body Mass Index) 29.12 kg/m2 Raza Azevedo [place] Work Phone: 09-25-2017 09:58-0500 Height 161.3 cm Raza Azevedo [facility] Work Phone: 09-25-2017 09:58-0500 Weight 75.75 kg Raza Azevedo [facility] Work Phone: Encounters Encounter Date Encounter Type Care Provider Facility Start: 09-22-2020 End: 09-22-2020 Orders Only Keke Mary Kaykleber De Work Phone: [facility] Start: 08-12-2019 End: 08-12-2019 Subsequent hospital visit by physician Osiel Paula Work Phone: [facility] X-Ray Start: 10-30-2017 Ambulatory Amrikchrista Andre [facility] Start: 09-25-2017 Ambulatory RAZA AZEVEDO [facility] Ambulatory Start: 09-25-2017 Office/outpatient visit, new, level 3 Raza Azevedo Work Phone: [facility] Plan of Treatment Date Care Activity Detail Author Start: 05-09-2020 Influenza vaccination given Sequential Influenza Vaccine (#1) [place] Start: 09-02-2019 Creatinine monitoring Creatinine monitoring [place], [place] Start: 09-02-2019 Potassium monitoring Potassium monitoring [place], [place] Start: 02-26-2019 Annual Wellness Visit (AWV) Annual Wellness Visit (AWV) [place] Start: 05-09-2017 Influenza vaccination SEQUENTIAL INFLUENZA VACCINE (#1) [facility] Work Phone: Start: 2003 DEXA (modify frequency per FRAX score) [facility] (modify [facility] per FRAX score[facility]: [facility] Pneumococcal 65+ years Vaccine (1 of 1 - PPSV23) Pneumococcal 65+ years Vaccine (1 of 1 - PPSV23) [facility] TOM Start: 2003 Pneumococcal vaccination PNEUMOCOCCAL VACCINE AGE 65+ (1 of 2 - PCV13) [place] Work Phone: Start: 1998 Zoster vacc, sc ZOSTER VACCINE [facility] Work Phone: Start: 02-22-1988 Administration of herpes zoster vaccine Zoster Vaccines (1 of 2) [place] Start: 02-22-1988 Shingles Vaccine (1 of 2) [facility]ingles Vaccine (1 of 2) [facility] Start: [facility] Adolescent depression screening assessment Depression Screening (PHQ9) [place] Start: 1949 DTaP/Tdap/Td vaccine (1 - Tdap) DTaP/Tdap/Td vaccine (1 - Tdap) [facility] Start: 1941 History and physical examination, annual for health maintenance Wellness Visit [place] Start: 1938 Fall risk assessment Falls Risk Assessment [place] Start: 1938 End: 1938 Screening for osteoporosis DEXA SCAN [facility] Work Phone: Start: 1938 End: 1938 Tetanus vaccination [facility] Work Phone: End: 08-12-2019 XR LUMBAR SPINE (MIN 4 VIEWS) XR LUMBAR SPINE (MIN 4 VIEWS) Imaging Routine Once for 1 Occurrences starting 08/12/2019 until 08/12/2019 [facility] Payers Date Payer Category Payer Medicare MEDICARE MEDICAR E PART A AND B xxxxxxxxxxx 2018-Present [phone] [place] [address] xxxxxxxxxxx [id number] 2018 Unknown GPM GPM xxxxxxxx 2018-Present [phone] [address] [place] [address] xxxxxxxx [id number] 2003 Medicare MEDICARE MEDICAR E PART A & B [id number] 2003-Present [place] [id number] Medicare [id number] Medicare Unknown [id number] Unknown COMMERCIAL COMME RCIAL MISCELLANEOUS [id number] Effective for all dates [id number] Social History Date Type Detail Facility Start: 09-25-2017 Tobacco smoking stat [facility] Former smoker [place] Work Phone: Sex Assigned At Not on file [facility] Work Phone: Start: 03-04-2019 Tobacco smoking stat [facility] Never smoker [place] Start: 09-25-2017 End: 03-04-2019 Alcohol intake Current drinker of alcohol (finding) [place] Start: 09-23-2018 Alcohol Comment socially [place], [place] Start: 09-25-2017 Tobacco use and exposure Never used [facility] Progress note 01-11-2021 Note Date & Type Note Facility 01-11-2021 Note HNO ID: [id number] Author: Janiya Granados LPN Service: ? Author [...] visit Francia has changed PCP. Updated in [facility]. Janiya Granados LPN January 11, 2021 12:19 PM [facility] Clinical Note 01-11-2021 Note Date & Type Note Facility 01-11-2021 Note Patient Outreach (IN TMWS) FRANCIA FLOWERS ([id number]) 1940 F NFR Date Time Provider Department [...] visit Francia has changed PCP. Updated in [facility]. Janiya Granados LPN January 11, 2021 [...] Breath Date Reviewed: 02/18/2020 Reviewed by: Silvana ([facility]) Older - Fully Assessed Prescriptions as [...] Status:Closed by JANIYA GRANADOS LPN on 01/11/21 [facility] Assessments Diagnosis Chronic pain of right knee - Primary Primary osteoarthritis of adam th hips Summary Purpose Family History No Family History Records FoundNo Family History Records FoundNo Family History Records FoundNo Family History Records Found Advance Directives No Advanced Directives Records FoundDocuments on File Type Date Recorded Patient Ranger Aide Expl anation Advance Directives and Living Will Power of Door Worker Latest Code Status on File Code Status [...] pmhx of HTN, multiple spine surgeries at [facility], presents to ED at recommendation of [...] DATE CREATED AUTHOR AUTHOR'S ORGANIZ ATION [facility] DATE CREATED AUTHOR AUTHOR'S ORGANIZ ATION 08/18/2019 [facility] DATE CREATED AUTHOR AUTHOR'S ORGANIZ ATION 10/17/2021 [facility] FOR RECORDS PERTAINING TO PATIENTS WHO ARE [...] BE BASED ON THE PRIMARY CLINICAL RECORDS. [employer] provides no warranty or guarantee of the accuracy or completeness of information in this document.
== END | disposition home or self-care (01) ==
PROVIDERS: PCP Internal Medicine; Referring Provider Physician Assistant; Visit Provider Physician Assistant
DX: R22.1 Localized swelling, mass and lump, neck (principal)
CPT/HCPCS: 93880

== ENCOUNTER → 2023-11-10 | Outpatient (CLI) | payer MEDICARE, OTHER, SELFPAY ==
--- OUTSIDE RECORDS SUMMARY | 2023-11-10 10:57 | XMS RPT_ITS | CCD ---
Author Name Unknown Address [address] [place] [address] Organization [facility] Care Team Providers Care Chief Compressor Station Engineer Name Role Phone Gurvinder Young Unavailable Amrik Andre Unavailable Unavailable PROVIDER, UNKNOWN Unavailable Unavailable Gurvinder Young Unavailable Unavailable RAZA AZEVEDO Unavailable Unavailable GURVINDER YOUNG Unavailable Unavailable Gurvinder Young Primary Care Provider Gurvinder Young Primary Care Provider Allergies Allergy Classification Reported Allergen(s) Allergy Type Date of Onset Reaction(s) Facility (1 source) Amitriptyline Drug Allergy 03-09-20 12 Other (See Comments) [place], [place] (1 source) bee venom Propensity to adverse reactions to drug 05-16-20 05 [place] (1 source) Glutamate Drug Allergy 07-02-20 05 Anaphylaxis [place] (1 source) Haemophilus influenzae type b Drug Allergy 02-04-20 09 Swelling [place] (1 source) hydroCHLOROthiazide / Triamterene Drug Allergy 02-04-20 09 Hives [place] (1 source) irbesartan Drug Allergy 08-28-20 18 [place] (1 source) meloxicam Drug Allergy 08-28-20 18 [place] (1 source) Triamterene Drug Allergy 08-28-20 18 [place] (1 source[place] Other Propensity to adverse reactions 05-16-20 05 Shortness Of Breath [place] Medications Current Medications Medication Drug Class(es) [...] with the patient. Osiel Paula MD NPI- [id number] 1 each 0 09/23/2018 Active cholecalciferol 1000 [...] (Body Mass Index) 29.12 kg/m2 Raza Azevedo [facility] Work Phone: 09-25-2017 09:58-0500 Height 161.3 cm Raza Azevedo [facility] Work Phone: 09-25-2017 09:58-0500 Weight 75.75 kg Raza Azevedo [facility] Work Phone: Encounters Encounter Date Encounter Type Care Provider Facility Start: 09-22-2020 End: 09-22-2020 Orders Only Keke Mary Kaykelber De Work Phone: [facility] Start: 08-12-2019 End: 08-12-2019 Subsequent hospital visit by physician Osiel Paula Work Phone: [facility] Start: 10-30-2017 Ambulatory Amrikchrista Andre [facility] Start: 09-25-2017 Ambulatory RAZA AZEVEDO [facility] Ambulatory Start: 09-25-2017 Office/outpatient visit, new, level 3 Raza Azevedo Work Phone: [facility] Plan of Treatment Date Care Activity Detail Author Start: 05-09-2020 Influenza vaccination given Sequential Influenza Vaccine (#1) [facility] Start: 09-02-2019 Creatinine monitoring Creatinine monitoring [place], [place] Start: 09-02-2019 Potassium monitoring Potassium monitoring [place] Start: 02-26-2019 Annual Wellness Visit (AWV) Annual Wellness Visit (AWV) [place] Start: 05-09-2017 Influenza vaccination SEQUENTIAL INFLUENZA VACCINE (#1) [facility] Work Phone: Start: 2003 DEXA (modify frequency per FRAX score) DEXA (modify frequency per FRAX score) [facility]: 2003 Pneumococcal 65+ years Vaccine (1 of 1 - PPSV23) Pneumococcal 65+ years Vaccine (1 of 1 - PPSV23) [facility] Start: 2003 Pneumococcal vaccination PNEUMOCOCCAL VACCINE AGE 65+ (1 of 2 - PCV13) [facility] Work Phone: Start: 1998 Zoster vacc, sc ZOSTER VACCINE [facility] Work Phone: Start: 02-22-1988 Administration of herpes zoster vaccine Zoster Vaccines (1 of 2) [facility] Start: 02-22-1988 Shingles Vaccine (1 of 2) Shingles Vaccine (1 of 2) [facility] Start[facility] 1950 Adolescent depression screening assessment Depression Screening (PHQ9) [facility] Start: 1949 DTaP/Tdap/Td vaccine (1 - Tdap) DTaP/Tdap/Td vaccine (1 - Tdap) [facility] Start: 1941 History and physical examination, annual for health maintenance Wellness Visit [facility] Start: 1938 Fall risk assessment Falls Risk Assessment [facility] Start: 1938 End: 1938 Screening for osteoporosis DEXA SCAN [facility] Work Phone: Start: 1938 End: 1938 Tetanus vaccination [facility] Work Phone: End: 08-12-2019 XR LUMBAR SPINE (MIN 4 VIEWS) XR LUMBAR SPINE (MIN 4 VIEWS) Imaging Routine Once for 1 Occurrences starting 08/12/2019 until 08/12/2019 [facility] Payers Date Payer Category Payer Medicare MEDICARE MEDICAR E PART A AND B xxxxxxxxxxx 2018-Present [phone] [place] [address] xxxxxxxxxxx [id number] 2018 Unknown GPM GPM xxxxxxxx 2018-Present [phone] [address] [place] [address] xxxxxxxx [id number] 2003 Medicare MEDICARE MEDICAR E PART A & B [id number] 2003-Present [place] [id number] Medicare [id number] Medicare Unknown [id number] Unknown COMMERCIAL COMME RCIAL MISCELLANEOUS [id number] Effective for all dates [id number] Social History Date Type Detail Facility Start: 09-25-2017 Tobacco smoking stat [facility] Former smoker [facility] Work Phone: Sex Assigned At Not on file [facility] Work Phone: Start: 03-04-2019 Tobacco smoking stat [facility] Never smoker [place] Start: 09-25-2017 End: 03-04-2019 Alcohol intake Current drinker of alcohol (finding) [place] Start: 09-23-2018 Alcohol Comment socially [place], [place] Start: 09-25-2017 Tobacco use and exposure Never used [facility] Progress note 01-11-2021 Note Date & Type Note Facility 01-11-2021 Note HNO ID: [id number] Author: Janiya Granados LPN Service: ? Author [...] visit Francia has changed PCP. Updated in [facility]. Janiya Granados LPN January 11, 2021 12:19 PM [facility] Clinical Note 01-11-2021 Note Date & Type Note Facility 01-11-2021 Note Patient Outreach (IN TMWS) FRANCIA FLOWERS ([id number]) 1940 F NFR Date Time Provider Department [...] visit Francia has changed PCP. Updated in [facility]. Janiya Granados LPN January 11, 2021 [...] Breath Date Reviewed: 02/18/2020 Reviewed by: Silvana ([facility]) Older - Fully Assessed Prescriptions as of [...] Status:Closed by JANIYA GRANADOS LPN on 01/11/21 [facility] Assessments Diagnosis Chronic pain of right knee - Primary Primary osteoarthritis of adam th hips Summary Purpose Family History No Family History Records FoundNo Family History Records FoundNo Family History Records FoundNo Family History Records Found Advance Directives No Advanced Directives Records FoundDocuments on File Type Date Recorded Patient Chief Medical Director Expl anation Advance Directives and Living Will Power of Civil Service Clerk Latest Code Status on File Code Status [...] pmhx of HTN, multiple spine surgeries at [facility], presents to ED at recommendation of [...] DATE CREATED AUTHOR AUTHOR'S ORGANIZ ATION [facility] DATE CREATED AUTHOR AUTHOR'S ORGANIZ ATION 08/18/2019 [facility] DATE CREATED AUTHOR AUTHOR'S ORGANIZ ATION 10/17/2021 [facility] FOR RECORDS PERTAINING TO PATIENTS WHO [...] BE BASED ON THE PRIMARY CLINICAL RECORDS. [email or web address] provides no warranty or guarantee of the accuracy or completeness of information in this document.
[2023-11-10 12:50] LABS: Absolute Neutrophil Count 6.6 X10^3/uL (2.0-7.7); Basophil# 0.06 X10^3/uL; Basophil% 0.7 % (0-1); Eosinophil# 0.36 X10^3/uL; Eosinophils% 4.1 % (0-5); Hematocrit 42.3 % (37-47); Hemoglobin 13.6 g/dL (12.0-15.0); Lymphocyte % 11.3 % (19-41); Mean Corp Hgb Conc 32.2 g/dL (32-36); Mean Corpuscular Hgb 30.5 pg (27.0-32.0); Mean Corpuscular Volume 94.8 fL (81-99); Mean Platelet Vol. 10.4 fl (6.2-12.0); Monocyte# 0.76 X10^3/uL; Monocyte% 8.6 % (0-10); NRBC Flagged by Analyzer 0 % (0-5); Neutrophil % 74.8 % (47-70); Platelet Count 279 K/mm3 (150-450); RBC Distribution Width CV 13.2 % (11.6-14.6); Red Blood Count 4.46 M/mm3 (4.2-5.4); White Blood Count 8.8 K/mm3 (4.4-11.0)
[2023-11-10 13:11] LABS: ALB/GLOB Ratio 1.3 RATIO (0.9-2.4); AST(SGOT) 20 U/L (15-37); Alanine Aminotransfer ALT/SGPT 26 U/L (13-56); Albumin, Serum 3.8 g/dL (3.2-5.0); Alkaline Phosphatase 102 U/L (45-117); Anion Gap 4 (5-15); BUN 22 mg/dL (7-18); Chloride 102 mmol/L (98-107); Creatinine, Serum 0.82 mg/dL (0.55-1.02); EST Glomerular Filtration Rate 71 mL/min (>60); Est Glom Filt Rate - Afr Amer 86 mL/min (>60); Globulin 2.9 g/dL (2.2-4.2); Glucose 108 mg/dL (74-106); Potassium 4.9 mmol/L (3.5-5.1); Protein, Total 6.7 g/dL (6.4-8.2); Sodium Level 138 mmol/L (136-145)
== END | disposition home or self-care (01) ==
LOC: BIMLAB 10:34
PROVIDERS: PCP Internal Medicine; Visit Provider Internal Medicine
DX: I10 Essential (primary) hypertension (principal)
CPT/HCPCS: 36415; 80053; 85025

== ENCOUNTER 2024-01-28 07:12 | Observation (INO) | payer MEDICARE, OTHER, SELFPAY ==
[2024-01-16 12:15] LABS: International Normalized Ratio 1.1; Partial Thromboplast Time 29.8 Seconds (24.1-36.2); Prothrombin Time (Protime)PT. 14.6 SECONDS (11.7-14.9)
[2024-01-16 12:16] LABS: Absolute Lymphocyte Count 0.63 X10^3/uL (0.83-4.51); Absolute Neutrophil Count 5.8 X10^3/uL (2.0-7.7); Basophil# 0.05 X10^3/uL; Basophil% 0.7 % (0-1); Eosinophil# 0.22 X10^3/uL; Hemoglobin 13.7 g/dL (12.0-15.0); Lymphocyte # 0.63 X10^3/ul (0.83-4.51); Lymphocyte % 8.5 % (19-41); Mean Corp Hgb Conc 31.9 g/dL (32-36); Mean Corpuscular Hgb 30.2 pg (27.0-32.0); Mean Corpuscular Volume 94.7 fL (81-99); Mean Platelet Vol. 10.1 fl (6.2-12.0); Monocyte# 0.65 X10^3/uL; Monocyte% 8.8 % (0-10); NRBC Flagged by Analyzer 0 % (0-5); Neutrophil # 5.78 X10^3/uL (2.7-7.7); Neutrophil % 78.5 % (47-70); Platelet Count 241 K/mm3 (150-450); RBC Distribution Width CV 13.1 % (11.6-14.6); RBC Distribution Width SD 45.4 fl (35.1-43.9); Red Blood Count 4.54 M/mm3 (4.2-5.4); White Blood Count 7.4 K/mm3 (4.4-11.0)
[2024-01-16 12:37] LABS: ALB/GLOB Ratio 1.4 RATIO (0.9-2.4); AST(SGOT) 17 U/L (15-37); Alanine Aminotransfer ALT/SGPT 22 U/L (13-56); Albumin, Serum 4.1 g/dL (3.2-5.0); Alkaline Phosphatase 102 U/L (45-117); Anion Gap 4 (5-15); BUN 16 mg/dL (7-18); Bilirubin, Direct 0.21 mg/dL (0.00-0.30); Calcium,Total 9.7 mg/dL (8.5-10.1); Chloride 101 mmol/L (98-107); EST Glomerular Filtration Rate 85 mL/min (>60); Est Glom Filt Rate - Afr Amer 103 mL/min (>60); Globulin 2.9 g/dL (2.2-4.2); Glucose 102 mg/dL (74-106); Potassium 4.2 mmol/L (3.5-5.1); Sodium Level 135 mmol/L (136-145)
[2024-01-16 12:39] LABS: Magnesium 1.9 mg/dL (1.6-2.6)
--- NOTE | 2024-01-19 12:40 | PCM.HP.BLA ---
History and Physical History and Physical? Patient Name: Lashay Antonio : 1940 From:? TURNER SALINAS PA-C? DATE OF PRE-OPERATIVE EXAM: 01/19/2024 DATE OF SURGERY:? 01/28/2024 SCHEDULED PROCEDURE:? Right reverse total shoulder arthroplasty HISTORY OF PRESENT ILLNESS: Preoperative history and physical exam was performed on January 19, 2024.? This is a 83-year-old female who is been having ongoing pain for over 2 years with her right shoulder.? She is right-hand dominant.? Pain can reach 5/10 on average but with activities 7-8/10.? Her pain is over the lateral aspect of the shoulder.? She does get catching sensation in the shoulder.? She has difficulty and pain with any lifting and use of the right upper extremity.? She has pain lying on the right shoulder with sleeping.? She has difficulty with activities of daily living that require any overhead activities as well as getting dressed.? She does feel the right shoulder has less motion than the left.? There is been no recent trauma or injury.? She does have previous history of a left shoulder replacement.? She has been seen in pain management in the past in which she has had corticosteroid injections which gave no relief.? She has attempted tramadol in the past.? She has currently been taking Tylenol and Aleve.? She has significant pain with range of motion and does feel weaker with the right arm.? Patient has had previous CT scan of the right shoulder.? She does present today with her daughter for preoperative history and physical exam.? Patient has obtain surgical clearance from the primary care physician Dr. Alas.? She has medical history pertinent for hypertension, restless leg, Barretts esophagitis, ulcerative colitis, gastroesophageal reflux disease, radiculopathy and lower extremity, chronic normocytic anemia, and age related cognitive decline.? Patient denies past history of DVT or pulmonary embolism.? She does have past history of back fusion.? She currently denies any recent chest pain, shortness of breath, fevers chills or recent infections.? After failing conservative measures and discussing all treatment options with Dr. Adan Drake, the patient does wish to proceed with a right reverse total shoulder arthroplasty.? Patient has undergone preoperative lab work and has been instructed to follow the nutritional protocol.? Patient has not started the protein drink and was instructed today to start protein drink twice daily. REVIEW OF SYSTEMS: Review Of Systems: Constitutional: Denies anorexia, change in appetite, fever, difficulty sleeping, weight change. Cardiovasular: Denies chest pain, heart murmur, irregular heartbeat and peripheral vascular disease. Respiratory: Denies asthma, cough, pneumonia, sleep apnea, shortness of breath, tuberculosis and wheezing. Gastrointestinal: Reports heartburn, but denies constipation, diarrhea, nausea, rectal itching, bloody stools and vomiting. Genitourinary: Denies incontinence. Musculoskeletal: Reports gait disturbance and pain, but denies leg swelling, trouble walking and weakness. Skin: Denies Raynaud's, history of shingles and tattoo. Neurological: Reports dizziness and numbness/tingling but denies ambulatory dysfunction and tremor. Psychiatric: Denies anxiety, depression, insomnia, mental illness and stress. Hematologic/Lymphatic: Reports bleeding/bruising tendency, but denies anemia and past transfusion. Reviewed and updated. PAST MEDICAL HISTORY: Advance Care Plan: Other Directive, P.O.A. Effective Date: 07/10/2015 Other Directive, LIVING WILL Effective Date: 07/10/2015 Past Medical History: Medical Problems: Arthritis, High Blood Pressure, Restless Leg, Barretts Esophagus, Ulcerative colitis, Acid Reflux, Age related cognitive decline, Radiculopathy, Chromic Normocytic Anemia Accidents: None Surgical Hx: Hysterectomy - 2008 Carpal Tunnel Release LT - 25 YRS AGO Carpal Tunnel Release RT - 25 YEARS AGO Knee Replacement Bilat - 2007 DR DAPHNE ARREOLA Back Fusion - (2014) LT Shoulder Reverse Replacement Spinal Stenosis - (2013) Back Fusion - (01/2016) @[facility] RT TKR Poly Exchange - (12/03/2017) [email or web address] Hip Replacement RT - (02/04/2018) [email or web address] LT THR - (05/27/2018) [facility]W @ [facility] Laminectomy - (08/2018) [facility] Anesthesia Complications: None Assistive Devices: Glasses, Dentures, Cane, Hearing Aid Reviewed and updated. SOCIAL HISTORY: Social History: Marital: .Occupation: Retired.Work Status: Retired.Hand Dominance: Right-handed. Personal Habits:? Tobacco Use: Patient has never smoked.Cigarette Use: Former, Never Smoked Cigarettes.Smokeless Tobacco: Never Used Smokeless Tobacco.E-Cigarette Use: Never used.Alcohol: Occasionally.Drug Use: Denies Use.Enjoy Exercising: Exercises 1-3 x/month. Reviewed, no changes. VITALS: Ht: 62 Wt: 174lb Wt k.926 BMI: 31.8 BP: 120/70 Pulse: 64 Resp: 14 T: 97.3 T: 36.3C Pain Level: 7 O2SatR: 99 ALLERGIES: MSG - Lowers BP,Causes Stomach Cramps Meloxicam - Hives Irbesartan - Retain Fluid In Legs Hydrochlorothiazide / Triamterene? MEDICATIONS: Centrum Silver? 1 tab po daily, Vitamin D3 1000 Unit 1 po qd, Atenolol 50 mg 1 po qd, Losartan Potassium 100 mg daily, Pramipexole Dihydrochloride 0.5 mg 1/2 in the pm, 1 at bedtime, Aleve 220 mg as needed, Amlodipine Besylate 5 mg 1 by mouth every day, Spironolactone 25 mg 1/2 by mouth every day, Gabapentin 100 mg 2 capsules am 2 capsules pm, IC Temazepam? 15 mg? as needed, Pantoprazole Sodium 40 mg 1 in the morning, HM Vitamin B12 500 mcg one tab po once daily, Folic Acid 1 mg one tab po once daily, Advanced Probiotic? one cap po once daily, Vitamin C 500 mg 1 by mouth every day PRE-OP EXAM:? General appearance:NORMAL? ? ? Other: Eyes: Conjunctivae and lids: NORMAL? Pupils: ERR Ears, Nose, Mouth, and Throat: NORMAL? Other: Inspection of lips, teeth and gums: NORMAL? ?Other: Neck: Examination of neck: no masses noted. Respiratory: Assessment of respiratory effort: NORMAL? ?Other: ?Auscultation of lungs: clear to auscultation no wheezes, rhonchi or rales. Cardiovascular:? Auscultation of heart: regular rate and rhythm, no murmurs, gallops or rubs. PHYSICAL EXAMINATION: On exam of the right shoulder on exam of the right shoulder there is no erythema or signs of infection.? She has tenderness to palpation over the anterior lateral shoulder.? She has active range of motion 70 with the right and passive flexion 90.? Internal rotation L line and external rotation in neutral.? There is positive crepitus with all range of motion.? With range of motion she also has scapular dyskinesia.? Resisted range of motion: 3/5 external rotation and supraspinatus testing.? Sensation intact to light touch in axillary, radial, median, ulnar nerve distribution. IMAGING STUDIES: Previous x-rays of the right shoulder reveal severe stage IV glenohumeral osteoarthritis with joint space narrowing, subchondral sclerosis, osteophyte formation.? There is flattening of the humeral head and significant glenoid erosion. Previous CT scan also reveals severe degenerative changes with loose bodies anteriorly and posterior in the shoulder capsule. IMPRESSION: 1.? Severe right shoulder glenohumeral osteoarthritis 2.? Presence of left total shoulder arthroplasty 3.? Hypertension 4.? Age-related cognitive decline 5.? Lower extremity radiculopathy 6.? History of normocytic anemia 7.? Ruiz's soft [place] 8.? Ulcerative colitis 9.? Gastroesophageal reflux disease 10.? Restless leg syndrome 11.? Obesity with BMI 31.8 PLAN: Dr. Adan Drake did discuss and review with the patient all treatment options including surgical versus nonsurgical options.? Patient does wish to proceed with the above-stated procedure.? Potential risks, benefits, and complications of the procedure were discussed in detail including but not limited to , infection, nerve and blood vessel damage, persistent pain, numbness, tingling, paresthesias, blood clot, pulmonary embolism, and requirement for possible further surgery.? The patient expressed full understanding and has no further questions for the doctor.? Patient does agree to proceed with the above-stated procedure and has signed the surgery consent form. POST-OP MEDICATION PLAN: Pain Medications:? Case was discussed with Dr. Adan Drake and due to patient's age related cognitive decline we are trying to limit narcotics as much as possible.? Patient will use extra strength Tylenol and be placed back on her Aleve.? Tramadol will be on board for breakthrough pain.? I did discuss with the patient and her daughter today the potential for postoperative confusion as she already has baseline cognitive decline.? He did voice understanding.? Plan will be for probable discharge home but ultimately will be evaluated in the hospital for appropriate and safe discharge planning. DVT Prophylaxis:? Aspirin 81 mg twice daily for 2 weeks postoperatively.? Denies past history of DVT or pulmonary embolism This dictation was created using voice recognition software. Phonetic and/or grammatical errors may exist. ___? I have re-examined the patient.? There are no clinical changes since date of exam. ___? See progress notes for changes. ___? Dictated on admission Date: ? ? ?Time: Signature:
[2024-01-28] VITALS (14 sets, daily range): BP systolic 102–133; BP diastolic 60–72; PULSE 54–82; RESP 16–18; TEMP 35.7–36.7; O2SAT 93–100; BMI 30.2
[2024-01-28] MEDS: Magnesium 2 GM for ERAS IV (07:02)
[2024-01-28] MEDS: Lactated Ringers 1,000 ML 999 ML IV ×2 (07:02→08:45)
[2024-01-28] MEDS: Celecoxib 200 MG Capsule 400 MG PO (07:02)
[2024-01-28] MEDS: Acetaminophen 500 MG Tablet 1000 MG PO ×3 (07:03→21:29)
[2024-01-28] MEDS: Gabapentin 600 MG Tablet PO (07:03)
[2024-01-28 07:04] LABS: Bedside Glucose 98 mg/dL (74-106)
[2024-01-28] MEDS: Cefazolin 2 GM in 0.9% Normal Saline (100mL Bag) 100 ML IV (08:35)
--- NOTE | 2024-01-28 08:45 | SHO_PTH ---
PATIENT: FRANCIA FLOWERS LOC: MS3 U#:[id number] AGE/SX: 83/F ROOM: [facility] [place]01/28/[address]: Dr. Eduar Gutierrez MD : 1940 BED: 1 DIS: 01/30/2024 SPEC #: [id number] RECD: 01/28/24 12:45 STATUS: DOMENICO VALLELuc #: [id number] SERGIO: 01/28/24 08:[address]: Adan Drake DEPT: SURGICAL PATHOLOGY RECD BY: Faiza Saunders ENTERED: 01/28/24 13:52 SP TYPE: HUMERUS OTHR DR: MD Dr. Chika Browning MD Tissues: Humerus, NOS Procedures: Decalcification bone/plaque Surgery Specimen Level IV HEADER OPERATION: ERAS, total shoulder replacement, reverse PRE-OP DIAGNOSIS: Severe right shoulder glenohumeral osteoarthritis TISSUE SUBMITTED: Right humeral head MICROSCOPIC DIAGNOSIS Bone and tissue of right shoulder, total shoulder resection: Severe degenerative joint disease. Soft tissue with polarized bone, crystals consistent with pseudogout. AM:mr 02/03/2024 MICROSCOPIC DESCRIPTION Slides are reviewed. GROSS DESCRIPTION Received is one container labeled with the patient's name and designated bone and soft tissue right hip. The specimen consists of discoid humeral head measuring in aggregate 5.5cm in diameter and 2.3cm in thickness. Also present in the specimen container are five irregular fragments of mayen bone and possible osteophytes. The femoral head measures 5.5 x 5.0 x 2.0 cm (and the femoral neck measures cm in length.) Also present in the specimen are two irregular fragments of light mayen soft tissue measuring 6.0 x 4.0 x 1.0cm. The articular surface displays prominent osteophyte formation, eburnation and bone erosion. Guide sections are submitted in two cassettes as follows: 1 - soft tissue, 2 - bone after decalcification. AM/mr 01/28/24 TC:5 CPT: 80789, 49154
[2024-01-28] MEDS: dexAMETHasone 10 MG/ML Vial IV (09:00)
[2024-01-28] MEDS: TXA 1000mg in NS100 100ml (IVPB at Incision) 660 MG IV (09:09)
[2024-01-28] MEDS: Vancomycin HCl 1,250 MG in 0.9% Normal Saline (250mL Bag) 250 ML 167 MG IV (09:10)
[2024-01-28] MEDS: TXA 1000mg in NS100 100ml (IVPB at Closure) 660 MG IV (09:59)
--- NOTE | 2024-01-28 10:01 | PCM.OPRPT ---
Report of Operation Date of Procedure: 01/28/24 Pre-Operative Diagnosis: Right shoulder osteoarthritis, rotator cuff dysfunction Post-Operative Diagnosis: Right shoulder osteoarthritis, rotator cuff dysfunction Surgery/Procedure Performed:: Right reverse total shoulder replacement Description of Surgical Findings:: Stable shoulder. Subscapularis not repairable Surgeon: Adan Drake flight software test engineer: Sabino Andersen Type of Anesthesia: General Anesthesiologist: Dom Smith Special Medications: 2 g Ancef, 1 g TXA at incision, 1 g TXA closure, 10 mg Decadron, joint cocktail (5 mg Duramorph, 30 mL of 0.5% Ropivicaine, 1000 units of epinephrine, 30 mg of Toradol) Specimen's removed: Bony cuts Estimated Blood Loss (mL): 150 Fluids Replaced: 750 Description of Procedure: Components used 1. Tornier perform glenoid baseplate 25 mm, +3 mm 2. Tornier perform 36 mm, 3mm Glenosphere 3. Tornier perform 36mm, 3mm humeral retentive liner 4. Tornier perform humeral stem primary press-fit 4 size Brief history/Operative indications: 83 yo f with history of R shoulder pain and cuff tear arthropathy. Patient failed conservative measures as mentioned in the H&P. After discussion of risk and benefits of reverse total shoulder replacement including but not limited to blood loss, DVTs, PEs, nerve vessel damage, infection, general risk of anesthesia including loss of life, instability and stiffness patient demonstrating understanding wish to proceed was able to sign informed consent. Medical clearance was obtained. Procedure: On the date of the procedure, patient's R upper extremity was marked in the preoperative area. Patient was taken back to the operating room where they were placed on the table in the supine position. Anesthesia assumed control of the C-spine and airway, then administered anesthetic. All bony prominences were identified well-padded, the head was secured and the patient was placed in the beachchair position at about 35? inclination. Anesthesia remained in control of the C-spine airway throughout the remainder of the procedure. Patient was then appropriately fastened to the table and the R upper extremity was prepped in a sterile fashion. The surgeons then scrubbed. Upon reentering the room, the R upper extremity was draped in a sterile fashion and the incision was marked out. Timeout was called, everyone agreed upon the side, the site, the procedure to be performed, patient identity and antibiotics given. Incision was taken down through skin and subcutaneous tissue, fat down to fascia. The stripe of the deltopectoral interval and cephalic vein were identified and blunt dissection was used to retract the deltoid. The cephalic vein was retracted laterally. Clavipectoral fascia was then incised and a cobra retractor was placed in the wound. The proximal one third of the pectoralis major insertion was released. Pectoralis tendon insertion was used to tenodesed the biceps tendon which was identified in the bicipital groove. Tenodesis was done with #1 Vicryl. Proximally we followed the biceps tendon after transecting it into the rotator interval. The rotator interval was split and the arm was externally rotated. The split was 1 cm medial to the bicipital groove. Subscapularis tendon was released. We released down the anterior portion of the humeral head and a zuniga elevator was used to release the inferior portion of the humeral head. The arm was externally rotated and the shoulder was dislocated. The humeral head was then cut at its natural retroversion. Once his humeral head cut was made humerus was retracted out of the way and the glenoid was exposed. After exposing the glenoid, the labrum and the remaining proximal biceps were debrided. At this time we are able to view the entire outer edge of the glenoid. A central pin was placed we sequentially reamed over this central pin to 25mm. Once this was completed the central screw was measured and found to be. The glenoid baseplate was screwed into place. Wound was closely irrigated out with normal saline we then drilled sequentially for 2 screws. Screws were placed superiorly and inferiorly and tightened down the screws. Once the screws were appropriately tightened into place the glenoid baseplate was compressed against the exposed subchondral bone. A 36mm glenosphere was tightened into place engaging the Garcia taper. Attention was then turned towards the humerus. The humerus was again externally rotated exposing the proximal portion of the humerus. Central canal finder was then used to open up the canal. We reamed to a 4mm reamer. We then broached to a 4 stem. We trialed the 3mm liner. We obtained an adequate reduction at this time with a nice stable shoulder. Good internal rotation to the gluteus, forward elevation to 140?, external rotation to 20?. Final components were then assembled on the back table, trials were removed and the wound was copiously irrigated with normal saline after dislocating the shoulder. Once the final components were assembled they were impacted into place. Shoulder was then reduced and found to be stable with good range of motion. Subscapularis tendon was not repairable. The wound was with chlorhexidine solution then copiously irrigated out with a 1 L normal saline lavage. The deltopectoral fascia was then closed using #1 Vicryl skin was closed using 2-0 Vicryl interrupted sutures and final skin closure was done with 3-0 Monocryl. Steri-Strips are placed for final skin closure. Sterile dressing was placed patient was then placed in a sling and awakened by anesthesia. Patient was then transferred to the PACU for recovery. Postoperative plan: Patient will be admitted to the hospital overnight. They will get physical therapy starting in 2 weeks with normal postoperative regimen. Patient will be placed on 81 mg aspirin p.o. twice daily for DVT prophylaxis. The first postoperative appointment will be in 2 weeks for wound check and initiation of phase 1 physical therapy. During the course of the procedure the physician assistant manager bilingual played a vital role. His intimate knowledge of my steps in the procedure aided in safe and expedient completion of the procedure. The PA played a vital rolls in positioning particularly in obtaining the appropriate beach chair position and securing the patient's body and head to the table. The PA was also vital in the retraction of soft tissues during the exposure and especially the glenoid work as this is a vital part of the procedure to prevent neurovascular damage. the PA was also vital and protecting soft tissues during times of bony cuts and reaming. He also played a vital role in closure with my direct supervision. The PA was also important during reduction and dislocation of the joint and trials intraoperatively. Complications No intraoperative complications Admit VTE Documentation VTE Present on Admission: No VTE Mechan Device Prophylaxis: SCD's VTE Pharm Prophylaxis ordered?: Yes
--- NOTE | 2024-01-28 11:20 | RAD_ITS ---
STUDY: X-RAY - RIGHT SHOULDER REASON FOR EXAM: Female, 83 years old. Post op -- AP and Lateral X-Ray of operative shoulder in PACU. TECHNIQUE: 2 views of the right shoulder. COMPARISON: Right shoulder radiographs dated 01/22/2022. FINDINGS: There are new postoperative changes from right reverse shoulder arthroplasty. There is no periprosthetic fracture. There is adjacent soft tissue gas, compatible with recent surgery. Intact acromioclavicular joint. Normal acromion. Normal visualized pulmonary apex. RAD/Shoulder min 2 Views IMPRESSION: New postoperative changes from right reverse shoulder arthroplasty, with no periprosthetic fracture. Electronically Signed: Luis A Feliciano MD at 11:43 EDT ,
[2024-01-28] MEDS: traMADol 50 MG Tablet PO (13:13)
[2024-01-28] MEDS: Pramipexole Di-HCl 0.25 MG Tablet PO (15:22)
[2024-01-28] MEDS: Gabapentin 100 MG Capsule 200 MG PO (15:22)
[2024-01-28] MEDS: 0.9% Normal Saline (250mL Bag) 250 ML 15 ML IV (16:14)
[2024-01-28] MEDS: Cefazolin 1 GM/50 ML BAG IV (16:14)
[2024-01-28] MEDS: Aspirin 81 MG TAB.CHEW PO (16:17)
--- NOTE | 2024-01-28 16:49 | CON.PCM.HO_ITS ---
Assessment & Plan Assessment/Plan (1) HTN (hypertension): PLAN: Plan #RIght shoulder osteoarthritis * s/p right reverse total shoulder replacement * today is POD 0 * management as per orthopedic surgery. * on PO tylenol, and naproxen for pain as per primary service. * incentive spirometry * PT/OT on board. * Fall precautions. * #Hypertension: On amlodipine and atenolol as well as losartan and spironolactone. IV hydralazine as needed. #Restless leg syndrome: On pramipexole DVT prophylaxis: as per primary service. THank you for the courtesy of the consult. The hospitalist service will continue to follow with you. HPI Consult Data Date of Consult: 01/28/24 HPI Narrative Reason for Consultation: medical management HPI Narrative: FRANCIA FLOWERS, is a 83 F with a PMH as outlined was admitted to the service of orthopedic surgery on 01/28/2024 for right reverse total shoulder arthroplasty. She had been having ongoing pain in her right shoulder for over 2 years. She had difficulty and pain with any lifting and use of the right upper extremity and also had pain when lying on the right shoulder with sleeping. She had no history of trauma and did have a history of left shoulder replacement. She had seen pain management in the past and had had corticosteroid injections which gave no relief. She had been on Tylenol and Aleve with no significant improvement. After failing conservative measures, patient's agreed to proceed with a right reverse total shoulder arthroplasty and she had said procedure on 01/28/2024. Hospitalist service was consulted for medical management. Patient was seen after surgery. He had no active complaints. Right upper extremity was in a sling. Pain was fairly well-controlled. She denied any fever or chills, cough, chest pain, palpitations, dizziness, nausea vomiting or any other symptoms. Review of systems otherwise negative. She is hemodynamically stable at time of review. [facility] Medical History (Updated 01/28/24 @ 17:[address] Yu Kelly MD) Wears hearing aid Wears dentures Post-menopausal Depression Alcohol use Ambulates with cane Arthritis Easy bruising Restless legs Spinal stenosis Back pain Barretts esophagus Ulcerative colitis Gastric reflux Non-smoker Leg cramps History of edema History of stress test Preoperative evaluation to rule out surgical contraindication Age-related cognitive decline Urinary tract infection with hematuria Clostridium difficile infection Shoulder pain Insomnia Collagenous colitis Flu vaccine need Psoriasis of scalp Shingles Dermatitis Heart murmur Cataracts, bilateral Seasonal allergies Carpal tunnel syndrome Normochromic normocytic anemia Hyponatremia Intractable back pain Radicular pain of right lower extremity Debility Osteoarthritis Hypertension Restless leg syndrome Lumbar spinal stenosis Home Medications ?Medication ?Instructions ?Recorded ?Last Taken ?Type cholecalciferol (vitamin D3) 25 1,000 unit PO DAILY SUPPLEMENT 11/21/17 09/06/18 History mcg (1,000 unit) tablet temazepam 15 mg capsule 15 mg PO QHS PRN PRN Sleep 11/21/17 09/05/18 History disability placard #1 ea 08/18/20 Unknown Rx ascorbate calcium (vitamin C) 500 500 mg PO DAILY SUPPLEMENT 08/21/20 Unknown History mg tablet losartan 100 mg tablet 100 mg PO DAILY BP #90 tabs 05/06/23 01/28/24 04:00 Rx spironolactone 25 mg tablet 12.5 mg (1/2 x 25 mg) PO DAILY BP 05/06/23 Unknown Rx #45 tabs amlodipine 5 mg tablet 5 mg PO DAILY BP #90 tabs 08/06/23 01/28/24 04:00 Rx multivitamin,dj-[id number] 27 1 tab PO DAILY vitamin 10/24/23 Unknown History mg-0.4 mg tablet atenolol 50 mg tablet 50 mg PO DAILY BP #90 tabs 01/12/24 01/28/24 04:00 Rx gabapentin 100 mg capsule 200 mg (2 x 100 mg) PO 01/12/24 Unknown Rx BID@0800,1500 nerve pain 3 months #360 caps pantoprazole 40 mg tablet,delayed 40 mg PO DAILY GERD #90 tabs 01/12/24 01/28/24 04:00 Rx release cyanocobalamin (vitamin B-12) 500 500 mcg PO DAILY SUPPLEMENT 01/15/24 Unknown History mcg tablet (Vitamin B-12) folic acid 1 mg tablet 1 mg PO DAILY SUPPLEMENT 01/15/24 Unknown History naproxen sodium 220 mg tablet 220 mg PO BID PRN pain 01/15/24 Unknown History (Aleve) pramipexole 0.5 mg tablet 0.25 mg PO 1500 RESTLESS LEGS 01/15/24 Unknown History pramipexole 0.5 mg tablet 0.5 mg PO QHS RESTLESS LEGS 01/15/24 Unknown History Allergy/AdvReac Type Severity Reaction Status Date / Time influenza virus vaccine ts Allergy Severe Swelling Verified 01/28/24 06:40 (From Fluarix) hydrochlorothiazide Allergy Hives Verified 01/28/24 06:40 irbesartan Allergy Hives Verified 01/28/24 06:40 meloxicam Allergy Swelling Verified 01/28/24 06:40 monosodium glutamate Allergy Shortness Verified 01/28/24 06:40 of breath triamterene Allergy Hives Verified 01/28/24 06:40 perfume AdvReac breathing Verified 01/28/24 06:40 it in gets itch venom-honey bee (bee venom AdvReac Anaphylaxis Verified 01/28/24 06:40 (honey bee)) Family History Mother Hypertension Colon cancer Father Colon cancer Sister Colon cancer Surgical History (Updated 01/15/24 @ 15:45 by Kassandra Bermudez) Hx of total knee arthroplasty Hx of total hip arthroplasty History of carpal tunnel surgery of right wrist History of carpal tunnel surgery of left wrist Hx of hysterectomy Hx of right cataract extraction Hx of left cataract extraction Hx of esophagogastroduodenoscopy Hx of colonoscopy History of total bilateral knee replacement History of hip replacement Hx of total shoulder replacement History of back surgery Status post lumbar spine surgery for decompression of spinal cord Social History Smoking Status: Never smoker second hand exposure: No alcohol intake: current alcohol intake frequency: holidays/special occasions only substance use type: does not use caffeine: Yes what type of physical activity do you participate in: none ROS Constitutional Constitutional: Reports fatigue, malaise and weakness; Denies anorexia, chills or fever(s) Eyes Eyes: Denies change in vision ENT HEENT: Denies dysphagia or headache(s) Cardiovascular Cardiovascular: Denies chest pain, dyspnea on exertion, edema, lightheadedness, orthopnea, palpitations, paroxysmal nocturnal dyspnea or rapid heart rate Respiratory/Chest Respiratory/Chest: Denies cough, excessive phlegm production, shortness of breath at rest, shortness of breath with exertion or wheezing Gastrointestinal Gastrointestinal: Denies abdominal pain, constipation, diarrhea, dyspepsia, hematochezia, nausea or vomiting Genitourinary Genitourinary: Denies dysuria Musculoskeletal Musculoskeletal: Reports joint pain; Denies arthralgias or back pain Neurologic Neurologic: Denies confusion, dizziness or focal weakness Psychiatric Psychiatric: Denies anxiety or depression Hematologic/Lymphatic Hematologic/Lymphatic: Denies anemia Physical Exam Const alert, oriented x3, no apparent distress and average body habitus General Appearance: cooperative HEENT normocephalic, head/scalp atraumatic, hearing grossly normal bilaterally, moist oral mucous membranes and oropharynx normal Mouth: oral and palatal mucosa normal Eyes PERRL, EOMs intact bilaterally and conjunctivae normal Neck supple and no JVD Resp normal respiratory effort, no retractions, no use of accessory muscles and clear to auscultation bilaterally Cardio regular rate, regular rhythm, S1 normal heart sound, S2 normal heart sound and no murmurs GI normal to inspection, nondistended, normoactive bowel sounds, soft to palpation and non-tender Extremity Extremity Narrative: RUE in a sling Neuro oriented x3 and CN's II-XII intact bilaterally Neuro Narrative: weakness in RUE due to right reverse total shoulder arthroplasty. Sensorium / Orientation: awake and alert Psych affect normal Lab / Micro Data 01/16/24 11:29 01/16/24 11:28 Labs: Laboratory Results - last 24 hr 01/28/24 06:46: POC Glucose 98 Imaging Radiology Impression Shoulder X-Ray 01/28/24 11:20 IMPRESSION: New postoperative changes from right reverse shoulder arthroplasty, with no periprosthetic fracture. Electronically Signed: Luis A Feliciano MD at 11:43 EDT , Charges/Coding Visit Charges Inpatient E&M: 20951 Subs Hosp L2
[2024-01-28] MEDS: Senna/Docusate Sodium 1 Tablet 2 TABLET PO (21:29)
[2024-01-28] MEDS: Pramipexole Di-HCl 0.5 MG Tablet PO (21:29)
[2024-01-29] MEDS: Cefazolin 1 GM/50 ML BAG IV (00:16)
[2024-01-29 00:21] VITALS: BP 117/55; PULSE 61; RESP 18; TEMP 36.4; O2SAT 95
[2024-01-29 05:02] VITALS: BP 120/62; PULSE 62; RESP 18; TEMP 36.4; O2SAT 97
[2024-01-29] MEDS: Acetaminophen 500 MG Tablet 1000 MG PO ×3 (05:08→21:34)
--- NOTE | 2024-01-29 07:17 | PCM.PN.HOSP ---
Reason for Visit Reason for Visit: Diagnoses Essential (primary) hypertension (01/28/24) Encounter for other preprocedural examination (01/28/24) Subjective Subjective Patient is an 83-year-old lady who underwent reverse total right shoulder replacement by Dr. Drake on 01/26/2024. The service was consulted to assist with management of patient medical comorbidities Objective Data Objective Data Vital Signs: Vital Signs Temp Pulse Resp BP Pulse Ox O2 Del Method O2 Flow Rate 97.5 F L 62 18 120/62 97 Room Air 4 01/29/24 05:02 01/29/24 05:02 01/29/24 05:02 01/29/24 05:02 01/29/24 05:02 01/29/24 05:02 01/28/24 12:15 FiO2 36 01/28/24 12:15 Oxygen Flow Rate (L/min) 4 Oxygen Delivery Method Room Air Weight: 77.564 kg Body Mass Index (BMI) 30.2 Intake & Output: Intake and Output for Last 24 Hours 01/27/24 01/28/24 01/29/24 23:59 23:59 23:59 Intake Total 2880 / 2880 850 / 850 Balance 2880 / 2880 850 / 850 Lab / Micro Data 01/29/24 06:29 01/29/24 06:29 Micro: Microbiology 01/16/24 11:29 Swab (Method) Nasal Screen MRSA/MSSA - Final Radiography Diagnostic Testing: Radiology Impression Shoulder X-Ray 01/28/24 11:20 IMPRESSION: New postoperative changes from right reverse shoulder arthroplasty, with no periprosthetic fracture. Electronically Signed: Luis A Feliciano MD at 11:43 EDT , Physical Exam Narrative GENERAL: cooperative HEENT: Atraumatic; normocephalic EYES; Anicteric, Normal Conjunctiva NECK; supple, normal thyroid, RESPIRATORY: Diminished to auscultation CARDIOVASCULAR: Regular S1 S2, GI: soft, normoactive bowel sounds, : No Renal angle tenderness; EXTREMITIES: No edema, no clubbing, MUSCULOSKELETAL: Right shoulder in a sling NEURO: Awake; no lateralizing signs. SKIN: No Rash PSYCH; Flat affect Assessment & Plan Assessment/Plan (1) HTN (hypertension): PLAN: Plan Patient is an 83-year-old lady who underwent reverse total right shoulder replacement by Dr. Drake on 01/26/2024. The service was consulted to assist with management of patient medical comorbidities 1. Status post reverse right total shoulder replacement ? On account of right shoulder osteoarthritis. Procedure was performed by Dr. Drake on 01/28/2024. Patient postoperative management including pain, therapy as well as DVT prophylaxis deferred to primary service 2. Essential benign hypertension ? Patient blood pressure control remains optimal she is on amlodipine as well as atenolol continued 3. Restless leg syndrome ?On pramipexole 4. DVT prophylaxis ? Deferred to primary Time spent in the patient's overall evaluation,decision-making process, review of diagnostic data, adjustment of management, discussion with other providers, nursing nursing and ancillary staff involved in patient's care documentation, 35 Minutes Charges/Coding Visit Charges Inpatient E&M: 99149 Subs Hosp L2
[2024-01-29 07:23] LABS: Hematocrit 37.7 % (37-47); Hemoglobin 12.1 g/dL (12.0-15.0); Mean Corp Hgb Conc 32.1 g/dL (32-36); Mean Corpuscular Volume 93.5 fL (81-99); Mean Platelet Vol. 11.1 fl (6.2-12.0); Platelet Count 177 K/mm3 (150-450); RBC Distribution Width CV 12.8 % (11.6-14.6); RBC Distribution Width SD 43.9 fl (35.1-43.9); Red Blood Count 4.03 M/mm3 (4.2-5.4); White Blood Count 13.9 K/mm3 (4.4-11.0)
[2024-01-29 08:08] LABS: Anion Gap 7 (5-15); BUN 19 mg/dL (7-18); BUN/Creat Ratio 25.8 RATIO (10-20); Calcium,Total 9.5 mg/dL (8.5-10.1); Chloride 102 mmol/L (98-107); Creatinine, Serum 0.74 mg/dL (0.55-1.02); EST Glomerular Filtration Rate 80 mL/min (>60); Est Glom Filt Rate - Afr Amer 96 mL/min (>60); Glucose 103 mg/dL (74-106); Potassium 4.5 mmol/L (3.5-5.1); Sodium Level 131 mmol/L (136-145)
[2024-01-29 09:04] VITALS: BP 111/68; PULSE 61; RESP 18; TEMP 36.6; O2SAT 98
[2024-01-29] MEDS: Multivitamins,Ther W-Minerals Tablet 1 TABLET PO (09:23)
[2024-01-29] MEDS: Aspirin 81 MG TAB.CHEW PO ×2 (09:23→17:21)
[2024-01-29] MEDS: Folic Acid 1 MG Tablet PO (09:23)
[2024-01-29] MEDS: Cholecalciferol (VIT D3) 25 MCG TABLET (1,000 UNITS) PO (09:23)
[2024-01-29] MEDS: Ascorbic Acid 500 MG Tablet PO (09:23)
[2024-01-29] MEDS: amLODIPine 5 MG Tablet PO (09:24)
[2024-01-29] MEDS: Losartan Potassium 100 MG Tablet PO (09:24)
[2024-01-29] MEDS: Spironolactone 25 MG Tablet 12.5 MG PO (09:24)
[2024-01-29] MEDS: Senna/Docusate Sodium 1 Tablet 2 TABLET PO ×2 (09:25→21:34)
[2024-01-29] MEDS: Famotidine 20 MG Tablet PO (09:25)
[2024-01-29] MEDS: Pantoprazole Sodium 40 MG Tablet PO (09:25)
[2024-01-29] MEDS: Atenolol 50 MG Tablet PO (09:26)
[2024-01-29] MEDS: Gabapentin 100 MG Capsule 200 MG PO ×2 (09:29→15:37)
--- NOTE | 2024-01-29 09:55 | CASEMGMT ---
SONJA FARRAR Assessment: Face to Face with pt for initial transition planning/care coordination assessment. SONJA FARRAR introduced self and role at [facility], pt voices understanding and consents to assessment. Pt is A&O x4 and answers all questions appropriately at this time. Pt sitting up in chair with dtr Zoey at bedside. Care providers, pharmacy, and demographics verified/updated. Admitting Dx: Total Shoulder Replacement, Reverse PCP:Bishop Specialists:rosemary Drake [facility]: [facility], [facility] Supp Prescription Benefit: yes LNOK: Zoey Lang, dtr; Antonina Maldonado, dtr Living Arrangements: Pt lives alone in a single story home with 3 steps to enter with a rail. Pt reports prior to surgery she was I in ADL/IADL's. Transportation: Pt drives self and denies concerns with transportation. Pt family to transport pt until she can drive again. DME:shower chair, rollator, walker, canes HHC/SNF: Denies hx of HH. Pt has been to inpatient rehab and TCU at [facility] in the past. Pt and dtr state difficulty with pt returning home as she does not have family who can stay with her. Spoke to pt and dtr of options with Sabino PARRY in room. Pt would like [facility] inpatient unit to be attempted and if she is unable to go there, she would like to private pay at [facility] TCU for a short time. TC to PT to request eval. Pt states no further concerns/needs. CM to follow. Updated SW. Advised pt to ask CM if any further question/concerns/needs arise, voices understanding. Pt Goal: IR vs TCU at [facility] Plan: LIDIA Coburn RN, CM
--- NOTE | 2024-01-29 10:33 | PCM.PN.ORT ---
Subjective Subjective The patient was sitting in bedside chair upon examination with her daughter present. Patient denies any chest pain, shortness of breath, dizziness, lightheadedness, nausea or vomiting, or calf pain. Pain is controlled on medications. No adverse overnight events. Patient denies any numbness and tingling in the right upper extremity. Patient states she has had some numbness in her legs but she has dealt with this for some time. There is concern for patient going home as she is right-hand dominant and she lives home alone. Family members are not able to be around all the time and patient does have some age-related cognitive decline. Case management is currently involved for possible inpatient rehab versus transitional care unit. This was discussed with the patient and her daughter in great detail. Objective Data Objective Data Vital Signs: Vital Signs Temp Pulse Resp BP Pulse Ox O2 Del Method O2 Flow Rate 97.9 F 61 18 111/68 98 Room Air 4 01/29/24 09:04 01/29/24 09:04 01/29/24 09:04 01/29/24 09:04 01/29/24 09:04 01/29/24 09:04 01/28/24 12:15 FiO2 36 01/28/24 12:15 Oxygen Flow Rate (L/min) 4 Oxygen Delivery Method Room Air Weight: 77.564 kg Body Mass Index (BMI) 30.2 Intake & Output: Intake and Output for Last 24 Hours 01/27/24 01/28/24 01/29/24 23:59 23:59 23:59 Intake Total 2880 / 2880 1098 / 1098 Balance 2880 / 2880 1098 / 1098 Lab / Micro Data 01/29/24 06:29 01/29/24 06:29 Labs: Laboratory Results - last 24 hr 01/29/24 06:29: WBC 13.9 H, RBC 4.03 L, Hgb 12.1, Hct 37.7, MCV 93.5, MCH 30.0, MCHC 32.1, RDW Std Deviation 43.9, RDW Coeff of Triston 12.8, Plt Count 177, MPV 11.1, Sodium 131 L, Potassium 4.5, Chloride 102, Carbon Dioxide 22.0, Anion Gap 7, BUN 19 H, Creatinine 0.74, Estim Creat Clear Calc 50.70, Est GFR (MDRD) Af Amer 96, Est GFR (MDRD) Non-Af 80, BUN/Creatinine Ratio 25.8 H, Glucose 103, Calcium 9.5 Micro: Microbiology 01/16/24 11:29 Swab (Method) Nasal Screen MRSA/MSSA - Final Radiography Diagnostic Testing: Radiology Impression Shoulder X-Ray 01/28/24 11:20 IMPRESSION: New postoperative changes from right reverse shoulder arthroplasty, with no periprosthetic fracture. Electronically Signed: Luis A Feliciano MD at 11:43 EDT , Physical Exam Narrative Vital signs stable, afebrile SCDs and ORIN hose are in place bilaterally Dressing is clean, dry, intact Ultra-sling fitting appropriately Sensation intact to axillary, radial, median, and ulnar distribution Motor intact to AIN, PIN, and ulnar nerve Const alert, oriented x3 and no apparent distress Assessment & Plan Assessment/Plan (1) Status post reverse total arthroplasty of right shoulder: PLAN: 1. S/P right reverse total shoulder arthroplasty POD #1 2. Continue Pain Medications: Tylenol and tramadol. Patient will resume her naproxen postoperatively. Patient does have some documented age-related cognitive decline and we are trying to avoid narcotics as much as we can. 3. DVT Prophylaxis: Take 81 mg aspirin twice daily for 2 weeks postoperatively for DVT prophylaxis. Patient denies past history of DVT or pulmonary embolism. 4. PT/OT: Continue with UltraSling at all times except to come out for range of motion exercises of the elbow and pendulum exercise 3 times daily. No range of motion of the postoperative shoulder until outpatient physical therapy begins. Outpatient physical therapy will begin 2 weeks postoperatively after follow-up with [facility] with x-rays and incision check. 5. H & H: 11.4/34.6, asymptomatic. Labs have been reviewed. Case also discussed with medicine with regards to the sodium at 131. 6. Reactive leukocytosis: 13.9, Afebrile. Patient did receive Decadron intraoperatively. No clinical signs of infection. 7. Continue postoperative medical management per medicine: Case was discussed with medicine. Appreciate recommendations with the hyponatremia. Will repeat lab work tomorrow 8. Encouraged Incentive Spirometry 9. Disposition: Patient was evaluated by Occupational Therapy and physical therapy and there is concern with discharge home due to patient's age-related cognitive decline as well as concern for fall risk with balance issues. She is right-hand dominant and underwent right reverse total shoulder arthroplasty. She normally uses a scooter/walker but will be unable to do this. Patient's daughter was present today and case management did discuss with her all possible options. We are going to look into patient going to inpatient rehabilitation versus [facility] facility. Patient's family is aware that there could be some [id number] expenses. We also talked about discharge home with home health therapy. They are aware that they would not be able to come out on a daily basis. Case management is currently involved with appropriate and safe discharge planning. At this time I do feel would be beneficial for patient to stay an additional night to make sure that she can get adequate therapy and also repeat lab work tomorrow. I have reviewed the [place] Automated Rx Reporting System (OARRS) report for this patient for refill pattern and other prescriber involvement as part of the appropriate surveillance for the provision of acute and chronic controlled medications. The report was requested and reviewed on the date of this entry and was considered in the prescribing process. This dictation was created using voice recognition software. Phonetic and/or grammatical errors may exist.
[2024-01-29 15:00] VITALS: BP 112/64; PULSE 63; RESP 18; TEMP 36.7; O2SAT 99
--- NOTE | 2024-01-29 15:08 | CASEMGMT ---
Met with patient to complete TODD form. TODD form explained to patient who voiced understanding and signed form. Original form placed in pt?s chart and copy provided to patient. Fadumo Molina, Discharge Planning Asst
[2024-01-29] MEDS: Pramipexole Di-HCl 0.25 MG Tablet PO (15:37)
--- NOTE | 2024-01-29 16:58 | CASEMGMT ---
Social Work Pt has a living will and health care power of occupational therapist rehab manager naming her daughter Zoey Lang as HCPOA. Document printed from the EMR and placed on pt chart. SANDRO Smith
--- NOTE | 2024-01-29 17:10 | CASEMGMT ---
Social Work SW made referral to Inpatient Rehab unit. Per Cony, pt has been accepted and can admit on Friday. ESCOBAR met with pt and updated on this. Pt becoming very upset stating she was planning on returning home with in home care. SW discussed conversation with PA and RNCM this morning regarding discharge plan and pt did not remember this conversation. SW and pt reviewed discharge options including [facility] and home health and that home health would only be two to three days a week for therapy but not personal care. After emotional support and continued discussion regarding levels of care, pt is reluctantly agreeable to go to [facility]. Pt agreeable for SW to contact pt dgt. Phone call to pt dgt Zoey and ESCOBAR updated that [facility] can accept pt and projected dc is tomorrow. ESCOBAR also updated dgt on discussion with pt regarding discharge plan. Zoey states that pt's memory has been worsening over the last weeks. Zoey plans to discuss dc plan with her sister and with pt jamie and come to decision on [facility] vs home with home health and family support. SW discussed private duty aids however Zoey states family can assist if pt returns home. SW to follow up tomorrow for final decision on discharge plan. SANDRO Smith
[2024-01-29 21:25] VITALS: BP 125/63; PULSE 60; RESP 18; TEMP 36.4; O2SAT 99
[2024-01-29] MEDS: Pramipexole Di-HCl 0.5 MG Tablet PO (21:35)
[2024-01-30 03:23] VITALS: BP 123/72; PULSE 59; RESP 18; TEMP 36.4; O2SAT 100
[2024-01-30] MEDS: Acetaminophen 500 MG Tablet 1000 MG PO ×2 (05:57→14:16)
[2024-01-30 06:48] LABS: Hematocrit 43.8 % (37-47); Hemoglobin 14.2 g/dL (12.0-15.0); Mean Corp Hgb Conc 32.4 g/dL (32-36); Mean Corpuscular Hgb 30.3 pg (27.0-32.0); Mean Corpuscular Volume 93.4 fL (81-99); Mean Platelet Vol. 10.5 fl (6.2-12.0); Platelet Count 217 K/mm3 (150-450); RBC Distribution Width CV 13.2 % (11.6-14.6); RBC Distribution Width SD 44.9 fl (35.1-43.9); Red Blood Count 4.69 M/mm3 (4.2-5.4)
[2024-01-30 08:25] LABS: Anion Gap 8 (5-15); BUN 21 mg/dL (7-18); BUN/Creat Ratio 28.7 RATIO (10-20); Chloride 101 mmol/L (98-107); Creatinine, Serum 0.73 mg/dL (0.55-1.02); EST Glomerular Filtration Rate 80 mL/min (>60); Est Glom Filt Rate - Afr Amer 97 mL/min (>60); Glucose 83 mg/dL (74-106); Potassium 4.4 mmol/L (3.5-5.1); Sodium Level 130 mmol/L (136-145)
--- NOTE | 2024-01-30 08:44 | CASEMGMT ---
Social Aquiles CODY met with pt and pt daughter, Antonina, to discuss d/c planning. Pt and pt dtr are both agreeable to IRU and pt dtr was able to relieve some of pt concerns in regards to care of her dog while she is at rehab. Antonina and her sister Zoey will be intermittently visiting pt throughout the day for support. ESCOBAR confirmed with Maral at IRU that pt is in agreement with [facility] d/c. SANDRO Umana
[2024-01-30 08:53] VITALS: BP 123/93; PULSE 98; RESP 18; TEMP 36.6; O2SAT 96
[2024-01-30] MEDS: Multivitamins,Ther W-Minerals Tablet 1 TABLET PO (09:01)
[2024-01-30] MEDS: Folic Acid 1 MG Tablet PO (09:01)
[2024-01-30] MEDS: Aspirin 81 MG TAB.CHEW PO ×2 (09:01→16:46)
[2024-01-30] MEDS: Ascorbic Acid 500 MG Tablet PO (09:01)
[2024-01-30] MEDS: Losartan Potassium 100 MG Tablet PO (09:02)
[2024-01-30] MEDS: Spironolactone 25 MG Tablet 12.5 MG PO (09:02)
[2024-01-30] MEDS: Cholecalciferol (VIT D3) 25 MCG TABLET (1,000 UNITS) PO (09:02)
[2024-01-30] MEDS: Famotidine 20 MG Tablet PO (09:02)
[2024-01-30] MEDS: Pantoprazole Sodium 40 MG Tablet PO (09:02)
[2024-01-30] MEDS: amLODIPine 5 MG Tablet PO (09:02)
[2024-01-30] MEDS: Atenolol 50 MG Tablet PO (09:03)
[2024-01-30] MEDS: Gabapentin 100 MG Capsule 200 MG PO ×2 (09:07→14:17)
--- NOTE | 2024-01-30 12:40 | PN.ORTHO_ITS ---
Subjective Subjective The patient was sitting in bedside chair eating lunch upon examination. Patient's daughter is present today during evaluation. Patient denies any chest pain, shortness of breath, dizziness, lightheadedness, nausea or vomiting, or calf pain. Pain is controlled on medications. No adverse overnight events. Patient did get approval to go to the inpatient rehabilitation at [facility]. Patient had repeat lab work today and does continue to have some hyponatremia. Case was discussed with the hospitalist Dr Gutierrez and recommends decreasing the losartan down to 50 mg daily. Also recommend repeat lab work in 2 days. Objective Data Objective Data Vital Signs: Vital Signs Temp Pulse Resp BP Pulse Ox O2 Del Method O2 Flow Rate 97.8 F 98 18 123/93 H 96 Room Air 4 01/30/24 08:53 01/30/24 08:53 01/30/24 08:53 01/30/24 08:53 01/30/24 08:53 01/30/24 08:55 01/28/24 12:15 FiO2 36 01/28/24 12:15 Oxygen Flow Rate (L/min) 4 Oxygen Delivery Method Room Air Weight: 77.564 kg Body Mass Index (BMI) 30.2 Intake & Output: Intake and Output for Last 24 Hours 01/28/24 01/29/24 01/30/24 23:59 23:59 23:59 Intake Total 2880 / 2880 1948 / 2448 800 / 800 Balance 2880 / 2880 1948 / 2448 800 / 800 Lab / Micro Data 01/30/24 06:22 01/30/24 06:22 Labs: Laboratory Results - last 24 hr 01/30/24 06:22: WBC 11.0, RBC 4.69, Hgb 14.2, Hct 43.8, MCV 93.4, MCH 30.3, MCHC 32.4, RDW Std Deviation 44.9 H, RDW Coeff of Triston 13.2, Plt Count 217, MPV 10.5, Sodium 130 L, Potassium 4.4, Chloride 101, Carbon Dioxide 21.0, Anion Gap 8, BUN 21 H, Creatinine 0.73, Estim Creat Clear Calc 50.70, Est GFR (MDRD) Af Amer 97, Est GFR (MDRD) Non-Af 80, BUN/Creatinine Ratio 28.7 H, Glucose 83, Calcium 10.0 Micro: Microbiology 01/16/24 11:29 Swab (Method) Nasal Screen MRSA/MSSA - Final Physical Exam Narrative Vital signs stable, afebrile SCDs and ORIN hose are in place bilaterally Dressing is clean, dry, intact Ultra-sling fitting appropriately Sensation intact to axillary, radial, median, and ulnar distribution Motor intact to AIN, PIN, and ulnar nerve Const alert, oriented x3 and no apparent distress Assessment & Plan Assessment/Plan (1) Status post reverse total arthroplasty of right shoulder: PLAN: 1. S/P right reverse total shoulder arthroplasty POD #2 2. Continue Pain Medications: Tylenol and tramadol. Patient will resume her naproxen postoperatively. Patient does have some documented age-related cognitive decline and we are trying to avoid narcotics as much as we can. 3. DVT Prophylaxis: Take 81 mg aspirin twice daily for 2 weeks postoperatively for DVT prophylaxis. Patient denies past history of DVT or pulmonary embolism. 4. PT/OT: Continue with UltraSling at all times except to come out for range of motion exercises of the elbow and pendulum exercise 3 times daily. No range of motion of the postoperative shoulder until outpatient physical therapy begins. Outpatient physical therapy will begin 2 weeks postoperatively after follow-up with [facility] with x-rays and incision check. 5. H & H: 14.2/43.8, asymptomatic. Labs have been reviewed. 6. Reactive leukocytosis: Resolved currently 11.0, Afebrile. Patient did receive Decadron intraoperatively. No clinical signs of infection. 7. Postoperative hyponatremia: Patient sodium yesterday was 131 and today 130. She does have some history of low sodium. I did discuss case with hospitalist and at this time recommends decreasing the losartan from 100 mg daily down to 50 mg daily. Repeat lab work in 2 days. 8. Continue postoperative medical management per medicine: Case was discussed with medicine. 9. Encouraged Incentive Spirometry 10. Disposition: Patient was evaluated by Occupational Therapy and physical therapy and there is concern with discharge home due to patient's age-related cognitive decline as well as concern for fall risk with balance issues. She is right-hand dominant and underwent right reverse total shoulder arthroplasty. She normally uses a scooter/walker but will be unable to do this. Patient did get approval to go to the inpatient rehab on the fourth floor at [facility]. Plan will be for discharge today. Med rec will be placed on chart. Recommend follow-up with lab work in 2 days. Patient will keep her scheduled follow-up in 2 weeks as scheduled with [facility] [place]. Upon discharge contact our office with any concerns or questions. Patient will continue with Tylenol and naproxen primarily for pain control. Only use the tramadol for breakthrough pain. She does have age- related cognitive decline and try to limit narcotics is much as possible. I have reviewed the [place] Automated Rx Reporting System (OARRS) report for this patient for refill pattern and other prescriber involvement as part of the appropriate surveillance for the provision of acute and chronic controlled medications. The report was requested and reviewed on the date of this entry and was considered in the prescribing process. This dictation was created using voice recognition software. Phonetic and/or grammatical errors may exist.
--- NOTE | 2024-01-30 12:45 | DCINST_ITS ---
Discharge Instructions Diet Discharge Diet: No restrictions Activity Discharge Activity: May Not Drive (No driving for 6 weeks postoperatively while wearing UltraSling) May shower in (days): 1 (Dressing must be intact to skin. Turn dressing away from water.) Ice area for (Minutes): 20 (Every 1-2 hours while awake[address] place barrier between skin and ice pack.) Weight Bearing Status: No weight bearing (Postoperative upper extremity) Additional Activity Instructions:: Continue with UltraSling at all times. Please come out of UltraSling 3 times daily working on elbow range of motion and pendulum exercises. No range of motion of postoperative shoulder until first physical therapy appointment 2 weeks postoperatively. Will begin outpatient physical therapy after 2-week scheduled follow-up. Dressing / Incision Call your doctor if your incision/area has: Continuous Slow Oozing, Sudden Increased Bleeding, Increased Pain/ Swelling, Increased Redness and Foul Smelling Discharge Call your doctor if you observe: Fever of 101 or Higher, Shortness of breath, Chest pain and Uncontrolled pain Remove Dressing in: 3 days (Okay to remove dressing on February 02, 2024) Additional Dressing/Incision Instructions:: Follow [facility] Post-op Instructions. Continue ORIN hose 2 weeks postoperatively. Can take off at nighttime but must be reapplied during the day. Okay to shower with Mepilex dressing over the incision. Once postoperative dressing has been removed only use gentle soap and water over the incision. Do not use any ointments, Neosporin, salves, alcohol pads over the incision for 6 weeks postoperatively. Do not submerge underwater for 6 weeks postoperatively. Do NOT use alcohol with narcotic pain medication. Do NOT make important decisions while taking narcotic medication. If you have problems with taking your medication (rash, itching, nausea, etc.) call the office at once. Follow Up Care Test Results: Test results from this visit will be discussed in further detail at your follow- up appointment, if applicable. Discharge Plan Admission Admit Date/Time: 01/28/24 07:12 Attending Provider: Eduar Gutierrez Primary Care Provider: Chika Alas Consulting Providers: Grant Vail; Justice Calvillo; Irena Gonzalez; Joe Mcdonald; Adan Drake; Nirav Marmolejo Discharge Orders/Prescriptions Prescriptions: New losartan 50 mg Tablet 50 mg PO DAILY Qty: 0 0RF tramadol 50 mg Tablet 50 - 100 mg PO Q6H PRN PRN (Reason: as needed for pain) 7 Days Qty: 30 0RF acetaminophen 500 mg Tablet 1,000 mg PO TID 14 Days Qty: 84 0RF Rx Instructions: Do not take more than 3000 mg Tylenol in a 24-hour period. aspirin 81 mg Tablet,Chewable 81 mg PO BIDCM 13 Days Qty: 26 0RF Rx Instructions: Take 81 mg aspirin twice daily for 2 weeks postoperatively for DVT prophylaxis. Continued ascorbate calcium (vitamin C) 500 mg tablet 500 mg PO DAILY atenolol 50 mg tablet 50 mg PO DAILY Qty: 90 3RF pantoprazole 40 mg tablet,delayed release (DR/EC) 40 mg PO DAILY Qty: 90 3RF gabapentin 100 mg capsule 200 mg PO BID@0800,1500 90 Days Qty: 360 3RF temazepam 15 MG capsule 15 mg PO QHS PRN PRN (Reason: Sleep) multivitamin,[id number] 27-0.4 mg tablet 1 tab PO DAILY pramipexole 0.5 mg tablet 0.25 mg PO 1500 naproxen sodium [Aleve] 220 mg tablet 220 mg PO BID PRN (Reason: pain) folic acid 1 mg tablet 1 mg PO DAILY cyanocobalamin (vitamin B-12) [Vitamin B-12] 500 mcg tablet 500 mcg PO DAILY pramipexole 0.5 mg tablet 0.5 mg PO QHS spironolactone 25 mg tablet 12.5 mg PO DAILY Qty: 45 3RF amlodipine 5 mg tablet 5 mg PO DAILY Qty: 90 3RF Discontinued losartan 100 mg tablet 100 mg PO DAILY Qty: 90 3RF No Action cholecalciferol (vitamin D3) 1,000 UNIT tablet 1,000 unit PO DAILY (DME) disability placard See Rx Instructions .ROUTE .MEDSUPPLY Qty: 1 0RF Rx Instructions: As directed, Length of time: 5 years Other Ambulatory Orders: Basic Metabolic Profile (BMP) (Routine) Timeframe: 2 Days Facility: [facility] - Location: Laboratory Ordered By: Sabino PARRY Referrals / Follow Up: Chika Alas MD [Primary Care Provider] - Sabino Andersen PA-C [Med Staff - Adv Practice Prof] - 02/12/24 10:00 am Disposition Disposition (needs filled in before D/C Order can be placed): Inpatient Rehab Unit/Facility
--- NOTE | 2024-01-30 12:59 | DS.PCM_ITS ---
Providers Date of Admission: 01/28/24 Primary Care Physician: Dr. Chika Alas MD Consultations 01/28/24 07:13 Consult: Hospitalist Routine Consulting Provider: [facility] Reason for Consult: post op med management EMERGENT Consult: No MD Notified: Yes Date Notified: 01/28/24 Time Notified: 16:14 Method of Notification: Text Reason For Visit: Total Shoulder Replacement, Reverse Diagnosis Discharge Diagnosis (1) Status post reverse total arthroplasty of right shoulder: Status: Acute Code(s): Z96.611 - Presence of right artificial shoulder joint Plan: 1. S/P right reverse total shoulder arthroplasty POD #2 2. Continue Pain Medications: Tylenol and tramadol. Patient will resume her naproxen postoperatively. Patient does have some documented age-related cognitive decline and we are trying to avoid narcotics as much as we can. 3. DVT Prophylaxis: Take 81 mg aspirin twice daily for 2 weeks postoperatively for DVT prophylaxis. Patient denies past history of DVT or pulmonary embolism. 4. PT/OT: Continue with UltraSling at all times except to come out for range of motion exercises of the elbow and pendulum exercise 3 times daily. No range of motion of the postoperative shoulder until outpatient physical therapy begins. Outpatient physical therapy will begin 2 weeks postoperatively after follow-up with [facility] with x-rays and incision check. 5. H & H: 14.2/43.8, asymptomatic. Labs have been reviewed. 6. Reactive leukocytosis: Resolved currently 11.0, Afebrile. Patient did receive Decadron intraoperatively. No clinical signs of infection. 7. Postoperative hyponatremia: Patient sodium yesterday was 131 and today 130. She does have some history of low sodium. I did discuss case with hospitalist and at this time recommends decreasing the losartan from 100 mg daily down to 50 mg daily. Repeat lab work in 2 days. 8. Continue postoperative medical management per medicine: Case was discussed with medicine. 9. Encouraged Incentive Spirometry 10. Disposition: Patient was evaluated by Occupational Therapy and physical therapy and there is concern with discharge home due to patient's age-related cognitive decline as well as concern for fall risk with balance issues. She is right-hand dominant and underwent right reverse total shoulder arthroplasty. She normally uses a scooter/walker but will be unable to do this. Patient did get approval to go to the inpatient rehab on the fourth floor at [facility]. Plan will be for discharge today. Med rec will be placed on chart. Recommend follow-up with lab work in 2 days. Patient will keep her scheduled follow-up in 2 weeks as scheduled with [facility]. Upon discharge contact our office with any concerns or questions. Patient will continue with Tylenol and naproxen primarily for pain control. Only use the tramadol for breakthrough pain. She does have age- related cognitive decline and try to limit narcotics is much as possible. I have reviewed the [place] Automated Rx Reporting System (OARRS) report for this patient for refill pattern and other prescriber involvement as part of the appropriate surveillance for the provision of acute and chronic controlled medications. The report was requested and reviewed on the date of this entry and was considered in the prescribing process. This dictation was created using voice recognition software. Phonetic and/or grammatical errors may exist. Medications at Discharge Home Medications cholecalciferol (vitamin D3) 25 mcg (1,000 unit) tablet 1,000 unit PO DAILY SUPPLEMENT 11/21/17 temazepam 15 mg capsule 15 mg PO QHS PRN PRN Sleep 11/21/17 disability placard #1 ea 08/18/20 ascorbate calcium (vitamin C) 500 mg tablet 500 mg PO DAILY SUPPLEMENT 08/21/20 spironolactone 25 mg tablet 12.5 mg (1/2 x 25 mg) PO DAILY BP #45 tabs 05/06/23 amlodipine 5 mg tablet 5 mg PO DAILY BP #90 tabs 08/06/23 multivitamin,zy-kiuv-iqvjmheq 27 mg-0.4 mg tablet 1 tab PO DAILY vitamin 10/24/23 atenolol 50 mg tablet 50 mg PO DAILY BP #90 tabs 01/12/24 gabapentin 100 mg capsule 200 mg (2 x 100 mg) PO BID@0800,1500 nerve pain 3 months #360 caps 01/12/24 pantoprazole 40 mg tablet,delayed release 40 mg PO DAILY GERD #90 tabs 01/12/24 cyanocobalamin (vitamin B-12) 500 mcg tablet (Vitamin B-12) 500 mcg PO DAILY SUPPLEMENT 01/15/24 folic acid 1 mg tablet 1 mg PO DAILY SUPPLEMENT 01/15/24 naproxen sodium 220 mg tablet (Aleve) 220 mg PO BID PRN pain 01/15/24 pramipexole 0.5 mg tablet 0.25 mg PO 1500 RESTLESS LEGS 01/15/24 pramipexole 0.5 mg tablet 0.5 mg PO QHS RESTLESS LEGS 01/15/24 acetaminophen 500 mg tablet 1,000 mg (2 x 500 mg) PO TID 14 days #84 tabs 01/30/24 aspirin 81 mg chewable tablet 81 mg PO BIDCM 13 days #26 tabs 01/30/24 losartan 50 mg tablet 50 mg PO DAILY #0 tabs 01/30/24 tramadol 50 mg tablet 50 - 100 mg (1 - 2 x 50 mg) PO Q6H PRN PRN as needed for pain 7 days #30 tabs 01/30/24 Hospital Course Summary of Care Provided Hospital Course: Patient is a 83-year-old female who has had ongoing pain for over 2 years with the right shoulder. She is right-hand dominant. Her pain has been increased with activities that affected her daily living. She is getting catching in the shoulder. She had difficulty with lifting. After failing conservative measures, the patient opted to proceed with a right reverse total shoulder arthroplasty. The patient underwent the above-stated procedure on January 28, 2024. Patient did receive perioperative antibiotics. Intraoperatively was uneventful. For details please see dictated operative note. The patient was placed in thigh-high teds, bilateral SCDs, remained stable in recovery. Patient was admitted to the 3rd floor at [facility]. The patient's pain was managed with the use of IV and p.o. pain medications. Patient participated in physical therapy. Patient was having some hyponatremia postoperatively but does have some chronic hyponatremia. Hospitalist recommended decreasing the losartan to 50 mg daily and repeat lab work in 2 days. We will also continue to use Tylenol and naproxen primarily for pain control. Only use the tramadol for breakthrough pain as she does have some age- related cognitive decline. Patient was discharged on postoperative day # 2 to [facility] inpatient rehabilitation. Patient was given medications stated below. Patient will follow up with [facility] per postop instructions for reassessment. Weight / BMI Weight Weight: 77.564 kg Body Mass Index (BMI) 30.2 ABG / Lab / Microbiology Data 01/30/24 06:22 01/30/24 06:22 Laboratory: Laboratory Results - last 24 hr 01/30/24 06:22: WBC 11.0, RBC 4.69, Hgb 14.2, Hct 43.8, MCV 93.4, MCH 30.3, MCHC 32.4, RDW Std Deviation 44.9 H, RDW Coeff of Triston 13.2, Plt Count 217, MPV 10.5, Sodium 130 L, Potassium 4.4, Chloride 101, Carbon Dioxide 21.0, Anion Gap 8, BUN 21 H, Creatinine 0.73, Estim Creat Clear Calc 50.70, Est GFR (MDRD) Af Amer 97, Est GFR (MDRD) Non-Af 80, BUN/Creatinine Ratio 28.7 H, Glucose 83, Calcium 10.0 Microbiology: Microbiology 01/16/24 11:29 Swab (Method) Nasal Screen MRSA/MSSA - Final D/C Instructions Discharge Diet: No restrictions May shower in (days): 1 (Dressing must be intact to skin. Turn dressing away from water.) Ice area for (Minutes): 20 (Every 1-2 hours while awake. Please place barrier between skin and ice pack.) Weight Bearing Status: No weight bearing (Postoperative upper extremity) Additional Activity Instructions: Continue with UltraSling at all times. Please come out of UltraSling 3 times daily working on elbow range of motion and pendulum exercises. No range of motion of postoperative shoulder until first physical therapy appointment 2 weeks postoperatively. Will begin outpatient physical therapy after 2-week scheduled follow-up. Call your doctor if your incision/area has: Continuous Slow Oozing, Sudden Increased Bleeding, Increased Pain/ Swelling, Increased Redness and Foul Smelling Discharge Call your doctor if you observe: Fever of 101 or Higher, Shortness of breath, Chest pain and Uncontrolled pain Additional Dressing/Incision Instructions: Follow [facility] Post-op Instructions. Continue ORIN hose 2 weeks postoperatively. Can take off at nighttime but must be reapplied during the day. Okay to shower with Mepilex dressing over the incision. Once postoperative dressing has been removed only use gentle soap and water over the incision. Do not use any ointments, Neosporin, salves, alcohol pads over the incision for 6 weeks postoperatively. Do not submerge underwater for 6 weeks postoperatively. Do NOT use alcohol with narcotic pain medication. Do NOT make important decisions while taking narcotic medication. If you have problems with taking your medication (rash, itching, nausea, etc.) call the office at once. Meaningful Use Info Meaningful Use Meaningful Use Diagnoses (Choose all that apply): None applicable Ischemic Stroke Statin Dosing Therapy Reference: STATIN DOSE THERAPY REFERENCE: * Patients > 75 years receive moderate or high dose statin therapy. * Patients 75 years or YOUNGER should receive HIGH intensity statin dose unless contraindicated. You will be required to document reason for non-treatment if statin daily dose does not meet guidelines. HIGH DOSE STATIN THERAPY DAILY Atorvastatin > than or = to 40 mg Rosuvastatin > than or = to 20 mg Amlodipine + Atorvastatin > than or = to 2.5/40 mg Ezetimibe + Simvastatin 10/80 mg Simvastatin 80mg Discharge Plan Admission Admit Date/Time: 01/28/24 07:12 Attending Provider: Eduar Gutierrez Primary Care Provider: Chika Alas Consulting Providers: Grant Vail; Justice Calvillo; Irena Gonzalez; Joe Mcdonald; Adan Drake; Nirav Marmolejo Discharge Orders/Prescriptions Prescriptions: New losartan 50 mg Tablet 50 mg PO DAILY Qty: 0 0RF tramadol 50 mg Tablet 50 - 100 mg PO Q6H PRN PRN (Reason: as needed for pain) 7 Days Qty: 30 0RF acetaminophen 500 mg Tablet 1,000 mg PO TID 14 Days Qty: 84 0RF Rx Instructions: Do not take more than 3000 mg Tylenol in a 24-hour period. aspirin 81 mg Tablet,Chewable 81 mg PO BIDCM 13 Days Qty: 26 0RF Rx Instructions: Take 81 mg aspirin twice daily for 2 weeks postoperatively for DVT prophylaxis. Continued ascorbate calcium (vitamin C) 500 mg tablet 500 mg PO DAILY atenolol 50 mg tablet 50 mg PO DAILY Qty: 90 3RF pantoprazole 40 mg tablet,delayed release (DR/EC) 40 mg PO DAILY Qty: 90 3RF gabapentin 100 mg capsule 200 mg PO BID@0800,1500 90 Days Qty: 360 3RF temazepam 15 MG capsule 15 mg PO QHS PRN PRN (Reason: Sleep) multivitamin,ky-bocq-zzokgyke 27-0.4 mg tablet 1 tab PO DAILY pramipexole 0.5 mg tablet 0.25 mg PO 1500 naproxen sodium [Aleve] 220 mg tablet 220 mg PO BID PRN (Reason: pain) folic acid 1 mg tablet 1 mg PO DAILY cyanocobalamin (vitamin B-12) [Vitamin B-12] 500 mcg tablet 500 mcg PO DAILY pramipexole 0.5 mg tablet 0.5 mg PO QHS spironolactone 25 mg tablet 12.5 mg PO DAILY Qty: 45 3RF amlodipine 5 mg tablet 5 mg PO DAILY Qty: 90 3RF Discontinued losartan 100 mg tablet 100 mg PO DAILY Qty: 90 3RF No Action cholecalciferol (vitamin D3) 1,000 UNIT tablet 1,000 unit PO DAILY (DME) disability placard See Rx Instructions .ROUTE .MEDSUPPLY Qty: 1 0RF Rx Instructions: As directed, Length of time: 5 years Other Ambulatory Orders: Basic Metabolic Profile (BMP) (Routine) Timeframe: 2 Days Facility: [facility] - Location: Laboratory Ordered By: Sabino PARRY Referrals / Follow Up: Chika Alas MD [Primary Care Provider] - Sabino Andersen PA-C [Med Staff - Adv Practice Prof] - 02/12/24 10:00 am Disposition Disposition (needs filled in before D/C Order can be placed): Inpatient Rehab Unit/Facility
[2024-01-30] MEDS: Pramipexole Di-HCl 0.25 MG Tablet PO (14:16)
--- NOTE | 2024-01-30 14:20 | PCM.PN.HOSP ---
Reason for Visit Reason for Visit: Diagnoses Hypo-osmolality and hyponatremia (01/28/24) Essential (primary) hypertension (01/28/24) Encounter for other preprocedural examination (01/28/24) Presence of right artificial shoulder joint (01/28/24) Objective Data Objective Data Vital Signs: Vital Signs Temp Pulse Resp BP Pulse Ox O2 Del Method O2 Flow Rate 97.8 F 98 18 123/93 H 96 Room Air 4 01/30/24 08:53 01/30/24 08:53 01/30/24 08:53 01/30/24 08:53 01/30/24 08:53 01/30/24 08:55 01/28/24 12:15 FiO2 36 01/28/24 12:15 Oxygen Flow Rate (L/min) 4 Oxygen Delivery Method Room Air Weight: 171 lb Body Mass Index (BMI) 30.2 Intake & Output: Intake and Output for Last 24 Hours 01/28/24 01/29/24 01/30/24 23:59 23:59 23:59 Intake Total 2880 / 2880 1948 / 2448 800 / 800 Balance 2880 / 2880 1948 / 2448 800 / 800 Lab / Micro Data 01/30/24 06:22 01/30/24 06:22 Labs: Laboratory Results - last 24 hr 01/30/24 06:22: WBC 11.0, RBC 4.69, Hgb 14.2, Hct 43.8, MCV 93.4, MCH 30.3, MCHC 32.4, RDW Std Deviation 44.9 H, RDW Coeff of Triston 13.2, Plt Count 217, MPV 10.5, Sodium 130 L, Potassium 4.4, Chloride 101, Carbon Dioxide 21.0, Anion Gap 8, BUN 21 H, Creatinine 0.73, Estim Creat Clear Calc 50.70, Est GFR (MDRD) Af Amer 97, Est GFR (MDRD) Non-Af 80, BUN/Creatinine Ratio 28.7 H, Glucose 83, Calcium 10.0 Micro: Microbiology 01/16/24 11:29 Swab (Method) Nasal Screen MRSA/MSSA - Final Physical Exam Narrative Seen and examined. Patient had right shoulder surgery done. Denies any acute issues. Going for rehab. Physical exam General: Alert, Oriented x3, Cooperative HEENT: Atraumatic, PERRLA, EOMI, Normocephalic Oral: No Gingival or Mucosal Lesions/ Ulcerations Neck: Supple, No JVD, Negative Carotid Bruits Chest wall/Lungs: Air entry diminished in bilateral lung bases. No crepitation/rhonchi Cardiovascular: Regular rate, Regular Rhythm, Normal S1, Normal S2, No M/G/R Abdomen: Bowel Sounds Present, Soft, Non Tender, Non-Distended : No dysuria. No renal angle tenderness. No suprapubic tenderness. Extremities: No edema, Capillary Refill Less than 3 Seconds Skin: No rashes, No breakdown Musculoskeletal: Right shoulder anterior surgical dressing is dry. No bruise or surrounding hematoma. No Tenderness to Palpation of other joints or Extremities Neurological: Cranial nerves II-XII grossly intact, DTR 2+/4. No acute focal neurological deficit. Psych/Mental Status: Normal Affect, Appropriate. Assessment & Plan Assessment/Plan (1) HTN (hypertension): PLAN: Plan Patient is an 83-year-old lady who underwent reverse total right shoulder replacement by Dr. Drake on 01/26/2024. The service was consulted to assist with management of patient medical comorbidities 1. Status post reverse right total shoulder replacement ? On account of right shoulder osteoarthritis. Procedure was performed by Dr. Drake on 01/28/2024. Postoperative pain is controlled. DVT prophylaxis as per discretion of orthopedic surgeon. Patient is being discharged to TCU 2. Essential benign hypertension ? Patient blood pressure control remains optimal she is on amlodipine as well as atenolol continued. Patient is not on any blood pressure is in the 1 teens to low 120s therefore advised to decrease losartan to 50 mg daily. 3. Restless leg syndrome ?On pramipexole 4. Mild chronic hypotonic isovolemic hyponatremia:Serum sodium was 135 and 131 130 today. Patient denies headache change in mental status or having signs and symptoms of hypovolemia or dehydration. Hyponatremia may be due to losartan And/or his spironolactone. Advised serum sodium in 3 days in TCU and if that still low can consult extractor tender raw stock. DVT prophylaxis ? Deferred to primary Patient is medically and hemodynamically in baseline status to be discharged to TCU Charges/Coding Visit Charges Inpatient E&M: 36814 Subs Hosp L2
[2024-01-30 14:53] VITALS: BP 120/62; PULSE 72; RESP 16; TEMP 36.6; O2SAT 98
--- NOTE | 2024-01-30 15:00 | CASEMGMT ---
Social Work- Discharge instructions and med list faxed to TCU. SW called TCU to verify pt readiness for d/c, as physician states that pt is medically ready for d/c. SW met with pt and they are agreeable to discharge plan as stated above.? Pt daughter Zoey and bedside nurse notified of discharge. SANDRO Umana
== END 2024-01-30 17:58 | disposition skilled nursing facility (03) ==
LOC: SDC 13:07 → MS3 13:07
PROVIDERS: Anesthesiology; Physician Assistant Surgical; Admitting Provider Specialist; PCP Internal Medicine; Referring Provider Specialist; Visit Provider Internal Medicine
PROC: (CPT 23472; principal; 2024-01-28 08:15)
DX: M19.011 Primary osteoarthritis, right shoulder (principal); K51.90 Ulcerative colitis, unspecified, without complications; K21.9 Gastro-esophageal reflux disease without esophagitis; E66.9 Obesity, unspecified; Z68.31 Body mass index [BMI] 31.0-31.9, adult; E87.1 Hypo-osmolality and hyponatremia; I10 Essential (primary) hypertension; G25.81 Restless legs syndrome; M75.101 Unspecified rotator cuff tear or rupture of right shoulder, not specified as traumatic; Z86.2 Personal history of diseases of the blood and blood-forming organs and certain disorders involving the immune mechanism; Z79.899 Other long term (current) drug therapy
CPT/HCPCS: 23472; 01638; 36415; 73030; 80048; 80053; 80076; 82040; 82248; 82962; 83735; 85025; 85027; 85610; 85730; 87081; 88305; 88311; 94668; 97110; 97162; 97166; 97530; 99252; J7050; J7120; G0463; J2405

== ENCOUNTER 2024-01-30 18:04 | Inpatient (IN) | payer MEDICARE, OTHER, SELFPAY ==
[2024-01-30 18:19] VITALS: BP 120/63; PULSE 69; RESP 18; TEMP 36.2; O2SAT 96
[2024-01-30 18:20] VITALS: BMI 31.7
--- NOTE | 2024-01-30 18:41 | PCM.HP.STD ---
HPI - General General Date of Admission: 01/30/24 Date of Service: 01/30/24 Chief Complaint: Debility due to R reverse shoulder HPI Narrative FRANCIA FLOWERS, is a 83 YO F with a past medical history of osteoarthritis, hypertension, restless leg syndrome, Ruiz's esophagus, presbycusis, ulcerative colitis (this is unclear to me.....the PMH in 1 document says UC and in another place it says collagenous colitis), GERD and chronic anemia who was admitted to [facility] on 01/28/2024 for a right reverse shoulder replacement with Dr. Drake. She had no significant postoperative complications. She was transferred to the acute inpatient rehab unit at [facility] on 01/30/2024 for 3 hours of therapy daily to restore function/independence at or near her level prior to recent surgery. The right upper extremity is in a sling and she is nonweightbearing on that extremity. She lives alone with her supervisor steno pool. She ambulates without a device in her house but uses a cane when she is out and about. She still drives. All lab drawn this morning was personally reviewed. Hemoglobin is 14.2 which is up from 12.1 on 01/29/2024. White blood cell count is 11. Platelets are normal at 217,000. Sodium is low at 130. Sodium has been low intermittently over the past few years. The BUN is 21 with a creatinine of 0.73 which is within her baseline. The BUNs/creatinine ratio is elevated at 28.7 and her mucous membranes are dry. LFTs were normal on 01/16/2024. Magnesium was 1.9. Medication list was reviewed. She is on aspirin 81 mg twice daily for the next 2 weeks for DVT prophylaxis. She has tramadol ordered as needed for pain however she tells me that her pain is adequately controlled with Tylenol. I reviewed Dr. Alas's last office note and her past medical history list collagenous colitis. I reviewed a note from Dr. Guidry but also says she has collagenous colitis. She has been treated with budesonide 9 mg in the past with improvement. [facility] Medical History (Updated 01/31/24 @ 10:[address] Victorina Galvan, DO) Wears hearing aid Wears dentures Post-menopausal Depression Alcohol use Ambulates with cane Arthritis Easy bruising Restless legs Spinal stenosis Back pain Barretts esophagus Gastric reflux Non-smoker Leg cramps History of edema History of stress test Preoperative evaluation to rule out surgical contraindication Age-related cognitive decline Urinary tract infection with hematuria Clostridium difficile infection Shoulder pain Insomnia Collagenous colitis Flu vaccine need Psoriasis of scalp Shingles Dermatitis Heart murmur Cataracts, bilateral Seasonal allergies Carpal tunnel syndrome Normochromic normocytic anemia Hyponatremia Intractable back pain Radicular pain of right lower extremity Debility Osteoarthritis Hypertension Restless leg syndrome Lumbar spinal stenosis Home Medications ?Medication ?Instructions ?Recorded ?Last Taken ?Type cholecalciferol (vitamin D3) 25 1,000 unit PO DAILY SUPPLEMENT 11/21/17 09/06/18 History mcg (1,000 unit) tablet temazepam 15 mg capsule 15 mg PO QHS PRN PRN Sleep 11/21/17 09/05/18 History disability placard #1 ea 08/18/20 Unknown Rx ascorbate calcium (vitamin C) 500 500 mg PO DAILY SUPPLEMENT 08/21/20 Unknown History mg tablet spironolactone 25 mg tablet 12.5 mg (1/2 x 25 mg) PO DAILY BP 05/06/23 Unknown Rx #45 tabs amlodipine 5 mg tablet 5 mg PO DAILY BP #90 tabs 08/06/23 01/28/24 04:00 Rx multivitamin,bx-[id number] 27 1 tab PO DAILY vitamin 10/24/23 Unknown History mg-0.4 mg tablet atenolol 50 mg tablet 50 mg PO DAILY BP #90 tabs 01/12/24 01/28/24 04:00 Rx gabapentin 100 mg capsule 200 mg (2 x 100 mg) PO 01/12/24 Unknown Rx BID@0800,1500 nerve pain 3 months #360 caps pantoprazole 40 mg tablet,delayed 40 mg PO DAILY GERD #90 tabs 01/12/24 01/28/24 04:00 Rx release cyanocobalamin (vitamin B-12) 500 500 mcg PO DAILY SUPPLEMENT 01/15/24 Unknown History mcg tablet (Vitamin B-12) folic acid 1 mg tablet 1 mg PO DAILY SUPPLEMENT 01/15/24 Unknown History naproxen sodium 220 mg tablet 220 mg PO BID PRN pain 01/15/24 Unknown History (Aleve) pramipexole 0.5 mg tablet 0.25 mg PO 1500 RESTLESS LEGS 01/15/24 Unknown History pramipexole 0.5 mg tablet 0.5 mg PO QHS RESTLESS LEGS 01/15/24 Unknown History acetaminophen 500 mg tablet 1,000 mg (2 x 500 mg) PO TID pain 01/30/24 Unknown Rx 14 days #84 tabs aspirin 81 mg chewable tablet 81 mg PO BIDCM dvt prophylaxis 13 01/30/24 Unknown Rx days #26 tabs losartan 50 mg tablet 50 mg PO DAILY bp #0 tabs 01/30/24 Unknown Rx tramadol 50 mg tablet 50 - 100 mg (1 - 2 x 50 mg) PO Q6H 01/30/24 Unknown Rx PRN PRN as needed for pain 7 days #30 tabs Allergy/AdvReac Type Severity Reaction Status Date / Time influenza virus vaccine ts Allergy Severe Swelling Verified 01/28/24 06:40 (From Fluarix) hydrochlorothiazide Allergy Hives Verified 01/28/24 06:40 irbesartan Allergy Hives Verified 01/28/24 06:40 meloxicam Allergy Swelling Verified 01/28/24 06:40 monosodium glutamate Allergy Shortness Verified 01/28/24 06:40 of breath triamterene Allergy Hives Verified 01/28/24 06:40 perfume AdvReac breathing Verified 01/28/24 06:40 it in gets itch venom-honey bee (bee venom AdvReac Anaphylaxis Verified 01/28/24 06:40 (honey bee)) Family History Mother Hypertension Colon cancer Father Colon cancer Sister Colon cancer Surgical History Status post reverse total arthroplasty of right shoulder Hx of total knee arthroplasty Hx of total hip arthroplasty History of carpal tunnel surgery of right wrist History of carpal tunnel surgery of left wrist Hx of hysterectomy Hx of right cataract extraction Hx of left cataract extraction Hx of esophagogastroduodenoscopy Hx of colonoscopy History of total bilateral knee replacement History of hip replacement Hx of total shoulder replacement History of back surgery Status post lumbar spine surgery for decompression of spinal cord Social History household members: none housing: house pets and animals: Yes pets and animals: dog(s) Smoking Status: Never smoker second hand exposure: No alcohol intake: current alcohol intake frequency: holidays/special occasions only substance use type: does not use caffeine: Yes what type of physical activity do you participate in: none ROS Constitutional Constitutional: Denies anorexia, change in weight, chills, fatigue, fever(s), night sweats or weakness Eyes Eyes: Denies blurry vision, change in vision, eye pain or loss of vision ENT HEENT: Denies abnormal hearing, dysphagia, headache(s), hearing loss, nasal congestion or sore throat Cardiovascular Cardiovascular: Denies chest pain, dyspnea on exertion, edema, lightheadedness, orthopnea, palpitations, paroxysmal nocturnal dyspnea or syncope Respiratory/Chest Respiratory/Chest: Denies cough, dyspnea, shortness of breath at rest, shortness of breath with exertion or wheezing Gastrointestinal Gastrointestinal: Denies abdominal pain, constipation, diarrhea, dyspepsia, hematemesis, hematochezia, nausea or vomiting Genitourinary Genitourinary: Reports urinary incontinence and urinary urgency; Denies dysuria, hematuria, nocturia, urinary frequency or urinary hesitancy Musculoskeletal Musculoskeletal: Reports joint pain; Denies back pain, joint swelling or neck pain Neurologic Neurologic: Denies confusion, disequilibrium, dizziness, focal weakness, headache(s), paresthesias, seizures or tremor(s) Psychiatric Psychiatric: Denies anxiety, depression, homicidal ideation or suicidal ideation Endocrine Endocrinology: Denies change in body appearance, polydipsia or polyuria Hematologic/Lymphatic Hematologic/Lymphatic: Reports easy bleeding and easy bruising; Denies lymphadenopathy Allergic/Immunologic Allergic/Immunologic: Denies rhinitis, eczemia or asthma Vital Signs Vital Signs Vital Signs: 01/30/24 18:19 Temperature 97.2 F L Temperature Source Oral Pulse Rate 69 Respiratory Rate 18 Blood Pressure 120/63 Blood Pressure Mean 82 Blood Pressure Source Monitor Blood Pressure Position Sitting Blood Pressure Location Right Arm Pulse Ox 96 Oxygen Delivery Method Room Air Weight Weight: 179 lb 5 oz Body Mass Index (BMI) 31.7 Physical Exam Const alert, oriented x3 and no apparent distress Constitutional Narrative: Appears comfortable. Right upper extremity is in a sling. General Appearance: cooperative, well kempt and well developed HEENT head/scalp atraumatic HEENT Narrative: Has difficulty hearing. Mucous membranes are dry. No evidence of thrush. Eyes PERRL, EOMs intact bilaterally, conjunctivae normal and no scleral icterus Eyes Narrative: No discharge from the eyes and no mattering of the eyelashes. General Eye: normal appearance of both eyes Neck supple and No nodes Chest Chest: symmetrical chest wall rise Resp normal respiratory effort, no use of accessory muscles and clear to auscultation bilaterally Effort and Inspection: able to speak in complete sentences Cardio regular rate, regular rhythm, no rub and no gallops Cardio Narrative: No ectopy. She has a soft systolic murmur at the second right intercostal space. GI normal to inspection, nondistended, normoactive bowel sounds, soft to palpation and non-tender GI Narrative: No guarding with palpation Extremity no calf tenderness and no pedal edema Extremity Narrative: Dry skin over the distal lower extremities. Pedal pulses are intact but mildly diminished. Radial pulses are 2+ bilaterally Skin no jaundice Rashes: no rashes Neuro oriented x3 and CN's II-XII intact bilaterally Psych thought process normal, cooperative, affect normal, speech normal, denies hallucinations and denies suicidal ideation Psych Narrative: Impulsive with poor safety awareness. Appearance: grossly normal, appropriate and well kempt Attitude: calm and engaged Activity / Motor Behavior: appropriate eye contact Attention / Concentration: attention grossly intact Insight: fair Results Lab / Micro Data 01/31/24 07:30 01/31/24 07:30 Assessment & Plan Assessment/Plan (1) Debility: (2) Shoulder pain: QUALIFIERS: Chronicity: chronic Laterality: right Qualified Code(s): M25.511 - Pain in right shoulder; G89.29 - Other chronic pain (3) Status post reverse total arthroplasty of right shoulder: (4) Hyponatremia: (5) Impulsiveness: (6) Hypophosphatemia: PLAN: Plan PLAN PT for gait stability OT for ADL's ST for evaluation Analgesics as needed Bowel protocol Fall precautions Assess for Anxiety/Depression GI prophylaxis -pantoprazole DVT prophylaxis with ASA 81 mg twice daily x 2 weeks per orthopedics. Denies history of VTE in the past. Follow up with Dr. Drake and Dr. Alas following DC from Rehab AM lab ordered. Etiology of hyponatremia? Both pantoprazole and Cozaar can cause hyponatremia. Will check a TSH, urine sodium, urine osmolality and serum osmolality. Intake and output are being recorded. Change tramadol to 50 mg p.o. every 6 hours as needed pain 4-[address] due to impulsivity and poor safety awareness and attempts by the patient to get up without assistance. Charges/Coding Visit Charges Inpatient E&M: 64562 Init Hosp L2
[2024-01-30 20:00] VITALS: BP 120/75; PULSE 66; RESP 18; TEMP 36.1; O2SAT 96
[2024-01-30] MEDS: traMADol 50 MG Tablet PO (21:02)
[2024-01-30] MEDS: Acetaminophen 500 MG Tablet 1000 MG PO (21:03)
[2024-01-30] MEDS: Pramipexole Di-HCl 0.5 MG Tablet PO (21:04)
[2024-01-31] MEDS: Acetaminophen 500 MG Tablet 1000 MG PO ×3 (05:12→21:11)
[2024-01-31 08:00] VITALS: BP 137/80; PULSE 76; RESP 18; TEMP 36.2; O2SAT 99
[2024-01-31 08:02] LABS: Hematocrit 39.4 % (37-47); Hemoglobin 13.1 g/dL (12.0-15.0); Mean Corp Hgb Conc 33.2 g/dL (32-36); Mean Corpuscular Hgb 31.1 pg (27.0-32.0); Mean Corpuscular Volume 93.6 fL (81-99); Mean Platelet Vol. 10.4 fl (6.2-12.0); Platelet Count 217 K/mm3 (150-450); RBC Distribution Width CV 13.2 % (11.6-14.6); RBC Distribution Width SD 45.4 fl (35.1-43.9); Red Blood Count 4.21 M/mm3 (4.2-5.4); White Blood Count 8.1 K/mm3 (4.4-11.0)
[2024-01-31 08:15] LABS: ALB/GLOB Ratio 1.1 RATIO (0.9-2.4); AST(SGOT) 21 U/L (15-37); Alanine Aminotransfer ALT/SGPT 16 U/L (13-56); Albumin, Serum 3.4 g/dL (3.2-5.0); Alkaline Phosphatase 84 U/L (45-117); Anion Gap 7 (5-15); BUN 17 mg/dL (7-18); BUN/Creat Ratio 24.6 RATIO (10-20); Calcium,Total 9.7 mg/dL (8.5-10.1); Chloride 102 mmol/L (98-107); Creatinine, Serum 0.69 mg/dL (0.55-1.02); EST Glomerular Filtration Rate 86 mL/min (>60); Est Glom Filt Rate - Afr Amer 103 mL/min (>60); Estimated Creatinine Clearance 51.92 ml/min; Globulin 3.2 g/dL (2.2-4.2); Glucose 90 mg/dL (74-106); Magnesium 1.9 mg/dL (1.6-2.6); Phosphorus 2.4 mg/dL (2.5-4.9); Potassium 4.2 mmol/L (3.5-5.1); Protein, Total 6.6 g/dL (6.4-8.2); Sodium Level 133 mmol/L (136-145)
[2024-01-31] MEDS: Gabapentin 100 MG Capsule 200 MG PO ×2 (08:33→14:16)
[2024-01-31] MEDS: Aspirin 81 MG TAB.CHEW PO ×2 (08:33→16:35)
[2024-01-31] MEDS: Pantoprazole Sodium 40 MG Tablet PO (08:34)
[2024-01-31] MEDS: Ascorbic Acid 500 MG Tablet PO (08:34)
[2024-01-31] MEDS: Folic Acid 1 MG Tablet PO (08:34)
[2024-01-31] MEDS: amLODIPine 5 MG Tablet PO (08:34)
[2024-01-31] MEDS: Atenolol 50 MG Tablet PO (08:35)
[2024-01-31] MEDS: Spironolactone 25 MG Tablet 12.5 MG PO (08:35)
[2024-01-31] MEDS: Cyanocobalamin 500 MCG Tablet PO (08:39)
[2024-01-31] MEDS: Losartan Potassium 50 MG Tablet PO (08:39)
[2024-01-31] MEDS: Cholecalciferol (VIT D3) 25 MCG TABLET (1,000 UNITS) PO (08:40)
[2024-01-31] MEDS: Multivitamins,Ther W-Minerals Tablet 1 TABLET PO (08:41)
--- NOTE | 2024-01-31 10:23 | REHABEVAL_ITS ---
Admission Information Primary Diagnosis:: Debility secondary to right reverse shoulder replacement Status Changes from Prescreening?: No changes Identified Actual Problem List:: Skin Intergrity, Pain, ALteration in Cmfrt, Depression, Bladder Incontinence, Mobility Impaired, Self Care Deficit, Fluid Change- Dehydration and Alteration-Leisure Activ. Potential Problem List:: DVT, Bleeding, Infection, UTI, Aspiration, Falls, Skin Integrity and Depression Risk of Complications DVT: ORIN Hose and - (Aspirin 81 mg p.o. twice daily) Bleeding: Monitor Lab Values, Nursing to Teach Precautions for anti-coagulation therapy., Wound, if applicable, to be assessed every shift. and Stroke patients assessed for lethargy or change in status. Infection: Clinical Staff to Monitor for S/S of infection: and S/S of infection include fever, redness, warmth, etc. Urinary Tract Infection: Monitor for frequency, burning, discomfort, or incontinence. and Nursing will obtain urine sample for urinalysis and C&S when ordered. Aspiration: Clinical staff will monitor for coughing, drooling, congestion., Speech will evaluate swallowing and dsyphasia. and Nursing will monitor patient swallowing during meals. Falls: Patient will be evaluated for Fall Precautions and Patient will be placed on Fall Precautions as indicated per protocol. Skin Breakdown: Nursing will assess skin daily using assessment tool. and Nursing will place on Skin Breakdown Precautions as indicated. Pain: Clinical staff will assess patient's pain level per protocol., Medications will be given, if needed, and the pain level reassessed. and Other methods: Massage, distraction, decrease stimulus, etc. used PRN. Plan of Care Patient requires physician specializing in physical medicine and rehab oversight to provide close medical supervision of rehab issues including: Pain Management, Sleep Problems, Bowel and Bladder, Medical and co-morbidity Management, DVT prophylaxis, Rehabilitation Leadership and Coordination of treatment team Patient needs Physical Therapy: For a minimum of 1 hour and At least 5 out of 7 days Patient needs Physical Therapy to improve:: Mobility, Strengthening, Transfers, Stretching, ROM, Endurance, Stairs, Gait and Balance Patient needs Occupational Therapy: For a minimum of 1 hour and At least 5 out of 7 days Patient needs Occupational Therapy to improve ADL's incl.: Eating, Grooming, Bathing, Dressing, Toileting, Toilet transfers, Community Reintegration, Higher functioning activities, Household tasks, Adaptive Equipment, Splinting and Other activities as determined Patient requires 24/7 Rehabilitation Nursing for: Pain Issues, Identifying and preventing risk factors, Monitoring and reporting current medical conditions, Assisting with ambulation, transfer, and all ADL's, Teaching patients about disease process and medications, Family teaching, Providing safe environment, Bowel and Bladder Issues, Skin integrity and Medication Management Patient needs Manager Support Services/ Case Management for: Discharge Planning, Arranging Home Equipment or Services and Family Interventions Patient needs Dietary and Nutrition Services for: Adequate Nutrition, Nutritional Supplements and Nutritional Education Goals Goals Patient will remain: free from falls Patient will perform eating at: MOD I level of assist. Patient will perform bed mobility at: MOD I level of assist. Patient will complete transfers from bed to chair at: MOD I level of assist. Patient will ambulate: - (500 feet on various surfaces at mod I with a single- point cane) Patient will complete toilet transfer at: MOD I level of assist. Patient will complete toileting at: MOD I level of assist. Patient will perform bathing at: MOD I level of assist. Patient will perform Tub/Shower transfer at: - (Supervision for at least 2 weeks post discharge from acute rehab) Patient will complete grooming at: MOD I level of assist. Patient will complete home management skills at: MOD I level of assist. Patient will achieve: - (3 steps at mod I with unilateral handrail to be able to enter her home) Patient will have pain level of: of 3 or less Patient's skin will: remain intact Patient will receive: adequate nutrition. Discharge Planning Estimated Length of stay (days): 28 Anticipated D/C Destination: Home with Home Health Was Preadmission Assessment Accurate?: Yes
[2024-01-31 10:34] LABS: Osmolality, Serum 294 mOsm/KG (280-301)
[2024-01-31 11:17] LABS: Bacteria 0 SEEN /hpf (None Seen); Mucous, Urine 0 SEEN /hpf (<or=2+); Red Blood Cells-Urine 0 SEEN /hpf (0-5); Squamous Epithelial Cells - UA 0 SEEN /hpf (5-10); White Blood Cells 0 SEEN /hpf (0-5)
[2024-01-31 11:22] LABS: Color, Urine Yellow (Yellow); Glucose, Dipstick Normal (Normal); Ketone-Dipstick Negative (Negative); Leukocyte Esterase-Dipstick Negative /ul (Negative); Nitrite-Dipstick Negative (Negative); Occult Blood-Urine Negative /ul (Negative); Protein-Dipstick Negative (Negative); Urine Bilirubin Dipstick Negative (Negative); Urine Clarity Clear (Clear); Urine Urobilinogen Normal (Normal); Urine pH 6.5 (5.0 - 8.0)
[2024-01-31 11:24] LABS: Osmolality, Urine 271 mOsm/KG; Urine Sodium 36 mmol/L (Not Establ.)
[2024-01-31] MEDS: Na Biphos/Potassium Phosphate PACKET 1 PACKET PO ×2 (12:06→21:11)
[2024-01-31] MEDS: Pramipexole Di-HCl 0.25 MG Tablet PO (14:16)
[2024-01-31 19:34] VITALS: O2SAT 99
[2024-01-31 20:00] VITALS: BP 125/90; PULSE 77; RESP 17; TEMP 36.8; O2SAT 97
[2024-01-31] MEDS: Pramipexole Di-HCl 0.5 MG Tablet PO (21:11)
[2024-02-01] MEDS: Acetaminophen 500 MG Tablet 1000 MG PO ×3 (05:21→21:28)
[2024-02-01 07:00] VITALS: BP 118/72; PULSE 77; RESP 18; TEMP 36.7; O2SAT 97
[2024-02-01 07:36] VITALS: O2SAT 98
[2024-02-01] MEDS: Losartan Potassium 50 MG Tablet PO (07:51)
[2024-02-01] MEDS: Gabapentin 100 MG Capsule 200 MG PO ×2 (07:51→15:02)
[2024-02-01] MEDS: Cholecalciferol (VIT D3) 25 MCG TABLET (1,000 UNITS) PO (07:51)
[2024-02-01] MEDS: Cyanocobalamin 500 MCG Tablet PO (07:52)
[2024-02-01] MEDS: Ascorbic Acid 500 MG Tablet PO (07:52)
[2024-02-01] MEDS: Spironolactone 25 MG Tablet 12.5 MG PO (07:52)
[2024-02-01] MEDS: Pantoprazole Sodium 40 MG Tablet PO (07:52)
[2024-02-01] MEDS: Folic Acid 1 MG Tablet PO (07:52)
[2024-02-01] MEDS: Atenolol 50 MG Tablet PO (07:52)
[2024-02-01] MEDS: Aspirin 81 MG TAB.CHEW PO ×2 (07:53→18:04)
[2024-02-01] MEDS: amLODIPine 5 MG Tablet PO (07:53)
[2024-02-01] MEDS: Multivitamins,Ther W-Minerals Tablet 1 TABLET PO (07:54)
[2024-02-01] MEDS: Na Biphos/Potassium Phosphate PACKET 1 PACKET PO ×2 (07:54→21:28)
--- NOTE | 2024-02-01 12:00 | NURSING ---
Dr. Galvan aware of patient being upset that she is here on the Rehab floor and that she would like to go home. Per report, she has baseline confusion which has continued on and off here on the Rehab floor. Patient given TLC and care from nursing. Patient still needs some cues and reminders about safety awareness related to her recent injury and surgery to right shoulder. Will continue to monitor.
[2024-02-01] MEDS: Pramipexole Di-HCl 0.25 MG Tablet PO (15:02)
[2024-02-01] MEDS: Mirtazapine 15 MG Tablet 7.5 MG PO (21:26)
[2024-02-01] MEDS: Pramipexole Di-HCl 0.5 MG Tablet PO (21:27)
[2024-02-01 22:00] VITALS: BP 150/91; PULSE 70; RESP 18; TEMP 36.6; O2SAT 96
[2024-02-02] MEDS: Acetaminophen 500 MG Tablet 1000 MG PO ×3 (05:24→20:51)
[2024-02-02 06:34] VITALS: BMI 30.9
[2024-02-02 06:58] VITALS: O2SAT 97
[2024-02-02 07:36] VITALS: BP 135/83; PULSE 83; RESP 16; TEMP 36.3; O2SAT 99
[2024-02-02] MEDS: Cholecalciferol (VIT D3) 25 MCG TABLET (1,000 UNITS) PO (08:17)
[2024-02-02] MEDS: Pantoprazole Sodium 40 MG Tablet PO (08:17)
[2024-02-02] MEDS: Losartan Potassium 50 MG Tablet PO (08:17)
[2024-02-02] MEDS: Folic Acid 1 MG Tablet PO (08:17)
[2024-02-02] MEDS: Spironolactone 25 MG Tablet 12.5 MG PO (08:17)
[2024-02-02] MEDS: Multivitamins,Ther W-Minerals Tablet 1 TABLET PO (08:17)
[2024-02-02] MEDS: amLODIPine 5 MG Tablet PO (08:17)
[2024-02-02] MEDS: Cyanocobalamin 500 MCG Tablet PO (08:18)
[2024-02-02] MEDS: Na Biphos/Potassium Phosphate PACKET 1 PACKET PO ×2 (08:18→20:50)
[2024-02-02] MEDS: Aspirin 81 MG TAB.CHEW PO ×2 (08:18→17:26)
[2024-02-02] MEDS: Atenolol 50 MG Tablet PO (08:19)
[2024-02-02] MEDS: Ascorbic Acid 500 MG Tablet PO (08:19)
[2024-02-02] MEDS: Gabapentin 100 MG Capsule 200 MG PO ×2 (08:21→14:19)
[2024-02-02] MEDS: Pramipexole Di-HCl 0.25 MG Tablet PO (14:16)
[2024-02-02 19:27] VITALS: BP 148/73; PULSE 67; RESP 16; TEMP 36.7; O2SAT 97
[2024-02-02] MEDS: Pramipexole Di-HCl 0.5 MG Tablet PO (20:50)
[2024-02-02] MEDS: Mirtazapine 15 MG Tablet 7.5 MG PO (20:51)
[2024-02-02 21:00] VITALS: PULSE 67; RESP 16; O2SAT 97
[2024-02-03] MEDS: Acetaminophen 500 MG Tablet 1000 MG PO ×3 (05:51→21:40)
--- NOTE | 2024-02-03 07:02 | NURSING ---
RN applied TEDs after alerting pt of doctor order for TEDs. Shortly after leaving pt's room, pt called staff and PILE DRIVING SUPERVISOR was told by pt to remove TEDs. Pt claims she is TEDs are too hot for her.
[2024-02-03 07:04] VITALS: BP 157/77; PULSE 84; RESP 16; TEMP 36.3; O2SAT 97
[2024-02-03] MEDS: Senna/Docusate Sodium 1 Tablet 2 TABLET PO (08:19)
[2024-02-03] MEDS: Pantoprazole Sodium 40 MG Tablet PO (08:20)
[2024-02-03] MEDS: Losartan Potassium 50 MG Tablet PO (08:20)
[2024-02-03] MEDS: amLODIPine 5 MG Tablet PO ×2 (08:20→11:57)
[2024-02-03] MEDS: Atenolol 50 MG Tablet PO (08:20)
[2024-02-03] MEDS: Cyanocobalamin 500 MCG Tablet PO (08:20)
[2024-02-03] MEDS: Aspirin 81 MG TAB.CHEW PO ×2 (08:20→16:56)
[2024-02-03] MEDS: Spironolactone 25 MG Tablet 12.5 MG PO (08:20)
[2024-02-03] MEDS: Multivitamins,Ther W-Minerals Tablet 1 TABLET PO (08:20)
[2024-02-03] MEDS: Ascorbic Acid 500 MG Tablet PO (08:20)
[2024-02-03] MEDS: Folic Acid 1 MG Tablet PO (08:20)
[2024-02-03] MEDS: Cholecalciferol (VIT D3) 25 MCG TABLET (1,000 UNITS) PO (08:20)
[2024-02-03] MEDS: Gabapentin 100 MG Capsule 200 MG PO ×2 (08:24→14:58)
--- NOTE | 2024-02-03 10:38 | PN_ITS ---
Subjective Subjective Afebrile VSS -over the past 24 hours the blood pressure has ranged from 135/83 to 150/91. Heart rate is within normal limits. Maintaining appropriate oxygen saturation on RA-96 to 98% Oral intake - FOOD good FLUIDS good Discussed with nursing -she is refusing to wear ORIN hose. She has been difficult for nursing to deal with. short term memory is poor. She tells everyone who walks in her room that she was told she would only be in the hospital 1 night and she is still in the hospital. She can not remember that she has been told numerous times that she was only in the acute hospital for 1 night and now she is in rehab for strengthening/rehabilitation prior to returning home. She lives alone and has a dog. Will need to have good balance prior to DC home alone. She also complains repeatedly that no one has given her a menu and she is not getting want she wants from the kitchen. Someone from the kitchen sat with her in her room and filled out a menu with her for a few days and she has no recall of this. She was complaint with the call light last night. Nursing tells me she slept well last night. She was started on Remeron over the weekend. Reviewed the THERAPY notes -she is total assist for donning her shoes and doffing her safety socks. Needs min to mod assist to don/doff arm sling. Standby assist/contact-guard assist or ambulating with a standard cane. Declined showering today with the occupational therapist. Medication list reviewed. Tolerating Remeron 7.5 mg at at bedtime with no adverse reactions. Antihypertensives include atenolol 50 mg daily, amlodipine 5 mg daily, losartan 50 mg daily and spironolactone 12.5 mg daily. Lashay tells me she slept better last night. She denies any excessive drowsiness this morning. She tells me she is having no shoulder pain. She is not taking any tramadol. She is aware that she has memory loss and that she is depressed but is unrealistic about the degree of cognitive dysfunction she has. She also has poor safety awareness. Objective Data Objective Data Vital Signs: Vital Signs Temp Pulse Resp BP Pulse Ox O2 Del Method 97.4 F L 84 16 157/77 H 97 Room Air 02/03/24 07:04 02/03/24 07:04 02/03/24 07:04 02/03/24 07:04 02/03/24 07:04 02/03/24 07:04 Oxygen Delivery Method Room Air Weight: 174 lb 12.8 oz Body Mass Index (BMI) 30.9 Intake & Output: Intake and Output for Last 24 Hours 02/01/24 02/02/24 02/03/24 23:59 23:59 23:59 Intake Total 1550 / 1650 2180 / 2180 450 / 450 Output Total 2275 / 2475 1650 / 1650 300 / 300 Balance -725 / -825 530 / 530 150 / 150 Lab / Micro Data 01/31/24 07:30 01/31/24 07:30 Physical Exam Const alert and no apparent distress General Appearance: cooperative Resp normal respiratory effort, no use of accessory muscles and clear to auscultation bilaterally Effort and Inspection: able to speak in complete sentences Cardio regular rate, regular rhythm, no rub and no gallops Cardio Narrative: No ectopy. She has a soft systolic murmur at the second right intercostal space. GI normal to inspection, nondistended, normoactive bowel sounds, soft to palpation and non-tender GI Narrative: No guarding with palpation Extremity no calf tenderness and no pedal edema Assessment & Plan Assessment/Plan (1) Debility: (2) Shoulder pain: QUALIFIERS: Chronicity: chronic Laterality: right Qualified Code(s): M25.511 - Pain in right shoulder; G89.29 - Other chronic pain (3) Status post reverse total arthroplasty of right shoulder: (4) Hyponatremia: (5) Impulsiveness: (6) Hypophosphatemia: PLAN: Plan 1. Continue therapy 2. Check CBC, BMP, phosphorus and B12 in the morning. She has had a TSH within the past few months and it was normal. She has not had a CT scan of the brain at [facility]. Depression my be contributing to memory loss and she has been started on Remeron. I recommended to family that she follow up with neurology for evaluation for dementia/tx and they are in agreement with this. 3. 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 It is stable so no treatment necessary at this time. 4. When you first meet her her thought processing seems normal however after watching and talking with her for a few days it is obvious she has significant cognitive dysfunction. short term memory is very poor. Is having difficulty learning how to don and doff the sling for bathing. Does not sequence activity well and can not retain instructions given to her by the therapists. Poor safety awareness and impulsive. Greatly overestimates what she is able to do. She drives. I had a talk with her dtr today and told her that I am worried that she will be unable to go home without supervision. Family realizes she has declined but, have been making excuses for her cognitive deficits. She is going to follow up with neurology post [place]. She is tolerating Remeron and is sleeping better. Someone from her family will be present for rounds on and will need to discuss plans for where she will go at [place]. Pt is constantly asking when she can go home. I do not think she will be safe driving. I think she should be evaluated at the driving school at [facility] before she is allowed to resume driving. 5. Discontinue Restoril. She has not taken any since arrival on rehab and we are now using Remeron to treat depression and insomnia. She is on gabapentin 200 mg twice daily which can contribute to confusion. 6. Will ask speech therapy to see her tomorrow for a cognitive evaluation. I made the patient aware that speech would be seeing her tomorrow to assess her cognitive dysfunction and she is agreeable. Charges/Coding Visit Charges Inpatient E&M: 17790 Subs Hosp L1
[2024-02-03 11:58] VITALS: BP 128/59; PULSE 70
[2024-02-03] MEDS: Pramipexole Di-HCl 0.25 MG Tablet PO (16:56)
[2024-02-03] MEDS: Mirtazapine 15 MG Tablet 7.5 MG PO (21:40)
[2024-02-03] MEDS: Pramipexole Di-HCl 0.5 MG Tablet PO (21:41)
[2024-02-03 22:00] VITALS: BP 114/68; PULSE 77; RESP 16; TEMP 36.8; O2SAT 96
[2024-02-04 06:00] VITALS: BMI 31.2
[2024-02-04] MEDS: Acetaminophen 500 MG Tablet 1000 MG PO ×3 (06:08→23:06)
[2024-02-04 07:30] LABS: Hematocrit 40.8 % (37-47); Hemoglobin 13.3 g/dL (12.0-15.0); Mean Corp Hgb Conc 32.6 g/dL (32-36); Mean Corpuscular Volume 92.1 fL (81-99); Mean Platelet Vol. 9.5 fl (6.2-12.0); Platelet Count 312 K/mm3 (150-450); RBC Distribution Width SD 43.8 fl (35.1-43.9); Red Blood Count 4.43 M/mm3 (4.2-5.4)
[2024-02-04 07:55] LABS: Anion Gap 8 (5-15); BUN 13 mg/dL (7-18); BUN/Creat Ratio 18.2 RATIO (10-20); Calcium,Total 10.1 mg/dL (8.5-10.1); Chloride 99 mmol/L (98-107); Creatinine, Serum 0.71 mg/dL (0.55-1.02); EST Glomerular Filtration Rate 83 mL/min (>60); Est Glom Filt Rate - Afr Amer 100 mL/min (>60); Estimated Creatinine Clearance 51.26 ml/min; Glucose 102 mg/dL (74-106); Phosphorus 2.9 mg/dL (2.5-4.9); Potassium 4.2 mmol/L (3.5-5.1); Sodium Level 131 mmol/L (136-145)
[2024-02-04] MEDS: Cyanocobalamin 500 MCG Tablet PO (08:32)
[2024-02-04] MEDS: Atenolol 50 MG Tablet PO (08:32)
[2024-02-04] MEDS: amLODIPine 10 MG Tablet PO (08:32)
[2024-02-04] MEDS: Pantoprazole Sodium 40 MG Tablet PO (08:32)
[2024-02-04] MEDS: Folic Acid 1 MG Tablet PO (08:33)
[2024-02-04] MEDS: Cholecalciferol (VIT D3) 25 MCG TABLET (1,000 UNITS) PO (08:33)
[2024-02-04] MEDS: Losartan Potassium 50 MG Tablet PO (08:33)
[2024-02-04] MEDS: Multivitamins,Ther W-Minerals Tablet 1 TABLET PO (08:33)
[2024-02-04] MEDS: Aspirin 81 MG TAB.CHEW PO ×2 (08:33→16:55)
[2024-02-04] MEDS: Spironolactone 25 MG Tablet 12.5 MG PO (08:33)
[2024-02-04] MEDS: Ascorbic Acid 500 MG Tablet PO (08:33)
[2024-02-04] MEDS: Gabapentin 100 MG Capsule 200 MG PO ×2 (08:36→15:05)
[2024-02-04 08:45] VITALS: BP 135/73; PULSE 76; RESP 16; TEMP 36.7; O2SAT 95
--- NOTE | 2024-02-04 09:18 | CASEMGMT ---
RU Admit note Sort Line Sw presented to bedside and introduced self and role to patient. Sw completed initial assessment. Sw verified patient's contacts and confirmed code status as: DNRCC-A, patient wishes to remain the same and does not want to make changes. Patient has completed advanced directives and has provided copies to [facility]. Patient has identified her daughter, Zoey Lang as her HCPOA. Patient was educated to Medicare benefit and copay coverage. Patient's goal is to return home where she lives in a one story condo with her dog. Sw will continue to remain involved throughout current admission to provide support and assist with discharge planning needs. BIMS: 13/15- unable to recall blue even with prompts, and did not know day of the week. PHQ2: 1A: 0, 1B:symptoms presence: 1, symptoms frequency: 1. Osmel Wolf, ORDNANCE HANDLER, FAT PRESSROOM WORKER
[2024-02-04] MEDS: Pramipexole Di-HCl 0.25 MG Tablet PO (15:04)
--- NOTE | 2024-02-04 15:31 | CASEMGMT ---
Social Work Received call from patient's daughter and [facility], Zoey Lang who inquired about length of stay for patient. This typewriter mechanic conferred with Cony, admissions for RU. Patient approved through 02.09.2024 with a discharge date of 02.10.2024. Updated Zoey who accepted information without issue. Zoey reports patient states readiness to return home, though family uncertain whether best for patient. Zoey reports patient's other daughter will be present at team/care plan meeting on 02.05.24, to hear recommendations for the team. Zoey expressed thanks for call and information. Denied any other concerns or questions at this time. Plan: Social work to follow and assist as indicated for discharge planning needs. -DONALD Oliver
[2024-02-04 17:27] LABS: Vitamin B12 > 2000 pg/mL (211-911)
[2024-02-04 22:12] VITALS: BP 122/71; PULSE 69; RESP 16; TEMP 36.4; O2SAT 96
[2024-02-04] MEDS: Donepezil HCl 5 MG Tablet PO (23:06)
[2024-02-04] MEDS: Mirtazapine 15 MG Tablet 7.5 MG PO (23:06)
[2024-02-04] MEDS: Pramipexole Di-HCl 0.5 MG Tablet PO (23:06)
[2024-02-05] MEDS: Acetaminophen 500 MG Tablet 1000 MG PO ×3 (06:02→21:21)
[2024-02-05 07:00] VITALS: BP 111/71; PULSE 77; RESP 16; TEMP 36.6; O2SAT 96
[2024-02-05] MEDS: Spironolactone 25 MG Tablet 12.5 MG PO (07:57)
[2024-02-05] MEDS: Folic Acid 1 MG Tablet PO (07:57)
[2024-02-05] MEDS: Ascorbic Acid 500 MG Tablet PO (07:57)
[2024-02-05] MEDS: Pantoprazole Sodium 40 MG Tablet PO (07:57)
[2024-02-05] MEDS: Cholecalciferol (VIT D3) 25 MCG TABLET (1,000 UNITS) PO (07:57)
[2024-02-05] MEDS: Cyanocobalamin 500 MCG Tablet PO (07:57)
[2024-02-05] MEDS: Aspirin 81 MG TAB.CHEW PO ×2 (07:57→16:48)
[2024-02-05] MEDS: Losartan Potassium 50 MG Tablet PO (07:57)
[2024-02-05] MEDS: Atenolol 50 MG Tablet PO (07:57)
[2024-02-05] MEDS: Multivitamins,Ther W-Minerals Tablet 1 TABLET PO (07:57)
[2024-02-05] MEDS: Gabapentin 100 MG Capsule 200 MG PO ×2 (08:00→14:40)
[2024-02-05] MEDS: amLODIPine 10 MG Tablet PO (08:02)
[2024-02-05 08:17] VITALS: BP 109/64; PULSE 81
--- NOTE | 2024-02-05 08:17 | NURSING ---
pt c/o lightheadness in therapy. Reports this is a common problem, VS obtained 109/64, 81 HR. Encouraged pt to drink more water as she also stated she doesn't drink very much. pt returned to bed to rest. Will continue to lalit.
--- NOTE | 2024-02-05 12:07 | PCM.PROGNOTE ---
Subjective Subjective Lashay was seen on team rounds today. Her daughter Antonina was present in the room for rounds. All questions were answered to their satisfaction. Afebrile VSS -blood pressure is well-controlled. Heart rate is within normal limits. Maintaining appropriate oxygen saturation on RA-95 to 96% Oral intake - FOOD good FLUIDS good Discussed with nursing - c/o dizziness to nursing today. Fluid intake has been pretty good. She is taking Mirapex BID and Neurontin BID and both are associated with Dizziness and orthostasis. The Mirapex was started several years ago for RLS. Gabapentin was added later for peripheral neuropathic pain. Reviewed the THERAPY notes Medication list reviewed. Denies pain and has not been taking Naprosyn or tramadol. Pain is adequately controlled with Tylenol. Recent lab was personally reviewed. White blood cell count is normal at 8. Hemoglobin is normal at 13.3 and she has normochromic normocytic indices. Sodium is low at 131 and the potassium is 4.2. The BUN is 13 with a creatinine of 0.71 and a BUN/creatinine ratio of 18.2. Fasting blood sugar is normal. Phosphorus is normal at 2.9 following supplementation. B12 is greater than 2000. TSH was normal. Lashay tells me that she is bored and she does not want to stay here. she denies pain in the R shoulder and she is only taking Tylenol for pain. She c/o dizziness. Denies vertigo. She denies headache, chest pain, shortness of breath, cough, nausea/vomiting/abdominal pain, diarrhea/constipation, dysuria and calf tenderness. She does have some soreness where the sling rubs against her neck on the left side. Her arm is often not positioned correctly in the sling and she is unaware of this. She is less argumentative today and I think she is starting to accept that she can not go home alone. She is sleeping well at night. Objective Data Objective Data Vital Signs: Vital Signs Temp Pulse Resp BP Pulse Ox O2 Del Method 98 F 81 16 109/64 96 Room Air 02/05/24 07:00 02/05/24 08:17 02/05/24 07:00 02/05/24 08:17 02/05/24 07:00 02/05/24 07:00 Oxygen Delivery Method Room Air Weight: 176 lb 5.917 oz Body Mass Index (BMI) 31.2 Intake & Output: Intake and Output for Last 24 Hours 02/03/24 02/04/24 02/05/24 23:59 23:59 23:59 Intake Total 1330 / 1530 1930 / 1930 240 / 240 Output Total 600 / 600 1000 / 1400 1300 / 1300 Balance 730 / 930 930 / 530 -1060 / -1060 Lab / Micro Data 02/04/24 07:15 02/04/24 07:15 Labs: Laboratory Results - last 24 hr 02/04/24 07:15: Vitamin B12 > 2000 H Physical Exam Const alert Constitutional Narrative: Affect is more flat and down today. General Appearance: cooperative Resp normal respiratory effort, no use of accessory muscles and clear to auscultation bilaterally Effort and Inspection: able to speak in complete sentences Cardio regular rate, regular rhythm, no rub and no gallops Cardio Narrative: No ectopy. She has a soft systolic murmur at the second right intercostal space that is unchanged from admission. GI normal to inspection, nondistended, normoactive bowel sounds, soft to palpation and non-tender GI Narrative: No guarding with palpation Extremity no calf tenderness and no pedal edema Assessment & Plan Assessment/Plan (1) Debility: (2) Shoulder pain: QUALIFIERS: Chronicity: chronic Laterality: right Qualified Code(s): M25.511 - Pain in right shoulder; G89.29 - Other chronic pain (3) Status post reverse total arthroplasty of right shoulder: (4) Hyponatremia: PLAN: Stable (5) Impulsiveness: (6) Hypophosphatemia: PLAN: Resolved. Supplement has been discontinued. (7) Restless leg syndrome: PLAN: She tells me that this runs in her family. Likely does not need both Mirapex and Gabapentin. Mirapex can cause augmentation with long-term use. (8) Lumbar spinal stenosis: PLAN: With radicular pain in the right lower extremity which is improved with gabapentin. (9) Radicular pain of right lower extremity: (10) Cognitive dysfunction: PLAN: Scored 31/50 on her brief cognitive assessment tool indicating significant cognitive decline. PLAN: Plan 1. Continue therapy 2. Check orthostatic vital signs today. 3. Overnight trending pulse ox. Am not sure why she has restless leg syndrome. She is taking both Mirapex and Neurontin twice a day. These drugs may be contributing to her dizziness. Hemoglobin is normal and she is normochromic normocytic so I do not think that she is iron deficient. She is not diabetic. Will check the overnight trending pulse ox to rule out obstructive sleep apnea as etiology of restless leg. 4. Continue gabapentin 200 mg twice daily for radicular pain 5. Discontinue the afternoon dose of Mirapex and if she tolerates this without any withdrawal symptoms will decrease the nighttime dose to 0.25 mg for 1 week and if she has no withdrawal symptoms likely discontinue. Will monitor closely for any increase in restless leg syndrome symptoms. 6. Antidepressants can increase restless leg but so far she has been stable and has had a few doses of Remeron 7.5 mg at night. If she does not tolerate this medication would consider using Wellbutrin as it does not lead to an increase in RLS symptoms. Charges/Coding Visit Charges Inpatient E&M: 14919 Subs Hosp L2
[2024-02-05 12:09] VITALS: BP 123/73; BP 124/67; BP 140/73; PULSE 73; PULSE 76; PULSE 80
--- NOTE | 2024-02-05 12:55 | CASEMGMT ---
Addendum entered by Flor Hollis 02/05/24 13:19: SW provided patient and daughter with Private Duty Home Care agencies and Medical alert device. Original Note: Social Work- Teams Meeting IDT met with patient and daughterAntonina at bedside to complete care planning. Discussed patient progress with therapy (PT/OT/ST) and nursing. Patient is SBA and Min A for toileting, bathing, dressing. Patient is unable to adequately put arm sling on independently. therapy has concerns for impulsiveness. Patient is contact assist for transfers. Patient is ambulating 430ft with straight cane; contact assist. Per Speech Therapy, patient scored 31/[address] is recommending discharge with additional supervision and care for support in home due to cognitive deficit. ST does not believe it is safe for patient to return home alone. ESCOBAR educated patient and daughter of Medicare coverage and benefits. Patient is approved for 11 days under Medicare with anticipated discharge 02/09. ESCOBAR informed daughterAntonina that the patient will require 24/hr support and supervision in the home. Patient will require additional support from family and assisted living support. Patient's daughter informed ESCOBAR that she would like to discuss with her siblings. Physician expressed concerns for overnight pulse ox to rule out sleep apnea. In addition, Physician discussed concerns for potential of Alzheimer; patient started on Aricept. Physician recommending Neurology follow up outpatient. ESCOBAR will continue to follow up with patient and daughterAntonina regarding plan of discharge. JOSE F Vasques
[2024-02-05] MEDS: Pramipexole Di-HCl 0.25 MG Tablet PO (14:40)
[2024-02-05] MEDS: Pramipexole Di-HCl 0.5 MG Tablet PO (21:20)
[2024-02-05] MEDS: Mirtazapine 15 MG Tablet 7.5 MG PO (21:21)
[2024-02-05] MEDS: Donepezil HCl 5 MG Tablet PO (21:21)
[2024-02-05 21:36] VITALS: PULSE 72; O2SAT 95
[2024-02-05 22:00] VITALS: BP 129/70; PULSE 74; RESP 17; TEMP 37.2; O2SAT 100
[2024-02-06] MEDS: Acetaminophen 500 MG Tablet 1000 MG PO ×3 (05:45→20:14)
[2024-02-06] MEDS: Ascorbic Acid 500 MG Tablet PO (08:16)
[2024-02-06] MEDS: Cholecalciferol (VIT D3) 25 MCG TABLET (1,000 UNITS) PO (08:16)
[2024-02-06] MEDS: Folic Acid 1 MG Tablet PO (08:16)
[2024-02-06] MEDS: Multivitamins,Ther W-Minerals Tablet 1 TABLET PO (08:16)
[2024-02-06] MEDS: Atenolol 50 MG Tablet PO (08:16)
[2024-02-06] MEDS: amLODIPine 10 MG Tablet PO (08:16)
[2024-02-06] MEDS: Losartan Potassium 50 MG Tablet PO (08:16)
[2024-02-06] MEDS: Pantoprazole Sodium 40 MG Tablet PO (08:16)
[2024-02-06] MEDS: Aspirin 81 MG TAB.CHEW PO ×2 (08:16→16:44)
[2024-02-06] MEDS: Cyanocobalamin 500 MCG Tablet PO (08:17)
[2024-02-06] MEDS: Gabapentin 100 MG Capsule 200 MG PO ×2 (08:17→15:04)
[2024-02-06] MEDS: Spironolactone 25 MG Tablet 12.5 MG PO (08:17)
[2024-02-06 09:56] VITALS: BP 134/81; PULSE 72; RESP 18; TEMP 36.6; O2SAT 94
[2024-02-06] MEDS: Mirtazapine 15 MG Tablet 7.5 MG PO (20:11)
[2024-02-06] MEDS: Donepezil HCl 5 MG Tablet PO (20:13)
[2024-02-06] MEDS: Pramipexole Di-HCl 0.5 MG Tablet PO (20:14)
[2024-02-06 20:28] VITALS: BP 109/58; PULSE 74; RESP 16; TEMP 36.8; O2SAT 96
[2024-02-07] MEDS: Acetaminophen 500 MG Tablet 1000 MG PO ×3 (06:41→20:48)
[2024-02-07 07:22] VITALS: BP 128/67; PULSE 70; RESP 18; TEMP 36.7; O2SAT 96
[2024-02-07] MEDS: Gabapentin 100 MG Capsule 200 MG PO ×2 (07:57→16:52)
[2024-02-07] MEDS: Losartan Potassium 50 MG Tablet PO (07:59)
[2024-02-07] MEDS: amLODIPine 10 MG Tablet PO (07:59)
[2024-02-07] MEDS: Cyanocobalamin 500 MCG Tablet PO (07:59)
[2024-02-07] MEDS: Pantoprazole Sodium 40 MG Tablet PO (07:59)
[2024-02-07] MEDS: Atenolol 50 MG Tablet PO (07:59)
[2024-02-07] MEDS: Spironolactone 25 MG Tablet 12.5 MG PO (07:59)
[2024-02-07] MEDS: Folic Acid 1 MG Tablet PO (08:00)
[2024-02-07] MEDS: Multivitamins,Ther W-Minerals Tablet 1 TABLET PO (08:00)
[2024-02-07] MEDS: Cholecalciferol (VIT D3) 25 MCG TABLET (1,000 UNITS) PO (08:00)
[2024-02-07] MEDS: Aspirin 81 MG TAB.CHEW PO ×2 (08:00→16:52)
[2024-02-07] MEDS: Ascorbic Acid 500 MG Tablet PO (08:00)
[2024-02-07 08:35] VITALS: O2SAT 96
[2024-02-07 20:22] VITALS: BP 119/60; PULSE 75; RESP 17; TEMP 37; O2SAT 92
[2024-02-07] MEDS: Mirtazapine 15 MG Tablet 7.5 MG PO (20:49)
[2024-02-07] MEDS: Senna/Docusate Sodium 1 Tablet 2 TABLET PO (20:49)
[2024-02-07] MEDS: Donepezil HCl 5 MG Tablet PO (20:49)
[2024-02-07] MEDS: Pramipexole Di-HCl 0.5 MG Tablet PO (20:49)
--- NOTE | 2024-02-08 02:41 | NURSING ---
Reviewed and agree with Nicolette VALENTIN, documentation and assessment charting.
[2024-02-08] MEDS: Acetaminophen 500 MG Tablet 1000 MG PO ×3 (06:25→20:16)
[2024-02-08 07:37] VITALS: BP 121/77; PULSE 67; RESP 16; TEMP 36.5; O2SAT 98
[2024-02-08] MEDS: Cyanocobalamin 500 MCG Tablet PO (08:23)
[2024-02-08] MEDS: Multivitamins,Ther W-Minerals Tablet 1 TABLET PO (08:23)
[2024-02-08] MEDS: Senna/Docusate Sodium 1 Tablet 2 TABLET PO (08:23)
[2024-02-08] MEDS: Gabapentin 100 MG Capsule 200 MG PO ×2 (08:23→14:11)
[2024-02-08] MEDS: Folic Acid 1 MG Tablet PO (08:23)
[2024-02-08] MEDS: Atenolol 50 MG Tablet PO (08:23)
[2024-02-08] MEDS: Spironolactone 25 MG Tablet 12.5 MG PO (08:24)
[2024-02-08] MEDS: Ascorbic Acid 500 MG Tablet PO (08:24)
[2024-02-08] MEDS: Aspirin 81 MG TAB.CHEW PO ×2 (08:24→17:26)
[2024-02-08] MEDS: amLODIPine 10 MG Tablet PO (08:24)
[2024-02-08] MEDS: Cholecalciferol (VIT D3) 25 MCG TABLET (1,000 UNITS) PO (08:24)
[2024-02-08] MEDS: Losartan Potassium 50 MG Tablet PO (08:24)
[2024-02-08] MEDS: Pantoprazole Sodium 40 MG Tablet PO (08:25)
[2024-02-08] MEDS: Pramipexole Di-HCl 0.5 MG Tablet PO (20:17)
[2024-02-08] MEDS: Mirtazapine 15 MG Tablet 7.5 MG PO (20:17)
[2024-02-08] MEDS: Donepezil HCl 5 MG Tablet PO (20:18)
[2024-02-08 21:59] VITALS: BP 141/72; PULSE 72; RESP 17; TEMP 36.2; O2SAT 94
--- NOTE | 2024-02-09 00:41 | NURSING ---
Reviewed and agree Nicolette barger LPN, documentation and assessment charting.
[2024-02-09] MEDS: Acetaminophen 500 MG Tablet 1000 MG PO ×3 (05:31→22:26)
[2024-02-09 07:18] VITALS: BP 144/82; PULSE 74; RESP 16; TEMP 37.2; O2SAT 99
[2024-02-09] MEDS: Aspirin 81 MG TAB.CHEW PO ×2 (08:00→16:21)
[2024-02-09] MEDS: Folic Acid 1 MG Tablet PO (08:00)
[2024-02-09] MEDS: Losartan Potassium 50 MG Tablet PO (08:00)
[2024-02-09] MEDS: Spironolactone 25 MG Tablet 12.5 MG PO (08:00)
[2024-02-09] MEDS: Atenolol 50 MG Tablet PO (08:00)
[2024-02-09] MEDS: Cyanocobalamin 500 MCG Tablet PO (08:00)
[2024-02-09] MEDS: Multivitamins,Ther W-Minerals Tablet 1 TABLET PO (08:00)
[2024-02-09] MEDS: amLODIPine 10 MG Tablet PO (08:00)
[2024-02-09] MEDS: Pantoprazole Sodium 40 MG Tablet PO (08:00)
[2024-02-09] MEDS: Cholecalciferol (VIT D3) 25 MCG TABLET (1,000 UNITS) PO (08:00)
[2024-02-09] MEDS: Ascorbic Acid 500 MG Tablet PO (08:00)
[2024-02-09] MEDS: Gabapentin 100 MG Capsule 200 MG PO ×2 (08:03→16:21)
--- NOTE | 2024-02-09 09:46 | PCM.PROGNOTE ---
Subjective Subjective Afebrile VSS - Maintaining appropriate oxygen saturation on RA Oral intake - FOOD good FLUIDS good Discussed with nursing - no problems that need addressed Reviewed the THERAPY notes Medication list reviewed. She is sleeping well at night and she denies restless leg symptoms. She denies radicular pain. She is calm and not agitated now. She denies any GI sx such as nausea, abd pain/cramping and reflux. She is more cooperative with therapy and she scored 41/50 on the repeat BCAT today......up from last week. She is on Tylenol only for pain and has not used any tramadol since arriving on rehab. She states her shoulder pain is very well-controlled. Objective Data Objective Data Vital Signs: Vital Signs Temp Pulse Resp BP Pulse Ox O2 Del Method O2 Flow Rate 98.9 F 74 16 144/82 H 99 Room Air 2 02/09/24 07:18 02/09/24 07:18 02/09/24 07:18 02/09/24 07:18 02/09/24 07:18 02/09/24 07:18 02/09/24 06:36 FiO2 21 02/05/24 21:36 Oxygen Flow Rate (L/min) 2 Oxygen Delivery Method Room Air Weight: 176 lb 5.917 oz Body Mass Index (BMI) 31.2 Intake & Output: Intake and Output for Last 24 Hours 02/07/24 02/08/24 02/09/24 23:59 23:59 23:59 Intake Total 2630 / 2630 2160 / 2160 1120 / 1120 Output Total 1450 / 1450 1300 / 1300 1150 / 1150 Balance 1180 / 1180 860 / 860 -30 / -30 Lab / Micro Data 02/04/24 07:15 02/09/24 14:44 Physical Exam Const alert Constitutional Narrative: Affect is more flat and down today. General Appearance: cooperative Resp normal respiratory effort, no use of accessory muscles and clear to auscultation bilaterally Effort and Inspection: able to speak in complete sentences Cardio regular rate, regular rhythm, no rub and no gallops Cardio Narrative: No ectopy. She has a soft systolic murmur at the second right intercostal space that is unchanged from admission. GI normal to inspection, nondistended, normoactive bowel sounds, soft to palpation and non-tender GI Narrative: No guarding with palpation Extremity no calf tenderness and no pedal edema Assessment & Plan Assessment/Plan (1) Debility: (2) Shoulder pain: QUALIFIERS: Chronicity: chronic Laterality: right Qualified Code(s): M25.511 - Pain in right shoulder; G89.29 - Other chronic pain (3) Status post reverse total arthroplasty of right shoulder: (4) Hyponatremia: (5) Impulsiveness: (6) Hypophosphatemia: (7) Restless leg syndrome: (8) Lumbar spinal stenosis: (9) Radicular pain of right lower extremity: (10) Cognitive dysfunction: PLAN: Plan 1. Continue therapy 2. Plan discharge home with family with 24-hour supervision tomorrow. She will have outpatient physical therapy at [facility]. 3. Sleep lab will call her to schedule an appointment for a formal overnight sleep study Abnormal overnight trending pulse ox with hypoxemia STOP-BANG score is 4 for snoring, chronic fatigue and sleeping during the day, age greater than 50 and hypertension. She suffers from restless leg syndrome. Falls asleep watching TV and while reading a book. Also falls asleep on car rides when she is a passenger greater than 30 minutes. Charges/Coding Visit Charges Inpatient E&M: 05399 Subs Hosp L1
--- NOTE | 2024-02-09 10:20 | CASEMGMT ---
Social Work- Discharge Plan SW received a call from patient's daughter, Daphnie informing ESCOBAR that she spoke with her siblings regarding discharge plans. Daphnie informed ESCOBAR that the patient's family would like patient to discharge home with 24/hr care provided by family. ESCOBAR inquired about home health care services. Daphnie declined home health care services at this time. Daphnie informed ESCOBAR that the patient has outpatient therapy arranged with [facility]; first appointment 02/16/24. Daphnie informed ESCOBAR that family is aware that 24/hr care may not be a termination clerk option, but family will discuss termination clerk care to determine future plans of care while patient is home. ESCOBAR offered resources for termination clerk care, Daphnie declined at this time. Discharge Plan: Home with family 24/hr care; [facility] outpatient therapy - SOC 02/15 JOSE F Vasques
--- NOTE | 2024-02-09 12:25 | DCINST_ITS ---
Discharge Instructions Diet Discharge Diet: No restrictions Activity Discharge Activity: May Not Drive and - (use your cane when walking) Weight Bearing Status: No weight bearing (no liftin anything with the R arm. ) Keep extremity elevated above heart level: Right Arm Additional Activity Instructions:: Keep the R arm in the sling at all times unless doing therapy, showering or dressing Dressing / Incision Call your doctor if your incision/area has: Continuous Slow Oozing, Sudden Increased Bleeding, Increased Pain/ Swelling, Increased Redness, Foul Smelling Discharge and Swelling at the incision site Call your doctor if you observe: Fever of 101 or Higher, Inability to urinate, Inability to have a bowel movement, Shortness of breath, Dizziness, Fainting spells, Swelling in the ankles, Chest pain, Increased palpitations (irregular heartbeat), Calf discomfort and Uncontrolled pain Suture Line Care: Avoid Pulling/Pushing and Avoid Pinching/Bending Cleanse incision/area with: Soap & Water Follow Up Care Please Follow Up With: Chika Alas MD When: You will also need to follow up with Dr. Mele Marc from neurology (for memory loss) and Willy PARRY (from orthopedics) Test Results: Test results from this visit will be discussed in further detail at your follow- up appointment, if applicable. Pending Tests Upon Discharge: none Discharge Plan Admission Admit Date/Time: 01/30/24 18:04 Primary Reason for Your Visit: Debility due to R shoulder replacement. Attending Provider: Victorina Galvan Primary Care Provider: Chika Alas Instructions Patient Instructions: What Are Snoring and Sleep Apnea?, Depression Affects Your Mind ..., Counseling for Depression, RLS Additional Instructions / Restrictions: 1. We have been weaning you off Mirapex (also called Pramipexole) You have no been taking the afternoon dose since you arrived on rehab and we just decreased the bedtime dose to 0.25 mg. After 10 days you can discontinue the Mirapex. Mirapex usually only works for a few years and then it can cause augmentation........it can make the restless leg worse. Gabapentin is a good drug for restless legs. If you start waking up at night with pain in the legs or restless legs you may have to increase the Gabapentin to 200 mg 3 times a day......0800, 1500 and bedtime. 2. You have been depressed since your 10 years ago. you are always going to miss him but, you should not still be depressed. Depression can contribute to memory loss and cause changes in personality and trouble sleeping. With your permission we started you on an antidepressant at bedtime called Remeron (also called Mirtazapine). You have been sleeping better you are not as irritable. Everyone has noticed a difference. Even you cognition has improved. Take 1/2 tab at bedtime for 1 week and then increase to a whole tab at bedtime. 3. You have been having trouble with memory. The speech therapist gave you a test when you came to rehab and it is called the BCAT (brief cognitive assessment). You scored 31 out of 50 on this test which is consistent with mild- moderate cognitive deficit. Memory problems can be multifactorial. As we get older many medications that we have previously tolerated can can cause confusion and dizziness and lead to falls. Depression causes memory difficulties. Sleep apnea can cause problems with cognition and memory. You had a sleep test (we measured your oxygen saturation continuously while you were sleeping) and it showed that your oxygen drops at night when you are sleeping. Untreated sleep apnea cause memory problems, problems with the rhythm of the heart, depression and it also causes restless leg to get worse. The sleep lab is going to call you to get you set up for an overnight sleep study to see if you have sleep apnea. With the treatments we have initiated in rehab your memory is better......your BCAT was repeated prior to discharge and the score is up to 41/50 which is consistent with mild dysfunction. You are going to follow up with a neurologist, Dr. Mele Marc, to be evaluated for memory loss. We started you on a drug called Aricept while you have been on rehab......this drug helps to delay progression of memory loss. You are on a low dose and you have had no side effects. 4. I think things have gotten somewhat better since you have been on rehab and I am glad to see this. It has been a pleasure finally meeting you and getting to know you. If you or your family have any questions after you leave rehab please do not hesitate to call me. OFFICE: [phone] CELL: [phone]. nurses station on rehab: [phone] PS - I think you should no longer use Temazepam (also called Restoril). this is a drug similar to Valium and Ativan and Xanax. It is long acting and can cause confusion, lightheadedness and falls. We have not given you any of this medication on rehab and you are sleeping well on the medications I am discharging you on. GAbapentin, Mirapex and Restoril can all cause dizziness, confusion and be associated with increased falls. you should avoid these medications if possible.......I think you need the Gabapentin but the other 2 you can do without. Discharge Orders/Prescriptions Prescriptions: New tramadol 50 mg Tablet 50 mg PO Q6H PRN PRN (Reason: Pain Score 4-10) 7 Days Qty: 14 0RF amlodipine 10 mg Tablet 10 mg PO DAILY Qty: 30 0RF pramipexole 0.25 mg Tablet 0.25 mg PO QHS Qty: 10 0RF Rx Instructions: Discontinue after the last dose. mirtazapine 15 mg Tablet 7.5 mg PO QHS Qty: 30 0RF Rx Instructions: Take 1/2 tab at bedtime for 1 week and then increase to a whole tab at bedtime donepezil 5 mg Tablet 5 mg PO QHS Qty: 30 0RF Continued ascorbate calcium (vitamin C) 500 mg tablet 500 mg PO DAILY atenolol 50 mg tablet 50 mg PO DAILY Qty: 90 3RF pantoprazole 40 mg tablet,delayed release (DR/EC) 40 mg PO DAILY Qty: 90 3RF gabapentin 100 mg capsule 200 mg PO BID@0800,1500 90 Days Qty: 360 3RF cholecalciferol (vitamin D3) 1,000 UNIT tablet 1,000 unit PO DAILY multivitamin,[id number] 27-0.4 mg tablet 1 tab PO DAILY naproxen sodium [Aleve] 220 mg tablet 220 mg PO BID PRN (Reason: pain) folic acid 1 mg tablet 1 mg PO DAILY cyanocobalamin (vitamin B-12) [Vitamin B-12] 500 mcg tablet 500 mcg PO DAILY losartan 50 mg Tablet 50 mg PO DAILY Qty: 0 0RF acetaminophen 500 mg Tablet 1,000 mg PO TID 14 Days Qty: 84 0RF Rx Instructions: Do not take more than 3000 mg Tylenol in a 24-hour period. aspirin 81 mg Tablet,Chewable 81 mg PO BIDCM 13 Days Qty: 26 0RF Rx Instructions: Take 81 mg aspirin twice daily for 2 weeks postoperatively for DVT prophylaxis. spironolactone 25 mg tablet 12.5 mg PO DAILY Qty: 45 3RF Discontinued temazepam 15 MG capsule 15 mg PO QHS PRN PRN (Reason: Sleep) pramipexole 0.5 mg tablet 0.25 mg PO 1500 pramipexole 0.5 mg tablet 0.5 mg PO QHS tramadol 50 mg Tablet 50 - 100 mg PO Q6H PRN PRN (Reason: as needed for pain) 7 Days Qty: 30 0RF amlodipine 5 mg tablet 5 mg PO DAILY Qty: 90 3RF No Action (DME) disability placard See Rx Instructions .ROUTE .MEDSUPPLY Qty: 1 0RF Rx Instructions: As directed, Length of time: 5 years Referrals / Follow Up: Mele Marc MD [Non-Staff] - 03/15/24 1:00 pm Willy Chauhan PA [Med Staff - Adv Practice Prof] - 02/13/24 12:30 pm (Hospital F/U ) Disposition Disposition (needs filled in before D/C Order can be placed): Home, Self Care
[2024-02-09 15:15] LABS: Anion Gap 7 (5-15); BUN 14 mg/dL (7-18); BUN/Creat Ratio 18.3 RATIO (10-20); Calcium,Total 9.5 mg/dL (8.5-10.1); Chloride 102 mmol/L (98-107); Creatinine, Serum 0.76 mg/dL (0.55-1.02); EST Glomerular Filtration Rate 76 mL/min (>60); Est Glom Filt Rate - Afr Amer 92 mL/min (>60); Estimated Creatinine Clearance 51.49 ml/min; Glucose 130 mg/dL (74-106); Potassium 4.1 mmol/L (3.5-5.1); Sodium Level 136 mmol/L (136-145)
--- NOTE | 2024-02-09 16:55 | PCM.DC.SUM ---
Providers Date of Admission: 01/30/24 Date of Discharge: 02/10/24 Primary Care Physician: Dr. Chika Alas MD Reason For Visit: TOTAL ARTHROPLASTY RIGHT SHOULDER Diagnosis Discharge Diagnosis (1) Debility: Status: Acute Code(s): R53.81 - Other malaise (2) Status post reverse total arthroplasty of right shoulder: Status: Acute Code(s): Z96.611 - Presence of right artificial shoulder joint (3) Shoulder pain: Status: Acute Code(s): M25.519 - Pain in unspecified shoulder Qualifiers: Chronicity: chronic Laterality: right Qualified Code(s): M25.511 - Pain in right shoulder; G89.29 - Other chronic pain Plan: Post procedural pain. (4) Hyponatremia: Status: Resolved Code(s): E87.1 - Hypo-osmolality and hyponatremia (5) Impulsiveness: Status: Acute Code(s): R45.87 - Impulsiveness (6) Hypophosphatemia: Status: Resolved Code(s): E83.39 - Other disorders of phosphorus metabolism (7) Restless leg syndrome: Status: Chronic Plan: Mirapex was weaned down to 0.25 mg at HS only. She will continue this at 0.25 mg X 10 days and then discontinue. If the RLS SX return at night would add Gabapentin 200 mg at HS rather than continuing Mirapex due to the propensity of Mirapex to cause augmentation. (8) Lumbar spinal stenosis: Status: Chronic Code(s): M48.06 - Spinal stenosis, lumbar region Qualifiers: Neurogenic claudication status: without neurogenic claudication Qualified Code(s): M48.061 - Spinal stenosis, lumbar region without neurogenic claudication (9) Radicular pain of right lower extremity: Status: Chronic Code(s): M54.10 - Radiculopathy, site unspecified Plan: Controlled with Gabapentin. (10) Cognitive dysfunction: Status: Chronic Code(s): F09 - Unspecified mental disorder due to known physiological condition Plan: She was started on Aricept 5 mg daily and has an appt with Dr. Mele Marc scheduled to be evaluated for dementia. (11) JEANETH (obstructive sleep apnea): Status: Suspected Code(s): G47.33 - Obstructive sleep apnea (adult) (pediatric) Plan: Abnormal overnight trending pulse ox. 15% of the time she was monitored while sleeping the pulse ox is 89% or less. She had 6 desaturation events. She is being sent home with oxygen and the sleep lab will call her to schedule a overnight split sleep study. (12) Depression: Status: Acute Code(s): F32.A - Depression, unspecified Plan: Continue Remeron 7.5 mg for 1 week and then increase the dose to 15 mg at HS Plan 1. DC home with family for support. 2. Sleep lab will call her to schedule a overnight split sleep study 3. DC with home oxygen to be worn when sleeping at 2 LPM. 4. Will follow up with Dr. Marc to be evaluated for dementia 5. Follow up with Dr. Alas 6. Follow up with Dr. Drake Medications at Discharge Home Medications cholecalciferol (vitamin D3) 25 mcg (1,000 unit) tablet 1,000 unit PO DAILY SUPPLEMENT 11/21/17 disability placard #1 ea 08/18/20 ascorbate calcium (vitamin C) 500 mg tablet 500 mg PO DAILY SUPPLEMENT 08/21/20 spironolactone 25 mg tablet 12.5 mg (1/2 x 25 mg) PO DAILY BP #45 tabs 05/06/23 multivitamin,dn-ceml-jnkrktue 27 mg-0.4 mg tablet 1 tab PO DAILY vitamin 10/24/23 atenolol 50 mg tablet 50 mg PO DAILY BP #90 tabs 01/12/24 gabapentin 100 mg capsule 200 mg (2 x 100 mg) PO BID@0800,1500 nerve pain 3 months #360 caps 01/12/24 pantoprazole 40 mg tablet,delayed release 40 mg PO DAILY GERD #90 tabs 01/12/24 cyanocobalamin (vitamin B-12) 500 mcg tablet (Vitamin B-12) 500 mcg PO DAILY SUPPLEMENT 01/15/24 folic acid 1 mg tablet 1 mg PO DAILY SUPPLEMENT 01/15/24 naproxen sodium 220 mg tablet (Aleve) 220 mg PO BID PRN pain 01/15/24 acetaminophen 500 mg tablet 1,000 mg (2 x 500 mg) PO TID pain 14 days #84 tabs 01/30/24 aspirin 81 mg chewable tablet 81 mg PO BIDCM dvt prophylaxis 13 days #26 tabs 01/30/24 losartan 50 mg tablet 50 mg PO DAILY bp #0 tabs 01/30/24 amlodipine 10 mg tablet 10 mg PO DAILY #30 tabs 02/09/24 donepezil 5 mg tablet 5 mg PO QHS #30 tabs 02/09/24 mirtazapine 15 mg tablet 7.5 mg (1/2 x 15 mg) PO QHS #30 tabs 02/09/24 pramipexole 0.25 mg tablet 0.25 mg PO QHS #10 tabs 02/09/24 tramadol 50 mg tablet 50 mg PO Q6H PRN PRN Pain Score 4-10 1 week #14 tabs 02/09/24 Hospital Course Operations - (Right total shoulder replacement) Procedures None Summary of Care Provided Minutes Spent on Discharge: 45 Hospital Course: LASHAY FLOWERS, is a 83 YO F with a past medical history of osteoarthritis, hypertension, restless leg syndrome, Ruiz's esophagus, presbycusis, collagenous colitis, GERD and chronic anemia who was admitted to [facility] on 01/28/2024 for a right reverse shoulder replacement with Dr. Drake. She had no significant postoperative complications. She was transferred to the acute inpatient rehab unit at [facility] on 01/30/2024 for 3 hours of therapy daily to restore function/independence at or near her level prior to recent surgery. The right upper extremity was in a sling and she was nonweightbearing on that extremity. At presentation to rehab it was quite obvious that Lashay was having cognitive dysfunction /memory issues. She was also quite impulsive with poor safety awareness. Her family confirmed that this was the case even prior to the surgery. She was also irritated easily. She told me that she had not been sleeping well and she also admitted to being depressed. She told me that she was depressed over her passing however, this happened 10 years ago. She lives alone but, has good family support. She was seen by the speech therapist and had a BCAT (brief cognitive assessment tool). Initially she scored 31/50. She was started on Remeron 7.5 mg at night and also Aricept 5 mg daily. TSH and B12 were normal. An overnight trending pulse ox was abnormal. Approximately 16% of the time she was monitored the pulse ox was 89% or less and she had 6 desaturation events the night prior to DC from rehab. She was discharged with home O2 and will wear 2 LPM of O2 anytime she is sleeping. The sleep lab will call her to arrange a overnight split sleep study. The orders have been placed. Lashay started sleeping well at night and prior to DC she was calm, pleasant and cooperative. She was much less irritable. Lashay was taking both Mirapex and Gabapentin for RLS at admission to rehab. She told me that she had been on Mirapex for years and Gabapentin was later added. Mirapex has the propensity of causing augmentation and can make the RLS worse after years of use. She was weaned down to 0.25 mg at prior to DC and will continue to take Mirapex for 10 days post op and then discontinue this drug. She has had no complaints of recurrent restless leg with the change in the Mirapex. Lashay did well in therapy. Initially she was not able to remember to keep her arm in the sling but, at the time of DC she is doing a much better job of this. At the time of discharge from rehab she is supervision/set up for eating, grooming and bathing. She is standby assist for upper body dressing and requires minimal assistance with lower body dressing. She is standby assist for tub/shower transfer. She is standby assist for toilet transfer and toileting. She completed the turn up and go test even 15.57 seconds at contact-guard assist with a straight cane. She is able to do 11 sit to stands in 30 seconds and she has ambulated up to 430 feet on various surfaces at [facility] with a single-point cane. She can ascend/descend 5 steps using 1 HR at [facility] so that she will be able to enter her home. ST repeated the BCAT 1 day prior to DC and she scored 41/50. Lashay was discharged home from rehab on 02/10/24. Her family has arrnaged to provide / supervision for at least the first few weeks. She will have OP PT at [facility]. I recommended she also continue with OP speech therapy at [facility] but, she declined this and told me that maybe after the summer was over. She will follow up with Dr. Marc for cognitive dysfunction/dementia evaluation. She will also continue to follow up with Dr. Alas for primary care and she has an appt to follow up with Willy PARRY from orthopedics. Physical Exam Const alert and oriented x3 Constitutional Narrative: Much calmer than at admission to rehab. Not irritable today and glad to be going home. Repeats herself frequently but, seems better able to retain information given to her about her activity restrictions and sling use. More cooperative. General Appearance: cooperative HEENT moist oral mucous membranes Resp normal respiratory effort, no use of accessory muscles and clear to auscultation bilaterally Effort and Inspection: able to speak in complete sentences Cardio regular rate, regular rhythm, no rub and no gallops Cardio Narrative: No ectopy. She has a soft systolic murmur at the second right intercostal space that is unchanged from admission. GI normal to inspection, nondistended, normoactive bowel sounds, soft to palpation and non-tender GI Narrative: No guarding with palpation Extremity no calf tenderness and no pedal edema Skin Wound Narrative: The R shoulder incision is intact with no dehiscence. The margins are well co-apted and the sutures are in place. there is no amnpreet-incisional erythema and no DC present. Neuro CN's II-XII intact bilaterally and no focal motor deficits Psych denies homicidal ideation and denies suicidal ideation Psych Narrative: Affect is less flat and she is smiling, pleasant and cooperative. Appearance: appropriate Attitude: No agitated Activity / Motor Behavior: Negative for restless Weight / BMI Weight Weight: 176 lb 5.917 oz Body Mass Index (BMI) 31.2 ABG / Lab / Microbiology Data 02/04/24 07:15 02/09/24 14:44 Laboratory: Laboratory Results - last 24 hr 02/09/24 14:44: Sodium 136, Potassium 4.1, Chloride 102, Carbon Dioxide 27.0, Anion Gap 7, BUN 14, Creatinine 0.76, Estim Creat Clear Calc 51.49, Est GFR (MDRD) Af Amer 92, Est GFR (MDRD) Non-Af 76, BUN/Creatinine Ratio 18.3, Glucose 130 H, Calcium 9.5 D/C Instructions Discharge Diet: No restrictions Weight Bearing Status: No weight bearing (no liftin anything with the R arm. ) Keep extremity elevated above heart level: Right Arm Additional Activity Instructions: Keep the R arm in the sling at all times unless doing therapy, showering or dressing Call your doctor if your incision/area has: Continuous Slow Oozing, Sudden Increased Bleeding, Increased Pain/ Swelling, Increased Redness, Foul Smelling Discharge and Swelling at the incision site Call your doctor if you observe: Fever of 101 or Higher, Inability to urinate, Inability to have a bowel movement, Shortness of breath, Dizziness, Fainting spells, Swelling in the ankles, Chest pain, Increased palpitations (irregular heartbeat), Calf discomfort and Uncontrolled pain Suture Line Care: Avoid Pulling/Pushing and Avoid Pinching/Bending Cleanse incision/area with: Soap & Water Pending Tests Upon Discharge: none Please Follow Up With: Chika Alas MD When: You will also need to follow up with Dr. Mele Marc from neurology (for memory loss) and Willy PARRY (from orthopedics) Meaningful Use Info Meaningful Use Meaningful Use Diagnoses (Choose all that apply): None applicable Ischemic Stroke Statin Dosing Therapy Reference: STATIN DOSE THERAPY REFERENCE: * Patients > 75 years receive moderate or high dose statin therapy. * Patients 75 years or YOUNGER should receive HIGH intensity statin dose unless contraindicated. You will be required to document reason for non-treatment if statin daily dose does not meet guidelines. HIGH DOSE STATIN THERAPY DAILY Atorvastatin > than or = to 40 mg Rosuvastatin > than or = to 20 mg Amlodipine + Atorvastatin > than or = to 2.5/40 mg Ezetimibe + Simvastatin 10/80 mg Simvastatin 80mg Discharge Plan Admission Admit Date/Time: 01/30/24 18:04 Primary Reason for Your Visit: Debility due to R shoulder replacement. Attending Provider: Victorina Galvan Primary Care Provider: Chika Alas Instructions Patient Instructions: What Are Snoring and Sleep Apnea?, Depression Affects Your Mind ..., Counseling for Depression, RLS Additional Instructions / Restrictions: 1. We have been weaning you off Mirapex (also called Pramipexole) You have no been taking the afternoon dose since you arrived on rehab and we just decreased the bedtime dose to 0.25 mg. After 10 days you can discontinue the Mirapex. Mirapex usually only works for a few years and then it can cause augmentation........it can make the restless leg worse. Gabapentin is a good drug for restless legs. If you start waking up at night with pain in the legs or restless legs you may have to increase the Gabapentin to 200 mg 3 times a day......0800, 1500 and bedtime. 2. You have been depressed since your 10 years ago. you are always going to miss him but, you should not still be depressed. Depression can contribute to memory loss and cause changes in personality and trouble sleeping. With your permission we started you on an antidepressant at bedtime called Remeron (also called Mirtazapine). You have been sleeping better you are not as irritable. Everyone has noticed a difference. Even you cognition has improved. Take 1/2 tab at bedtime for 1 week and then increase to a whole tab at bedtime. 3. You have been having trouble with memory. The speech therapist gave you a test when you came to rehab and it is called the BCAT (brief cognitive assessment). You scored 31 out of 50 on this test which is consistent with mild-moderate cognitive deficit. Memory problems can be multifactorial. As we get older many medications that we have previously tolerated can can cause confusion and dizziness and lead to falls. Depression causes memory difficulties. Sleep apnea can cause problems with cognition and memory. You had a sleep test (we measured your oxygen saturation continuously while you were sleeping) and it showed that your oxygen drops at night when you are sleeping. Untreated sleep apnea cause memory problems, problems with the rhythm of the heart, depression and it also causes restless leg to get worse. The sleep lab is going to call you to get you set up for an overnight sleep study to see if you have sleep apnea. With the treatments we have initiated in rehab your memory is better......your BCAT was repeated prior to discharge and the score is up to 41/50 which is consistent with mild dysfunction. You are going to follow up with a neurologist, Dr. Mele Marc, to be evaluated for memory loss. We started you on a drug called Aricept while you have been on rehab......this drug helps to delay progression of memory loss. You are on a low dose and you have had no side effects. 4. I think things have gotten somewhat better since you have been on rehab and I am glad to see this. It has been a pleasure finally meeting you and getting to know you. If you or your family have any questions after you leave rehab please do not hesitate to call me. OFFICE: [phone] CELL: [phone]. nurses station on rehab: [phone] PS - I think you should no longer use Temazepam (also called Restoril). this is a drug similar to Valium and Ativan and Xanax. It is long acting and can cause confusion, lightheadedness and falls. We have not given you any of this medication on rehab and you are sleeping well on the medications I am discharging you on. GAbapentin, Mirapex and Restoril can all cause dizziness, confusion and be associated with increased falls. you should avoid these medications if possible.......I think you need the Gabapentin but the other 2 you can do without. Discharge Orders/Prescriptions Prescriptions: New tramadol 50 mg Tablet 50 mg PO Q6H PRN PRN (Reason: Pain Score 4-10) 7 Days Qty: 14 0RF amlodipine 10 mg Tablet 10 mg PO DAILY Qty: 30 0RF pramipexole 0.25 mg Tablet 0.25 mg PO QHS Qty: 10 0RF Rx Instructions: Discontinue after the last dose. mirtazapine 15 mg Tablet 7.5 mg PO QHS Qty: 30 0RF Rx Instructions: Take 1/2 tab at bedtime for 1 week and then increase to a whole tab at bedtime donepezil 5 mg Tablet 5 mg PO QHS Qty: 30 0RF Continued ascorbate calcium (vitamin C) 500 mg tablet 500 mg PO DAILY atenolol 50 mg tablet 50 mg PO DAILY Qty: 90 3RF pantoprazole 40 mg tablet,delayed release (DR/EC) 40 mg PO DAILY Qty: 90 3RF gabapentin 100 mg capsule 200 mg PO BID@0800,1500 90 Days Qty: 360 3RF cholecalciferol (vitamin D3) 1,000 UNIT tablet 1,000 unit PO DAILY multivitamin,xm-nnmt-pffqtyqf 27-0.4 mg tablet 1 tab PO DAILY naproxen sodium [Aleve] 220 mg tablet 220 mg PO BID PRN (Reason: pain) folic acid 1 mg tablet 1 mg PO DAILY cyanocobalamin (vitamin B-12) [Vitamin B-12] 500 mcg tablet 500 mcg PO DAILY losartan 50 mg Tablet 50 mg PO DAILY Qty: 0 0RF acetaminophen 500 mg Tablet 1,000 mg PO TID 14 Days Qty: 84 0RF Rx Instructions: Do not take more than 3000 mg Tylenol in a 24-hour period. aspirin 81 mg Tablet,Chewable 81 mg PO BIDCM 13 Days Qty: 26 0RF Rx Instructions: Take 81 mg aspirin twice daily for 2 weeks postoperatively for DVT prophylaxis. spironolactone 25 mg tablet 12.5 mg PO DAILY Qty: 45 3RF Discontinued temazepam 15 MG capsule 15 mg PO QHS PRN PRN (Reason: Sleep) pramipexole 0.5 mg tablet 0.25 mg PO 1500 pramipexole 0.5 mg tablet 0.5 mg PO QHS tramadol 50 mg Tablet 50 - 100 mg PO Q6H PRN PRN (Reason: as needed for pain) 7 Days Qty: 30 0RF amlodipine 5 mg tablet 5 mg PO DAILY Qty: 90 3RF No Action (DME) disability placard See Rx Instructions .ROUTE .MEDSUPPLY Qty: 1 0RF Rx Instructions: As directed, Length of time: 5 years Referrals / Follow Up: Mele Marc MD [Non-Staff] - 03/15/24 1:00 pm Willy Chauhan PA [Med Staff - Adv Practice Prof] - 02/13/24 12:30 pm (Hospital F/U ) Disposition Disposition (needs filled in before D/C Order can be placed): Home, Self Care Charges/Coding Visit Charges Inpatient E&M: 35258 Disch Hosp >30min
[2024-02-09 21:26] VITALS: PULSE 73; O2SAT 96
[2024-02-09 22:00] VITALS: BP 110/63; PULSE 64; RESP 15; TEMP 36.9; O2SAT 97
[2024-02-09] MEDS: Pramipexole Di-HCl 0.25 MG Tablet PO (22:25)
[2024-02-09] MEDS: Mirtazapine 15 MG Tablet 7.5 MG PO (22:26)
[2024-02-09] MEDS: Donepezil HCl 5 MG Tablet PO (22:26)
[2024-02-09] MEDS: Senna/Docusate Sodium 1 Tablet 2 TABLET PO (22:27)
[2024-02-10] MEDS: Acetaminophen 500 MG Tablet 1000 MG PO (04:55)
[2024-02-10 07:29] VITALS: BP 138/69; PULSE 71; RESP 18; TEMP 36.4; O2SAT 95
[2024-02-10] MEDS: Atenolol 50 MG Tablet PO (08:12)
[2024-02-10] MEDS: amLODIPine 10 MG Tablet PO (08:12)
[2024-02-10] MEDS: Spironolactone 25 MG Tablet 12.5 MG PO (08:12)
[2024-02-10] MEDS: Cholecalciferol (VIT D3) 25 MCG TABLET (1,000 UNITS) PO (08:12)
[2024-02-10] MEDS: Pantoprazole Sodium 40 MG Tablet PO (08:12)
[2024-02-10] MEDS: Losartan Potassium 50 MG Tablet PO (08:12)
[2024-02-10] MEDS: Ascorbic Acid 500 MG Tablet PO (08:13)
[2024-02-10] MEDS: Cyanocobalamin 500 MCG Tablet PO (08:13)
[2024-02-10] MEDS: Folic Acid 1 MG Tablet PO (08:13)
[2024-02-10] MEDS: Multivitamins,Ther W-Minerals Tablet 1 TABLET PO (08:13)
[2024-02-10] MEDS: Aspirin 81 MG TAB.CHEW PO (08:13)
[2024-02-10] MEDS: Gabapentin 100 MG Capsule 200 MG PO (08:16)
--- NOTE | 2024-02-10 09:38 | CASEMGMT ---
Social Work SW received notification from Physician, Dr. Galvan informing SW that the patient completed an overnight trending pulse ox. Patient qualifies for 2L O2 overnight. SW received completed script from Physician for overnight O2. Physician notified to provide supporting documentation for overnight pulse ox. SW met with patient at bedside to review discharge plans for home with overnight Home O2. SW informed patient that referral will be submitted to [facility] for order. Patient to follow up with [facility]. SW contacted patient's daughter, Daphnie to inform of overnight O2 requirement. Patient informed SW that daughter will be providing transportation at discharge. Discharge: Home with DME Overnight oxygen provided by [facility]. JOSE F Vasques
[2024-02-10 14:40] VITALS: BP 138/69; PULSE 71; RESP 18; TEMP 36.4; O2SAT 95
--- NOTE | 2024-02-10 14:42 | NURSING ---
discharged home with daughter. discharge instructions, medications and appointments reviewed with pt and family. denies questions or concerns
== END 2024-02-10 14:43 | disposition home or self-care (01) | DRG 483 ==
PROVIDERS: Admitting Provider Internal Medicine; PCP Internal Medicine; Visit Provider Internal Medicine
DX: Z47.1 Aftercare following joint replacement surgery (principal); E22.2 Syndrome of inappropriate secretion of antidiuretic hormone; E87.1 Hypo-osmolality and hyponatremia; K51.90 Ulcerative colitis, unspecified, without complications; E83.39 Other disorders of phosphorus metabolism; F03.90 Unspecified dementia, unspecified severity, without behavioral disturbance, psychotic disturbance, mood disturbance, and anxiety; I10 Essential (primary) hypertension; F32.A Depression, unspecified; G25.81 Restless legs syndrome; M19.011 Primary osteoarthritis, right shoulder; M54.10 Radiculopathy, site unspecified; G47.33 Obstructive sleep apnea (adult) (pediatric); K21.9 Gastro-esophageal reflux disease without esophagitis; M48.061 Spinal stenosis, lumbar region without neurogenic claudication; K52.831 Collagenous colitis; M75.101 Unspecified rotator cuff tear or rupture of right shoulder, not specified as traumatic; E66.9 Obesity, unspecified; Z96.611 Presence of right artificial shoulder joint; G47.00 Insomnia, unspecified; Z79.82 Long term (current) use of aspirin; G89.29 Other chronic pain; Z79.899 Other long term (current) drug therapy; Z68.31 Body mass index [BMI] 31.0-31.9, adult
CPT/HCPCS: 36415; 73030; 80048; 80053; 81001; 82248; 82607; 82962; 83735; 83930; 83935; 84100; 84300; 84443; 85025; 85027; 85610; 85730; 87081; 88305; 88311; 92523; 94668; 94762; 96365; 96366; 96375; 97110; 97116; 97129; 97130; 97162; 97166; 97530; 97535; 99221; 99252; C1776; J7050; J7120; G0378; G0463; J2405

== ENCOUNTER 2024-02-26 21:48 | Emergency (ER) | payer MEDICARE, OTHER, SELFPAY ==
[2024-02-26 21:51] VITALS: BP 105/63; PULSE 59; RESP 14; TEMP 36.6; O2SAT 96; BMI 32.9
--- NOTE | 2024-02-26 22:02 | EKG12_ITS ---
Test Reason : DYSRHYTHMIA Blood Pressure : / mmHG Vent. Rate : 058 BPM Atrial Rate : 058 BPM P-R Int : 268 ms QRS Dur : 080 ms QT Int : 382 ms P-R-T Axes : 075 010 031 degrees QTc Int : 374 ms Sinus bradycardia with 1st degree A-V block Cannot rule out Septal infarct , age undetermined Abnormal ECG Confirmed by Blake Vazquez ([id number]), editorial assistant AMPARO JCAKSON ([id number]) on 03/02/2024 5:59:32 AM Referred By: ELDA Confirmed By:Blake Vazquez
--- NOTE | 2024-02-26 22:04 | EX.ED.DYSGE1 ---
HPI History of Present Illness Chief Complaint: Syncope Informant: patient and family Narrative Narrative: Patient is an 84-year-old female with past medical history of hypertension and obstructive sleep apnea. She also has restless leg syndrome. Patient was undergoing a sleep study this evening and took a Mirapex prior to the event. While she was sitting in a chair getting her monitor was hooked up she felt lightheaded and had a brief syncopal event. Reportedly her heart rate decreased to approximately 40 bpm. Patient and sleep study staff report that symptoms lasted for approximately 30 seconds to 1 minute and then resolved. Patient states that she was never completely out and that she could hear them talking to her but she just had difficulty seeing and responding for a few seconds. Secondary to the event the patient was sent to the ER for evaluation. Upon arrival patient states she feels normal. [facility] Medical History Cognitive dysfunction Wears hearing aid Wears dentures Post-menopausal Depression Alcohol use Ambulates with cane Arthritis Easy bruising Restless legs Spinal stenosis Back pain Barretts esophagus Gastric reflux Non-smoker Leg cramps History of edema History of stress test Preoperative evaluation to rule out surgical contraindication Age-related cognitive decline Urinary tract infection with hematuria Clostridium difficile infection Shoulder pain Insomnia Collagenous colitis Flu vaccine need Psoriasis of scalp Shingles Dermatitis Heart murmur Cataracts, bilateral Seasonal allergies Carpal tunnel syndrome Normochromic normocytic anemia Hyponatremia Intractable back pain Radicular pain of right lower extremity Debility Osteoarthritis Hypertension Restless leg syndrome Lumbar spinal stenosis Home Medications ?Medication ?Instructions ?Recorded ?Last Taken ?Type cholecalciferol (vitamin D3) 25 1,000 unit PO DAILY SUPPLEMENT 11/21/17 09/06/18 History mcg (1,000 unit) tablet disability placard #1 ea 08/18/20 Unknown Rx ascorbate calcium (vitamin C) 500 500 mg PO DAILY SUPPLEMENT 08/21/20 Unknown History mg tablet spironolactone 25 mg tablet 12.5 mg (1/2 x 25 mg) PO DAILY BP 05/06/23 Unknown Rx #45 tabs multivitamin,[id number]-[id number] 27 1 tab PO DAILY vitamin 10/24/23 Unknown History mg-0.4 mg tablet atenolol 50 mg tablet 50 mg PO DAILY BP #90 tabs 01/12/24 01/28/24 04:00 Rx gabapentin 100 mg capsule 200 mg (2 x 100 mg) PO 01/12/24 Unknown Rx BID@0800,1500 nerve pain 3 months #360 caps pantoprazole 40 mg tablet,delayed 40 mg PO DAILY GERD #90 tabs 01/12/24 01/28/24 04:00 Rx release cyanocobalamin (vitamin B-12) 500 500 mcg PO DAILY SUPPLEMENT 01/15/24 Unknown History mcg tablet (Vitamin B-12) folic acid 1 mg tablet 1 mg PO DAILY SUPPLEMENT 01/15/24 Unknown History naproxen sodium 220 mg tablet 220 mg PO BID PRN pain 01/15/24 Unknown History (Aleve) acetaminophen 500 mg tablet 1,000 mg (2 x 500 mg) PO TID pain 01/30/24 Unknown Rx 14 days #84 tabs aspirin 81 mg chewable tablet 81 mg PO BIDCM dvt prophylaxis 13 01/30/24 Unknown Rx days #26 tabs losartan 50 mg tablet 50 mg PO DAILY bp #0 tabs 01/30/24 Unknown Rx amlodipine 10 mg tablet 10 mg PO DAILY #30 tabs 02/09/24 Unknown Rx donepezil 5 mg tablet 5 mg PO QHS #30 tabs 02/09/24 Unknown Rx mirtazapine 15 mg tablet 7.5 mg (1/2 x 15 mg) PO QHS #30 02/09/24 Unknown Rx tabs tramadol 50 mg tablet 50 mg PO Q6H PRN PRN Pain Score 02/09/24 Unknown Rx 4-10 1 week #14 tabs pramipexole 0.25 mg tablet 0.25 mg PO QHS PRN restless leg(s) 02/23/24 Unknown Rx #30 tabs Allergy/AdvReac Type Severity Reaction Status Date / Time influenza virus vaccine ts Allergy Severe Swelling Verified 01/28/24 06:40 2012- (From Fluarix) hydrochlorothiazide Allergy Hives Verified 01/28/24 06:40 irbesartan Allergy Hives Verified 01/28/24 06:40 meloxicam Allergy Swelling Verified 01/28/24 06:40 monosodium glutamate Allergy Shortness Verified 01/28/24 06:40 of breath triamterene Allergy Hives Verified 01/28/24 06:40 perfume AdvReac breathing Verified 01/28/24 06:40 it in gets itch venom-honey bee (bee venom AdvReac Anaphylaxis Verified 01/28/24 06:40 (honey bee)) Family History Mother Hypertension Colon cancer Father Colon cancer Sister Colon cancer Family History no significant family his Surgical History Status post reverse total arthroplasty of right shoulder Hx of total knee arthroplasty Hx of total hip arthroplasty History of carpal tunnel surgery of right wrist History of carpal tunnel surgery of left wrist Hx of hysterectomy Hx of right cataract extraction Hx of left cataract extraction Hx of esophagogastroduodenoscopy Hx of colonoscopy History of total bilateral knee replacement History of hip replacement Hx of total shoulder replacement History of back surgery Status post lumbar spine surgery for decompression of spinal cord Social History household members: none housing: house pets and animals: Yes pets and animals: dog(s) Smoking Status: Never smoker second hand exposure: No alcohol intake: current alcohol intake frequency: holidays/special occasions only substance use type: does not use caffeine: Yes what type of physical activity do you participate in: none ROS ROS ED Constitutional Constitutional ED: Denies chills or fever(s) Eyes Eyes: Denies change in vision or diplopia ENT ENT ED: Denies sore throat Cardiovascular Cardiovascular: Reports other Details: Positive syncope ; Denies chest pain, palpitations or racing heartbeat Respiratory/Chest Respiratory/Chest: Denies cough or dyspnea Gastrointestinal Gastrointestinal: Denies abdominal pain, diarrhea, nausea or vomiting Genitourinary Genitourinary ED: Denies dysuria Musculoskeletal Musculoskeletal: Denies myalgias Integumentary Denies rash Neurologic Neurologic: Denies headache(s), paresthesias or weakness Hematologic/Lymphatic Hematologic/Lymphatic: Denies easy bleeding or easy bruising EXAM Physical Exam Const Vital Signs: 02/26/24 21:51 02/26/24 21:55 02/26/24 22:35 Temperature 97.9 F Temperature Source Oral Pulse Rate 59 L Respiratory Rate 14 Respiratory Effort Normal Non-Labored Respiratory Pattern Normal Blood Pressure 105/63 Blood Pressure [Lying] 96/55 L Blood Pressure [Sitting (for 1 minute prior to obtaining)] 114/56 L Blood Pressure [Standing (for 1 minute prior to obtaining)] 106/85 H Blood Pressure Mean 77 Blood Pressure Mean [Lying] 68 Blood Pressure Mean [Sitting (for 1 minute prior to obtaining)] 75 Blood Pressure Mean [Standing (for 1 minute prior to obtaining)] 92 Pulse Ox 96 Oxygen Delivery Method Room Air 02/26/24 23:00 Temperature Temperature Source Pulse Rate 75 Respiratory Rate 14 Respiratory Effort Respiratory Pattern Blood Pressure 107/61 Blood Pressure [Lying] Blood Pressure [Sitting (for 1 minute prior to obtaining)] Blood Pressure [Standing (for 1 minute prior to obtaining)] Blood Pressure Mean 76 Blood Pressure Mean [Lying] Blood Pressure Mean [Sitting (for 1 minute prior to obtaining)] Blood Pressure Mean [Standing (for 1 minute prior to obtaining)] Pulse Ox 92 Oxygen Delivery Method Room Air Positive well nourished and well developed General Appearance ED: well developed; Negative for pallor HEENT Reports dry mucous membranes HEENT Narrative: Mucous membranes are dry and tacky No tongue or lip swelling no oral lesions no airway edema or compromise No tongue or cheek biting noted No secondary changes to suggest infection in the posterior pharynx Mouth ED: Yes dry mucous membranes Mouth: dry mucous membranes Eyes PERRL and EOMs intact bilaterally General Eye ED: Negative for pale conjunctiva or scleral icterus Neck supple Resp normal respiratory effort and clear to auscultation bilaterally Cardio regular rate and regular rhythm Rate: other Other Details: Radial and carotid pulses are equal and symmetric GI normal to inspection, nondistended, normoactive bowel sounds, non-tender, non-distended and no masses GI Narrative: No voluntary guarding or rigidity or pulsatile mass Auscultation: normoactive bowel sounds Palpation: soft Extremity Extremity Narrative: Patient has chronic changes to the right shoulder consistent with recent shoulder surgery otherwise no new or acute findings Neuro oriented x3, CN's II-XII intact bilaterally and no sensory deficits noted Neuro Narrative: Cranial nerves II through XII are grossly intact there are no focal neurologic deficits NIH stroke scale score of 0 Sensorium / Orientation: alert Psych mental status grossly normal Skin no rashes or lesions noted and skin turgor normal Skin Narrative: Surgical wound to the right shoulder consistent recent surgical procedure that is clean dry and intact without secondary changes to suggest infection General Skin Exam: Negative for jaundice or pallor MDM MDM MDM Narrative Medical decision making narrative: Patient arrived to the ER awake alert and oriented with stable vitals. She reported a syncopal/near syncopal event while sitting. Differential diagnosis is for cardiac dysrhythmia versus dehydration versus orthostatic hypotension versus acute blood loss anemia versus acute kidney injury versus electrolyte abnormality. Patient had basic blood work obtained which showed stable H&H her kidney function was consistent with dehydration as her baseline creatinine is 0.75 and today it is 1.1. However orthostatic vital signs were negative. The patient was kept on the monitor and there was no cardiac dysrhythmia noted. She was hydrated with 1 L of fluid secondary to the elevation in her kidney function and dehydration status. Patient had no further bouts of syncope and at this time as there is no obvious signs of severe electrolyte abnormality cardiac dysrhythmia or neurologic event I do not feel there is need for further evaluation in the ER and patient is otherwise safe for discharge History & Record Review Discussion w/independent historian: Patient and Family Lab Data Attestation: I reviewed the patient's lab results. Labs: Laboratory Results - last 24 hr 02/26/24 22:04 WBC 7.4 RBC 3.95 L Hgb 11.9 L Hct 37.0 MCV 93.7 MCH 30.1 MCHC 32.2 RDW Std Deviation 45.1 H RDW Coeff of Triston 13.2 Plt Count 254 MPV 10.2 Immature Gran % (Auto) 0.500 Neut % (Auto) 61.8 Lymph % (Auto) 16.2 L Price % (Auto) 14.9 H Eos % (Auto) 5.7 H Baso % (Auto) 0.9 Absolute Neuts (auto) 4.6 Absolute Lymphs (auto) 1.20 Nucleated RBC % 0 Sodium 135 L Potassium 4.1 Chloride 103 Carbon Dioxide 26.0 Anion Gap 6 BUN 29 H Creatinine 1.09 H Estim Creat Clear Calc 38.11 Est GFR (MDRD) Af Amer 61 Est GFR (MDRD) Non-Af 51 L BUN/Creatinine Ratio 26.6 H Glucose 108 H Calcium 9.8 Magnesium 2.0 Discharge Plan Triage Chief Complaint: Syncope ED Provider: Wade Norman Dx/Rx/DC Orders Clinical Impression: Syncope, Dehydration, Hypertension Instructions: Causes of Syncope, ED Dehydration (Adult) Prescriptions: No Action ascorbate calcium (vitamin C) 500 mg tablet 500 mg PO DAILY atenolol 50 mg tablet 50 mg PO DAILY Qty: 90 3RF pantoprazole 40 mg tablet,delayed release (DR/EC) 40 mg PO DAILY Qty: 90 3RF gabapentin 100 mg capsule 200 mg PO BID@0800,1500 90 Days Qty: 360 3RF cholecalciferol (vitamin D3) 1,000 UNIT tablet 1,000 unit PO DAILY multivitamin,ht-hzwq-[id number] 27-0.4 mg tablet 1 tab PO DAILY naproxen sodium [Aleve] 220 mg tablet 220 mg PO BID PRN (Reason: pain) folic acid 1 mg tablet 1 mg PO DAILY cyanocobalamin (vitamin B-12) [Vitamin B-12] 500 mcg tablet 500 mcg PO DAILY losartan 50 mg Tablet 50 mg PO DAILY Qty: 0 0RF acetaminophen 500 mg Tablet 1,000 mg PO TID 14 Days Qty: 84 0RF Rx Instructions: Do not take more than 3000 mg Tylenol in a 24-hour period. aspirin 81 mg Tablet,Chewable 81 mg PO BIDCM 13 Days Qty: 26 0RF Rx Instructions: Take 81 mg aspirin twice daily for 2 weeks postoperatively for DVT prophylaxis. tramadol 50 mg Tablet 50 mg PO Q6H PRN PRN (Reason: Pain Score 4-10) 7 Days Qty: 14 0RF amlodipine 10 mg Tablet 10 mg PO DAILY Qty: 30 0RF mirtazapine 15 mg Tablet 7.5 mg PO QHS Qty: 30 0RF Rx Instructions: Take 1/2 tab at bedtime for 1 week and then increase to a whole tab at bedtime donepezil 5 mg Tablet 5 mg PO QHS Qty: 30 0RF (DME) disability placard See Rx Instructions .ROUTE .MEDSUPPLY Qty: 1 0RF Rx Instructions: As directed, Length of time: 5 years spironolactone 25 mg tablet 12.5 mg PO DAILY Qty: 45 3RF pramipexole 0.25 mg tablet 0.25 mg PO QHS PRN (Reason: restless leg(s)) Qty: 30 0RF Primary Care Provider: Chika Alas Referrals: Chika Alas MD [Primary Care Provider] - Activity Restrictions/Additional Instructions: Please keep yourself well-hydrated and to follow-up with your family doctor for repeat evaluation. If you have any further concerns or worsening of symptoms please return to the ER for repeat evaluation Print Language: Indian Disposition Disposition: Home, Self Care
[2024-02-26 22:28] LABS: Absolute Neutrophil Count 4.6 X10^3/uL (2.0-7.7); Basophil# 0.07 X10^3/uL; Basophil% 0.9 % (0-1); Eosinophil# 0.42 X10^3/uL; Eosinophils% 5.7 % (0-5); Hemoglobin 11.9 g/dL (12.0-15.0); Lymphocyte % 16.2 % (19-41); Mean Corp Hgb Conc 32.2 g/dL (32-36); Mean Corpuscular Hgb 30.1 pg (27.0-32.0); Mean Corpuscular Volume 93.7 fL (81-99); Mean Platelet Vol. 10.2 fl (6.2-12.0); Monocyte# 1.11 X10^3/uL; Monocyte% 14.9 % (0-10); NRBC Flagged by Analyzer 0 % (0-5); Neutrophil # 4.59 X10^3/uL (2.7-7.7); Neutrophil % 61.8 % (47-70); Platelet Count 254 K/mm3 (150-450); RBC Distribution Width CV 13.2 % (11.6-14.6); RBC Distribution Width SD 45.1 fl (35.1-43.9); Red Blood Count 3.95 M/mm3 (4.2-5.4); White Blood Count 7.4 K/mm3 (4.4-11.0)
[2024-02-26 22:35] VITALS: BP 106/85; BP 114/56; BP 96/55
[2024-02-26 22:48] LABS: Anion Gap 6 (5-15); BUN 29 mg/dL (7-18); BUN/Creat Ratio 26.6 RATIO (10-20); Calcium,Total 9.8 mg/dL (8.5-10.1); Chloride 103 mmol/L (98-107); Creatinine, Serum 1.09 mg/dL (0.55-1.02); EST Glomerular Filtration Rate 51 mL/min (>60); Est Glom Filt Rate - Afr Amer 61 mL/min (>60); Estimated Creatinine Clearance 38.11 ml/min; Glucose 108 mg/dL (74-106); Potassium 4.1 mmol/L (3.5-5.1); Sodium Level 135 mmol/L (136-145)
[2024-02-26 23:00] VITALS: BP 107/61; PULSE 75; RESP 14; O2SAT 92
[2024-02-26] MEDS: 0.9% Normal Saline (1000mL) 1,000 ML 999 ML IV (23:15)
[2024-02-27] VITALS: BP 108/57; PULSE 56; RESP 16; O2SAT 96
[2024-02-27 02:13] VITALS: BP 106/64; PULSE 81; PULSE 83; RESP 14; RESP 16; TEMP 36.9; O2SAT 98
== END 2024-02-27 02:26 | disposition home or self-care (01) ==
PROVIDERS: Emergency Provider Emergency Medicine; PCP Internal Medicine; Visit Provider Emergency Medicine
DX: R55 Syncope and collapse (principal); E86.0 Dehydration; I10 Essential (primary) hypertension; G47.33 Obstructive sleep apnea (adult) (pediatric)
CPT/HCPCS: 80048; 83735; 85025; 93005; 96360; 96361; 99285; J7030; A4216

== ENCOUNTER 2024-03-15 15:30 | Outpatient (CLI) | payer MEDICARE, OTHER, SELFPAY ==
[2024-03-15 16:56] LABS: Ferritin 156 ng/mL (8-252); Iron 57 ug/dL (50-170); Iron Binding Capacity,Total 298 ug/dL (250-450); PERCENT IRON SATURATION 19.1 % (15.0-55.0)
[2024-03-17 04:07] LABS: Transferrin 241 mg/dL (149-313)
== END 2024-03-15 23:59 | disposition home or self-care (01) ==
LOC: BIMLAB 15:32
PROVIDERS: PCP Internal Medicine; Visit Provider Psychiatry & Neurology Neurology
DX: R41.3 Other amnesia (principal); G25.81 Restless legs syndrome; E61.1 Iron deficiency
CPT/HCPCS: 36415; 82728; 83540; 83550; 84466

== ENCOUNTER 2024-03-30 20:00 | Outpatient (CLI) | payer MEDICARE, OTHER, SELFPAY ==
--- NOTE | 2024-02-27 23:27 | CPS ---
During the patient hookup, the patient became very dizzy, nauseas, bradycardic and started to appear dusky in the face. The [employer] Tech felt it was necessary for a rapid response to be called overhead for the patient due to declining bradycardia and a near syncopal episode. Patient was sent to ER for further evaluation.
== END 2024-03-30 23:59 | disposition home or self-care (01) ==
LOC: SL 03-31 04:32
PROVIDERS: PCP Internal Medicine; Referring Provider Internal Medicine; Visit Provider Internal Medicine
DX: G47.33 Obstructive sleep apnea (adult) (pediatric) (principal); G47.10 Hypersomnia, unspecified
CPT/HCPCS: 95811

== ENCOUNTER → 2024-04-15 | Outpatient (CLI) | payer MEDICARE, OTHER, SELFPAY | END | disposition home or self-care (01) | LOC: SL 09:44 | PROVIDERS: PCP Internal Medicine; Visit Provider Internal Medicine | DX: Z46.89 Encounter for fitting and adjustment of other specified devices (principal) ==

== ENCOUNTER → 2024-05-07 | Outpatient (CLI) | payer MEDICARE, OTHER, SELFPAY ==
[2024-05-07 12:49] LABS: Anion Gap 7 (5-15); BUN 17 mg/dL (7-18); BUN/Creat Ratio 19.6 RATIO (10-20); Calcium,Total 10.4 mg/dL (8.5-10.1); Chloride 101 mmol/L (98-107); Creatinine, Serum 0.87 mg/dL (0.55-1.02); EST Glomerular Filtration Rate 66 mL/min (>60); Est Glom Filt Rate - Afr Amer 80 mL/min (>60); Glucose 116 mg/dL (74-106); Potassium 3.9 mmol/L (3.5-5.1); Sodium Level 134 mmol/L (136-145)
== END | disposition home or self-care (01) ==
LOC: BIMLAB 10:15
PROVIDERS: PCP Internal Medicine; Visit Provider Internal Medicine
DX: I10 Essential (primary) hypertension (principal)
CPT/HCPCS: 36415; 80048

== ENCOUNTER → 2024-05-18 | Outpatient (CLI) | payer MEDICARE, OTHER, SELFPAY ==
[2024-05-18 12:14] LABS: Erythrocyte Sedimentation Rate 9 mm/hr (0-30)
[2024-05-18 12:36] LABS: Vitamin B12 874 pg/mL (211-911)
[2024-05-18 12:41] LABS: ALB/GLOB Ratio 1.1 RATIO (0.9-2.4); AST(SGOT) 19 U/L (15-37); Alanine Aminotransfer ALT/SGPT 22 U/L (13-56); Albumin, Serum 3.7 g/dL (3.2-5.0); Alkaline Phosphatase 102 U/L (45-117); Anion Gap 5 (5-15); BUN 17 mg/dL (7-18); BUN/Creat Ratio 21.3 RATIO (10-20); CRP < 2.90 mg/L (0.0-3.0); Chloride 104 mmol/L (98-107); EST Glomerular Filtration Rate 73 mL/min (>60); Est Glom Filt Rate - Afr Amer 88 mL/min (>60); Globulin 3.3 g/dL (2.2-4.2); Glucose 106 mg/dL (74-106); Potassium 3.9 mmol/L (3.5-5.1); Sodium Level 138 mmol/L (136-145)
[2024-05-26 12:09] LABS: Arsenic 7245 3 ug/L (0-9); Lead, Blood < 1.0 ug/dL (0.0-3.4); Mercury, Blood 85324 < 1.0 ug/L (0.0-14.9)
== END | disposition home or self-care (01) ==
LOC: BIMLAB 10:23
PROVIDERS: PCP Internal Medicine; Referring Provider Psychiatry & Neurology Neurology; Visit Provider Psychiatry & Neurology Neurology
DX: R41.3 Other amnesia (principal)
CPT/HCPCS: 36415; 80053; 82140; 82175; 82607; 83655; 83825; 84443; 85652; 86140

== ENCOUNTER → 2024-05-29 | Outpatient (CLI) | payer MEDICARE, OTHER, SELFPAY ==
--- NOTE | 2024-05-29 09:16 | MRI_ITS ---
HISTORY: MEMORY LOSS. TECHNIQUE: Multiplanar and multisequence MR images of the brain were obtained without contrast. 275 images. COMPARISON: None. FINDINGS: BRAIN PARENCHYMA: Moderate foci and zones of increased T2 FLAIR signal in the bilateral cerebral white matter. No abnormal focus of restricted diffusion. No acute intracranial hemorrhage identified. CSF SPACES: Mild volume loss with a cavum septum pellucidum. No significant midline shift or other mass effect.No extra-axial fluid collection. VASCULAR SYSTEM: Major intracranial flow voids are maintained. PARANASAL SINUSES AND MASTOID AIR CELLS: Mild maxillary sinus polypoid mucosal thickening. ORBITS: Bilateral lens resections. MRI/Brain without Contrast IMPRESSION: No evidence for acute infarct. Moderate chronic small vessel ischemic gliosis. Mild volume loss. Electronically Signed: Kika Delgado MD at 10:13 EDT ,
== END | disposition home or self-care (01) ==
LOC: MRI 09:12
PROVIDERS: PCP Internal Medicine; Referring Provider Psychiatry & Neurology Neurology; Visit Provider Psychiatry & Neurology Neurology
DX: R41.3 Other amnesia (principal)
CPT/HCPCS: 70551

== ENCOUNTER → 2024-07-06 | Outpatient (CLI) | payer MEDICARE, OTHER, SELFPAY ==
[2024-07-06 10:07] LABS: Absolute Lymphocyte Count 0.53 X10^3/uL (0.83-4.51); Absolute Neutrophil Count 4.3 X10^3/uL (2.0-7.7); Basophil# 0.03 X10^3/uL; Basophil% 0.5 % (0-1); Eosinophil# 0.06 X10^3/uL; Eosinophils% 1.1 % (0-5); Hematocrit 38.7 % (37-47); Hemoglobin 12.8 g/dL (12.0-15.0); Lymphocyte # 0.53 X10^3/ul (0.83-4.51); Lymphocyte % 9.6 % (19-41); Mean Corp Hgb Conc 33.1 g/dL (32-36); Mean Corpuscular Hgb 30.8 pg (27.0-32.0); Mean Platelet Vol. 9.8 fl (6.2-12.0); Monocyte# 0.59 X10^3/uL; Monocyte% 10.7 % (0-10); NRBC Flagged by Analyzer 0 % (0-5); Neutrophil # 4.27 X10^3/uL (2.7-7.7); Neutrophil % 77.6 % (47-70); POSITIVE DIFFERENTIAL YES; Platelet Count 250 K/mm3 (150-450); RBC Distribution Width CV 12.8 % (11.6-14.6); RBC Distribution Width SD 43.8 fl (35.1-43.9); Red Blood Count 4.16 M/mm3 (4.2-5.4); White Blood Count 5.5 K/mm3 (4.4-11.0)
[2024-07-06 10:18] LABS: Erythrocyte Sedimentation Rate 9 mm/hr (0-30)
[2024-07-06 10:53] LABS: CRP 6.72 mg/L (0.0-3.0)
[2024-07-11 02:06] LABS: Calprotectin, Stool 1270 ug/g (0-120)
[2024-07-12 15:08] LABS: Pancreatic Elastase, Fecal 173 (>200)
== END | disposition home or self-care (01) ==
PROVIDERS: Student in an Organized Health Care Education/Training Program; PCP Internal Medicine; Referring Provider Internal Medicine Gastroenterology; Visit Provider Internal Medicine Gastroenterology
DX: R19.7 Diarrhea, unspecified (principal); K58.9 Irritable bowel syndrome, unspecified
CPT/HCPCS: 36415; 82653; 83630; 83993; 85025; 85652; 86140; 87177; 87209; 87329; 87493; 87506

== ENCOUNTER → 2024-11-10 | Outpatient (CLI) | payer MEDICARE, OTHER, SELFPAY ==
[2024-11-10 15:19] LABS: Absolute Lymphocyte Count 0.79 X10^3/uL (0.83-4.51); Absolute Neutrophil Count 5.5 X10^3/uL (2.0-7.7); Basophil# 0.06 X10^3/uL; Basophil% 0.8 % (0-1); Eosinophil# 0.16 X10^3/uL; Eosinophils% 2.2 % (0-5); Hematocrit 39.9 % (37-47); Hemoglobin 13.2 g/dL (12.0-15.0); Lymphocyte # 0.79 X10^3/ul (0.83-4.51); Mean Corp Hgb Conc 33.1 g/dL (32-36); Mean Corpuscular Hgb 31.1 pg (27.0-32.0); Mean Corpuscular Volume 94.1 fL (81-99); Mean Platelet Vol. 10.7 fl (6.2-12.0); Monocyte# 0.64 X10^3/uL; NRBC Flagged by Analyzer 0 % (0-5); Neutrophil # 5.47 X10^3/uL (2.7-7.7); Neutrophil % 76.6 % (47-70); Platelet Count 229 K/mm3 (150-450); RBC Distribution Width CV 13.7 % (11.6-14.6); RBC Distribution Width SD 47.4 fl (35.1-43.9); Red Blood Count 4.24 M/mm3 (4.2-5.4); White Blood Count 7.2 K/mm3 (4.4-11.0)
[2024-11-10 15:35] LABS: Anion Gap 13 (5-15); BUN 12 mg/dL (4-19); BUN/Creat Ratio 16.4 RATIO (10-20); Calcium,Total 9.3 mg/dL (7.6-11.0); Carbon Dioxide 22.4 mmol/L (21.0-32.0); Chloride 104 mmol/L (98-108); Creatinine, Serum 0.72 mg/dL (0.70-1.20); EST Glomerular Filtration Rate 81 (>60); Glucose 101 mg/dL (70-99); Sodium Level 139 mmol/L (133-145)
[2024-11-10 15:35] LABS: ALB/GLOB Ratio 1.8 RATIO (0.9-2.4); AST(SGOT) 26 U/L (<=31); Alanine Aminotransfer ALT/SGPT 19 U/L (<=34); Albumin, Serum 4.4 g/dL (3.4-4.8); Alkaline Phosphatase 96 U/L (35-104); Anion Gap 12 (5-15); BUN 20 mg/dL (4-19); BUN/Creat Ratio 21.4 RATIO (10-20); Calcium,Total 10.4 mg/dL (7.6-11.0); Carbon Dioxide 24.2 mmol/L (21.0-32.0); Chloride 101 mmol/L (98-108); Creatinine, Serum 0.93 mg/dL (0.70-1.20); EST Glomerular Filtration Rate 60 (>60); Globulin 2.4 g/dL (2.2-4.2); Glucose 90 mg/dL (70-99); Potassium 4.3 mmol/L (3.3-5.1); Protein, Total 6.8 g/dL (5.9-8.4); Sodium Level 137 mmol/L (133-145); Total Bilirubin 0.63 mg/dL (0.00-1.30)
== END | disposition home or self-care (01) ==
LOC: BIMLAB 13:43
PROVIDERS: Physician Assistant Surgical; PCP Internal Medicine; Referring Provider Internal Medicine; Visit Provider Internal Medicine
DX: I10 Essential (primary) hypertension (principal); E87.1 Hypo-osmolality and hyponatremia
CPT/HCPCS: 36415; 80048; 80053; 85025

== ENCOUNTER → 2025-01-18 | Outpatient (CLI) | payer MEDICARE, OTHER, SELFPAY ==
--- NOTE | 2025-01-18 17:05 | MRI_ITS ---
PROCEDURE: BRAIN WITHOUT CONTRAST 01/18/2025 REASON FOR EXAM: KISUNLA MONITORING, MRI POST INFUSION #1 TECHNIQUE: Noncontrast brain MRI. Multiplanar and multisequence images were obtained. COMPARISON: MRI brain 05/29/2024 FINDINGS: FINDINGS: BRAIN/PARENCHYMA: No evidence of acute infarction or acute intracranial hemorrhage. There are subcortical and periventricular white matter FLAIR hyperintensities, likely related to chronic microvascular ischemic disease. EXTRA-AXIAL SPACES: No abnormal extra-axial fluid collections. Patent basal cisterns and foramen magnum. MIDLINE SHIFT: None. VENTRICLES: No hydrocephalus. SCALP SOFT TISSUES & CALVARIUM: No significant abnormality. VISUALIZED SINUSES & MASTOIDS: No air-fluid levels in the paranasal sinuses. The mastoid air cells are clear. ARTERIAL FLOW VOIDS: Preserved major arterial flow voids indicating gross patency. MRI/Brain without Contrast IMPRESSION: No acute intracranial abnormality; no acute infarct, intracranial hemorrhage or extra-axial collection. Chronic microvascular ischemia and involutional changes. Reading Location: [facility]
== END | disposition home or self-care (01) ==
LOC: MRI 16:48
PROVIDERS: PCP Internal Medicine
DX: G30.1 Alzheimer's disease with late onset (principal); F02.A0 Dementia in other diseases classified elsewhere, mild, without behavioral disturbance, psychotic disturbance, mood disturbance, and anxiety; Z51.81 Encounter for therapeutic drug level monitoring
CPT/HCPCS: 70551

== ENCOUNTER 2025-01-30 07:55 | Inpatient (IN) | payer MEDICARE, OTHER, SELFPAY ==
[2025-01-30] VITALS (7 sets, daily range): BP systolic 120–169; BP diastolic 63–114; PULSE 65–77; RESP 16–18; TEMP 36.2–36.8; O2SAT 97–100; BMI 29.2; BMI 28.5
--- NOTE | 2025-01-30 08:12 | EDS_ITS ---
HPI History of Present Illness Chief Complaint: Vision Prob Informant: patient and family Onset/Context/Timing Onset: Weeks Context: Sudden Onset Timing: Intermittent Quality: Hazy Location: Generalized visual field Worsened by: Nothing Relieved by: Nothing Narrative Narrative: Patient presents with intermittent blurry vision over the past few weeks. Patient is undergoing infusions for Alzheimer's treatment. Patient has had a recent MRI which did not show any acute stroke. Patient states that when she woke up today she had difficulty seeing. Patient states now her vision appears hazy. Patient states it is across her entire visual field. Patient denies a [place] loss of vision. Patient states nothing makes it better and nothing makes it worse. Patient denies any headaches. Patient denies any paresthesias or weakness. Patient denies any chest pain or shortness of breath. [facility] Medical History GERD (gastroesophageal reflux disease) Hoarseness Nocturnal hypoxemia Cognitive dysfunction Wears hearing aid Wears dentures Post-menopausal Depression Alcohol use Ambulates with cane Arthritis Easy bruising Restless legs Spinal stenosis Back pain Barretts esophagus Gastric reflux Non-smoker Leg cramps History of edema History of stress test Preoperative evaluation to rule out surgical contraindication Age-related cognitive decline Urinary tract infection with hematuria Clostridium difficile infection Shoulder pain Insomnia Collagenous colitis Flu vaccine need Psoriasis of scalp Shingles Dermatitis Heart murmur Cataracts, bilateral Seasonal allergies Carpal tunnel syndrome Normochromic normocytic anemia Hyponatremia Intractable back pain Radicular pain of right lower extremity Debility Osteoarthritis Hypertension Restless leg syndrome Lumbar spinal stenosis Home Medications ?Medication ?Instructions ?Recorded ?Last Taken ?Type cholecalciferol (vitamin D3) 25 1,000 unit PO DAILY RUIZ PPLEMENT 11/21/17 09/06/18 History mcg (1,000 unit) tablet disability placard #1 [id number] 08/18/20 Unknown Rx ascorbate calcium (vitamin C) 500 500 mg PO DAILY SUPP LEMENT 08/21/20 Unknown History mg tablet multivitamin,ka-ixlo-shgyital 27 1 tab PO DAILY vitami n 10/24/23 Unknown History mg-0.4 mg tablet atenolol 50 mg tablet 50 mg PO DAILY BP #90 tabs 0 01/12/24 01/28/24 04:00 Rx cyanocobalamin (vitamin B-12) 500 500 mcg PO DAILY SUP PLEMENT 01/15/24 Unknown History mcg tablet (Vitamin B-12) folic acid 1 mg tablet 1 mg PO DAILY SUPPLEMENT 06/01 Unknown History naproxen sodium 220 mg tablet 220 mg PO BID PRN pain 0 01/15/24 Unknown History (Aleve) spironolactone 25 mg tablet 12.5 mg (1/2 x 25 mg) PO D AILY BP 04/30/24 Unknown Rx #45 tabs pramipexole 0.25 mg tablet 0.25 mg PO QHS PRN restless leg(s) 08/11/24 Unknown Rx #90 tabs amlodipine 10 mg tablet 10 mg PO DAILY #90 tabs 09/09 12/31 Unknown Rx gabapentin 100 mg capsule 200 mg (2 x 100 mg) PO BID 0 10/25/24 Unknown Rx Neuropathy #180 caps losartan 100 mg tablet 100 mg PO DAILY bp #90 tabs 11/08/24 Unknown Rx pantoprazole 40 mg tablet,delayed 40 mg PO QAM GERD #9 0 tabs 11/10/24 Unknown Rx release donepezil 5 mg tablet 5 mg PO QHS Memory #90 tabs 11/24/24 Unknown Rx mirtazapine 15 mg tablet 15 mg PO QHS antidepressant #90 11/24/24 Unknown Rx tabs donanemab-azbt 17.5 mg/mL See Rx Instructions .Route 0 12/23/24 Unknown Rx intravenous solution ([place]) .COMPLEX Multiple Allergy/AdvReac Type Severity Reaction Status Date / Time influenza virus vaccine ts Allergy Severe Swelling Verified 01/30/25 07:55 2012- (From Fluarix) hydrochlorothiazide Allergy Hives Verified 01/30/25 07:55 irbesartan Allergy Hives Verified 01/30/25 07:55 meloxicam Allergy Swelling Verified 01/30/25 07:55 monosodium glutamate Allergy Shortness Verified 01/30/25 07:55 of breath triamterene Allergy Hives Verified 01/30/25 07:55 perfume AdvReac breathing Verified 01/30/25 07:55 it in gets itch venom-honey bee (bee venom AdvReac Anaphylaxis Verified 01/30/25 07:55 (honey bee)) Family History Mother Hypertension Colon cancer Father Colon cancer Sister Colon cancer Surgical History H/O shoulder replacement Status post reverse total arthroplasty of right shoulder Hx of total knee arthroplasty Hx of total hip arthroplasty History of carpal tunnel surgery of right wrist History of carpal tunnel surgery of left wrist Hx of hysterectomy Hx of right cataract extraction Hx of left cataract extraction Hx of esophagogastroduodenoscopy Hx of colonoscopy History of total bilateral knee replacement History of hip replacement Hx of total shoulder replacement History of back surgery Status post lumbar spine surgery for decompression of spinal cord Social History household members: none housing: house pets and animals: Yes pets and animals: dog(s) Smoking Status: Never smoker second hand exposure: No alcohol intake: current alcohol intake frequency: holidays/special occasions only substance use type: does not use caffeine: Yes what type of physical activity do you participate in: none ROS ROS ED Constitutional Constitutional ED: Denies chills or fever(s) Eyes Eyes: Reports blurry vision and change in vision; Denies diplopia ENT ENT ED: Denies rhinorrhea or sore throat Cardiovascular Cardiovascular: Denies chest pain or palpitations Respiratory/Chest Respiratory/Chest: Denies cough or dyspnea Gastrointestinal Gastrointestinal: Denies nausea or vomiting Genitourinary Genitourinary ED: Denies dysuria or hematuria Musculoskeletal Musculoskeletal: Denies back pain or neck pain Integumentary Denies abscess or rash Neurologic Neurologic: Denies headache(s) or weakness Allergic/Immunologic Allergic/Immunologic ED: Denies mouth swelling or urticaria EXAM Physical Exam Const Vital Signs: 01/30/25 07:55 01/30/25 10:00 Temperature 98.1 F Temperature Source Oral Pulse Rate 77 66 Respiratory Rate 18 18 Blood Pressure 169/90 H 153/114 H Blood Pressure Mean 116 127 Pulse Ox 100 Oxygen Delivery Method Room Air Positive well nourished and well developed General Appearance ED: well developed and NAD HEENT Reports moist mucous membranes Eyes PERRL and EOMs intact bilaterally Eyes Narrative: Funduscopic examination was benign. No retinal hemorrhages noted. Neck supple and no JVD Resp normal respiratory effort and clear to auscultation bilaterally Cardio regular rate and regular rhythm GI non-tender and non-distended Palpation: soft Neuro oriented x3, CN's II-XII intact bilaterally and no sensory deficits noted Sensorium / Orientation: alert Motor Exam: strength 5/5 throughout Psych mental status grossly normal MDM MDM MDM Narrative Medical decision making narrative: Differential diagnosis includes but is not limited to stroke, TIA, electrolyte abnormality, hyperglycemia, cardiac dysrhythmia, cardiac ischemia, and medication side effect. CT scan of the brain will be obtained to assess for stroke and intracranial bleeding. CBC will be obtained to assess for leukocytosis and anemia. Basic metabolic profile will be obtained to assess for electrolyte abnormality and renal function. High-sensitivity troponin will be obtained to assess for cardiac ischemia. PT with INR and PTT will be obtained to assess for coagulopathy. History & Record Review Discussion w/independent historian: Patient and Family Additional record(s) reviewed:: Prior outpatient record, Prior ED visit and Prior labs Lab Data Attestation: I reviewed the patient's lab results. Lab results narrative: CBC was reviewed and was within normal limits. Basic metabolic profile was reviewed and was essentially within normal limits. Initial high-sensitivity troponin was reviewed and was slightly elevated at 18. Labs: Laboratory Results - last 24 hr 01/30/25 01/30/25 08:40 10:46 WBC 7.3 RBC 4.49 Hgb 14.1 Hct 42.4 MCV 94.4 MCH 31.4 MCHC 33.3 RDW Std Deviation 43.2 RDW Coeff of Triston 12.6 Plt Count 168 MPV 10.0 Immature Gran % (Auto) 0.400 Neut % (Auto) 78.7 H Lymph % (Auto) 9.0 L [place] % (Auto) 9.3 Eos % (Auto) 1.8 Baso % (Auto) 0.8 Absolute Neuts (auto) 5.8 Absolute Lymphs (auto) 0.66 L Nucleated RBC % 0 Sodium 138 Potassium 4.0 Chloride 104 Carbon Dioxide 21.4 Anion Gap 12 BUN 14 Creatinine 0.81 Estim Creat Clear Calc 48.33 L Est GFR (MDRD) Non-Af 71 BUN/Creatinine Ratio 17.8 Glucose 101 H Hemoglobin A1c 5.3 Calcium 9.8 Troponin T High Sens 18 H Troponin T Hi Sens 2 Hr 19 H Radiography Diagnostic Testing: Clinical Impression(s) from Imaging Studies Brain CT 01/30/25 08:55 IMPRESSION: Ill-defined hypodensity within the right occipital lobe may reflect an acute or subacute infarction. Findings appear new compared to prior MR from 01/18/2025. No significant mass effect. No acute intracranial hemorrhage. Dr. Zhou was notified by Emilia Lares at 9:15am EST on 01/30/25 Reading Location: [facility] CT scan of the brain was obtained. There is a hypodensity within the right occipital lobe which may represent a subacute infarct. These are new compared to the MRI from 01/18/2025. There is no intracranial bleeding noted. This was interpreted by the radiologist and was also independently reviewed by myself. EKG Initial EKG: Attestation: I personally reviewed and interpreted this EKG as follows: Interpretation: Sinus Rhythm (With first-degree AV block with rate of 63.) and AV Block (First-degree) Comments: EKG was obtained. On my independent interpretation, it showed a sinus rhythm with a first-degree AV block with a rate of 63. [place] interval, QRS interval, and QTc intervals were all normal. [place] was normal. There are no acute ST or T wave changes. Prior EKG tracings: available for review Prior: Unchanged (02/26/2024) Management Discussion w/another healthcare provider: Hospitalist Treatment and Re-Evaluation :: Patient was given aspirin here. Patient was advised of her findings. Since her symptoms have been intermittent for the past week, stroke alert was not called. Case was discussed with the hospitalist. She will admit the patient to her service. She will see the patient on the floor. Patient and family understand and are agreeable with the plan. All questions were answered. Discharge Plan Dx/Rx/DC Orders Clinical Impression: Stroke, Alzheimer's dementia, Visual disturbance Disposition Disposition: Acute Care Hospital [facility] Discharge Date/Time: 01/30/25 11:15
--- NOTE | 2025-01-30 08:31 | EKG12_ITS ---
Test Reason : Blood Pressure : */* mmHG Vent. Rate : 63 BPM Atrial Rate : 63 BPM P-R Int : 214 ms QRS Dur : 84 ms QT Int : 382 ms P-R-T Axes : 68 -15 12 degrees QTcB Int : 390 ms Sinus rhythm with 1st degree A-V block CAN NOT RULE OUT Septal infarct (cited on or before 26-Feb-2024) Abnormal ECG Confirmed by Blake Vazquez ([id number]), editor publications COY ARAUJO ([id number]) on 02/07/2025 1:06:21 PM Referred By: Confirmed By: lBake Vazquez
[2025-01-30 08:51] LABS: Absolute Lymphocyte Count 0.66 X10^3/uL (0.83-4.51); Absolute Neutrophil Count 5.8 X10^3/uL (2.0-7.7); Basophil# 0.06 X10^3/uL; Basophil% 0.8 % (0-1); Eosinophil# 0.13 X10^3/uL; Eosinophils% 1.8 % (0-5); Hematocrit 42.4 % (37-47); Hemoglobin 14.1 g/dL (12.0-15.0); Lymphocyte # 0.66 X10^3/ul (0.83-4.51); Mean Corp Hgb Conc 33.3 g/dL (32-36); Mean Corpuscular Hgb 31.4 pg (27.0-32.0); Mean Corpuscular Volume 94.4 fL (81-99); Monocyte# 0.68 X10^3/uL; Monocyte% 9.3 % (0-10); NRBC Flagged by Analyzer 0 % (0-5); Neutrophil # 5.77 X10^3/uL (2.7-7.7); Neutrophil % 78.7 % (47-70); Platelet Count 168 K/mm3 (150-450); RBC Distribution Width CV 12.6 % (11.6-14.6); RBC Distribution Width SD 43.2 fl (35.1-43.9); Red Blood Count 4.49 M/mm3 (4.2-5.4); White Blood Count 7.3 K/mm3 (4.4-11.0)
--- NOTE | 2025-01-30 08:55 | CT_ITS ---
PROCEDURE: BRAIN/HEAD WITHOUT CONTRAST 01/30/2025 REASON FOR EXAM: VISUAL CHANGES TECHNIQUE: Head CT without intravenous contrast. Coronal and Sagittal reconstruction series were provided. One or more dose reduction techniques were used (e.g., Automated exposure control, adjustment of the mA and/or kV according to patient size, use of iterative reconstruction technique. RADIATION DOSE SUMMARY: DLP: 847 mGycm COMPARISON: MR from 01/18/2025 FINDINGS: Ill-defined hypodensity within the right occipital lobe may reflect an acute or subacute infarction. Findings appear new compared to prior MR from 01/18/2025. No significant mass effect. No midline shift. No acute intracranial hemorrhage. Moderate chronic microvascular ischemic changes. There is no hydrocephalus or significant midline shift. No acute, depressed calvarial fractures. No large scalp hematomas. CT/Brain/Head without Contrast IMPRESSION: Ill-defined hypodensity within the right occipital lobe may reflect an acute or subacute infarction. Findings appear new compared to prior MR from 01/18/2025. No significant mass effect. No acute int racranial hemorrhage. Dr. Zhou was notified by Emilia Lares at 9:15am EST on 01/30/25 Reading Location: [id number]
[2025-01-30 09:05] LABS: Anion Gap 12 (5-15); BUN 14 mg/dL (4-19); BUN/Creat Ratio 17.8 RATIO (10-20); Calcium,Total 9.8 mg/dL (7.6-11.0); Carbon Dioxide 21.4 mmol/L (21.0-32.0); Chloride 104 mmol/L (98-108); Creatinine, Serum 0.81 mg/dL (0.70-1.20); EST Glomerular Filtration Rate 71 (>60); Estimated Creatinine Clearance 48.33 ml/min (50-250); Glucose 101 mg/dL (70-99); Sodium Level 138 mmol/L (133-145)
[2025-01-30 09:08] LABS: Troponin T High Sensitivity 18 ng/L (<=14)
[2025-01-30] MEDS: Aspirin 81 MG TAB.CHEW 324 MG PO (10:34)
--- NOTE | 2025-01-30 11:02 | ECHOD_ITS ---
Reason For Study Reason For Study: TIA/Stroke Procedure This was a 2D Doppler, Color Flow transthoracic echocardiogram. Exam performed portable in patient room. Left Ventricle Normal LV size. The estimated ejection fraction is 55-60 %. Right Ventricle Normal right ventricle. Normal systolic function. Atria Normal left atrium. Normal right atrium. Bubble contrast study is negative for PFO/ASD. Mitral Valve There is moderate mitral annular calcification. No mitral valve insufficiency. Tricuspid Valve Normal tricuspid valve. Aortic Valve Trisinus/trileaflet aortic valve. Pulmonic Valve The pulmonic valve is not well visualized. Great Vessels Normal sized aortic root. Pericardium/Pleural No pericardial effusion. MMode/2D Measurements & Calculations LVIDd: 3.1 cm IVSd: 0.97 cm Ao root diam: 2.3 cm LVIDs: 2.0 cm LVPWd: 1.2 cm RVDd: 3.7 cm FS: 34.5 % LAV(MOD-bp): 53.7 ml LVAd ap4: 21.6 cm2 SV(MOD-sp4): 37.0 ml LAV(MOD-bp) Indexed: 30.3 ml/m2 LVLd ap4: 6.5 cm SI(MOD-sp4): 20.9 ml/m2 LAV(MOD-sp2): 46.1 ml EDV(MOD-sp4): 58.3 ml LAV(MOD-sp4): 60.7 ml EDV(sp4-el): 61.0 ml LVAs ap4: 11.3 cm2 LVLs ap4: 5.0 cm ESV(MOD-sp4): 21.3 ml ESV(sp4-el): 21.8 ml EF(MOD-sp4): 63.4 % EF(sp4-el): 64.2 % SV(sp4-el): 39.1 ml LA A4 area: 20.6 cm2 LA dimension(2D): 3.5 cm RA A4 area: 12.1 cm2 TAPSE: 2.1 cm Time Measurements MV dec time: 0.26 sec Doppler Measurements & Calculations MV E max romeo: 59.9 cm/sec Lat Peak E' Romeo: 7.3 cm/sec Med Peak E' Romeo: 7.4 cm/sec MV A max romeo: 85.6 cm/sec E/E' lat: 8.2 E/E' med: 8.1 MV E/A: 0.70 Ao V2 max: 154.3 cm/sec LV V1 max: 100.7 cm/sec MV dec slope: 242.1 cm/sec2 Ao max P.5 mmHg LV V1 max P.1 mmHg Ao V2 mean: 102.3 cm/sec Ao mean P.9 mmHg Ao V2 VTI: 32.6 cm PA V2 max: 97.1 cm/sec TR max romeo: 258.4 cm/sec TR max P.7 mmHg ECHO/Echo Complete Interpretation Summary The estimated ejection fraction is 55-60 %. Normal LV systolic function Negative bubble study with no evidence of intracardiac shunt No significant valvular abnormality No previous study to compare. Ordering Physician: Maine Feliciano Referring Physician: Chika Alas Performed By: Leesa Severino, RDCS, RVT
--- NOTE | 2025-01-30 11:05 | HP.PCM.HOS_ITS ---
HPI - General General Date of Admission: 01/30/25 Date of Service: 01/30/25 Chief Complaint: Visual changes HPI Narrative FRANCIA FLOWERS, is a 84 F who presented to the emergency department at [facility] on 01/30/2025 with a chief complaint of intermittently blurred vision. Patient reports she had an episode earlier this week and thought nothing elevated and then today she woke up and noticed that her vision was markedly different. She is undergoing infusions for Alzheimer's treatment which are new. Family thought that maybe her visual changes that she experienced earlier in the week are related to that. Patient reported that her vision is now just fuzzy but has no visual loss. Her NIH is 0. She has no other neurological deficits and denies any tingling numbness or weakness associated with this ever during these episodes. Vital signs on presentation showed temperature of 98.1, heart rate 77, respiratory was 18, blood pressure was 169/90 and pulse ox was 100% on room air. CBC was unremarkable. Chemistry was unremarkable. Glucose was 101. Initial troponin was 18 with a delta of 19. EKG showed no significant arrhythmias and no signs of myocardial ischemia. CT of the brain showed ill-defined hypodensity within the right occipital lobe that was suggestive of acute or subacute infarct and new from previous MRI from 01/19/2024. No mass effect or hemorrhage was identified. [facility] Medical History GERD (gastroesophageal reflux disease) Hoarseness Nocturnal hypoxemia Cognitive dysfunction Wears hearing aid Wears dentures Post-menopausal Depression Alcohol use Ambulates with cane Arthritis Easy bruising Restless legs Spinal stenosis Back pain Barretts esophagus Gastric reflux Non-smoker Leg cramps History of edema History of stress test Preoperative evaluation to rule out surgical contraindication Age-related cognitive decline Urinary tract infection with hematuria Clostridium difficile infection Shoulder pain Insomnia Collagenous colitis Flu vaccine need Psoriasis of scalp Shingles Dermatitis Heart murmur Cataracts, bilateral Seasonal allergies Carpal tunnel syndrome Normochromic normocytic anemia Hyponatremia Intractable back pain Radicular pain of right lower extremity Debility Osteoarthritis Hypertension Restless leg syndrome Lumbar spinal stenosis Home Medications ?Medication ?Instructions ?Recorded ?Last Taken ?Type cholecalciferol (vitamin D3) 25 1,000 unit PO DAILY RUIZ PPLEMENT 11/21/17 09/06/18 History mcg (1,000 unit) tablet disability placard #1 ea 08/18/20 Unknown Rx ascorbate calcium (vitamin C) 500 500 mg PO DAILY SUPP LEMENT 08/21/20 Unknown History mg tablet multivitamin,[id number] 27 1 tab PO DAILY vitami n 10/24/23 Unknown History mg-0.4 mg tablet atenolol 50 mg tablet 50 mg PO DAILY BP #90 tabs 0 01/12/24 01/28/24 04:00 Rx cyanocobalamin (vitamin B-12) 500 500 mcg PO DAILY SUP PLEMENT 01/15/24 Unknown History mcg tablet (Vitamin B-12) folic acid 1 mg tablet 1 mg PO DAILY SUPPLEMENT 06/01 Unknown History naproxen sodium 220 mg tablet 220 mg PO BID PRN pain 0 01/15/24 Unknown History (Aleve) spironolactone 25 mg tablet 12.5 mg (1/2 x 25 mg) PO D AILY BP 04/30/24 Unknown Rx #45 tabs pramipexole 0.25 mg tablet 0.25 mg PO QHS PRN restless leg(s) 08/11/24 Unknown Rx #90 tabs amlodipine 10 mg tablet 10 mg PO DAILY #90 tabs 09/09 12/31 Unknown Rx gabapentin 100 mg capsule 200 mg (2 x 100 mg) PO BID 0 10/25/24 Unknown Rx Neuropathy #180 caps losartan 100 mg tablet 100 mg PO DAILY bp #90 tabs 11/08/24 Unknown Rx pantoprazole 40 mg tablet,delayed 40 mg PO QAM GERD #9 0 tabs 11/10/24 Unknown Rx release donepezil 5 mg tablet 5 mg PO QHS Memory #90 tabs 11/24/24 Unknown Rx mirtazapine 15 mg tablet 15 mg PO QHS antidepressant #90 11/24/24 Unknown Rx tabs donanemab-azbt 17.5 mg/mL See Rx Instructions .Route 0 12/23/24 Unknown Rx intravenous solution (K[place]unla) .COMPLEX Multiple Allergy/AdvReac Type Severity Reaction Status Date / Time influenza virus vaccine ts Allergy Severe Swelling Verified 01/30/25 07:55 2012- (From Fluarix) hydrochlorothiazide Allergy Hives Verified 01/30/25 07:55 irbesartan Allergy Hives Verified 01/30/25 07:55 meloxicam Allergy Swelling Verified 01/30/25 07:55 monosodium glutamate Allergy Shortness Verified 01/30/25 07:55 of breath triamterene Allergy Hives Verified 01/30/25 07:55 perfume AdvReac breathing Verified 01/30/25 07:55 it in gets itch venom-honey bee (bee venom AdvReac Anaphylaxis Verified 01/30/25 07:55 (honey bee)) Family History Mother Hypertension Colon cancer Father Colon cancer Sister Colon cancer Surgical History H/O shoulder replacement Status post reverse total arthroplasty of right shoulder Hx of total knee arthroplasty Hx of total hip arthroplasty History of carpal tunnel surgery of right wrist History of carpal tunnel surgery of left wrist Hx of hysterectomy Hx of right cataract extraction Hx of left cataract extraction Hx of esophagogastroduodenoscopy Hx of colonoscopy History of total bilateral knee replacement History of hip replacement Hx of total shoulder replacement History of back surgery Status post lumbar spine surgery for decompression of spinal cord Social History household members: none housing: house pets and animals: Yes pets and animals: dog(s) Smoking Status: Never smoker second hand exposure: No alcohol intake: current alcohol intake frequency: holidays/special occasions only substance use type: does not use caffeine: Yes what type of physical activity do you participate in: none ROS Constitutional Constitutional: Denies anorexia, change in weight, chills, fatigue, fever(s), malaise, night sweats, weakness or other Eyes Eyes: Reports blurry vision and change in vision; Denies change in eye color, discharge from eye(s), double vision, erythema, eye pain, loss of vision or other ENT HEENT: Denies abnormal hearing, dysphagia, ear pain, epistaxis, headache(s), hearing loss, nasal congestion, nasal discharge, post nasal drip, sinus pressure, sore throat or other Cardiovascular Cardiovascular: Denies chest pain, claudication, dyspnea on exertion, edema, lightheadedness, orthopnea, palpitations, paroxysmal nocturnal dyspnea, rapid heart rate, syncope or other Respiratory/Chest Respiratory/Chest: Denies cough, dyspnea, excessive phlegm production, hemoptysis, productive cough, shortness of breath at rest, shortness of breath with exertion, wheezing or other Gastrointestinal Gastrointestinal: Denies abdominal pain, coffee ground emesis, constipation, diarrhea, dyspepsia, hematemesis, hematochezia, loose stools, melena, nausea, vomiting or other Genitourinary Genitourinary: Denies burning urination, difficulty urinating, dysuria, hematuria, nocturia, urinary frequency, urinary hesitancy, urinary incontinence, urinary urgency or other Musculoskeletal Musculoskeletal: Denies arthralgias, back pain, joint pain, joint stiffness, joint swelling, myalgias, neck pain or other Neurologic Neurologic: Denies abnormal gait, abnormal speech, confusion, disequilibrium, dizziness, focal weakness, headache(s), numbness, paresthesias, seizure-like activity, seizures, syncope, tingling, tremor(s) or other Psychiatric Psychiatric: Reports anxiety and depression; Denies homicidal ideation, suicidal ideation or other Endocrine Endocrinology: Denies change in body appearance, cold intolerance, excessive sweating, heat intolerance, polydipsia, polyuria or other Hematologic/Lymphatic Hematologic/Lymphatic: Denies anemia, easy bleeding, easy bruising, lymphadenopathy or other Allergic/Immunologic Allergic/Immunologic: Denies rhinitis, hives, eczemia, asthma or other Vital Signs Vital Signs Vital Signs: 01/30/25 07:55 01/30/25 10:00 Temperature 98.1 F Temperature Source Oral Pulse Rate 77 66 Respiratory Rate 18 18 Blood Pressure 169/90 H 153/114 H Blood Pressure Mean 116 127 Pulse Ox 100 Oxygen Delivery Method Room Air Weight Weight: 74.933 kg Body Mass Index (BMI) 29.2 Physical Exam Const alert, oriented x3, no apparent distress and well nourished Constitutional Narrative: elderly, very pleasant, WF, sitting up in bed eating lunch and watching TV, daughter at bedside General Appearance: cooperative HEENT normocephalic, head/scalp atraumatic, hearing grossly normal bilaterally and moist oral mucous membranes Eyes PERRL, EOMs intact bilaterally and conjunctivae normal Eyes Narrative: no scleral icterus Neck supple Neck Narrative: trachea midline Resp normal respiratory effort, no retractions, no use of accessory muscles and clear to auscultation bilaterally Auscultation: Negative for rales, rhonchi or wheezes Cardio regular rate, regular rhythm, S1 normal heart sound, S2 normal heart sound, no murmurs, no rub, no gallops and no clicks GI normal to inspection, nondistended, normoactive bowel sounds, soft to palpation and non-tender Extremity no clubbing, cyanosis or edema Extremity Narrative: 2+ pedal and radial pulses Neuro oriented x3, moves all extremities and no focal motor deficits Speech: speech normal Psych affect normal Psych Narrative: very pleasant Results Lab / Micro Data 01/30/25 08:40 01/30/25 08:40 Labs: Laboratory Results - last 24 hr 01/30/25 08:40: WBC 7.3, RBC 4.49, Hgb 14.1, Hct 42.4, MCV 94.4, MCH 31.4, MCHC 33.3, RDW Std Deviation 43.2, RDW Coeff of Triston 12.6, Plt Count 168, MPV 10.0, Immature Gran % (Auto) 0.400, Neut % (Auto) 78.7 H, Lymph % (Auto) 9.0 L, Wilkes % (Auto) 9.3, Eos % (Auto) 1.8, Baso % (Auto) 0.8, Absolute Neuts (auto) 5.8, A bsolute Lymphs (auto) 0.66 L, Nucleated RBC % 0, Sodium 138, Potassium 4.0, Chloride 104, Carbon Dioxide 21.4, Anion Gap 12, BUN 14, Creatinine 0.81, Estim Creat Clear Calc 48.33 L, Est GFR (MDRD) Non-Af 71, BUN/Creatinine Ratio 17.8, G lucose 101 H, Calcium 9.8, Troponin T High Sens 18 H Imaging Radiology Impression Brain CT 01/30/25 08:55 IMPRESSION: Ill-defined hypodensity within the right occipital lobe may reflect an acute or subacute infarction. Findings appear new compared to prior MR from 01/18/2025. No significant mass effect. No acute intracranial hemorrhage. Dr. Zhou was notified by Emilia Lares at 9:15am EST on 01/30/25 Reading Location: [facility] Assessment & Plan Assessment/Plan (1) Occipital stroke: PLAN: Plan Acute occipital stroke - Patient came in with visual disturbances and CT is suggestive of right occipital lobe stroke - Admit with stroke protocol - Patient not candidate for tenecteplase due to unknown time of onset--> story is variable and imaging is suggestive of subacute infarct - Start aspirin 81 mg daily - start Plavix 75 mg daily - Start atorvastatin 40 mg daily - Check CTA of the head and neck to rule out stenosis or LVO - Check MRI - Check hemoglobin A1c - check lipids - check echocardiogram - Hold home antihypertensives and allow for permissive hypertension with as needed medication utilization - anticipate event monitor at discharge - Neurology consult Troponin elevation - Very mild with initial troponin 18, delta at 19 and 4-hour troponin at 20 - Suspect subendocardial ischemia - Check echocardiogram Collagenous colitis - Patient with history of diarrhea - Follows with GI - Continue outpatient follow-up GERD - Continue home PPI Essential hypertension - Hold home antihypertensives and allow for permissive hypertension with concerns for acute stroke - As needed medication for blood pressure control - Reintroduce home medications when appropriate Restless leg syndrome - Continue Mirapex and gabapentin Alzheimer's type dementia - Patient is on outpatient injectable - Continue home donepezil - Continue to follow-up with neurology Depression - Continue home mirtazapine DVT prophylaxis - Subcu Lovenox 40 daily CODE STATUS - DNR CCA with no intubation Charges/Coding Visit Charges Inpatient E&M: 13339 Init Hosp L2
[2025-01-30 11:31] LABS: Troponin T High Sens 2 HR 19 ng/L (<=14)
[2025-01-30 11:32] LABS: Hemoglobin A1c 5.3 % (<=5.6)
--- NOTE | 2025-01-30 12:00 | STROKE.CONS ---
Assessment and Plan: Stroke Assessment/Plan FRANCIA FLOWERS is a 84 F with a history of Alzheimer dementia on infusion, JEANETH, HTN, heart murmur who presents foggy vision both eyes. Not a TNK candidate. Neurological examination shows intact examination (limited VF testing) Neuroimaging shows Right occipital subacute stroke Plan Stat CTA of head and neck and call if LVO Stroke w/up MRI brain, ECHO, FLP, HbA1c Continue ASA, plavix Will need formal visual field evaluation and no driving until cleared by VF testing and therapy PT,OT evaluation Stroke education Thanks for consult. Spent 70 min in evaluation of this patient HPI Consult Data Date of Consult: 01/30/25 HPI Narrative HPI Narrative: FRANCIA FLOWERS, is a 84 F with Alzheimer dementia on infusion, JEANETH, HTN, heart murmur who presents foggy vision both eyes. She woke up fine and at around 7 am and feels her vision is foggy both eyes. She denies having prior symptoms. She denies having slurred speech facial droop, weakness or numbness of her extremities. Ct head was done shows subacute right occipital stroke and stroke neurology was consulted. [facility] Medical History GERD (gastroesophageal reflux disease) Hoarseness Nocturnal hypoxemia Cognitive dysfunction Wears hearing aid Wears dentures Post-menopausal Depression Alcohol use Ambulates with cane Arthritis Easy bruising Restless legs Spinal stenosis Back pain Barretts esophagus Gastric reflux Non-smoker Leg cramps History of edema History of stress test Preoperative evaluation to rule out surgical contraindication Age-related cognitive decline Urinary tract infection with hematuria Clostridium difficile infection Shoulder pain Insomnia Collagenous colitis Flu vaccine need Psoriasis of scalp Shingles Dermatitis Heart murmur Cataracts, bilateral Seasonal allergies Carpal tunnel syndrome Normochromic normocytic anemia Hyponatremia Intractable back pain Radicular pain of right lower extremity Debility Osteoarthritis Hypertension Restless leg syndrome Lumbar spinal stenosis Home Medications ?Medication ?Instructions ?Recorded ?Last Taken ?Type cholecalciferol (vitamin D3) 25 1,000 unit PO DAILY SUPPLEMENT 11/21/17 09/06/18 History mcg (1,000 unit) tablet disability placard #1 ea 08/18/20 Unknown Rx ascorbate calcium (vitamin C) 500 500 mg PO DAILY SUPPLEMENT 08/21/20 Unknown History mg tablet multivitamin,nx-igiw-matcvwnn 27 1 tab PO DAILY vitamin 10/24/23 Unknown History mg-0.4 mg tablet atenolol 50 mg tablet 50 mg PO DAILY BP #90 tabs 01/12/24 01/28/24 04:00 Rx cyanocobalamin (vitamin B-12) 500 500 mcg PO DAILY SUPPLEMENT 01/15/24 Unknown History mcg tablet (Vitamin B-12) folic acid 1 mg tablet 1 mg PO DAILY SUPPLEMENT 01/15/24 Unknown History naproxen sodium 220 mg tablet 220 mg PO BID PRN pain 01/15/24 Unknown History (Aleve) spironolactone 25 mg tablet 12.5 mg (1/2 x 25 mg) PO DAILY BP 04/30/24 Unknown Rx #45 tabs pramipexole 0.25 mg tablet 0.25 mg PO QHS PRN restless leg(s) 08/11/24 Unknown Rx #90 tabs amlodipine 10 mg tablet 10 mg PO DAILY #90 tabs 10/01/24 Unknown Rx gabapentin 100 mg capsule 200 mg (2 x 100 mg) PO BID #180 10/25/24 Unknown Rx caps losartan 100 mg tablet 100 mg PO DAILY bp #90 tabs 11/08/24 Unknown Rx pantoprazole 40 mg tablet,delayed 40 mg PO QAM GERD #90 tabs 11/10/24 Unknown Rx release donepezil 5 mg tablet 5 mg PO QHS #90 tabs 11/24/24 Unknown Rx mirtazapine 15 mg tablet 15 mg PO QHS #90 tabs 11/24/24 Unknown Rx donanemab-azbt 17.5 mg/mL See Rx Instructions .Route 12/23/24 Unknown Rx intravenous solution (Kisunla) .COMPLEX Multiple Allergy/AdvReac Type Severity Reaction Status Date / Time influenza virus vaccine ts Allergy Severe Swelling Verified 01/30/25 07:55 2012- (From Fluarix) hydrochlorothiazide Allergy Hives Verified 01/30/25 07:55 irbesartan Allergy Hives Verified 01/30/25 07:55 meloxicam Allergy Swelling Verified 01/30/25 07:55 monosodium glutamate Allergy Shortness Verified 01/30/25 07:55 of breath triamterene Allergy Hives Verified 01/30/25 07:55 perfume AdvReac breathing Verified 01/30/25 07:55 it in gets itch venom-honey bee (bee venom AdvReac Anaphylaxis Verified 01/30/25 07:55 (honey bee)) Family History Mother Hypertension Colon cancer Father Colon cancer Sister Colon cancer Surgical History H/O shoulder replacement Status post reverse total arthroplasty of right shoulder Hx of total knee arthroplasty Hx of total hip arthroplasty History of carpal tunnel surgery of right wrist History of carpal tunnel surgery of left wrist Hx of hysterectomy Hx of right cataract extraction Hx of left cataract extraction Hx of esophagogastroduodenoscopy Hx of colonoscopy History of total bilateral knee replacement History of hip replacement Hx of total shoulder replacement History of back surgery Status post lumbar spine surgery for decompression of spinal cord Social History household members: none housing: house pets and animals: Yes pets and animals: dog(s) Smoking Status: Never smoker second hand exposure: No alcohol intake: current alcohol intake frequency: holidays/special occasions only substance use type: does not use caffeine: Yes what type of physical activity do you participate in: none Vital Signs Vital Signs Vital Signs: 01/30/25 07:55 01/30/25 10:00 01/30/25 11:45 Temperature 98.1 F 97.6 F L Temperature Source Oral Oral Pulse Rate 77 66 65 Respiratory Rate 18 18 16 Blood Pressure 169/90 H 153/114 H 120/71 Blood Pressure Mean 116 127 87 Blood Pressure Source Monitor Blood Pressure Position Semi-Fowlers Blood Pressure Location Left Arm Pulse Ox 100 98 Oxygen Delivery Method Room Air Room Air Weight Weight: 74.933 kg Body Mass Index (BMI) 29.2 Physical Exam Const alert, oriented x3 and no apparent distress General Appearance: cooperative and comfortable Resp normal respiratory effort Neuro Neuro Narrative: Awake, alert, tells the month and age accurately Speech is fluent, comprehension intact CN 2-12 intact. On limited examination she could count fingers on visual field Motor power: 5/5 Sensation: Intact No ataxia Lab / Micro Data 01/30/25 08:40 01/30/25 08:40 Labs: Laboratory Results - last 24 hr 01/30/25 08:40: WBC 7.3, RBC 4.49, Hgb 14.1, Hct 42.4, MCV 94.4, MCH 31.4, MCHC 33.3, RDW Std Deviation 43.2, RDW Coeff of Triston 12.6, Plt Count 168, MPV 10.0, Immature Gran % (Auto) 0.400, Neut % (Auto) 78.7 H, Lymph % (Auto) 9.0 L, [place] % (Auto) 9.3, Eos % (Auto) 1.8, Baso % (Auto) 0.8, Absolute Neuts (auto) 5.8, Absolute Lymphs (auto) 0.66 L, Nucleated RBC % 0, Sodium 138, Potassium 4.0, Chloride 104, Carbon Dioxide 21.4, Anion Gap 12, BUN 14, Creatinine 0.81, Estim Creat Clear Calc 48.33 L, Est GFR (MDRD) Non-Af 71, BUN/Creatinine Ratio 17.8, Glucose 101 H, Hemoglobin A1c 5.3, Calcium 9.8, Troponin T High Sens 18 H 01/30/25 10:46: Troponin T Hi Sens 2 Hr 19 H Imaging Radiology Impression Brain CT 01/30/25 08:55 IMPRESSION: Ill-defined hypodensity within the right occipital lobe may reflect an acute or subacute infarction. Findings appear new compared to prior MR from 01/18/2025. No significant mass effect. No acute intracranial hemorrhage. Dr. Zhou was notified by Emilia Lares at 9:15am EST on 01/30/25 Reading Location: [facility] Active Medications Active Medications Active Medications: Current Medications Generic Name Dose Route Start Last Admin Trade Name Freq PRN Reason Stop Dose Admin Acetaminophen 650 mg 01/30/25 11:25 Acetaminophen 325 Mg Tablet PO Q6H PRN PRN Pain 1-10 Or Fever>100.7 Albuterol Sulfate 2.5 mg 01/30/25 11:25 Albuterol 2.5 Mg/3 Ml Vial.Neb. INHALATION Q2H PRN PRN SOB &/OR WHEEZING Ascorbic Acid 500 mg 01/31/25 10:00 Ascorbic Acid 500 Mg Tablet PO DAILY RONI Aspirin 81 mg 01/31/25 08:00 Aspirin 81 Mg Tab.Chew PO BREAKFAST RONI Atorvastatin Calcium 40 mg 01/30/25 22:00 Atorvastatin Calcium 40 Mg Tablet PO QHS [facility] Cholecalciferol 25 mcg 01/31/25 10:00 Cholecalciferol (Vit D3) 25 Mcg Tablet (1,000 Units) PO DAILY [facility] Clopidogrel Bisulfate 75 mg 01/31/25 10:00 Clopidogrel Bisulfate 75 Mg Tablet PO DAILY [facility] Cyanocobalamin 500 mcg 01/31/25 10:00 Cyanocobalamin 500 Mcg Tablet PO DAILY [facility] Donepezil HCl 5 mg 01/30/25 22:00 Donepezil Hcl 5 Mg Tablet PO QHS [facility] Enoxaparin Sodium 40 mg 01/31/25 10:00 Enoxaparin 40 Mg/0.4 Ml Syringe SC DAILY [facility] Folic Acid 1 mg 01/31/25 08:00 Folic Acid 1 Mg Tablet PO BREAKFAST [facility] Gabapentin 200 mg 01/30/25 22:00 Gabapentin 100 Mg Capsule PO BID [facility] Hydralazine HCl 5 mg 01/30/25 11:25 Hydralazine 20 Mg/Ml Vial IV 01/31/25 11:25 Q30M PRN maintain BP parameters with HR <60 Sodium Chloride 250 mls @ 15 mls/hr 01/30/25 11:38 IV .[id number] PRN Saline Flush Sodium Chloride 250 mls @ 15 mls/hr 01/30/25 11:38 IV .[id number] PRN Additional IVPB Infusion Labetalol HCl 10 - 20 mg 01/30/25 11:25 Labetalol 20 Mg/4 Ml Vial IV 01/31/25 11:25 Q10M PRN PRN maintain BP parameters with HR >/=60 Melatonin 3 mg 01/30/25 11:25 Melatonin 3 Mg Tablet PO QHS PRN PRN INSOMNIA Mirtazapine 15 mg 01/30/25 22:00 Mirtazapine 15 Mg Tablet PO QHS [facility] Multivitamins/Minerals 1 tablet 01/31/25 08:00 Multivitamins,Ther W-Minerals Tablet PO BREAKFAST [facility] Ondansetron HCl 4 mg 01/30/25 11:25 Ondansetron 4 Mg/2 Ml Vial IV Q8H PRN PRN NAUSEA/VOMITING Pantoprazole Sodium 40 mg 01/31/25 08:00 [facility]op[facility]ole S[facility] 40 [facility] Pramipexole Dihydrochloride 0.25 mg 01/30/25 11:25 Pramipexole Di-Hcl 0.25 Mg Tablet PO QHS PRN restless leg(s) Senna/Docusate Sodium 2 tablet 01/30/25 11:25 Senna/Docusate Sodium 1 Tablet PO BID PRN PRN Constipation Sodium Chloride 10 - 40 ml 01/30/25 11:38 0.9% Saline Lock 10 Ml Syringe IV UD PRN SALINE FLUSH NIHSS NIHSS Nursing Documentation NIHSS Nursing Documentation: NIH Stroke Scale Start: 01/30/25 11:19 Freq: Status: Discharge Protocol: Activity Type Activity Date Activity User E-sign Co-sign Detail Recorded Client Recorded Date Recorded By Document 01/30/25 08:10 AR [id number] 01/30/25 11:21 LEX 01/30/25 08:10 NIH Stroke Scale [NIHSS] A score of 0 is normal or asymptomatic . Total possible score is 42. Inpatient: RN or Physician to activate a stroke alert for onset of new stroke symptoms or with NIHSS increase >/= 3 points. Following change in neurological status, NIHSS will be performed per physician order or more frequently PRN. -1a. Level of Consciousness 0 - Alert; keenly responsive -1b. LOC Questions 0 - Answers BOTH questions correctly -1c. LOC Commands 0 - Performs BOTH tasks correctly -2. Best Gaze 0 - Normal -3. Visual 3 - Bilateral hemianopia ( blind, including cortical blindness) -4. Facial Palsy 0 - Normal symmetrical movements -5a. Left Arm 0 - No drift; arm holds 90 ( or 45) degrees for full 10 seconds -5b. Right Arm 0 - No drift; arm holds 90 ( or 45) degrees for full 10 seconds -6a. Left Leg 0 - No drift; leg holds 30- degree position for full 5 seconds -6b. Right Leg 0 - No drift; leg holds 30- degree position for full 5 seconds -7. Limb Ataxia 0 - Absent -8. Sensory 0 - Normal; no sensory loss -9. Best Language 0 - No aphasia; normal -10. Dysarthria 0 - Normal -11. Extinction and Inattention 0 - No abnormality -Total 3 Query Text:A score of 0 is normal or asymptomatic. Total possible score is 42 . ED: Notify Physician for NIHSS increase by > / = 3 points. Inpatient: RN or Physician to activate a stroke alert for NIHSS increase of > / = 3 points. NIHSS 1a. Level of Consciousness: 0 - Alert; keenly responsive 1b. LOC Questions: 0 - Answers BOTH questions correctly 1c. LOC Commands: 0 - Performs BOTH tasks correctly 2. Best Gaze: 0 - Normal 3. Visual: 0 - No visual loss 4. Facial Palsy: 0 - Normal symmetrical movements 5a. Left Arm: 0 - No drift; arm holds 90 (or 45) degrees for full 10 seconds 5b. Right Arm: 0 - No drift; arm holds 90 (or 45) degrees for full 10 seconds 6a. Left Le - No drift; leg holds 30-degree position for full 5 seconds 6b. Right Le - No drift; leg holds 30-degree position for full 5 seconds 7. Limb Ataxia: 0 - Absent 8. Sensory: 0 - Normal; no sensory loss 9. Best Language: 0 - No aphasia; normal 10. Dysarthria: 0 - Normal 11. Extinction and Inattention: 0 - No abnormality Total: 0
--- NOTE | 2025-01-30 13:00 | CT_ITS ---
PROCEDURE: STROKE CTA HEAD AND NECK W/CON 01/30/2025 REASON FOR EXAM: STROKE TECHNIQUE: CTA imaging of the head and neck from the aortic arch to the skull vertex with out contrast and with intravenous contrast. Multiplanar and multisequence images were obtained. CONTRAST: Isovue 370 VOLUME: 100 mL IV One or more dose reduction techniques were used (e.g., Automated exposure control, adjustment of the mA and/or kV according to patient size, use of iterative reconstruction technique). RADIATION DOSE SUMMARY: CTDlvol: 39.3 mGy DLP: 745.67 mGycm COMPARISON: CT brain same day FINDINGS: Aortic Arch: Small scattered calcific plaques Brachiocephalic and Subclavians: Normal configuration. No stenosis RIGHT Carotid: Right CCA: small to moderate volume calcific bifurcation/proximal right ICA plaque without flow limiting stenosis Right ICA: No flow limiting stenosis aneurysm or dissection. Mild plaque. Maximum stenosis (NASCET): Less than 50 % Right ECA: Unremarkable LEFT Carotid: Left CCA: Bifurcation plaque left proximal left ICA, mild Left ICA: Mid and distal ICA demonstrate no plaque Maximum stenosis (NASCET): 50 % Left ECA: Plaque at a bifurcation. Vertebrals: Normal course and caliber RIGHT Vertebral: 3 non flow-limiting scattered plaques in the intracranial right vertebral. LEFT Vertebral: No significant plaque. Anatomy: Unremarkable. Aortic arch, origins of the carotids and brachial cephalic arteries are not seen well. Aneurysm or avm: None Anterior cerebral arteries: Unremarkable Middle cerebral arteries: Unremarkable Basilar artery: Unremarkable Posterior cerebral arteries: Unremarkable Other major branches of the posterior circulation: Unremarkable Major venous structures: Unremarkable Other findings: Neck: No significant findings lungs: Normal as seen. No central pulmonary emboli bones: Unremarkable. CT/STROKE CTA Head AND Neck W/Con IMPRESSION: Small amount of plaque in the bifurcations and proximal ICAs. Non flow-limitin g. Less than 50% plaque by NASCET criteria Reading [facility]
[2025-01-30 13:08] LABS: Troponin T High Sens 4 HR 20 ng/L (<=14)
[2025-01-30] MEDS: Gabapentin 100 MG Capsule 200 MG PO (22:17)
[2025-01-30] MEDS: Donepezil HCl 5 MG Tablet PO (22:17)
[2025-01-30] MEDS: Mirtazapine 15 MG Tablet PO (22:17)
[2025-01-30] MEDS: Atorvastatin Calcium 40 MG Tablet PO (22:17)
[2025-01-30] MEDS: Pramipexole Di-HCl 0.25 MG Tablet PO (22:28)
[2025-01-31 02:20] VITALS: BP 120/62; PULSE 58; RESP 18; TEMP 36.6; O2SAT 96
[2025-01-31 05:02] LABS: Absolute Lymphocyte Count 1.02 X10^3/uL (0.83-4.51); Absolute Neutrophil Count 4.2 X10^3/uL (2.0-7.7); Basophil# 0.06 X10^3/uL; Eosinophil# 0.23 X10^3/uL; Eosinophils% 3.7 % (0-5); Hematocrit 36.6 % (37-47); Hemoglobin 12.2 g/dL (12.0-15.0); Lymphocyte # 1.02 X10^3/ul (0.83-4.51); Lymphocyte % 16.4 % (19-41); Mean Corp Hgb Conc 33.3 g/dL (32-36); Mean Corpuscular Hgb 31.4 pg (27.0-32.0); Mean Corpuscular Volume 94.1 fL (81-99); Mean Platelet Vol. 10.3 fl (6.2-12.0); Monocyte# 0.69 X10^3/uL; Monocyte% 11.1 % (0-10); NRBC Flagged by Analyzer 0 % (0-5); Neutrophil # 4.21 X10^3/uL (2.7-7.7); Neutrophil % 67.5 % (47-70); Platelet Count 176 K/mm3 (150-450); RBC Distribution Width CV 12.6 % (11.6-14.6); RBC Distribution Width SD 43.5 fl (35.1-43.9); Red Blood Count 3.89 M/mm3 (4.2-5.4); White Blood Count 6.2 K/mm3 (4.4-11.0)
[2025-01-31 05:25] LABS: AST(SGOT) 22 U/L (<=31); Alanine Aminotransfer ALT/SGPT 12 U/L (<=34); Albumin, Serum 3.7 g/dL (3.4-4.8); Alkaline Phosphatase 75 U/L (35-104); Anion Gap 10 (5-15); BUN 13 mg/dL (4-19); BUN/Creat Ratio 19.7 RATIO (10-20); Calcium,Total 9.5 mg/dL (7.6-11.0); Carbon Dioxide 24.6 mmol/L (21.0-32.0); Chloride 105 mmol/L (98-108); Cholesterol 159 mg/dL (<=200); Creatinine, Serum 0.67 mg/dL (0.70-1.20); EST Glomerular Filtration Rate 85 (>60); Estimated Creatinine Clearance 48.35 ml/min (50-250); Globulin 1.9 g/dL (2.2-4.2); Glucose 86 mg/dL (70-99); High Density Lipoprotein 61 mg/dL; Low Density Lipoprotein Calc. 84 mg/dL; Magnesium 1.8 mg/dL (1.5-2.2); Phosphorus 3.1 mg/dL (2.7-4.5); Potassium 4.2 mmol/L (3.3-5.1); Protein, Total 5.5 g/dL (5.9-8.4); Sodium Level 139 mmol/L (133-145); Total Bilirubin 0.29 mg/dL (0.00-1.30); Triglycerides 74 mg/dL; Very Low Density Lipoprotein 15 mg/dL (5-40); cholesterol:hdl ratio screen 2.62
[2025-01-31 05:35] VITALS: BP 140/67; PULSE 62; RESP 18; TEMP 36.6; O2SAT 99
--- NOTE | 2025-01-31 08:00 | MRI_ITS ---
PROCEDURE: BRAIN WITHOUT CONTRAST 01/31/2025 REASON FOR EXAM: STROKE TECHNIQUE: Noncontrast brain MRI. Multiplanar and multisequence images were obtained. COMPARISON: 01/18/2025 FINDINGS: There is an acute infarct in the right posterior cerebral artery territory involving the occipital cortex and dorsal aspect of the corpus callosum. Extensive microvascular changes are seen in the periventricular white matter. No Chiari deformity. No hippocampal asymmetry. Normal brainstem and cerebellum without pathologic flow voids. Symmetric orbits. No intracranial mass. Mucosal thickening, chronic is present in the sphenoid sinus. Negative for hemorrhage MRI/Brain without Contrast IMPRESSION: 1. Extensive microvascular changes. 2. Chronic sphenoid opacification. 3. Acute right GERIATRIC NURSE territory infarct involving the occipital lobe and corpus ca [facility] Reading Location: [facility]
[2025-01-31 09:35] VITALS: BP 132/74; PULSE 83; RESP 14; TEMP 36.4; O2SAT 98
--- NOTE | 2025-01-31 09:40 | PN.NEURO_ITS ---
Objective Data Objective Data Vital Signs: Vital Signs Temp Pulse Resp BP Pulse Ox O2 Del Method 97.8 F 62 18 140/67 H 99 Room Air 01/31/25 05:35 01/31/25 05:35 01/31/25 05:35 01/31/25 05:35 01/31/25 05:35 01/31/25 08:16 Oxygen Delivery Method Room Air Weight: 73.1 kg Body Mass Index (BMI) 28.5 Intake & Output: Intake and Output for Last 24 Hours 01/29/25 01/30/25 01/31/25 23:59 23:59 23:59 Intake Total 480 / 480 Balance 480 / 480 Lab / Micro Data 01/31/25 04:24 01/31/25 04:24 Labs: Laboratory Results - last 24 hr 01/30/25 08:40: Hemoglobin A1c 5.3 01/30/25 10:46: Troponin T Hi Sens 2 Hr 19 H 01/30/25 11:35: Troponin T Hi Sens 4Hr 20 H 01/31/25 04:24: WBC 6.2, RBC 3.89 L, Hgb 12.2, Hct 36.6 L, MCV 94.1, MCH 31.4, MCHC 33.3, RDW Std Deviation 43.5, RDW Coeff of Triston 12.6, Plt Count 176, MPV 10.3, Immature Gran % (Auto) 0.300, Neut % (Auto) 67.5, Lymph % (Auto) 16.4 L, M wanda % (Auto) 11.1 H, Eos % (Auto) 3.7, Baso % (Auto) 1.0, Absolute Neuts (auto) 4.2, Absolute Lymphs (auto) 1.02, Nucleated RBC % 0, Sodium 139, Potassium 4.2, Chloride 105, Carbon Dioxide 24.6, Anion Gap 10, BUN 13, Creatinine 0.67 L, E stim Creat Clear Calc 48.35 L, Est GFR (MDRD) Non-Af 85, BUN/Creatinine Ratio 19.7, Glucose 86, Calcium 9.5, Phosphorus 3.1, Magnesium 1.8, Total Bilirubin 0.29, AST 22, ALT 12, Alkaline Phosphatase 75, Total Protein 5.5 L, Albumin 3.7, Globulin 1.9 L, Albumin/Globulin Ratio 2.0, Triglycerides 74, Cholesterol 159, LDL Cholesterol, Calc 84, VLDL Cholesterol 15, HDL Cholesterol 61, Cholesterol/HDL Ratio 2.62 Radiography Diagnostic Testing: Radiology Impression Head/Neck CTA 01/30/25 13:00 IMPRESSION: Small amount of plaque in the bifurcations and proximal ICAs. Non flow- limiting. Less than 50% plaque by NASCET criteria Reading Location: [facility] Physical Exam Neuro Neuro Narrative: Awake, alert, oriented X3 CN 2-12 intact Motor 5/5 sensation: intact no ataxia Subject: Neurology Subjective FRANCIA FLOWERS is a 84 year old F, who we are seeing in consultation today for advice on the management of stroke and related patient care. She has a history of Alzheimer dementia on infusion, JEANETH, HTN, heart murmur who presents foggy vision both eyes. Not a TNK candidate or thrombectomy candidate. Patient recalls on and off visual symptoms for about 10 days. She reports her vision is foggy both eyes, left > right. Assessment and Plan: Stroke Assessment/Plan FRANCIA FLOWERS is a 84 F with a history of Alzheimer dementia on infusion, JEANETH, HTN, heart murmur who presents foggy vision both eyes. Has on and off symptoms for 10 days and worse since few days. Not a TNK or MT candidate. Neurological examination shows intact examination (limited VF testing) Neuroimaging shows Right occipital subacute stroke - cryptogenic in etiology. CTA No LVO. LDL: 84, HbA1c: 5.3 Plan Continue ASA, Plavix for now. Can continue DAPT for 21 days then ASA alone is sufficient. Stroke w/up MRI brain, ECHO pending. Plan 30 day EM if ECHO negative Will need formal visual field evaluation and no driving until cleared by VF testing, [facility] Discuss with Primary Neurologist regarding her infusions for Alzheimers Disease PT,OT evaluation Stroke education Thanks for consult. Spent 40 min in evaluation of this patient NIHSS NIHSS Nursing Documentation NIHSS Nursing Documentation: NIH Stroke Scale Start: 01/30/25 11:19 Freq: Status: Discharge Protocol: Activity Type Activity Date Activity User E-sign Co-sign Detail Recorded Client Recorded Date Recorded By Document 01/30/25 08:10 LEX [id number] 01/30/25 11:21 LEX 01/30/25 08:10 NIH Stroke Scale [NIHSS] A score of 0 is normal or asymptomatic . Total possible score is 42. Inpatient: RN or Physician to activate a stroke alert for onset of new stroke symptoms or with NIHSS increase >/= 3 points. Following change in neurological status, NIHSS will be performed per physician order or more frequently PRN. -1a. Level of Consciousness 0 - Alert; keenly responsive -1b. LOC Questions 0 - Answers BOTH questions correctly -1c. LOC Commands 0 - Performs BOTH tasks correctly -2. Best Gaze 0 - Normal -3. Visual 3 - Bilateral hemianopia ( blind, including cortical blindness) -4. Facial Palsy 0 - Normal symmetrical movements -5a. Left Arm 0 - No drift; arm holds 90 ( or 45) degrees for full 10 seconds -5b. Right Arm 0 - No drift; arm holds 90 ( or 45) degrees for full 10 seconds -6a. Left Leg 0 - No drift; leg holds 30- degree position for full 5 seconds -6b. Right Leg 0 - No drift; leg holds 30- degree position for full 5 seconds -7. Limb Ataxia 0 - Absent -8. Sensory 0 - Normal; no sensory loss -9. Best Language 0 - No aphasia; normal -10. Dysarthria 0 - Normal -11. Extinction and Inattention 0 - No abnormality -Total 3 Query Text:A score of 0 is normal or asymptomatic. Total possible score is 42 . ED: Notify Physician for NIHSS increase by > / = 3 points. Inpatient: RN or Physician to activate a stroke alert for NIHSS increase of > / = 3 points. NIHSS: Ischemic Stroke/TIA Start: 01/30/25 11:25 Text: For PCU Patients: NIH and Neuro Check every 4 Status: Active hours, PRN and with change in RN caregiver. Freq: [id number] Protocol: Activity Type Activity Date Activity User E-sign Co-sign Detail Recorded Client Recorded Date Recorded By Document 01/31/25 09:34 MAYRA 0 01/31/25 09:34 MAYRA 01/31/25 09:34 -1a. Level of Consciousness 0 - Alert; keenly responsive -1b. LOC Questions 0 - Answers BOTH questions correctly -1c. LOC Commands 0 - Performs BOTH tasks correctly -2. Best Gaze 0 - Normal -3. Visual 0 - No visual loss -4. Facial Palsy 0 - Normal symmetrical movements -5a. Left Arm 0 - No drift; arm holds 90 ( or 45) degrees for full 10 seconds -5b. Right Arm 0 - No drift; arm holds 90 ( or 45) degrees for full 10 seconds -6a. Left Leg 0 - No drift; leg holds 30- degree position for full 5 seconds -6b. Right Leg 0 - No drift; leg holds 30- degree position for full 5 seconds -7. Limb Ataxia 0 - Absent -8. Sensory 0 - Normal; no sensory loss -9. Best Language 0 - No aphasia; normal -10. Dysarthria 0 - Normal -11. Extinction and Inattention 0 - No abnormality -Total 0 Query Text:A score of 0 is normal or asymptomatic. Total possible score is 42 . ED: Notify Physician for NIHSS increase by > / = 3 points. Inpatient: RN or Physician to activate a stroke alert for NIHSS increase of > / = 3 points. Coma Scale [Assess] -Eye Opening Spontaneous -Motor Obeys Commands -Verbal Oriented [Total] -Coma Scale Total 15 NIHSS 1a. Level of Consciousness: 0 - Alert; keenly responsive 1b. LOC Questions: 0 - Answers BOTH questions correctly 1c. LOC Commands: 0 - Performs BOTH tasks correctly 2. Best Gaze: 0 - Normal 3. Visual: 0 - No visual loss 4. Facial Palsy: 0 - Normal symmetrical movements 5a. Left Arm: 0 - No drift; arm holds 90 (or 45) degrees for full 10 seconds 5b. Right Arm: 0 - No drift; arm holds 90 (or 45) degrees for full 10 seconds 6a. Left Le - No drift; leg holds 30-degree position for full 5 seconds 6b. Right Le - No drift; leg holds 30-degree position for full 5 seconds 7. Limb Ataxia: 0 - Absent 8. Sensory: 0 - Normal; no sensory loss 9. Best Language: 0 - No aphasia; normal 10. Dysarthria: 0 - Normal 11. Extinction and Inattention: 0 - No abnormality Total: 0
[2025-01-31] MEDS: Folic Acid 1 MG Tablet PO (10:06)
[2025-01-31] MEDS: Aspirin 81 MG TAB.CHEW PO (10:06)
[2025-01-31] MEDS: Pantoprazole Sodium 40 MG Tablet PO (10:07)
[2025-01-31] MEDS: Multivitamins,Ther W-Minerals Tablet 1 TABLET PO (10:07)
[2025-01-31] MEDS: Enoxaparin 40 MG/0.4 ML Syringe SC (10:07)
[2025-01-31] MEDS: Cyanocobalamin 500 MCG Tablet PO (10:08)
[2025-01-31] MEDS: Gabapentin 100 MG Capsule 200 MG PO (10:08)
[2025-01-31] MEDS: Cholecalciferol (VIT D3) 25 MCG TABLET (1,000 UNITS) PO (10:08)
[2025-01-31] MEDS: Clopidogrel Bisulfate 75 MG Tablet PO (10:08)
[2025-01-31] MEDS: Ascorbic Acid 500 MG Tablet PO (10:08)
[2025-01-31 11:06] VITALS: BMI 28.5
[2025-01-31] MEDS: LORazepam 1 MG Tablet PO (11:14)
[2025-01-31 11:18] VITALS: O2SAT 96
[2025-01-31 13:32] VITALS: BP 134/71; PULSE 82; RESP 16; TEMP 36.4; O2SAT 96
--- NOTE | 2025-01-31 15:07 | PCM.DC.SUM ---
Providers Date of Admission: 01/30/25 Date of Discharge: 01/31/25 Primary Care Physician: Dr. Chika Alas MD Consultations 01/30/25 11:25 Consult: Tele-Neurology Routine Consulting Provider: [facility] Reason for Consult: Acute Ischemic Stroke/TIA EMERGENT Consult: No MD Notified: Yes Date Notified: 01/30/25 Time Notified: 11:36 Method of Notification: Answering Service Nursing Unit Staff Notify [facility] of Tele-Neurology Consult: Yes Reason For Visit: STROKE Diagnosis Discharge Diagnosis (1) Occipital stroke: Status: Acute Code(s): I63.9 - Cerebral infarction, unspecified Medications at Discharge Home Medications cholecalciferol (vitamin D3) 25 mcg (1,000 unit) tablet 1,000 unit PO DAILY SUPPLEMENT 11/21/17 disability placard #1 [id number] 08/18/20 ascorbate calcium (vitamin C) 500 mg tablet 500 mg PO DAILY SUPPLEMENT 08/21/20 multivitamin,fi-blax-uabiuazr 27 mg-0.4 mg tablet 1 tab PO DAILY vitamin 10/24/23 atenolol 50 mg tablet 50 mg PO DAILY BP #90 tabs 01/12/24 cyanocobalamin (vitamin B-12) 500 mcg tablet (Vitamin B-12) 500 mcg PO DAILY SUPPLEMENT 01/15/24 folic acid 1 mg tablet 1 mg PO DAILY SUPPLEMENT 01/15/24 spironolactone 25 mg tablet 12.5 mg (1/2 x 25 mg) PO DAILY BP #45 tabs 04/30/24 pramipexole 0.25 mg tablet 0.25 mg PO QHS PRN restless leg(s) #90 tabs 08/11/24 amlodipine 10 mg tablet 10 mg PO DAILY #90 tabs 10/01/24 gabapentin 100 mg capsule 200 mg (2 x 100 mg) PO BID Neuropathy #180 caps 10/25/24 losartan 100 mg tablet 100 mg PO DAILY bp #90 tabs 11/08/24 pantoprazole 40 mg tablet,delayed release 40 mg PO QAM GERD #90 tabs 11/10/24 donepezil 5 mg tablet 5 mg PO QHS Memory #90 tabs 11/24/24 mirtazapine 15 mg tablet 15 mg PO QHS antidepressant #90 tabs 11/24/24 donanemab-azbt 17.5 mg/mL intravenous solution (Kisunla) See Rx Instructions .Route .COMPLEX Multiple 12/23/24 aspirin 81 mg chewable tablet 81 mg PO BREAKFAST 30 days #30 tabs 01/31/25 atorvastatin 20 mg tablet (Lipitor) 20 mg PO QHS 30 days #30 tabs 01/31/25 clopidogrel 75 mg tablet 75 mg PO DAILY 21 days #21 tabs 01/31/25 Hospital Course Operations None Procedures EKG, Transthoracic echo and - (MRI brain, CTA head/neck, CT brain) Summary of Care Provided Minutes Spent on Discharge: 35 Hospital Course: Patient is an 84-year-old female who presented to [facility] ED on 01/30/2025 with blurry vision. Short hospital course as noted below. Patient discharged home in stable condition on 01/31. 1. Acute occipital stroke with blurred vision ? Neurology followed. PT/OT/case management followed. Presented with intermittent blurred vision for few weeks. CT brain showed an ill-defined hypodensity within the right occipital lobe. MRI brain confirmed an acute right CRAB CATCHER territory infarct involving the occipital lobe and corpus callosum. Per neurology, suspect this is contributing to her blurred vision but cannot rule out ophthalmologic eye issues as possible contributor. Neurology recommended daily aspirin, Plavix for 21 days, statin. Recommend close outpatient follow-up with ophthalmology for formal visual field testing. No driving until cleared by visual field testing. Also recommend discussion with primary neurologist regarding infusions for Alzheimer disease. Patient in normal sinus rhythm while inpatient and echo unremarkable but given stroke, 30-day cardiac event monitor ordered on discharge as well. Did well with therapy, stable for discharge home on hospital day 2. 2. Elevated troponin level ? Troponin trend 18 > 19 > 20. No EKG changes and no chest pain. Suspect mild demand ischemia in setting of stroke as above. No further workup needed. Chronic medical conditions: ? Collagenous colitis: History of diarrhea, follows with outpatient GI. No inpatient needs, continue outpatient follow-up. ? GERD: Continue home PPI. ? Hypertension: Held home meds while inpatient for permissive hypertension. Okay to resume home meds on discharge. ? RLS: Continue home Mirapex and gabapentin. ? Alzheimer's dementia: Continue home donepezil. Follow-up with outpatient neurology for discussion regarding outpatient injectable as noted above. ? Depression: Continue home mirtazapine. Total clinical time spent by myself addressing the patient's medical issues, reviewing all the data, and collaborating with patient's care team: 35 minutes. Physical Exam Const alert, oriented x3, no apparent distress and average body habitus Constitutional Narrative: Pleasant elderly female, sitting up comfortably in bedside chair, conversing normally, in no acute distress. General Appearance: cooperative and comfortable HEENT normocephalic, head/scalp atraumatic, hearing grossly normal bilaterally, nasal mucous membranes and turbinates normal and moist oral mucous membranes Eyes PERRL, EOMs intact bilaterally and conjunctivae normal Neck full ROM Chest inspection of chest normal Resp normal respiratory effort, normal air movement, no use of accessory muscles and clear to auscultation bilaterally Cardio regular rate, regular rhythm, no murmurs and peripheral pulses 2+ throughout GI normal to inspection, nondistended, normoactive bowel sounds, soft to palpation, non-tender and non-distended Back/Spine normal ROM Extremity normal to inspection, full ROM and no pedal edema Skin no rashes or lesions noted Neuro oriented x3, CN's II-XII intact bilaterally, moves all extremities and no focal motor deficits Coordination / Balance: ljtxdn-uk-lomb test normal Speech: speech normal Motor Exam: strength 5/5 throughout Psych mental status grossly normal Weight / BMI Weight Weight: 73.1 kg Body Mass Index (BMI) 28.5 ABG / Lab / Microbiology Data 01/31/25 04:24 01/31/25 04:24 Laboratory: Laboratory Results - last 24 hr 01/31/25 04:24: WBC 6.2, RBC 3.89 L, Hgb 12.2, Hct 36.6 L, MCV 94.1, MCH 31.4, MCHC 33.3, RDW Std Deviation 43.5, RDW Coeff of Triston 12.6, Plt Count 176, MPV 10.3, Immature Gran % (Auto) 0.300, Neut % (Auto) 67.5, Lymph % (Auto) 16.4 L, Elmore % (Auto) 11.1 H, Eos % (Auto) 3.7, Baso % (Auto) 1.0, Absolute Neuts (auto) 4.2, Absolute Lymphs (auto) 1.02, Nucleated RBC % 0, Sodium 139, Potassium 4.2, Chloride 105, Carbon Dioxide 24.6, Anion Gap 10, BUN 13, Creatinine 0.67 L, Estim Creat Clear Calc 48.35 L, Est GFR (MDRD) Non-Af 85, BUN/Creatinine Ratio 19.7, Glucose 86, Calcium 9.5, Phosphorus 3.1, Magnesium 1.8, Total Bilirubin 0.29, AST 22, ALT 12, Alkaline Phosphatase 75, Total Protein 5.5 L, Albumin 3.7, Globulin 1.9 L, Albumin/Globulin Ratio 2.0, Triglycerides 74, Cholesterol 159, LDL Cholesterol, Calc 84, VLDL Cholesterol 15, HDL Cholesterol 61, Cholesterol/HDL Ratio 2.62 Radiography Diagnostic Testing: Radiology Impression Echocardiogram 01/30/25 11:02 Interpretation Summary The estimated ejection fraction is 55-60 %. Normal LV systolic function Negative bubble study with no evidence of intracardiac shunt No significant valvular abnormality No previous study to compare. Ordering Physician: Maine Feliciano Referring Physician: Chika Alas Performed By: Leesa Severino, ANGY, RVT Brain MRI 01/31/25 08:00 IMPRESSION: 1. Extensive microvascular changes. 2. Chronic sphenoid opacification. 3. Acute right CRAB CATCHER territory infarct involving the occipital lobe and corpus callosum [facility] D/C Instructions DC O2, CPAP, BIPAP Needs Home O2 Discharge instructions: No Meaningful Use Info Meaningful Use Meaningful Use Diagnoses (Choose all that apply): Ischemic CVA CVA Therapy Assessed for PT,OT and/or ST?: Yes Ischemic Stroke Antithrombotic order at d/c?: Yes Dx of Atrial fib/flutter?: No Statin Dosing Therapy Reference: STATIN DOSE THERAPY REFERENCE: * Patients > 75 years receive moderate or high dose statin therapy. * Patients 75 years or YOUNGER should receive HIGH intensity statin dose unless contraindicated. You will be required to document reason for non-treatment if statin daily dose does not meet guidelines. HIGH DOSE STATIN THERAPY DAILY Atorvastatin > than or = to 40 mg Rosuvastatin > than or = to 20 mg Amlodipine + Atorvastatin > than or = to 2.5/40 mg Ezetimibe + Simvastatin 10/80 mg Simvastatin 80mg Statins at discharge?: Yes Primary Dx Acute Ischemic CVA?: Yes Discharge Plan Admission Admit Date/Time: 01/30/25 10:54 Primary Reason for Your Visit: Blurry vision Attending Provider: Justice Calvillo Primary Care Provider: Chika Alas Consulting Providers: Adolfo Mckeon; Lesli Marroquin; Ester Palomino; Mabel Sesay; Gissel Marshall; Jaspal Turcios; Magnolia Garcia; Castro Hardy; Eliel Moreno; Marlo Gannon; Sonia Fuentes; Willy Lagos; Fern [place]; Lauryn Platt; Christian Ku; Alexis Maria; Tiffany Burnett; Scot Resendez; Joanie Feliciano; Bj Carbone; Maine Feliciano Instructions Additional Instructions / Restrictions: Start taking a baby aspirin and atorvastatin daily. Take clopidogrel (Plavix) for 21 days total. Follow-up with ophthalmology as soon as able. Discharge Orders/Prescriptions Prescriptions: New clopidogrel 75 mg Tablet 75 mg PO DAILY 21 Days Qty: 21 0RF aspirin 81 mg Tablet,Chewable 81 mg PO BREAKFAST 30 Days Qty: 30 2RF atorvastatin [Lipitor] 20 mg tablet 20 mg PO QHS 30 Days Qty: 30 2RF Continued ascorbate calcium (vitamin C) 500 mg tablet 500 mg PO DAILY atenolol 50 mg tablet 50 mg PO DAILY Qty: 90 3RF pantoprazole 40 mg tablet,delayed release (DR/EC) 40 mg PO QAM Qty: 90 3RF Rx Instructions: Take 30 minutes before breakfast cholecalciferol (vitamin D3) 1,000 UNIT tablet 1,000 unit PO DAILY multivitamin,[id number]-wdddbipo 27-0.4 mg tablet 1 tab PO DAILY folic acid 1 mg tablet 1 mg PO DAILY cyanocobalamin (vitamin B-12) [Vitamin B-12] 500 mcg tablet 500 mcg PO DAILY (DME) disability harpreet See Rx Instructions .ROUTE .MEDSUPPLY Qty: 1 0RF Rx Instructions: As directed, Length of time: 5 years spironolactone 25 mg tablet 12.5 mg PO DAILY Qty: 45 3RF pramipexole 0.25 mg tablet 0.25 mg PO QHS PRN (Reason: restless leg(s)) Qty: 90 1RF amlodipine 10 mg tablet 10 mg PO DAILY Qty: 90 1RF gabapentin 100 mg capsule 200 mg PO BID Qty: 180 3RF losartan 100 mg tablet 100 mg PO DAILY Qty: 90 1RF mirtazapine 15 mg tablet 15 mg PO QHS Qty: 90 1RF donepezil 5 mg tablet 5 mg PO QHS Qty: 90 1RF Kisunla 17.5 mg/mL solution See Rx Instructions .ROUTE .COMPLEX Rx Instructions: Infuse 700mg IV over 30 minutes once every 4 weeks for infusions 1,2 and 3.; Infuse 700mg IV over 30 minutes once every 4 weeks for infusions 1,2 and 3. Discontinued naproxen sodium [Aleve] 220 mg tablet 220 mg PO BID PRN (Reason: pain) Other Ambulatory Orders: 30 Day Event Recorder Preventi (Urgent) Timeframe: 1 Month Facility: [facility] - Location: Cardiovascular Services Ordered By: Dr. Justice Calvillo Referrals / Follow Up: Chika Alas MD [Primary Care Provider] - Disposition Disposition (needs filled in before D/C Order can be placed): Home, Self Care Charges/Coding Visit Charges Inpatient E&M: 24424 Disch Hosp >30min
[2025-01-31 16:11] VITALS: BP 148/70; PULSE 78; RESP 16; TEMP 36.4; O2SAT 96
== END 2025-01-31 17:51 | disposition home or self-care (01) | DRG 65 ==
LOC: ED 11:07 → PCU 11:08
PROVIDERS: Admitting Provider Internal Medicine; Emergency Provider Emergency Medicine; PCP Internal Medicine; Visit Provider Hospitalist
DX: I63.89 Other cerebral infarction (principal); F02.83 Dementia in other diseases classified elsewhere, unspecified severity, with mood disturbance; I24.89 Other forms of acute ischemic heart disease; Z66 Do not resuscitate; I10 Essential (primary) hypertension; G25.81 Restless legs syndrome; G30.9 Alzheimer's disease, unspecified; K21.9 Gastro-esophageal reflux disease without esophagitis; I44.0 Atrioventricular block, first degree; K52.831 Collagenous colitis; G47.33 Obstructive sleep apnea (adult) (pediatric); H53.8 Other visual disturbances; R29.703 NIHSS score 3; R01.1 Cardiac murmur, unspecified; Z79.899 Other long term (current) drug therapy
CPT/HCPCS: 36415; 70450; 70496; 70498; 70551; 80048; 80053; 80061; 83036; 83735; 84100; 84484; 85025; 92610; 93005; 93306; 94668; 97161; 97165; 97802; 99284; Q9967; A4216